=== PATIENT | male | born 1950 | race Caucasian/White ===

== ENCOUNTER 2016-08-04 16:36 | Inpatient (IN) | payer MEDICARE, BC ==
[2016-08-04] MEDS ORDERED: PANTOPRAZOLE 40 MG/10 ML VIAL IVP STA (18:06)
[2016-08-04] MEDS ORDERED: SODIUM CHLORIDE 0.9% 1,000 ML IV STA (18:06)
[2016-08-04] MEDS ORDERED: ONDANSETRON 4 MG/2 ML VIAL IVP STA (18:36)
--- NOTE | 2016-08-04 18:37 | ED ---
GI Bleed HPI - General Chief complaint: GI Bleed Stated complaint: Vomiting Blood Time Seen by Provider: 08/04/16 18:04 Source: patient, RN notes reviewed Mode of arrival: ambulatory Limitations: no limitations - History of Present Illness Initial comments: Patient is a 66-year-old male who states that he is in relatively good health with a chief complaint of episodes of vomiting dark blood today. Patient reports this never happened to him before. He states that he has no specific abdominal pain. He does report that he is occasionally short of breath. Patient denies any history of high blood pressure but does say he is borderline diabetic, he states that over the past week he's been increasingly thirsty.. He states that he's had no fever or chills. States that lately he has had a history of constipation but has had normal bowel movements within the past week. Denies any bloody or dark stools. Patient denies any chest pain, shortness of breath, vomiting, headache, fever, chills, upper story symptoms. - Related Data Home Medications Medication Instructions Recorded Confirmed Aspirin 81 mg PO HS 08/04/16 08/04/16 Multivitamins, Thera [Multivitamin 1 tab PO DAILY 08/04/16 08/04/16 (formulary)] Allergies Allergy/AdvReac Type Severity Reaction Status Date / Time No Known Allergies Allergy Verified 08/04/16 18:50 Review of Systems ROS Statement: Those systems with pertinent positive or pertinent negative responses have been documented in the HPI. ROS Other: All systems not noted in ROS Statement are negative. Past Medical History Past Medical History: No Reported History History of Any Multi-Drug Resistant Organisms: None Reported Past Surgical History: Tonsillectomy Past Psychological History: No Psychological Hx Reported Smoking Status: Former smoker Past Alcohol Use History: None Reported Past Drug Use History: None Reported General Exam Limitations: no limitations General appearance: alert, in no apparent distress Head exam: Present: atraumatic, normocephalic, normal inspection Eye exam: Present: normal appearance, PERRL, EOMI. Absent: scleral icterus, conjunctival injection, periorbital swelling ENT exam: Present: normal exam, mucous membranes moist Neck exam: Present: normal inspection, full ROM. Absent: tenderness, meningismus, lymphadenopathy Respiratory exam: Present: normal lung sounds bilaterally. Absent: respiratory distress, wheezes, rales, rhonchi, stridor Cardiovascular Exam: Present: regular rate, normal rhythm, normal heart sounds. Absent: systolic murmur, diastolic murmur, rubs, gallop, clicks GI/Abdominal exam: Present: soft, normal bowel sounds. Absent: distended, tenderness, guarding, rebound, rigid Extremities exam: Present: normal inspection, full ROM, normal capillary refill. Absent: tenderness, pedal edema, joint swelling, calf tenderness Back exam: Present: normal inspection Neurological exam: Present: alert, oriented X3, CN II-XII intact Psychiatric exam: Present: normal affect, normal mood Skin exam: Present: warm, dry, intact, normal color. Absent: rash Course Vital Signs 08/04/16 08/04/16 17:36 19:51 Temperature 96.9 F L 97.1 F L Pulse Rate 105 H 99 Respiratory 18 18 Rate Blood Pressure 134/62 149/69 O2 Sat by Pulse 97 98 Oximetry Medical Decision Making - Medical Decision Making Patient is a 66-year-old male who states that he is in relatively good health with a chief complaint of episodes of vomiting dark blood today. Patient reports this never happened to him before. He states that he has no specific abdominal pain. He does report that he is occasionally short of breath. Patient denies any history of high blood pressure but does say he is borderline diabetic, he states that over the past week he's been increasingly thirsty.. He states that he's had no fever or chills. Patient was given IV fluids and labs are obtained. EKG was reviewed and is negative for any acute process. No evidence of ST elevation or T-wave inversion.Patient has elevated white blood cell count 19.0. Is likely related to the DKA. Sodium 131, potassium 6.0. Chloride 93, CO2 of 10. BUN of 25. Patient's glucose is 571. Patient's serum acetone positive. will be started on IV hydration for diabetic ketoacidosis. Insulin boluses started. Currently pending ABG and fecal occult blood test. ABG shows pH of 7.2. PCO2 of 17.9. PO2 102. Bicarb of 6.8, CO2 7.3. - Lab Data Result diagrams: 08/04/16 18:40 08/04/16 18:40 Lab Results 03/28/17 03/28/17 03/28/17 Range/Units 18:40 18:40 18:40 WBC 19.0 H (3.8-10.6) k/uL RBC 5.93 H (4.30-5.90) m/uL Hgb 17.0 (13.0-17.5) gm/dL Hct 52.3 (39.0-53.0) % MCV 88.2 (80.0-100.0) fL MCH 28.7 (25.0-35.0) pg MCHC 32.5 (31.0-37.0) g/dL RDW 14.0 (11.5-15.5) % Plt Count 408 (150-450) k/uL Neutrophils % 88 % Lymphocytes % 9 % Monocytes % 2 % Eosinophils % 0 % Basophils % 1 % Neutrophils # 16.8 H (1.3-7.7) k/uL Lymphocytes # 1.6 (1.0-4.8) k/uL Monocytes # 0.3 (0-1.0) k/uL Eosinophils # 0.0 (0-0.7) k/uL Basophils # 0.2 (0-0.2) k/uL PT (9.0-12.0) sec INR (<1.1) APTT (22.0-30.0) sec Sample Site ABG pH (7.35-7.45) ABG pCO2 (35-45) mmHg ABG pO2 (83-108) mmHg ABG HCO3 (21-25) mmol/L ABG Total CO2 (19-24) mmol/L ABG O2 Saturation (94-97) % ABG Base Excess mmol/L FiO2 % Sodium 131 L (137-145) mmol/L Potassium 6.0 H (3.5-5.1) mmol/L Chloride 93 L (98-107) mmol/L Carbon Dioxide 10 L* (22-30) mmol/L Anion Gap 28 mmol/L BUN 25 H (9-20) mg/dL Creatinine 1.17 (0.66-1.25) mg/dL Est GFR (MDRD) Af Amer >60 (>60 ml/min/1.73 sqM) Est GFR (MDRD) Non-Af >60 (>60 ml/min/1.73 sqM) Glucose 571 H* (74-99) mg/dL POC Glucose (mg/dL) (75-99) mg/dL POC Glu Supervisor Dock ID Calcium 9.3 (8.4-10.2) mg/dL Total Bilirubin 0.7 (0.2-1.3) mg/dL AST 20 (17-59) U/L ALT 40 (21-72) U/L Alkaline Phosphatase 159 H (38-126) U/L Total Creatine Kinase 53 L (55-170) U/L CK-MB (CK-2) 1.3 (0.0-2.4) ng/mL CK-MB (CK-2) Rel Index 2.5 Troponin I <0.012 (0.000-0.034) ng/mL Total Protein 8.6 H (6.3-8.2) g/dL Albumin 4.7 (3.5-5.0) g/dL Stool Occult Blood (Negative) Acetone, Qual (Negative) Blood Type Blood Type Recheck Antibody Screen Spec Expiration Date 08/04/16 08/04/16 08/04/16 Range/Units 18:40 18:40 18:40 WBC (3.8-10.6) k/uL RBC (4.30-5.90) m/uL Hgb (13.0-17.5) gm/dL Hct (39.0-53.0) % MCV (80.0-100.0) fL MCH (25.0-35.0) pg MCHC (31.0-37.0) g/dL RDW (11.5-15.5) % Plt Count (150-450) k/uL Neutrophils % % Lymphocytes % % Monocytes % % Eosinophils % % Basophils % % Neutrophils # (1.3-7.7) k/uL Lymphocytes # (1.0-4.8) k/uL Monocytes # (0-1.0) k/uL Eosinophils # (0-0.7) k/uL Basophils # (0-0.2) k/uL PT 10.2 (9.0-12.0) sec INR 1.0 (<1.1) APTT 24.3 (22.0-30.0) sec Sample Site ABG pH (7.35-7.45) ABG pCO2 (35-45) mmHg ABG pO2 (83-108) mmHg ABG HCO3 (21-25) mmol/L ABG Total CO2 (19-24) mmol/L ABG O2 Saturation (94-97) % ABG Base Excess mmol/L FiO2 % Sodium (137-145) mmol/L Potassium (3.5-5.1) mmol/L Chloride (98-107) mmol/L Carbon Dioxide (22-30) mmol/L Anion Gap mmol/L BUN (9-20) mg/dL Creatinine (0.66-1.25) mg/dL Est GFR (MDRD) Af Amer (>60 ml/min/1.73 sqM) Est GFR (MDRD) Non-Af (>60 ml/min/1.73 sqM) Glucose (74-99) mg/dL POC Glucose (mg/dL) (75-99) mg/dL POC Glu Supervisor Dock ID Calcium (8.4-10.2) mg/dL Total Bilirubin (0.2-1.3) mg/dL AST (17-59) U/L ALT (21-72) U/L Alkaline Phosphatase (38-126) U/L Total Creatine Kinase (55-170) U/L CK-MB (CK-2) (0.0-2.4) ng/mL CK-MB (CK-2) Rel Index Troponin I (0.000-0.034) ng/mL Total Protein (6.3-8.2) g/dL Albumin (3.5-5.0) g/dL Stool Occult Blood (Negative) Acetone, Qual Positive (Negative) Blood Type O Positive Blood Type Recheck No Antibody Screen NEGATIVE Spec Expiration Date 08/07/2016 - 233908/04/16 08/04/16 08/04/16 Range/Units 19:50 20:00 20:21 WBC (3.8-10.6) k/uL RBC (4.30-5.90) m/uL Hgb (13.0-17.5) gm/dL Hct (39.0-53.0) % MCV (80.0-100.0) fL MCH (25.0-35.0) pg MCHC (31.0-37.0) g/dL RDW (11.5-15.5) % Plt Count (150-450) k/uL Neutrophils % % Lymphocytes % % Monocytes % % Eosinophils % % Basophils % % Neutrophils # (1.3-7.7) k/uL Lymphocytes # (1.0-4.8) k/uL Monocytes # (0-1.0) k/uL Eosinophils # (0-0.7) k/uL Basophils # (0-0.2) k/uL PT (9.0-12.0) sec INR (<1.1) APTT (22.0-30.0) sec Sample Site RRAD ABG pH 7.20 L* (7.35-7.45) ABG pCO2 18 L* (35-45) mmHg ABG pO2 102 (83-108) mmHg ABG HCO3 7 L* (21-25) mmol/L ABG Total CO2 7 L (19-24) mmol/L ABG O2 Saturation 96.0 (94-97) % ABG Base Excess -20.0 mmol/L FiO2 21 % Sodium (137-145) mmol/L Potassium (3.5-5.1) mmol/L Chloride (98-107) mmol/L Carbon Dioxide (22-30) mmol/L Anion Gap mmol/L BUN (9-20) mg/dL Creatinine (0.66-1.25) mg/dL Est GFR (MDRD) Af Amer (>60 ml/min/1.73 sqM) Est GFR (MDRD) Non-Af (>60 ml/min/1.73 sqM) Glucose (74-99) mg/dL POC Glucose (mg/dL) 462 H (75-99) mg/dL POC Glu Supervisor Dock ID Laureen Sosa Calcium (8.4-10.2) mg/dL Total Bilirubin (0.2-1.3) mg/dL AST (17-59) U/L ALT (21-72) U/L Alkaline Phosphatase (38-126) U/L Total Creatine Kinase (55-170) U/L CK-MB (CK-2) (0.0-2.4) ng/mL CK-MB (CK-2) Rel Index Troponin I (0.000-0.034) ng/mL Total Protein (6.3-8.2) g/dL Albumin (3.5-5.0) g/dL Stool Occult Blood Negative (Negative) Acetone, Qual (Negative) Blood Type Blood Type Recheck Antibody Screen Spec Expiration Date 08/04/16 19:11 EKG shows normal sinus rhythm. Ventricular rate 96 weeks per minute. MI interval 140 ms. QRS duration 84 ms. QT/QTc is 344/434 ms. No evidence of ST elevation or T-wave inversion. No evidence of atrial or ventricular arrhythmias. - Radiology Data Radiology results: report reviewed Chest x-rays negative for any acute process. KUB is negative for any acute process. Disposition Clinical Impression: DKA (diabetic ketoacidoses), Bloody emesis Disposition: ADMITTED IP TO THIS HOSP Condition: Stable Referrals: None,Stated [Primary Care Provider] - 1-2 days Time of Disposition: 19:55
[2016-08-04 18:56] LABS: Basophils # (A) 0.2 k/uL (0-0.2); Basophils % (A) 1 %; CH 28.7; CHCM 32.8; Eosinophils % (A) 0 %; HCT 52.3 % (39.0-53.0); HDW 2.97; Luc # (Auto) 0.13; Luc % (Auto) 1; Lymphocytes # (A) 1.6 k/uL (1.0-4.8); Lymphocytes % (A) 9 %; MCH 28.7 pg (25.0-35.0); MCHC 32.5 g/dL (31.0-37.0); MCV 88.2 fL (80.0-100.0); Mean Platelet Volume 8.3; Monocytes # (A) 0.3 k/uL (0-1.0); Monocytes % (A) 2 %; Neutrophils # (A) 16.8 k/uL (1.3-7.7); Neutrophils % (A) 88 %; RBC 5.93 m/uL (4.30-5.90); WBC (Perox) 19.86
[2016-08-04 19:01] LABS: Partial Thromboplastin Time 24.3 sec (22.0-30.0); Prothrombin Time 10.2 sec (9.0-12.0)
[2016-08-04 19:03] LABS: ALT 40 U/L (21-72); AST 20 U/L (17-59); Alkaline Phosphatase 159 U/L (38-126); Anion Gap 28 mmol/L; Blood Urea Nitrogen 25 mg/dL (9-20); Calcium 9.3 mg/dL (8.4-10.2); Chloride 93 mmol/L (98-107); Non-African American GFR(MDRD) >60 (>60 ml/min/1.73 sqM); Sodium 131 mmol/L (137-145); Total Bilirubin 0.7 mg/dL (0.2-1.3); Total Protein 8.6 g/dL (6.3-8.2)
[2016-08-04 19:09] LABS: Glucose 571 mg/dL (74-99)
[2016-08-04 19:10] LABS: Carbon Dioxide 10 mmol/L (22-30)
[2016-08-04 19:11] LABS: Creatine Kinase 53 U/L (55-170)
[2016-08-04 19:24] LABS: Creatine Kinase MB 1.3 ng/mL (0.0-2.4); Troponin I <0.012 ng/mL (0.000-0.034)
--- NOTE | 2016-08-04 19:38 | XR ---
EXAMINATION TYPE: XR chest 2V DATE OF EXAM: 08/04/2016 7:04 PM COMPARISON: NONE HISTORY: Vomiting blood TECHNIQUE: Frontal and lateral views of the chest are obtained. FINDINGS: There is no focal air space opacity, pleural effusion, or pneumothorax seen. No other abno rmal gas collections. The cardiac silhouette size is within normal limits. The osseous structures a re intact. IMPRESSION: No acute cardiopulmonary process.
--- NOTE | 2016-08-04 19:40 | XR ---
EXAMINATION TYPE: XR KUB DATE OF EXAM: 08/04/2016 7:04 PM COMPARISON: NONE HISTORY: Vomiting blood for 4 hours TECHNIQUE: 2 upright views FINDINGS: There is no pneumoperitoneum and no pneumatosis. The bowel gas pattern is negative. Soft tissues and skeletal structures are unremarkable. IMPRESSION: No acute process.
[2016-08-04] MEDS ORDERED: SODIUM CHLORIDE 0.9% 1,000 ML IV ONE (19:45)
[2016-08-04] MEDS ORDERED: INSULIN REGULAR BOLUS (FROM DRIP BAG) IV ONE (19:46)
[2016-08-04 20:18] LABS: ABG PCO2 18 mmHg (35-45)
[2016-08-04 20:19] LABS: ABG HCO3 7 mmol/L (21-25); ABG PO2 102 mmHg (83-108); ABG TCO2 7 mmol/L (19-24)
[2016-08-04 20:23] LABS: Glucose,Whole Blood 462 mg/dL (75-99)
[2016-08-04] MEDS: INSULIN REGULAR 100 UNIT in SODIUM CHLORIDE 0.9% 100 ML IV SCH (20:39)
[2016-08-04 21:13] LABS: Glucose,Whole Blood 449 mg/dL (75-99)
[2016-08-04 21:25] LABS: Glucose,Whole Blood 422 mg/dL (75-99)
[2016-08-04 22:04] LABS: Glucose,Whole Blood 372 mg/dL (75-99)
[2016-08-04 22:08] VITALS: BMI 38.0
[2016-08-04] MEDS: SODIUM CHLORIDE 0.9% 1,000 ML IV SCH (22:09)
[2016-08-04 22:57] LABS: Appearance,Urine Cloudy (Clear); Bacteria,Urine Few /hpf; Bilirubin,Urine Negative (Negative); Glucose,Urine (UA) 4+ (Negative); Granular Casts,Urine 4 /lpf (0); Leukocyte Esterase,Urine Negative (Negative); Mucus,Urine Rare /hpf; Nitrite,Urine Negative (Negative); Particle Count 42564; Protein,Urine 1+ (Negative); RBC,Urine 1 /hpf (0-5); Specific Gravity,Urine 1.021 (1.001-1.035); Squamous Epithelial Cell,Urine <1 /hpf (0-4); UA Billing (MACRO vs. MICRO) MICRO; Urobilinogen,Urine <2.0 mg/dL (<2.0); WBC,Urine 8 /hpf (0-5)
[2016-08-04 23:01] LABS: Ketones,Urine 4+ (Negative)
[2016-08-04 23:04] LABS: Glucose,Whole Blood 299 mg/dL (75-99)
[2016-08-04] MEDS ORDERED: ONDANSETRON 4 MG/2 ML VIAL IVP PRN (23:21)
[2016-08-04] MEDS: DEXTROSE 5%-0.45% NACL 1,000 ML IV SCH (23:25)
[2016-08-04] MEDS: D5-0.45% NACL WITH KCL 20MEQ/L 1,000 ML IV SCH (23:25)
[2016-08-05 00:02] LABS: Glucose,Whole Blood 248 mg/dL (75-99)
[2016-08-05 00:49] LABS: Anion Gap 17 mmol/L; Blood Urea Nitrogen 24 mg/dL (9-20); Carbon Dioxide 12 mmol/L (22-30); Chloride 103 mmol/L (98-107); Glucose 276 mg/dL (74-99); Non-African American GFR(MDRD) >60 (>60 ml/min/1.73 sqM); Sodium 132 mmol/L (137-145)
[2016-08-05 01:06] LABS: Glucose,Whole Blood 227 mg/dL (75-99)
[2016-08-05] MEDS: SODIUM CHLORIDE 0.9% 1,000 ML IV SCH ×5 (01:10→21:19)
[2016-08-05] MEDS: D5-0.45% NACL WITH KCL 20MEQ/L 1,000 ML IV SCH ×2 (01:40→09:38)
[2016-08-05 02:11] LABS: Glucose,Whole Blood 206 mg/dL (75-99)
[2016-08-05 03:18] LABS: Glucose,Whole Blood 171 mg/dL (75-99)
[2016-08-05] MEDS: INSULIN REGULAR 100 UNIT in SODIUM CHLORIDE 0.9% 100 ML IV SCH (03:31)
[2016-08-05 04:09] LABS: Glucose,Whole Blood 123 mg/dL (75-99)
[2016-08-05 05:12] LABS: Glucose,Whole Blood 115 mg/dL (75-99)
[2016-08-05] MEDS: DEXTROSE 5%-0.45% NACL 1,000 ML IV SCH ×2 (05:21→12:28)
[2016-08-05 06:18] LABS: Glucose,Whole Blood 143 mg/dL (75-99)
[2016-08-05 06:35] LABS: Anion Gap 11 mmol/L; Blood Urea Nitrogen 22 mg/dL (9-20); Carbon Dioxide 21 mmol/L (22-30); Chloride 104 mmol/L (98-107); Glucose 109 mg/dL (74-99); Non-African American GFR(MDRD) >60 (>60 ml/min/1.73 sqM); Phosphorous 2.7 mg/dL (2.5-4.5); Potassium 5.3 mmol/L (3.5-5.1); Sodium 136 mmol/L (137-145)
[2016-08-05 07:08] LABS: Glucose,Whole Blood 169 mg/dL (75-99)
[2016-08-05 08:09] LABS: Glucose,Whole Blood 214 mg/dL (75-99)
[2016-08-05 09:05] LABS: Hemoglobin A1C 12.4 % (4.2-6.1)
[2016-08-05] MEDS: MULTIVITAMINS, THERA 1 EACH TAB PO SCH (09:13)
[2016-08-05 09:26] LABS: Glucose,Whole Blood 381 mg/dL (75-99)
[2016-08-05 10:09] LABS: Glucose,Whole Blood 448 mg/dL (75-99)
[2016-08-05 11:40] LABS: Glucose,Whole Blood 493 mg/dL (75-99)
[2016-08-05 12:14] LABS: Glucose,Whole Blood 392 mg/dL (75-99)
[2016-08-05] MEDS ORDERED: INSULIN DETEMIR 100 UNIT/ML 10 ML VIAL SQ SCH (13:00)
[2016-08-05 13:04] LABS: ALT 34 U/L (21-72); AST 16 U/L (17-59); Alkaline Phosphatase 118 U/L (38-126); Anion Gap 12 mmol/L; Blood Urea Nitrogen 20 mg/dL (9-20); Calcium 8.9 mg/dL (8.4-10.2); Carbon Dioxide 19 mmol/L (22-30); Chloride 97 mmol/L (98-107); Glucose 425 mg/dL (74-99); Non-African American GFR(MDRD) >60 (>60 ml/min/1.73 sqM); Potassium 5.5 mmol/L (3.5-5.1); Sodium 128 mmol/L (137-145); Total Bilirubin 0.5 mg/dL (0.2-1.3); Total Protein 6.5 g/dL (6.3-8.2)
[2016-08-05 13:53] LABS: Glucose,Whole Blood 370 mg/dL (75-99)
--- NOTE | 2016-08-05 14:28 | P.HPIM ---
History of Present Illness H&P Date: 08/05/16 Chief Complaint: Nausea vomiting and hematemesis. 66-year-old gentleman was in his normal health patient only takes aspirin as his medication comes into the hospital with complains of intermittent nausea and vomiting for the last day prior to admission. Patient stated that he noted liquid stool with some dark material concerning for blood prior to admission. Patient was concerned and was evaluated in the emergency room. Patient underwent a panel of labs was noted to have anion gap metabolic acidosis with hyperglycemia and ketonemia consistent with diabetic ketoacidosis. Patient denies having any history of diabetes, denies having any recent illnesses. Patient states that he was in his usual health. Patient states that he was a heavy drinker about 10 years ago however has not had any alcohol in the recent times. During the time of my evaluation patient states that he is feeling better denies having any headaches, blurry vision, nausea, vomiting, abdominal pain, diarrhea, urinary urgency or frequency at this time. Patient is started on a insulin drip around 4-6 units per hour. HbA1c was around 12.8 g per DL. Review of Systems All systems: negative (Noted in HPI) Past Medical History Past Medical History: Hyperlipidemia Additional Past Medical History / Comment(s): used to take lipitor History of Any Multi-Drug Resistant Organisms: None Reported Past Surgical History: Tonsillectomy Past Anesthesia/Blood Transfusion Reactions: No Reported Reaction Past Psychological History: No Psychological Hx Reported Smoking Status: Former smoker Past Alcohol Use History: None Reported Past Drug Use History: None Reported - Past Family History Mother Family Medical History: Coronary Artery Disease (CAD), Diabetes Mellitus Father Family Medical History: Coronary Artery Disease (CAD) Brother(s) Family Medical History: No Reported History Medications and Allergies Home Medications Medication Instructions Recorded Confirmed Type Aspirin 81 mg PO HS 08/04/16 08/04/16 History Multivitamins, Thera [Multivitamin 1 tab PO DAILY 08/04/16 08/04/16 History (formulary)] Allergies Allergy/AdvReac Type Severity Reaction Status Date / Time No Known Allergies Allergy Verified 08/04/16 18:50 Physical Exam Vitals: Vital Signs Temp Pulse Pulse Resp BP BP Pulse Ox 08/05/16 12:00 97.4 F L 88 18 160/61 98 08/05/16 11:31 97.4 F L 91 18 168/63 98 08/05/16 08:09 97.4 F L 86 18 142/67 96 08/05/16 08:00 91 18 08/05/16 04:00 96 16 120/57 97 08/05/16 00:00 92 18 133/67 08/04/16 21:59 97.4 F L 93 18 134/72 100 08/04/16 20:47 112 H 18 145/67 98 08/04/16 19:51 97.1 F L 99 18 149/69 98 Intake and Output 08/04/16 08/05/16 08/05/16 22:59 06:59 14:59 Intake Total 1016.485 80.243 1280 Output Total 800 500 650 Balance 216.485 -419.757 630 Intake: IV 1000 Sodium Chloride 0.9% 1, 1000 000 ml @ 200 mls/hr IV . Q5H [facility] Rx#:[id number] Intake, IV Titration 16.485 80.243 300 Amount Dextrose 5%-0.45% NaCl 1, 300 000 ml @ 150 mls/hr IV . Q6H40M [facility]RICE Rx#:[id number] Insulin Regular 100 unit 16.485 80.243 In Sodium Chloride 0.9% 100 ml @ 0.1 UNITS/KG/HR 10.99 mls/hr IV .Q9H12M PATRICE Rx#:[id number] Oral 980 Output: Urine 800 500 650 Other: # Voids 1 2 Weight 120.4 kg 120.4 kg 120.4 kg Patient Weight 08/06/16 06:59 Weight 120.4 kg Physical exam Gen. appearance oriented 3 in no distress Neck is supple no JVD Lungs good air entry clear to auscultation no rhonchi or wheezing Heart S1-S2 heard regular rate and rhythm no murmurs appreciated Abdomen distended no organomegaly bowel sounds intact tympanic to percussion. Neurologically cranial nerves II-12 grossly intact no focal motor or sensory deficits noted Skin no abnormalities appreciated Results CBC & Chem 7: 08/04/16 18:40 08/05/16 12:11 Labs: Abnormal Lab Results - Last 24 Hours (Table) 08/04/16 08/04/16 08/04/16 Range/Units 20:00 20:21 21:11 ABG pH 7.20 L* (7.35-7.45) ABG pCO2 18 L* (35-45) mmHg ABG HCO3 7 L* (21-25) mmol/L ABG Total CO2 7 L (19-24) mmol/L Sodium (137-145) mmol/L Potassium (3.5-5.1) mmol/L Chloride (98-107) mmol/L Carbon Dioxide (22-30) mmol/L BUN (9-20) mg/dL Glucose (74-99) mg/dL POC Glucose (mg/dL) 462 H 449 H (75-99) mg/dL AST (17-59) U/L Urine Protein (Negative) Urine Glucose (UA) (Negative) Urine Ketones (Negative) Urine WBC (0-5) /hpf Urine Bacteria (None) /hpf Hyaline Casts (0-2) /lpf Urine Mucus (None) /hpf 08/04/16 08/04/16 08/04/16 Range/Units 21:22 22:03 22:24 ABG pH (7.35-7.45) ABG pCO2 (35-45) mmHg ABG HCO3 (21-25) mmol/L ABG Total CO2 (19-24) mmol/L Sodium (137-145) mmol/L Potassium (3.5-5.1) mmol/L Chloride (98-107) mmol/L Carbon Dioxide (22-30) mmol/L BUN (9-20) mg/dL Glucose (74-99) mg/dL POC Glucose (mg/dL) 422 H 372 H (75-99) mg/dL AST (17-59) U/L Urine Protein 1+ H (Negative) Urine Glucose (UA) 4+ H (Negative) Urine Ketones 4+ H (Negative) Urine WBC 8 H (0-5) /hpf Urine Bacteria Few H (None) /hpf Hyaline Casts 5 H (0-2) /lpf Urine Mucus Rare H (None) /hpf 08/04/16 08/04/16 08/05/16 Range/Units 23:02 23:59 00:01 ABG pH (7.35-7.45) ABG pCO2 (35-45) mmHg ABG HCO3 (21-25) mmol/L ABG Total CO2 (19-24) mmol/L Sodium 132 L (137-145) mmol/L Potassium (3.5-5.1) mmol/L Chloride (98-107) mmol/L Carbon Dioxide 12 L (22-30) mmol/L BUN 24 H (9-20) mg/dL Glucose 276 H (74-99) mg/dL POC Glucose (mg/dL) 299 H 248 H (75-99) mg/dL AST (17-59) U/L Urine Protein (Negative) Urine Glucose (UA) (Negative) Urine Ketones (Negative) Urine WBC (0-5) /hpf Urine Bacteria (None) /hpf Hyaline Casts (0-2) /lpf Urine Mucus (None) /hpf 08/05/16 08/05/16 08/05/16 Range/Units 01:05 02:09 03:16 ABG pH (7.35-7.45) ABG pCO2 (35-45) mmHg ABG HCO3 (21-25) mmol/L ABG Total CO2 (19-24) mmol/L Sodium (137-145) mmol/L Potassium (3.5-5.1) mmol/L Chloride (98-107) mmol/L Carbon Dioxide (22-30) mmol/L BUN (9-20) mg/dL Glucose (74-99) mg/dL POC Glucose (mg/dL) 227 H 206 H 171 H (75-99) mg/dL AST (17-59) U/L Urine Protein (Negative) Urine Glucose (UA) (Negative) Urine Ketones (Negative) Urine WBC (0-5) /hpf Urine Bacteria (None) /hpf Hyaline Casts (0-2) /lpf Urine Mucus (None) /hpf 08/05/16 08/05/16 08/05/16 Range/Units 04:07 05:11 05:27 ABG pH (7.35-7.45) ABG pCO2 (35-45) mmHg ABG HCO3 (21-25) mmol/L ABG Total CO2 (19-24) mmol/L Sodium 136 L (137-145) mmol/L Potassium 5.3 H (3.5-5.1) mmol/L Chloride (98-107) mmol/L Carbon Dioxide 21 L (22-30) mmol/L BUN 22 H (9-20) mg/dL Glucose 109 H (74-99) mg/dL POC Glucose (mg/dL) 123 H 115 H (75-99) mg/dL AST (17-59) U/L Urine Protein (Negative) Urine Glucose (UA) (Negative) Urine Ketones (Negative) Urine WBC (0-5) /hpf Urine Bacteria (None) /hpf Hyaline Casts (0-2) /lpf Urine Mucus (None) /hpf 08/05/16 08/05/16 08/05/16 Range/Units 06:17 06:56 07:57 ABG pH (7.35-7.45) ABG pCO2 (35-45) mmHg ABG HCO3 (21-25) mmol/L ABG Total CO2 (19-24) mmol/L Sodium (137-145) mmol/L Potassium (3.5-5.1) mmol/L Chloride (98-107) mmol/L Carbon Dioxide (22-30) mmol/L BUN (9-20) mg/dL Glucose (74-99) mg/dL POC Glucose (mg/dL) 143 H 169 H 214 H (75-99) mg/dL AST (17-59) U/L Urine Protein (Negative) Urine Glucose (UA) (Negative) Urine Ketones (Negative) Urine WBC (0-5) /hpf Urine Bacteria (None) /hpf Hyaline Casts (0-2) /lpf Urine Mucus (None) /hpf 08/05/16 08/05/16 08/05/16 Range/Units 09:14 10:08 11:04 ABG pH (7.35-7.45) ABG pCO2 (35-45) mmHg ABG HCO3 (21-25) mmol/L ABG Total CO2 (19-24) mmol/L Sodium (137-145) mmol/L Potassium (3.5-5.1) mmol/L Chloride (98-107) mmol/L Carbon Dioxide (22-30) mmol/L BUN (9-20) mg/dL Glucose (74-99) mg/dL POC Glucose (mg/dL) 381 H 448 H 493 H (75-99) mg/dL AST (17-59) U/L Urine Protein (Negative) Urine Glucose (UA) (Negative) Urine Ketones (Negative) Urine WBC (0-5) /hpf Urine Bacteria (None) /hpf Hyaline Casts (0-2) /lpf Urine Mucus (None) /hpf 08/05/16 08/05/16 08/05/16 Range/Units 12:02 12:11 13:51 ABG pH (7.35-7.45) ABG pCO2 (35-45) mmHg ABG HCO3 (21-25) mmol/L ABG Total CO2 (19-24) mmol/L Sodium 128 L (137-145) mmol/L Potassium 5.5 H (3.5-5.1) mmol/L Chloride 97 L (98-107) mmol/L Carbon Dioxide 19 L (22-30) mmol/L BUN (9-20) mg/dL Glucose 425 H (74-99) mg/dL POC Glucose (mg/dL) 392 H 370 H (75-99) mg/dL AST 16 L (17-59) U/L Urine Protein (Negative) Urine Glucose (UA) (Negative) Urine Ketones (Negative) Urine WBC (0-5) /hpf Urine Bacteria (None) /hpf Hyaline Casts (0-2) /lpf Urine Mucus (None) /hpf Thrombosis Risk Factor Assmnt - Choose All That Apply Any of the Below Risk Factors Present?: Yes Each Factor Represents 1 point: Obesity (BMI >25) Other Risk Factors: Yes Each Risk Factor Represents 2 Points: Age 61-74 years Thrombosis Risk Factor Assessment Total Risk Factor Score: 3 Thrombosis Risk Factor Assessment Level: Moderate Risk Assessment and Plan Plan: #1 new onset diabetes mellitus type 2 with diabetic ketoacidosis on admission #2 obesity #3 hyponatremia secondary to above, pseudohyponatremia #4 anion gap metabolic acidosis consistent with #1 #5 dyslipidemia #6 hematemesis however hemoglobin is stable we'll start the patient on a PPI hold off on obtaining a GI consult at this time if there is a drop in hemoglobin and then a GI consult will be obtained. Patient will be referred on outpatient basis after 2-3 weeks if patient has recurrent symptoms. Plan Patient will be put on metformin 500 mg twice a day. With 0.5 units per kilo, patient will be placed on a basal dose of 30 units of Levemir with 7 3 times a day of NovoLog pre-meal insulin. Diabetes education will be needed. Consult rn diabetes educator. Current ambulation.
[2016-08-05 14:52] LABS: Glucose,Whole Blood 332 mg/dL (75-99)
[2016-08-05 15:22] LABS: Glucose,Whole Blood 357 mg/dL (75-99)
[2016-08-05] MEDS: metFORMIN 500 MG TAB PO SCH (16:26)
[2016-08-05 16:59] LABS: Glucose,Whole Blood 222 mg/dL (75-99)
[2016-08-05] MEDS: INSULIN LISPRO (humaLOG) 300 UNIT/3 ML VIAL SQ SCH ×3 (17:16→21:18)
[2016-08-05] MEDS ORDERED: PANTOPRAZOLE 40 MG TABLET PO SCH (17:30)
[2016-08-05 20:59] LABS: Glucose,Whole Blood 311 mg/dL (75-99)
[2016-08-05] MEDS ORDERED: ASPIRIN 81 MG CHEW PO SCH (21:00)
[2016-08-06] VITALS: RESP 16
[2016-08-06] MEDS ORDERED: PANTOPRAZOLE SODIUM 40 MG GRANULE PKT PO SCH (07:30)
[2016-08-06 07:35] LABS: Glucose,Whole Blood 241 mg/dL (75-99)
[2016-08-06] MEDS: INSULIN LISPRO (humaLOG) 300 UNIT/3 ML VIAL SQ SCH ×4 (07:50→12:35)
[2016-08-06] MEDS: metFORMIN 500 MG TAB PO SCH (07:51)
[2016-08-06] MEDS: SODIUM CHLORIDE 0.9% 1,000 ML IV SCH ×2 (08:07→12:34)
[2016-08-06 08:51] LABS: Basophils # (A) 0.1 k/uL (0-0.2); Basophils % (A) 1 %; CH 28.9; CHCM 34.7; Eosinophils # (A) 0.1 k/uL (0-0.7); Eosinophils % (A) 1 %; HCT 37.1 % (39.0-53.0); HDW 2.92; Luc # (Auto) 0.22; Luc % (Auto) 2; Lymphocytes # (A) 2.8 k/uL (1.0-4.8); Lymphocytes % (A) 26 %; MCH 29.1 pg (25.0-35.0); MCHC 34.8 g/dL (31.0-37.0); MCV 83.9 fL (80.0-100.0); Mean Platelet Volume 7.8; Monocytes # (A) 0.4 k/uL (0-1.0); Monocytes % (A) 4 %; Neutrophils # (A) 7.2 k/uL (1.3-7.7); Neutrophils % (A) 66 %; RBC 4.43 m/uL (4.30-5.90); RDW 14.2 % (11.5-15.5); WBC 10.9 k/uL (3.8-10.6); WBC (Perox) 11.69
[2016-08-06 08:56] LABS: ALT 35 U/L (21-72); AST 16 U/L (17-59); Alkaline Phosphatase 120 U/L (38-126); Anion Gap 12 mmol/L; Blood Urea Nitrogen 13 mg/dL (9-20); Calcium 8.8 mg/dL (8.4-10.2); Carbon Dioxide 19 mmol/L (22-30); Chloride 101 mmol/L (98-107); Glucose 254 mg/dL (74-99); Non-African American GFR(MDRD) >60 (>60 ml/min/1.73 sqM); Potassium 4.4 mmol/L (3.5-5.1); Sodium 132 mmol/L (137-145); Total Bilirubin 0.7 mg/dL (0.2-1.3); Total Protein 6.4 g/dL (6.3-8.2)
[2016-08-06 08:59] LABS: HGB 12.9 gm/dL (13.0-17.5)
[2016-08-06 09:01] VITALS: BP 154/69; PULSE 80; TEMP 98.5
[2016-08-06 12:14] LABS: Glucose,Whole Blood 253 mg/dL (75-99)
[2016-08-06] MEDS: MULTIVITAMINS, THERA 1 EACH TAB PO SCH (13:24)
--- NOTE | 2016-08-06 15:31 | P.DS ---
Providers Date of admission: 08/04/16 19:36 Attending physician: Osiris Ricks Primary care physician: Stated None Hospital Course: 66-year-old gentleman was in his normal health patient only takes aspirin as his medication comes into the hospital with complains of intermittent nausea and vomiting for the last day prior to admission. Patient stated that he noted liquid stool with some dark material concerning for blood prior to admission. Patient was concerned and was evaluated in the emergency room. Patient underwent a panel of labs was noted to have anion gap metabolic acidosis with hyperglycemia and ketonemia consistent with diabetic ketoacidosis. Patient denies having any history of diabetes, denies having any recent illnesses. Patient states that he was in his usual health. Patient states that he was a heavy drinker about 10 years ago however has not had any alcohol in the recent times. During the time of my evaluation patient states that he is feeling better denies having any headaches, blurry vision, nausea, vomiting, abdominal pain, diarrhea, urinary urgency or frequency at this time. Patient is started on a insulin drip around 4-6 units per hour. HbA1c was around 12.8 g per DL. 08/06/2016 Patient is doing well. He is able to tolerate diet. Denies having any headaches, blurry vision, nausea, vomiting, diarrhea at this time. Physical exam Gen. appearance oriented 3 in no distress Neck is supple no JVD Lungs good air entry clear to auscultation no rhonchi or wheezing Heart S1-S2 heard regular rate and rhythm no murmurs appreciated Abdomen distended no organomegaly bowel sounds intact tympanic to percussion. Neurologically cranial nerves II-12 grossly intact no focal motor or sensory deficits noted Skin no abnormalities appreciated Assessment and Plan Plan: #1 new onset diabetes mellitus type 2 with diabetic ketoacidosis on admission #2 obesity #3 hyponatremia secondary to above, pseudohyponatremia #4 anion gap metabolic acidosis consistent with #1 #5 dyslipidemia #6 hematemesis however hemoglobin is stable we'll start the patient on a PPI hold off on obtaining a GI consult at this time if there is a drop in hemoglobin and then a GI consult will be obtained. Patient will be referred on outpatient basis after 2-3 weeks if patient has recurrent symptoms. Diabetes education was provided. Patient is a brand-new diabetic insulin injection technique was also reviewed with the RN. Patient is recommended to take Levemir 35 units with NovoLog pre-meal 7 units 3 times a day. Metformin is increased at thousand milligrams twice a day. Patient is also given referrals to 2 different primary care physician's patient needs to establish care. Patient does complain of some numbness in his lower extremities evaluation for peripheral neuropathy needs to be made. Patient also has 1+ proteinuria on admission she may benefit from lisinopril at some point. However due to the multitude of new drugs I deferred that prescription for later date with his primary care physician. Patient Condition at Discharge: Stable Plan - Discharge Summary New Discharge Prescriptions: INSULIN LISPRO (humaLOG) [humaLOG (formulary)] 7 unit SQ AC-TID #2 vial Insulin Detemir [Levemir] 35 unit SQ HS #2 vial Omeprazole [PriLOSEC] 20 mg PO AC-BRKFST #30 cap Syring W-Ndl,Disp,Insul,0.5 ml [INSULIN SYRINGES 28G 1/2" 0.5ML] 1 syr SQ DIRECTED #100 each metFORMIN HCL [Glucophage] 1,000 mg PO BID-W/MEALS #60 tab Discharge Medication List Aspirin 81 mg PO HS 08/04/16 [History] Multivitamins, Thera [Multivitamin (formulary)] 1 tab PO DAILY 08/04/16 [History ] INSULIN LISPRO (humaLOG) [humaLOG (formulary)] 7 unit SQ AC-TID #2 vial [Rx] Insulin Detemir [Levemir] 35 unit SQ HS #2 vial 08/06/16 [Rx] Omeprazole [PriLOSEC] 20 mg PO AC-BRKFST #30 cap 08/06/16 [Rx] Syring W-Ndl,Disp,Insul,0.5 ml [INSULIN SYRINGES 28G 1/2" 0.5ML] 1 syr SQ DIRECTED #100 each 08/06/16 [Rx] metFORMIN HCL [Glucophage] 1,000 mg PO BID-W/MEALS #60 tab 08/06/16 [Rx] Follow up Appointment(s)/Referral(s): Dallin Jurado MD [STAFF PHYSICIAN] - 1 Week Patient Instructions/Handouts: Glucose Test Strips (Not Applicable), How to Check Your Blood Sugar (DC), Diabetic Ketoacidosis (DC), Hypoglycemia in a Person with Diabetes (DC), Type 2 Diabetes in Adults (GEN), Diabetic Hyperglycemia (DC), Hemoglobin A1c (GEN) Discharge Disposition: HOME SELF-CARE
== END 2016-08-06 16:30 | disposition home or self-care (01) | DRG 638 ==
LOC: EC 16:36 → 6SEL 19:36 → 5MS5E 08-05 23:13
PROVIDERS: ADMIT Internal Medicine; ATTEND Internal Medicine
DX: E13.10 Other specified diabetes mellitus with ketoacidosis without coma (principal); K92.0 Hematemesis; E87.1 Hypo-osmolality and hyponatremia; E66.9 Obesity, unspecified; E78.5 Hyperlipidemia, unspecified; Z79.82 Long term (current) use of aspirin; Z83.3 Family history of diabetes mellitus; Z79.899 Other long term (current) drug therapy; Z87.891 Personal history of nicotine dependence
CPT/HCPCS: 36415; 36600; 71020; 74000; 80051; 80053; 81001; 82009; 82272; 82550; 82553; 82565; 82805; 82947; 83036; 84100; 84132; 84484; 84520; 85025; 85610; 85730; 86850; 86900; 86901; 93005; 96361; 96365; 96375; 96376; 99285

== ENCOUNTER → 2018-02-11 | Outpatient (CLI) | payer MEDICARE, BC ==
--- NOTE | 2018-02-11 07:38 | US ---
EXAMINATION TYPE: US duplex aorta DATE OF EXAM: 02/11/2018 COMPARISON: NONE CLINICAL HISTORY: Z13.9 Encounter for screening, unspecified. Controlled HTN; Diabetic; HT 5'11, WT 2 80lbs EXAM MEASUREMENTS: Abdominal Aorta: Proximal: 2.4cm A/P Mid: 2.3cm Transverse Distal: 2.2cm A/P Bifurcation: not seen due to overlying bowel gas and depth of penetration for large body habitus IMPRESSION: 1. No diagnostic evidence of aortic aneurysm.
== END | disposition home or self-care (01) ==
LOC: RADUSWWP 07:00
PROVIDERS: ATTEND Family Medicine
DX: Z13.9 Encounter for screening, unspecified (principal)
CPT/HCPCS: 93979

== ENCOUNTER 2019-07-13 20:50 | Emergency (ER) | payer MEDICARE, BC ==
[2019-07-13 20:55] VITALS: BP 170/84; PULSE 115; RESP 20; TEMP 97.9
[2019-07-13] MEDS ORDERED: LIDOCAINE 1%-EPI 1:100,000 20 ML VIAL SQ STA (21:18)
--- NOTE | 2019-07-13 21:43 | ED ---
General Adult HPI - General Chief complaint: Wound/Laceration Stated complaint: cut skin tag-bleeding for 6 hours Source: patient, RN notes reviewed Mode of arrival: ambulatory Limitations: no limitations - History of Present Illness Initial comments: 69-year-old male with a past medical history of hyperlipidemia presents to the emergency department for a chief complaint of skin tag bleeding. Patient states he tried to cut his own skin tag off his left upper thigh at 9 AM this morning and it would not stop bleeding. States that he is not sure how to get it to stop at this point. Patient does not take blood thinners. Does not take Coumadin. Does not have any coagulopathies.Patient has no other complaints at this time including shortness of breath, chest pain, abdominal pain, nausea or vomiting, headache, or visual changes. - Related Data Home Medications Medication Instructions Recorded Confirmed Aspirin 81 mg PO HS 08/04/16 08/04/16 Multivitamins, Thera [Multivitamin 1 tab PO DAILY 08/04/16 08/04/16 (formulary)] Previous Rx's Medication Instructions Recorded INSULIN LISPRO (humaLOG) [humaLOG] 7 unit SQ AC-TID #2 vial 08/06/16 Insulin Detemir (Levemir) [Levemir] 35 unit SQ HS #2 vial 08/06/16 Omeprazole [PriLOSEC] 20 mg PO AC-BRKFST #30 cap 08/06/16 Syringe-Needle,Insulin,0.5 ml 1 syr SQ DIRECTED #100 each 08/06/16 [INSULIN SYRINGES 28G 1/2" 0.5ML] metFORMIN HCL [Glucophage] 1,000 mg PO BID-W/MEALS #60 tab 08/06/16 Allergies Allergy/AdvReac Type Severity Reaction Status Date / Time No Known Allergies Allergy Verified 07/13/19 20:55 Review of Systems ROS Statement: Those systems with pertinent positive or pertinent negative responses have been documented in the HPI. ROS Other: All systems not noted in ROS Statement are negative. Past Medical History Past Medical History: Hyperlipidemia Additional Past Medical History / Comment(s): used to take lipitor History of Any Multi-Drug Resistant Organisms: None Reported Past Surgical History: Tonsillectomy Past Anesthesia/Blood Transfusion Reactions: No Reported Reaction Past Psychological History: No Psychological Hx Reported Smoking Status: Former smoker Past Alcohol Use History: None Reported Past Drug Use History: None Reported - Past Family History Mother Family Medical History: Coronary Artery Disease (CAD), Diabetes Mellitus Father Family Medical History: Coronary Artery Disease (CAD) Brother(s) Family Medical History: No Reported History General Exam Limitations: no limitations General appearance: alert, in no apparent distress Head exam: Present: atraumatic, normocephalic, normal inspection Eye exam: Present: normal appearance, PERRL, EOMI. Absent: scleral icterus, conjunctival injection, periorbital swelling ENT exam: Present: normal exam, mucous membranes moist Neck exam: Present: normal inspection. Absent: tenderness, meningismus, lymphadenopathy Respiratory exam: Present: normal lung sounds bilaterally. Absent: respiratory distress, wheezes, rales, rhonchi, stridor Cardiovascular Exam: Present: regular rate, normal rhythm, normal heart sounds. Absent: systolic murmur, diastolic murmur, rubs, gallop, clicks GI/Abdominal exam: Present: soft, normal bowel sounds. Absent: distended, tenderness, guarding, rebound, rigid Extremities exam: Present: other (Small bleeding lesion about 3 mm x 3 mm on the inner upper thigh were patient attempted to cut off skin tag.) Course Vital Signs 07/13/19 20:50 Temperature 97.9 F Pulse Rate 115 H Respiratory 20 Rate Blood Pressure 170/84 O2 Sat by Pulse 98 Oximetry Procedures - Laceration Laceration #1 Consent Obtained: verbal consent Indication: laceration Site: lower extremity Depth: simple, single layer Anesthetic Used: lidocaine 1%, with epi Anesthesia Technique: local infiltration Amount (mls): 1 Type of Sutures: vicryl Size of Sutures: 5-0 Number of Sutures: 1 Technique: other (Figure 8) Patient Tolerated Procedure: well, no complications Medical Decision Making - Medical Decision Making Lidocaine with epi was initially applied. This did not completely achieve hemostasis. Therefore a figure 8 suture was placed. This did achieve hemostasis. This is dissolvable. Patient will follow up with primary care return for any worsening symptoms. Disposition Clinical Impression: Skin tag Disposition: HOME SELF-CARE Condition: Good Instructions (If sedation given, give patient instructions): Care For Your Absorbable Stitches (ED) Additional Instructions: If bleeding starts again apply pressure. If you cannot get it to stop return to the emergency department. Otherwise follow-up with primary care 1-2 days. Stitch should dissolve on its own. Is patient prescribed a controlled substance at d/c from ED?: No Referrals: Dallin Jurado MD [Primary Care Provider] - 1-2 days Time of Disposition: 22:21
== END 2019-07-13 22:46 | disposition home or self-care (01) ==
LOC: EC 20:50
DX: L91.8 Other hypertrophic disorders of the skin (principal); E78.5 Hyperlipidemia, unspecified; Z87.891 Personal history of nicotine dependence; Z79.899 Other long term (current) drug therapy; X78.8XXA Intentional self-harm by other sharp object, initial encounter
CPT/HCPCS: 12001; 99282

== ENCOUNTER → 2019-12-14 | Outpatient (CLI) | payer MEDICARE, BC ==
--- NOTE | 2019-12-14 09:41 | XR ---
EXAMINATION TYPE: XR chest 2V DATE OF EXAM: 12/14/2019 COMPARISON: Chest x-ray August 04, 2016. HISTORY: Chest and sternal pain. TECHNIQUE: Frontal and lateral views of the chest are obtained. FINDINGS: Background chronic emphysematous change seen best on lateral view. There is no new suspici ous focal air space opacity, pleural effusion, or pneumothorax seen. The cardiac silhouette size rem ains within normal limits. The osseous structures are intact. IMPRESSION: No acute cardiopulmonary process. No significant change from prior.
== END | disposition home or self-care (01) ==
LOC: RADXRMAIN 09:24
PROVIDERS: ATTEND Nurse Practitioner Family
DX: R07.89 Other chest pain (principal)
CPT/HCPCS: 71046

== ENCOUNTER 2020-02-09 02:55 | Emergency (ER) | payer MEDICARE, BC ==
[2020-02-09 03:22] VITALS: BP 173/77; PULSE 101; RESP 18; TEMP 98.7
--- NOTE | 2020-02-09 03:24 | ED ---
Arrhythmia/Palpitations HPI - General Stated Complaint: Heart racing, mental health Time Seen by Provider: 02/09/20 02:57 Source: EMS Mode of arrival: EMS Limitations: no limitations - History of Present Illness Initial Comments: This patient is 69-year-old man who presents to have evaluation after he states his heart was racing. The patient states that he had an argument with his brother and it made his heart race. MD Complaint: "heart racing" -: hour(s) Context: other Associated Symptoms: anxiety - Related Data Home Medications Medication Instructions Recorded Confirmed Aspirin 81 mg PO HS 08/04/16 08/04/16 Multivitamins, Thera [Multivitamin 1 tab PO DAILY 08/04/16 08/04/16 (formulary)] Previous Rx's Medication Instructions Recorded INSULIN LISPRO (humaLOG) [humaLOG] 7 unit SQ AC-TID #2 vial 08/06/16 Insulin Detemir (Levemir) [Levemir] 35 unit SQ HS #2 vial 08/06/16 Omeprazole [PriLOSEC] 20 mg PO AC-BRKFST #30 cap 08/06/16 Syringe-Needle,Insulin,0.5 ml 1 syr SQ DIRECTED #100 each 08/06/16 [INSULIN SYRINGES 28G 1/2" 0.5ML] metFORMIN HCL [Glucophage] 1,000 mg PO BID-W/MEALS #60 tab 08/06/16 Allergies Allergy/AdvReac Type Severity Reaction Status Date / Time No Known Allergies Allergy Verified 02/09/20 03:22 Review of Systems ROS Statement: Those systems with pertinent positive or pertinent negative responses have been documented in the HPI. ROS Other: All systems not noted in ROS Statement are negative. Constitutional: Denies: fever, chills Respiratory: Denies: cough, dyspnea Cardiovascular: Reports: palpitations. Denies: chest pain, orthopnea, syncope Gastrointestinal: Denies: abdominal pain, nausea, vomiting Genitourinary: Denies: dysuria, hematuria Musculoskeletal: Denies: back pain Skin: Denies: rash Neurological: Denies: headache, weakness, numbness Past Medical History Past Medical History: Diabetes Mellitus, Hyperlipidemia, Hypertension Additional Past Medical History / Comment(s): used to take lipitor , neuropathy History of Any Multi-Drug Resistant Organisms: None Reported Past Surgical History: Tonsillectomy Past Anesthesia/Blood Transfusion Reactions: No Reported Reaction Past Psychological History: Anxiety, Bipolar Smoking Status: Current every day smoker Past Alcohol Use History: Occasional Past Drug Use History: None Reported - Past Family History Mother Family Medical History: Coronary Artery Disease (CAD), Diabetes Mellitus Father Family Medical History: Coronary Artery Disease (CAD) Brother(s) Family Medical History: No Reported History General Exam Limitations: no limitations General appearance: alert, in no apparent distress Head exam: Present: atraumatic, normocephalic Eye exam: Present: normal appearance. Absent: scleral icterus, conjunctival injection Neck exam: Present: normal inspection Respiratory exam: Present: normal lung sounds bilaterally. Absent: respiratory distress, wheezes, rales, rhonchi, stridor Cardiovascular Exam: Present: regular rate, normal rhythm, normal heart sounds. Absent: systolic murmur, diastolic murmur, rubs, gallop GI/Abdominal exam: Present: soft. Absent: distended, tenderness, guarding, rebound, rigid Extremities exam: Present: normal inspection, normal capillary refill. Absent: pedal edema, calf tenderness Neurological exam: Present: alert, normal gait Psychiatric exam: Present: anxious. Absent: agitated, homicidal ideation, suicidal ideation Skin exam: Present: warm, dry, intact, normal color. Absent: rash Course Vital Signs 02/09/20 03:10 Temperature 98.7 F Pulse Rate 101 H Respiratory 18 Rate Blood Pressure 173/77 O2 Sat by Pulse 99 Oximetry EKG Findings - EKG Results: EKG: interpreted by ERMD, sinus rhythm (With sinus arrhythmia, Rate 92 bpm), no rmal axis, normal QRS, normal ST/T Medical Decision Making - Medical Decision Making Patient is 69-year-old man who had come in to have evaluation of heart palpitations. The patient was seen and evaluated and then walked out of the department before completing treatment. Disposition Clinical Impression: Palpitations Disposition: Left Against Medical Advice Condition: Undetermined Is patient prescribed a controlled substance at d/c from ED?: No Referrals: Dallin Jurado MD [Primary Care Provider] - 1-2 days
== END 2020-02-09 03:37 | disposition left against medical advice (07) ==
LOC: EC 02:55
DX: R00.2 Palpitations (principal); F17.200 Nicotine dependence, unspecified, uncomplicated; Z53.29 Procedure and treatment not carried out because of patient's decision for other reasons
CPT/HCPCS: 93005; 99284

== ENCOUNTER 2020-04-15 22:29 | Inpatient (IN) | payer MEDICARE, BC ==
[2020-04-15] MEDS ORDERED: LORazepam 2 MG/ML INJ IM STA (23:24)
[2020-04-15] MEDS ORDERED: ZIPRASIDONE 20 MG VIAL IM STA (23:25)
--- NOTE | 2020-04-15 23:28 | ED ---
Psych HPI - General Chief Complaint: Psychiatric Symptoms Stated Complaint: Mental Health Time Seen by Provider: 04/15/20 22:31 Source: patient Mode of arrival: ambulatory Limitations: altered mental status - History of Present Illness Initial Comments: This patient is a 69-year-old man who reportedly told the triage nurses that he was feeling suicidal and that his brother had hired the militia to kill him. When I interview the patient, he is not cooperative with the history portion. The patient declined to give his name. He declined to state why he was in the emergency department. When I did explain that I had to perform a medical clearance he was cooperative with the physical exam, but would not discuss his reasons for being here. MD Complaint: other -: unknown Associated Psychiatric Symptoms: other - Related Data Home Medications Medication Instructions Recorded Confirmed Aspirin 81 mg PO HS 08/04/16 08/04/16 Multivitamins, Thera [Multivitamin 1 tab PO DAILY 08/04/16 08/04/16 (formulary)] Previous Rx's Medication Instructions Recorded INSULIN LISPRO (humaLOG) [humaLOG] 7 unit SQ AC-TID #2 vial 08/06/16 Insulin Detemir (Levemir) [Levemir] 35 unit SQ HS #2 vial 08/06/16 Omeprazole [PriLOSEC] 20 mg PO AC-BRKFST #30 cap 08/06/16 Syringe-Needle,Insulin,0.5 ml 1 syr SQ DIRECTED #100 each 08/06/16 [INSULIN SYRINGES 28G 1/2" 0.5ML] metFORMIN HCL [Glucophage] 1,000 mg PO BID-W/MEALS #60 tab 08/06/16 Allergies Allergy/AdvReac Type Severity Reaction Status Date / Time No Known Allergies Allergy Verified 02/09/20 03:22 Review of Systems ROS Statement: Those systems with pertinent positive or pertinent negative responses have been documented in the HPI. ROS Other: All systems not noted in ROS Statement are negative. Limitations: ROS unobtainable due to patients medical condition Respiratory: Denies: cough, dyspnea Cardiovascular: Denies: chest pain, syncope Gastrointestinal: Denies: abdominal pain, vomiting, diarrhea Past Medical History Past Medical History: Diabetes Mellitus, Hyperlipidemia, Hypertension Additional Past Medical History / Comment(s): used to take lipitor , neuropathy History of Any Multi-Drug Resistant Organisms: None Reported Past Surgical History: Tonsillectomy Past Anesthesia/Blood Transfusion Reactions: No Reported Reaction Past Psychological History: Anxiety, Bipolar Smoking Status: Current every day smoker Past Alcohol Use History: Occasional Past Drug Use History: None Reported - Past Family History Mother Family Medical History: Coronary Artery Disease (CAD), Diabetes Mellitus Father Family Medical History: Coronary Artery Disease (CAD) Brother(s) Family Medical History: No Reported History General Exam General appearance: alert, in no apparent distress Head exam: Present: atraumatic, normocephalic Eye exam: Present: normal appearance, EOMI. Absent: scleral icterus, conjunctival injection Respiratory exam: Present: normal lung sounds bilaterally. Absent: respiratory distress, wheezes, rales, rhonchi, stridor Cardiovascular Exam: Present: regular rate, normal rhythm, normal heart sounds. Absent: systolic murmur, diastolic murmur, rubs, gallop GI/Abdominal exam: Present: soft. Absent: tenderness, guarding Extremities exam: Present: normal inspection, normal capillary refill. Absent: pedal edema, calf tenderness Back exam: Present: normal inspection. Absent: CVA tenderness (R), CVA tenderness (L) Neurological exam: Present: alert, oriented X3, normal gait Skin exam: Present: warm, dry, intact, normal color. Absent: rash Course Vital Signs 04/16/20 00:51 Temperature 98.0 F Pulse Rate 92 Respiratory 18 Rate Blood Pressure 156/72 O2 Sat by Pulse 97 Oximetry Medical Decision Making - Lab Data Lab Results 04/16/20 04/16/20 04/16/20 Range/Units 00:07 00:49 01:01 POC Glucose (mg/dL) 120 H (75-99) mg/dL POC Glu Supervisory Investigative Specialist ID Aubrey Oliva Urine Opiates Screen Not Detected (NotDetected) Ur Oxycodone Screen Not Detected (NotDetected) Urine Methadone Screen Not Detected (NotDetected) Ur Propoxyphene Screen Not Detected (NotDetected) Ur Barbiturates Screen Not Detected (NotDetected) U Tricyclic Antidepress Not Detected (NotDetected) Ur Phencyclidine Scrn Not Detected (NotDetected) Ur Amphetamines Screen Not Detected (NotDetected) U Methamphetamines Scrn Not Detected (NotDetected) U Benzodiazepines Scrn Not Detected (NotDetected) Urine Cocaine Screen Not Detected (NotDetected) U Marijuana (THC) Screen Detected H (NotDetected) Coronavirus (PCR) Not Detected (Not Detectd) Disposition Clinical Impression: Acute psychosis Disposition: ADMITTED IP TO THIS HOSP Condition: Fair Is patient prescribed a controlled substance at d/c from ED?: No Referrals: Dallin Jurado MD [Primary Care Provider] - 1-2 days
[2020-04-16 00:22] LABS: Amphetamine Screen,Urine Not Detected (NotDetected); Barbiturate Screen,Urine Not Detected (NotDetected); Benzodiazepines Screen,Urine Not Detected (NotDetected); Cocaine Screen,Urine Not Detected (NotDetected); Methadone Screen, Urine Not Detected (NotDetected); Opiate Screen,Urine Not Detected (NotDetected); Oxycodone Screen, Urine Not Detected (NotDetected); Phencyclidine Screen,Urine Not Detected (NotDetected); Tricyclic Antidepressant,Urine Not Detected (NotDetected); Urn Cannabinoid Scrn Detected (NotDetected)
[2020-04-16 00:50] LABS: Glucose,Whole Blood 120 mg/dL (75-99)
[2020-04-16] MEDS ORDERED: LORazepam 2 MG/ML INJ IM STA (02:14)
[2020-04-16] MEDS ORDERED: ZIPRASIDONE 20 MG VIAL IM STA (02:15)
[2020-04-16] MEDS ORDERED: MAGNESIUM HYDROXIDE 2,400 MG/10 ML CUP PO PRN (02:39)
[2020-04-16] MEDS ORDERED: LORazepam 2 MG/ML INJ IM PRN (03:30)
[2020-04-16] MEDS ORDERED: HALOPERIDOL LACTATE 5 MG/ML 1 ML VIAL IM PRN (03:30)
[2020-04-16] MEDS ORDERED: haloperidoL 5 MG TAB PO PRN (03:33)
[2020-04-16 04:16] LABS: Appearance,Urine Clear (Clear); Bilirubin,Urine Negative (Negative); Blood,Urine Negative (Negative); Color,Urine Yellow; Glucose,Urine (UA) Negative (Negative); Ketones,Urine Negative (Negative); Leukocyte Esterase,Urine Large (Negative); Nitrite,Urine Negative (Negative); PH, Urine 6.5 (5.0-8.0); Protein,Urine Negative (Negative); RBC,Urine 1 /hpf (0-5); Specific Gravity,Urine 1.011 (1.001-1.035); Squamous Epithelial Cell,Urine <1 /hpf (0-4); Urobilinogen,Urine <2.0 mg/dL (<2.0); WBC,Urine 40 /hpf (0-5)
[2020-04-16 08:29] LABS: Glucose,Whole Blood 99 mg/dL (75-99)
[2020-04-16] MEDS: metFORMIN 500 MG TAB PO SCH ×2 (08:51→17:51)
--- NOTE | 2020-04-16 10:37 | P.HP ---
Psychiatric H&P - . H&P Date: 04/16/20 History & Physical: Allergies Allergy/AdvReac Type Severity Reaction Status Date / Time No Known Allergies Allergy Verified 04/16/20 03:43 Vital Signs Temp 97.9 F 04/16/20 06:32 Pulse 110 H 04/16/20 06:32 Resp 18 04/16/20 06:32 BP 146/84 04/16/20 06:32 Pulse Ox 98 04/16/20 06:32 Intake & Output 04/15/20 04/16/20 04/16/20 18:59 06:59 18:59 Weight 98.515 kg Laboratory Last Values POC Glucose (mg/dL) 99 mg/dL (75-99) 04/16/20 08:22 POC Glu Shipyard Laborer ID Siomara Hylton 04/16/20 08:22 Urine Color Yellow 04/16/20 00:15 Urine Appearance Clear (Clear) 04/16/20 00:15 Urine pH 6.5 (5.0-8.0) 04/16/20 00:15 Ur Specific [place] 1.011 (1.001-1.035) 04/16/20 00:15 Urine Protein Negative (Negative) 04/16/20 00:15 Urine Glucose (UA) Negative (Negative) 04/16/20 00:15 Urine Ketones Negative (Negative) 04/16/20 00:15 Urine Blood Negative (Negative) 04/16/20 00:15 Urine Nitrite Negative (Negative) 04/16/20 00:15 Urine Bilirubin Negative (Negative) 04/16/20 00:15 Urine Urobilinogen <2.0 mg/dL (<2.0) 04/16/20 00:15 Ur Leukocyte Esterase Large (Negative) H 04/16/20 00:15 Urine RBC 1 /hpf (0-5) 04/16/20 00:15 Urine WBC 40 /hpf (0-5) H 04/16/20 00:15 Ur Squamous Epith Cells <1 /hpf (0-4) 04/16/20 00:15 Urine Opiates Screen Not Detected (NotDetected) 04/16/20 00:07 Ur Oxycodone Screen Not Detected (NotDetected) 04/16/20 00:07 Urine Methadone Screen Not Detected (NotDetected) 04/16/20 00:07 Ur Propoxyphene Screen Not Detected (NotDetected) 04/16/20 00:07 Ur Barbiturates Screen Not Detected (NotDetected) 04/16/20 00:07 U Tricyclic Antidepress Not Detected (NotDetected) 04/16/20 00:07 Ur Phencyclidine Scrn Not Detected (NotDetected) 04/16/20 00:07 Ur Amphetamines Screen Not Detected (NotDetected) 04/16/20 00:07 U Methamphetamines Scrn Not Detected (NotDetected) 04/16/20 00:07 U Benzodiazepines Scrn Not Detected (NotDetected) 04/16/20 00:07 Urine Cocaine Screen Not Detected (NotDetected) 04/16/20 00:07 U Marijuana (THC) Screen Detected (NotDetected) H 04/16/20 00:07 Coronavirus (PCR) Not Detected (Not Detectd) 04/16/20 01:01 04/16/20 10:27 IDENTIFYING DATA: Patient is a 69-year-old male who currently lives alone in a house is and has no kids and collects pension HPI: Patient presented to the hospital yesterday and mentioned in ED triage to the nurse that he was feeling suicidal. Patient apparently claimed that his brother hired a militia to kill him and was uncooperative to the ER doctor when asked more about his psychiatric symptoms and the circumstances for being in the hospital. Patient was petitioned and a clinical certificate was completed by the physician and patient was admitted to the mental unit. UDS was positive for THC. Patient has a known history of bipolar disorder. Patient was seen in his room today by ad copy writer and appeared to have poor hygiene and grooming and disheveled hair. Patient was fairly uncooperative and agitated/irritable with ad copy writer during conversation. Patient also endorsed paranoia toward the ad copy writer as "I don't trust you". He spoke about his brother that has been threatening to kill him by a militia. He states that "I brother wants me so he can take all my stuff". He claims that he has his brothers Corvettes and other things in his garage and this is all in his house in [place]. He claims that his brother hired somebody to fly over his house in a plane. He claims that he has been undergoing a lot of stress recently and spoke about having surgery on his arm this past year and also claims that "people are making my life more difficult". He states that his ex- wanted him to be in the hospital. He had loose associations at times and was unable to elaborate more on his symptoms. He claimed that his mood is depressed and admits to anxiety. He states that he sleeps approximately 2 hours a night. Patient admits to suicidal thoughts however no intent and plan on the unit. He denies any homicidal ideations intent or plan. At this time patient denies any auditory or visual hallucinations. Patient denies any flight of ideas racing thoughts and increased in goal directed behavior. Patient admits to using cigarettes, occasional alcohol and denies any other recreational drug use. PAST PSYCHIATRIC HISTORY: Patient states that bipolar disorder. Patient was fairly guarded and evasive when ad copy writer was asking about patient's medication history and did not give any information. Patient denies any previous psychiatric hospitalizations. Patient denies any psychiatric outpatient follow- up. Patient denies any history of suicide attempts in the past. PMH: Diabetes mellitus, GERD, hyperlipidemia, hypertension ALLERGIES: as per EMR CHEMICAL DEPENDENCY HISTORY: as per HPI FAMILY PSYCHIATRIC/SUBSTANCE USE HISTORY: denies SOCIAL HISTORY: Patient was born and raised in [place] and claims that he completed his bachelor's degree. He states that he served in [place] in the from [id number]. 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 He states that he currently lives alone in a house is has no kids and collects pension. He denies ever going to snf or [facility]. MENTAL STATUS EXAM: General Appearance: Patient appears to be tall, disheveled in appearance, older than stated age is alert, uncooperative and guarded/evasive. Patient appears to have poor hygiene and grooming. Behavior: Patient is seated without any agitated behavior. And uncooperative and guarded/evasive. Irritable Speech: Patient's speech is fluent and nonpressured. Loud at times. Mood/Affect: Patient reports their mood is depressed, affect is congruent Suicidality/Homicidality: Patient denies having any homicidal ideation intent or plan. Patient admitted to suicidal ideations however no intent or plan. Perceptions: Patient denies any visual hallucinations and denies any auditory hallucinations Though content/process: Patient is endorsing paranoia towards a ad copy writer and also his brother. Patient had loose associations is illogical at times. Memory and concentration: AOX3, grossly intact for the purposes of this session. Can spell "WORLD" backwards Judgment and insight: poor STRENGTHS/WEAKNESSES: strength is that patient is resilient. Weakness is that patient has poor judgment and is impulsive INTELLECT: average IMPRESSIONS: Bipolar disorder, current episode depressed Cannabis use disorder Nicotine dependence PLAN: -Patient is admitted under involuntary status to MHU for stabilization of psychiatric symptoms and safety. Patient has not signed adult voluntary form and medication consent and is placed in patient's chart. A second certification was completed and along with petition will be filed for court. -Medications : Will start patient on Prozac 20 mg daily for mood, Zyprexa 5 mg daily at bedtime for mood stabilization/psychosis and insomnia. -Ativan and Haldol PRN for agitation/aggression -Patient was counselled on substance abuse -Patient was informed of the risks, benefits and side effects of the medication and patient verbally consented to taking the medications. Patient signed med consent form and was placed in chart. -Internal Medicine consult to perform medical evaluation and physical. -NRT - nicotine patch -SW on board for discharge planning. Encourage patient to participate in groups to work on coping skills. Will await deferral and court date.
[2020-04-16] MEDS: FLUoxetine HCL 20 MG CAP PO SCH (11:07)
[2020-04-16 12:44] LABS: Glucose,Whole Blood 91 mg/dL (75-99)
[2020-04-16 17:39] LABS: Glucose,Whole Blood 115 mg/dL (75-99)
--- NOTE | 2020-04-16 18:51 | P.CON ---
Consult Note - . Consult date: 04/16/20 Assessment/Plan:: 69-year-old male presented to the emergency room for the complaint of suicidal ideation .patient stated that his brother had hired the militia to kill him. Subjective data with the patient due to uncooperative, poor eye contact, and he refused to to provide an depth subjective data. Unspecified psychosis Anxiety and depression Bipolar unspecified Type 2 diabetes Hyperlipidemia Hypertension Peripheral neuropathy
[2020-04-16 19:30] LABS: Basophils # (A) 0.1 k/uL (0-0.2); Basophils % (A) 1 %; Eosinophils # (A) 0.2 k/uL (0-0.7); Eosinophils % (A) 2 %; HCT 44.5 % (39.0-53.0); HGB 14.7 gm/dL (13.0-17.5); Lymphocytes # (A) 2.8 k/uL (1.0-4.8); Lymphocytes % (A) 24 %; MCH 30.1 pg (25.0-35.0); MCHC 33.1 g/dL (31.0-37.0); MCV 90.8 fL (80.0-100.0); Mean Platelet Volume 7.3; Monocytes # (A) 0.5 k/uL (0-1.0); Monocytes % (A) 4 %; Neutrophils % (A) 68 %; Platelet Count 360 k/uL (150-450); RDW 13.8 % (11.5-15.5); WBC 11.8 k/uL (3.8-10.6)
[2020-04-16 19:54] LABS: ALT 20 U/L (4-49); AST 21 U/L (17-59); African American GFR (CKD) >90 (>60 ml/min/1.73 sqM); Albumin 4.1 g/dL (3.5-5.0); Alkaline Phosphatase 83 U/L (38-126); Anion Gap 7 mmol/L; Bilirubin, Delta 0.3 mg/dL (0.0-0.2); Bilirubin,Unconjugated 0.1 mg/dL (0.0-1.1); Blood Urea Nitrogen 18 mg/dL (9-20); Calcium 9.9 mg/dL (8.4-10.2); Carbon Dioxide 25 mmol/L (22-30); Chloride 104 mmol/L (98-107); Cholesterol 196 mg/dL (<200); Glucose 107 mg/dL (74-99); HDL Cholesterol 45 mg/dL (40-60); LDL Cholesterol,Calculated 126 mg/dL (0-99); Non-African American GFR(CKD) >90 (>60 ml/min/1.73 sqM); Sodium 136 mmol/L (137-145); Total Bilirubin 0.4 mg/dL (0.2-1.3); Total Protein 7.2 g/dL (6.3-8.2); Triglycerides 124 mg/dL (<150)
[2020-04-16 20:03] LABS: Glucose,Whole Blood 110 mg/dL (75-99)
[2020-04-16] MEDS ORDERED: OLANZapine 5 MG TAB PO SCH (21:00)
[2020-04-17 03:59] LABS: Hemoglobin A1C 5.5 % (4.0-6.0)
[2020-04-17 07:56] LABS: Glucose,Whole Blood 91 mg/dL (75-99)
[2020-04-17] MEDS: FLUoxetine HCL 20 MG CAP PO SCH (09:18)
[2020-04-17] MEDS: metFORMIN 500 MG TAB PO SCH ×2 (09:18→17:50)
--- NOTE | 2020-04-17 09:47 | P.PN ---
Progress Note - Text Progress Note Date: 04/17/20 Interval History: Patient was seen wandering the hallways and was directable and agreeable to sp eak with typewriter operator automatic in the office. Patient appeared to be less irritable today and more cooperative with typewriter operator automatic. He continues to endorse delusions and paranoia towards his brother. He states that his brother and him will be "fighting it out in court" relating to different properties and possessions that he believes that he is entitled to. He claims that he showered earlier today and appears to have an improvement in his hygiene and grooming. He states that he's been eating his meals. Today is patient's birthday and he spoke to typewriter operator automatic about it. He claims that his mood has been gradually improving along with his anxiety. He states that he only stopped approximately 2 hours last night. At this time patient denies any suicidal or homical ideations, intent or plan. Patient denies any auditory, visual hallucinations. Patient denies any side effects from the medications and has been compliant with meds. Mental Status Exam: General Appearance: Patient appears to be tall, disheveled in appearance, older than stated age is alert, more cooperative today. Patient appears to have improving hygiene and grooming. Behavior: Patient is seated without any agitated behavior. More cooperative t geeta and less guarded/evasive Speech: Patient's speech is fluent and nonpressured. Mood/Affect: Patient reports their mood is depressed, improving mildly, affect is congruent Suicidality/Homicidality: Patient denies having any homicidal ideation intent or plan. Patient denies any suicidal ideations, no intent or plan. Perceptions: Patient denies any visual hallucinations and denies any auditory hallucinations Though content/process: Patient is endorsing paranoia towards his brother, improving mildly. Patient had loose associations, more logical today Memory and concentration: AOX3, grossly intact for the purposes of this session. Can spell "WORLD" backwards Judgment and insight: poor, improving mildly Assessment Bipolar disorder, current episode depressed Cannabis use disorder Nicotine dependence Plan: -Patient continues to meet criteria for inpatient psychiatric admission for symptom stabilization and safety. Patient has not signed adult voluntary form and medication consent and was placed in patient's chart. -Medications: Increase Prozac to 40 mg daily for mood/anxiety. Increase Zyprexa to 7.5 mg daily at bedtime for mood stabilization/psychosis and insomnia. -When necessary Ativan and Haldol for agitation/aggression. -NRT - nicotine patch -SW on board for discharge planning. Encouraged the patient to participate in milieu. Will await deferral and court date. Likely discharge in 1-2 days if patient defers court.
[2020-04-17] MEDS: LORazepam 1 MG TAB PO PRN (12:29)
[2020-04-17 12:36] LABS: Glucose,Whole Blood 101 mg/dL (75-99)
[2020-04-17 16:47] LABS: Glucose,Whole Blood 85 mg/dL (75-99)
[2020-04-17] MEDS: ACETAMINOPHEN TAB 325 MG TAB PO PRN (16:47)
[2020-04-17 20:37] LABS: Glucose,Whole Blood 123 mg/dL (75-99)
[2020-04-17] MEDS ORDERED: OLANZapine 2.5 MG TAB PO SCH (21:00)
[2020-04-18] MEDS: metFORMIN 500 MG TAB PO SCH ×2 (07:58→17:28)
[2020-04-18 07:59] LABS: Glucose,Whole Blood 90 mg/dL (75-99)
[2020-04-18] MEDS: FLUoxetine HCL 20 MG CAP PO SCH (07:59)
[2020-04-18 12:29] LABS: Glucose,Whole Blood 103 mg/dL (75-99)
[2020-04-18] MEDS: LORazepam 1 MG TAB PO PRN (12:29)
[2020-04-18] MEDS ORDERED: OLANZapine 7.5 MG TAB PO SCH ×2 (16:00→21:00)
[2020-04-18] MEDS ORDERED: OLANZapine 7.5 MG TAB PO ONE (16:15)
[2020-04-18 16:49] LABS: Glucose,Whole Blood 84 mg/dL (75-99)
[2020-04-18] MEDS: ACETAMINOPHEN TAB 325 MG TAB PO PRN ×2 (17:28→23:13)
[2020-04-18 20:01] LABS: Glucose,Whole Blood 90 mg/dL (75-99)
--- NOTE | 2020-04-18 20:20 | PN ---
PROGRESS NOTE DATE OF SERVICE: 04/18/2020 CHIEF COMPLAINT: The patient was admitted for suicidal thinking along with paranoid thinking, believing his brother had hired a militia to kill him. INTERVAL HISTORY: The patient has been doing fair. He has had ups and downs in his mood. He had a mostly quiet day yesterday. During the day he had attended groups. At the 9:30 social work group descriptors included defensive, inappropriate, loud, agitated, demanding, ruminative. A note indicated that the patient "shared delusions about mafia being after him." It was also noted that he used an alternative name, Chava, for unclear reasons. Later in the day yesterday staff noted that there were periods where he would be somewhat withdrawn though be staring at staff. At one point he was in his room with the door slightly ajar and had a staring gaze at Nursing. At another point he stood away from the nursing desk though had a similar manner. When the patient talked about this, he tended to minimize any issues with that. At 3 in the morning he had a situation where Nursing came to the door; he says they were overly intrusive. He notes that he had put some Styrofoam pieces in the door to keep the door from rattling, which would happen when people walked by. He apparently got intense with the nurse who interpreted him as showing aggression. He ended up receiving p.r.n. Ativan at that time. The patient minimized the issue and believes that Nursing had over- reacted and misperceived the situation altogether. He apparently only slept a few hours last night. Today he has been up. Staff noted that at different times he was out on the floor pacing in a very intense manner. He was seen a number of different times talking to himself. When he was asked about this, he said that he was just talking to himself, reviewing issues that he was dealing with, though he firmly denied any auditory hallucinations or delusional thinking. On the other hand, when I interviewed him he made a number of statements that he believed people were driving up and down the road in front of his house and that they were part of this group of people who were threatening him. He believed that they had some insignias on the car and that the windows were darkened so that you could not see in. He believed that these people had guns, and someone had the intention of shooting him. He says that is the reason he came to the hospital, essentially to "seek safety." He did sign the deferral and then was asking me today about being discharged either today or tomorrow, as he did not see a need for his being in the hospital. He says it is important for him to get back home, mainly because he has "animals to take care of." It is noted that the patient said that he only slept about two hours last night. When I asked him about his sleep habits at home, he says typically he only sleeps about two hours a night and that he has his highest energy from about 2 in the morning to 5 in the morning. He says he does not nap in the daytime. It is noted that staff stated he did show sedation during some of the groups he was attending. I had an extensive discussion with the patient's brother. The patient himself encouraged the telephone contact and gave the telephone number. The brother did not answer the phone during the time that the patient was in the room, though the patient understood that I would talk to the brother if he returned the call later on, which was the case. The brother noted that he feels things have been "way out of control" over the last 3 months. The brother indicated that he has talked to police within the last 2 weeks and has received a lot of information about difficulties the patient has been having. He says that his last direct contact with the patient was in January at the brother's birthday. He said he was doing fine. Within a week of that the patient apparently started to deteriorate in his behavior. He had been stopped by police February 15 for erratic driving. The patient refused a Breathalyzer and was belligerent at the time. He was jailed overnight. 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 The brother is aware that he has had two other episodes since he lost his tow truck driver's license where he was stopped by police without a tow truck driver's license. He apparently was given citations and released. There have been issues related to inheritance. The brother states that in the last two months he understands the patient has spent over $300,000, though it is unclear he has used any of that in any useful manner. Apparently he has had elevated mood, and that this may go along with spending sprees. He has had very erratic behavior of late. He apparently had gone out recently and bought $1800 worth of guns, though it turned out that he wrote a check which was a bad check. The brother indicates that he may have a federal offense related to this. His brother also expressed concern that the patient has had any number of guns in his house, including pistols and long guns. Last summer at one point he was sitting on his front porch with a shotgun in his lap, apparently in an effort to intimidate neighbors where he has had an ongoing dispute with them. The brother notes from police reports that recently he was stopped at 11:30 at night driving out of town. He claimed that he was going to plant trees, though he was driving in the opposite direction from where he claimed the trees would be planted. The police noted that his car was filled with all sorts of possessions, and there was a question as to whether he was sleeping in his car out of fear of going home. Also recently he was staying at a motel in [place] for unclear reasons. There have been recent episodes where the patient would call the brother repeatedly in the middle of the night and would scream and swear on the message machine. He would make these calls almost every 10 minutes through a significant part of the night. At one point about 2 weeks ago the patient called his brother repeatedly and would make one-sentence statements and then hang up. Through the course of this he asked the brother what would happen to the inheritance that he and his brother have from father if the brother were to . The brother stated that he told the patient that the inheritance would be his. At that point the patient in turn said to the brother, "You're done." The brother stated that that was the tipping point where he called police and made a report that he believed the brother was threatening his life. It was then in the midst of that telephone conversation with police that police reported they have had numerous calls to the patient's house and that there have been a number of unusual if not bizarre activities that the brother has been involved in. Apparently the patient has made statements to others that the brother has had the intention of shooting him, though the brother states that he does not own any weapons. The brother notes that recently the patient has been buying a number of vehicles, anywhere in the range of 5 to 7 vehicles or more. The brother believes that he has been buying the vehicles from private individuals and then changing the license plates around so that they appear to be appropriately licensed vehicles. The brother stated, fromn talking to police, that police in [place] are looking for the patient, and said they do not know where he is at. The brother notes that he had one prior episode of apparent bipolar abdi about 15 years ago. At that point he was quite manic, similar to his current situation. The patient's petitioned the patient into the hospital. He took medications for one month and after that went off medications, and to the brother's knowledge he has not taken any psychotropic medications since then. Apparently the at that point felt very threatened with her life and pursued a divorce without any effort to obtain a divorce settlement. The brother says that to the best of his awareness in recent times the patient has not had any animals in spite of the fact that the patient says he has animals at home that he needs to take care of. MENTAL STATUS EXAMINATION: Patient sat with some restlessness. He gave fair eye contact. He would respond to questions, though at times he would tend to veer off and ramble. His thoughts were organized and coherent. He was able to discuss some of his own reactions and how they may suggest some thoughts of paranoia. For the patient's part, he acknowledged that at a few different times in his past he has had paranoid thinking and could accept that currently there may be some paranoia in the midst of what he believes are real events, namely that he is being threatened by militia or mafia. His affect was intense. At times he was somewhat argumentative. His mood was depressed. He was significantly distressed. He did make statements with paranoid ideation. He denied any hallucinations. It was difficult to assess risk of harm to self or others. Cognition was clear. ASSESSMENT/PLAN: I will continue the current diagnosis of bipolar disorder. I would add that he likely has had manic or mixed manic depressive symptoms with psychotic features. 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 There is credible information that his brother provided that he has threatened his brother's life. There is apparently reliable information that the patient has had very disorganized and high- risk behavior. At this point I will increase the patient's Zyprexa to 15 mg twice a day due to psychosis with paranoia and also to address significant manic symptoms. I will continue Prozac 40 mg a day, though there is concern that Prozac may aggravate abdi. On the other hand, it is noted that the combination of Zyprexa and Prozac does have indications for bipolar depression, even though a number of authorities would warn against use of any standard antidepressants in the face of a diagnosis of bipolar disorder. It does sound as if the patient has significant manic symptoms going on for over two months. I will initiate a Demand for Hearing. There are three issues of danger that will need to be addressed through the court process: 1) One includes the patient driving on a suspended tow truck driver's license while apparently having active manic symptoms; 2) The patient apparently purchasing and possessing a number of firearms and having a recent history of disorganized behavior; and 3) The patient making an apparent direct threat to his brother's life. The patient will continue hospitalization until the legal issues are addressed. MMODL / IJN: [id number] / MTDD
[2020-04-18] MEDS ORDERED: OLANZapine 5 MG TAB PO SCH (21:00)
[2020-04-19 07:51] LABS: Glucose,Whole Blood 93 mg/dL (75-99)
[2020-04-19] MEDS: FLUoxetine HCL 20 MG CAP PO SCH (07:51)
[2020-04-19] MEDS: metFORMIN 500 MG TAB PO SCH ×2 (07:51→18:00)
[2020-04-19] MEDS: OLANZapine 7.5 MG TAB PO SCH ×2 (07:51→21:16)
[2020-04-19] MEDS ORDERED: OLANZapine 10 MG TAB PO SCH (09:00)
[2020-04-19 11:13] LABS: Glucose,Whole Blood 102 mg/dL (75-99)
[2020-04-19] MEDS: ACETAMINOPHEN TAB 325 MG TAB PO PRN ×3 (12:24→22:56)
--- NOTE | 2020-04-19 12:36 | PN ---
PROGRESS NOTE DATE OF SERVICE: 04/19/2020 CHIEF COMPLAINT: The patient was admitted for suicidal thinking along with paranoid thinking, believing his brother had hired [employer]ilit[employer] to kill him. INTERVAL HISTORY: Patient has been doing fair. He had a quiet day yesterday. He comes out in the day area. Often he will stand around the nursing desk area and does seem to watch things going on around him. He does not interact too much with others. Staff note that at times he will be walking in the halls and talking to himself. When asked about this, he says he does not experience any kind of hallucinations or anything in that realm. He says he will talk to himself as he tries to work out issues in his head. He said he slept fair last night. He was vague about how much sleep he ate actually thinks he got. He has been up today. He attended the 9:30 Social Work group and a note was documented as follows, "participated when prompted very sleepy dozed in and out during the group, left early due to nausea." When I talked to the patient, he said he was doing fairly well. He felt that he has not had any problems with the medication. It is noteworthy that I reviewed at length the issues that I documented yesterday from the telephone call with his brother. He sat calmly throughout that discussion. He would go back and forth between an acknowledging that much of what is documented was accurate and then would tend to minimize some of the issues at the same time. 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 He acknowledges that he had bought guns which he said were to be used for hunting, though he said some of the guns included hand guns. He said he did understand that police in [place] were looking for him, though he did not give specifics for the reason of that. When I shared with the patient that it sounds as if he has been having symptoms of bipolar abdi going back to January. He generally was in agreement with that. I shared with the patient that we would initiate a demand for hearing. He was generally fairly accepting of that and believes that he has a court hearing scheduled for the based on the initial petition process, whether or not that date will continue remains to be seen. Patient appears to tolerate his psychotropic medications, though may be having some sedation. MENTAL STATUS EXAM: Patient sat without restlessness. Eye contact was fair. He tended to look down or often a distance more than not. He answered questions with brief responses. He talked in a soft monotone voice. He was not too spontaneous or interactive. His affect was blunted his mood reserved he seems somewhat distressed though overall had a very quiet manner was difficult to assess for any issues of thought disorder. He voiced no thoughts of harm. He was oriented to circumstances and surroundings. ASSESSMENT: I will continue the current diagnosis and treatment plan. I will continue psychotropic medications the same including Prozac 40 mg a day and Zyprexa 15 mg twice a day. He may be having some excessive sedation from Zyprexa. It is noteworthy that he has presented with a very high level of disorganized behavior over the last few months with high risk in dangerous behavior. I shared this with the patient including raising the question that through the court processes there may need to be an evaluation of guns that he possesses at home. A demand for hearing has been initiated. We will continue to focus on stabilization and discharge planning. MMODL / IJN: [id number] /
[2020-04-19 17:50] LABS: Glucose,Whole Blood 96 mg/dL (75-99)
--- NOTE | 2020-04-19 19:30 | P.CON ---
Consult Note - . Consult date: 04/19/20 Assessment/Plan:: 69-year-old male currently admitted to mental health closed unit, patient denies suicidal ideation at this time Unspecified psychosis Anxiety and depression Bipolar unspecified Type 2 diabetes mellitus Hyperlipidemia Hypertension Peripheral neuropathy Awaiting treatment plan from psychiatrists Continue medical management with home medications
[2020-04-20] MEDS: ACETAMINOPHEN TAB 325 MG TAB PO PRN ×3 (02:21→21:29)
[2020-04-20] MEDS: MAG HYDROX/AL HYDROX/SIMETH 30 ML CUP PO PRN (03:53)
[2020-04-20] MEDS: FLUoxetine HCL 20 MG CAP PO SCH (08:51)
[2020-04-20] MEDS: OLANZapine 7.5 MG TAB PO SCH ×2 (08:52→21:29)
[2020-04-20] MEDS: metFORMIN 500 MG TAB PO SCH ×2 (08:52→17:14)
--- NOTE | 2020-04-20 10:53 | P.PN ---
Progress Note - Text Progress Note Date: 04/20/20 Interval history: Patient was seen attending group and was directable and agreeable to speak with keno writer / runner. Patient reports that he is feeling like he is doing well. He is not reporting any suicidal or homicidal ideation, intention, and/or plan. He expresses great interest that this provider attended his residency at this patient's [facility]. He is not forthcoming with any of his delusions today. He reports no significant side effects of medications. He denies any auditory or visual hallucinations. He has been socializing with his peers appropriately. Mental status exam: General Appearance: Patient appears to be stated age is alert, directable, and cooperative. Dressed in a sweater. Elderly male. Behavior: No agitated behavior. Patient is calm and directable Speech: Patient's speech is fluent and nonpressured. Mood/Affect: Mood is improving mildly, affect is congruent and euthymic to bright. Suicidality/Homicidality: Patient denies having any suicidal or homicidal ideation intent or plan. Perceptions: Patient denies any auditory or visual hallucinations. Though content/process: There is no evidence of any delusional thought content and thought process is linear and goal-directed. Memory and concentration: AOX3, grossly intact for the purposes of this session Judgment and insight: improving mildly Assessment/Plan: Continue with current diagnosis. Patient continues to meet criteria for inpatient psychiatric admission for symptom stabilization and safety. Patient will be maintained on current psychotropic medication regimen. Monitor for medication compliance and for any psychotropic medication side effects. Will continue to monitor ongoing response to treatment. Encouraged participation in milieu.
[2020-04-21] MEDS: MAG HYDROX/AL HYDROX/SIMETH 30 ML CUP PO PRN (01:23)
[2020-04-21] MEDS: ACETAMINOPHEN TAB 325 MG TAB PO PRN ×4 (02:14→23:25)
[2020-04-21] MEDS: FLUoxetine HCL 20 MG CAP PO SCH (07:44)
[2020-04-21] MEDS: metFORMIN 500 MG TAB PO SCH ×2 (07:44→17:11)
[2020-04-21] MEDS: OLANZapine 7.5 MG TAB PO SCH ×2 (08:51→21:14)
--- NOTE | 2020-04-21 12:06 | P.PN ---
Progress Note - Text Progress Note Date: 04/21/20 Interval history: Patient was seen attending group and was directable and agreeable to speak with video game script writer. Patient continues to express that he is feeling well. He is not working any suicidal or homicidal ideation, intention, and/or plan. He reports that he has been getting along with his peers on the unit and feels happy to help others. He is not reporting any auditory or visual hallucinations. He denies any delusions. He reports no significant side effects of medications and has been adherent. He enjoys socializing with staff and peers. Mental status exam: General Appearance: Patient appears to be stated age is alert, directable, and cooperative. Dressed in multiple layers of clothing. Elderly male. Behavior: No agitated behavior. Patient is calm and directable Speech: Patient's speech is fluent and nonpressured. Mood/Affect: Mood is really good, affect is congruent and euthymic to bright. Suicidality/Homicidality: Patient denies having any suicidal or homicidal ideation intent or plan. Perceptions: Patient denies any auditory or visual hallucinations. Though content/process: There is no evidence of any delusional thought content and thought process is linear and goal-directed. Memory and concentration: AOX3, grossly intact for the purposes of this session Judgment and insight: improving mildly Assessment/Plan: Continue with current diagnosis. Patient continues to meet criteria for inpatient psychiatric admission for symptom stabilization and safety. Patient will be maintained on current psychotropic medication regimen. Monitor for medication compliance and for any psychotropic medication side effects. Will continue to monitor ongoing response to treatment. Encouraged participation in milieu.
[2020-04-22 02:14] VITALS: BP 136/67; PULSE 86; RESP 20; TEMP 97.6
[2020-04-22] MEDS: ACETAMINOPHEN TAB 325 MG TAB PO PRN ×2 (03:10→12:45)
[2020-04-22] MEDS: MAG HYDROX/AL HYDROX/SIMETH 30 ML CUP PO PRN (06:11)
[2020-04-22] MEDS: metFORMIN 500 MG TAB PO SCH (08:36)
[2020-04-22] MEDS: FLUoxetine HCL 20 MG CAP PO SCH (08:36)
[2020-04-22] MEDS: OLANZapine 7.5 MG TAB PO SCH (08:37)
--- NOTE | 2020-04-22 12:07 | P.DS ---
Providers Date of admission: 04/16/20 02:23 Expected date of discharge: 04/22/20 Attending physician: Vladimir Earl MD Consults: 04/16/20 02:39 Consult Physician Routine Consulting Provider: Dallin Jurado Consult Reason/Comments: For H & P for Medical Follow Up Do you want consulting provider notified?: Already Contacted Primary care physician: Dallin Meyer Adrien - Discharge Diagnosis(es) (1) Bipolar disorder current episode depressed Current Visit: Yes Status: Acute Priority: High (2) Cannabis abuse Current Visit: Yes Status: Acute Priority: Medium (3) Nicotine dependence Current Visit: Yes Status: Acute Priority: Low Hospital Course: Admission HPI: Admission and was completed by insurance writer "Patient is a 69-year-old male who currently lives alone in a house is and has no kids and collects pension. Patient presented to the hospital yesterday and mentioned in ED triage to the nurse that he was feeling suicidal. Patient apparently claimed that his brother hired a militia to kill him and was uncooperative to the ER doctor when asked more about his psychiatric symptoms and the circumstances for being in the hospital. Patient was petitioned and a clinical certificate was completed by the physician and patient was admitted to the mental unit. UDS was positive for THC. Patient has a known history of bipolar disorder. Patient was seen in his room today by insurance writer and appeared to have poor hygiene and grooming and disheveled hair. Patient was fairly uncooperative and agitated/irritable with insurance writer during conversation. Patient also endorsed paranoia toward the insurance writer as "I don't trust you". He spoke about his brother that has been threatening to kill him by a militia. He states that "I brother wants me so he can take all my stuff". He claims that he has his brothers Corvettes and other things in his garage and this is all in his house in [place]. He claims that his brother hired somebody to fly over his house in a plane. He claims that he has been undergoing a lot of stress recently and spoke about having surgery on his arm this past year and also claims that "people are making my life more difficult". He states that his ex- wanted him to be in the hospital. He had loose associations at times and was unable to elaborate more on his symptoms. He claimed that his mood is depressed and admits to anxiety. He states that he sleeps approximately 2 hours a night. Patient admits to suicidal thoughts however no intent and plan on the unit. He denies any homicidal ideations intent or plan. At this time patient denies any auditory or visual hallucinations. Patient denies any flight of ideas racing thoughts and increased in goal directed behavior. Patient admits to using cigarettes, occasional alcohol and denies any other recreational drug use." Hospital course: Upon admission to the unit patient was initially argumentative and irritable and depressed and also endorsing paranoia. Patient was however admitted involuntarily and ended up signing a deferral and was agreeable to continue on with treatment on the unit. Patient got along well with other patients on the unit and followed unit protocol. Patient was compliant with the medications and denied any side effects throughout hospital course. Patient was started on Zyprexa and titrated up to dose of 15 mg twice a day for psychosis/mood stabilization/insomnia. Patient was also started on Prozac and titrated up to dose of 40 mg daily for mood/anxiety. Patient spoke of his stressors and engaged in therapy both group and individual. Patient was also seen by medical team for history and physical exam. Throughout the course of the hospita lization patient gradually improved with regards to mood stabilization, irritability, anxiety, sleep and became more future oriented with improved insight and judgment. On the day of discharge patient denied any suicidal or homicidal ideations intent or plan denied any auditory or visual hallucinations. Patient endorsed wanting to live for his health and family. The patient denied any access to guns or weapons. Patient denied any paranoia and did not endorse any delusions. Patient does have a significant history of substance abuse and was counseled on abstaining from all substances including alcohol and marijuana. Patient elected to do outpatient substance use treatment program through [facility]. Patient was also counseled on the medications and need for regular compliance and was encouraged to follow-up with their outpatient appointment for mental health and also for primary care. Prior to discharge a family meeting will be arranged by director social to answer any questions and ensure safety upon discharge. Mental status exam: General Appearance: Patient appears to be elderly, stated age is alert, pleasant, and cooperative. Patient is in no acute distress and has improved hygiene and grooming Behavior: Patient is calmly seated without any agitated behavior. Speech: Patient's speech is fluent and nonpressured. Mood/Affect: Patient reports their mood is "good", affect is congruent and euthymic. Suicidality/Homicidality: Patient denies having any suicidal or homicidal ideation intent or plan. Perceptions: Patient denies any auditory or visual hallucinations. Though content/process: There is no evidence of any delusional thought content and thought process is linear and goal-directed. more future oriented. Not endorsing any paranoia or delusions. Memory and concentration: AOX3, grossly intact for the purposes of this session. Can spell "WORLD" backwards correctly. Judgment and insight: improved with guarded prognosis Impression: Bipolar disorder, current episode depressed Cannabis abuse Nicotine dependence Plan: -Continue with discharge today as patient has improved and stabilized psychiatrically and is not currently an imminent threat to himself and/or o thers. -Continue medications: Continue with Zyprexa 15 mg twice a day for mood stabilization/psychosis/insomnia. Continue with Prozac 40 mg daily for mood/anxiety. -Patient was counseled on the need for medication compliance and appropriate follow-up at mental health and also primary care for medical issues. Patient verbalized understanding and agreed. -Social work to arrange for and conduct family meeting to ensure safety upon discharge and answer any questions/concerns. Social work also to arrange for patients follow up appointments for psychiatric care along with follow up with primary care provider. -Patient counseled on abstaining from recreational drugs and marijuana and alcohol. Was informed/educated on the adverse effects on their physical and mental health. Patient verbally agreed and understood. Patient wanted to cut back use on his own. -Patient was instructed to return to the hospital or seek immediate medical care if their psychiatric or medical symptoms do worsen or reoccur. Patient Condition at Discharge: Stable Plan - Discharge Summary New Discharge Prescriptions: New FLUoxetine HCL 40 mg PO DAILY 30 Days capsule metFORMIN HCL [Glucophage] 1,000 mg PO BID-W/MEALS tab Acetaminophen Tab [Tylenol] 650 mg PO Q4HR PRN tab PRN Reason: Pain/Discomfort OLANZapine [ZyPREXA] 15 mg PO BID 30 Days tab Continue Aspirin 81 mg PO HS Multivitamins, Thera [Multivitamin (formulary)] 1 tab PO DAILY 30 Days tab Discontinued INSULIN LISPRO (humaLOG) [humaLOG] 7 unit SQ AC-TID #2 vial Insulin Detemir (Levemir) [Levemir] 35 unit SQ HS #2 vial Omeprazole [PriLOSEC] 20 mg PO AC-BRKFST #30 cap Syringe-Needle,Insulin,0.5 ml [INSULIN SYRINGES 28G 1/2" 0.5ML] 1 syr SQ DIRECTED #100 each metFORMIN HCL [Glucophage] 1,000 mg PO BID-W/MEALS #60 tab Discharge Medication List Aspirin 81 mg PO HS 08/04/16 [History] Acetaminophen Tab [Tylenol] 650 mg PO Q4HR PRN tab 04/22/20 [Rx] FLUoxetine HCL 40 mg PO DAILY 30 Days capsule 04/22/20 [Rx] Multivitamins, Thera [Multivitamin (formulary)] 1 tab PO DAILY 30 Days tab 04/22/20 [Rx] OLANZapine [ZyPREXA] 15 mg PO BID 30 Days tab 04/22/20 [Rx] metFORMIN HCL [Glucophage] 1,000 mg PO BID-W/MEALS tab 04/22/20 [Rx] Follow up Appointment(s)/Referral(s): Dallin Jurado MD [Primary Care Provider] - 1-2 days Activity/Diet/Wound Care/Special Instructions: Activity and diet as tolerated. Avoid the use of street drugs and alcohol. Take all medications as prescribed. When you are in need of refills on your medications please contact your medical provider and/or outpatient psychiatrist to have this done. Please go to scheduled outpatient appointment for aftercare treatment. If symptoms return or become worse, call the crisis line at and/or go to the nearest emergency room for evaluation. Discharge Disposition: HOME SELF-CARE
[2020-04-22 12:24] LABS: Glucose,Whole Blood 106 mg/dL (75-99)
== END 2020-04-22 14:14 | disposition home or self-care (01) | DRG 885 ==
LOC: EC 22:29 → 3MHU 04-16 02:23
PROVIDERS: ADMIT Psychiatry & Neurology Psychiatry; ATTEND Psychiatry & Neurology Psychiatry
DX: F31.5 Bipolar disorder, current episode depressed, severe, with psychotic features (principal); R45.851 Suicidal ideations; E11.42 Type 2 diabetes mellitus with diabetic polyneuropathy; Z20.828 Contact with and (suspected) exposure to other viral communicable diseases; F12.10 Cannabis abuse, uncomplicated; F41.9 Anxiety disorder, unspecified; E78.5 Hyperlipidemia, unspecified; G47.00 Insomnia, unspecified; I10 Essential (primary) hypertension; K21.9 Gastro-esophageal reflux disease without esophagitis; F17.290 Nicotine dependence, other tobacco product, uncomplicated; Z71.6 Tobacco abuse counseling; Z79.82 Long term (current) use of aspirin; Z79.4 Long term (current) use of insulin; Z79.899 Other long term (current) drug therapy; Z90.89 Acquired absence of other organs; Z98.890 Other specified postprocedural states; Z83.3 Family history of diabetes mellitus; Z82.49 Family history of ischemic heart disease and other diseases of the circulatory system
CPT/HCPCS: 36415; 80053; 80061; 80306; 81001; 82075; 82248; 83036; 84443; 85025; 87635; 96372; 99285

== ENCOUNTER 2020-06-15 22:47 | Inpatient (IN) | payer MEDICARE, BC ==
[2020-06-15 23:48] LABS: Basophils # (A) 0.1 k/uL (0-0.2); Basophils % (A) 1 %; Eosinophils # (A) 0.1 k/uL (0-0.7); Eosinophils % (A) 1 %; HCT 38.8 % (39.0-53.0); HGB 13.1 gm/dL (13.0-17.5); Lymphocytes # (A) 2.6 k/uL (1.0-4.8); Lymphocytes % (A) 26 %; MCH 29.3 pg (25.0-35.0); MCHC 33.8 g/dL (31.0-37.0); MCV 86.8 fL (80.0-100.0); Mean Platelet Volume 6.7; Monocytes # (A) 0.5 k/uL (0-1.0); Monocytes % (A) 5 %; Neutrophils # (A) 6.8 k/uL (1.3-7.7); Neutrophils % (A) 66 %; Platelet Count 353 k/uL (150-450); RBC 4.47 m/uL (4.30-5.90); RDW 13.9 % (11.5-15.5); WBC 10.2 k/uL (3.8-10.6)
[2020-06-16] LABS: African American GFR (CKD) >90 (>60 ml/min/1.73 sqM); Anion Gap 11 mmol/L; Blood Urea Nitrogen 12 mg/dL (9-20); Calcium 9.5 mg/dL (8.4-10.2); Carbon Dioxide 23 mmol/L (22-30); Chloride 102 mmol/L (98-107); Glucose 88 mg/dL (74-99); Non-African American GFR(CKD) >90 (>60 ml/min/1.73 sqM); Potassium 3.9 mmol/L (3.5-5.1); Sodium 136 mmol/L (137-145)
[2020-06-16] MEDS ORDERED: HYDROcodone/APAP 5-325MG 1 EACH TAB PO STA (00:02)
[2020-06-16 01:46] LABS: Appearance,Urine Clear (Clear); Bilirubin,Urine Negative (Negative); Blood,Urine Negative (Negative); Color,Urine Yellow; Glucose,Urine (UA) Negative (Negative); Ketones,Urine Negative (Negative); Leukocyte Esterase,Urine Negative (Negative); Nitrite,Urine Negative (Negative); Protein,Urine Negative (Negative); Specific Gravity,Urine 1.008 (1.001-1.035); Urobilinogen,Urine <2.0 mg/dL (<2.0)
--- NOTE | 2020-06-16 01:50 | ED ---
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 Patient apparently missed his appointment at [facility] on 06/05/2020. He missed his follow-up replacement appointment on 06/11/20. When [facility] staff went to check on him in his home he had barbed wire across the driveway, the windows were blacked out, and everything was shut up. They sent the police over for a well check and they brought him here for psychiatric evaluation. Patient refused to speak to me regarding his mental health issues. He state that he has chronic body pain and has been taking aleve. Denies any fever or chills. Denies any current illnesses. - Related Data Home Medications Medication Instructions Recorded Confirmed Aspirin 81 mg PO HS 08/04/16 04/16/20 Previous Rx's Medication Instructions Recorded Acetaminophen Tab [Tylenol] 650 mg PO Q4HR PRN tab 04/22/20 FLUoxetine HCL 40 mg PO DAILY 30 Days capsule 04/22/20 Multivitamins, Thera [Multivitamin 1 tab PO DAILY 30 Days tab 04/22/20 (formulary)] OLANZapine [ZyPREXA] 15 mg PO BID 30 Days tab 04/22/20 metFORMIN HCL [Glucophage] 1,000 mg PO BID-W/MEALS tab 04/22/20 Allergies Allergy/AdvReac Type Severity Reaction Status Date / Time No Known Allergies Allergy Verified 04/16/20 03:43 Review of Systems ROS Statement: Those systems with pertinent positive or pertinent negative responses have been documented in the HPI. ROS Other: All systems not noted in ROS Statement are negative. Past Medical History Past Medical History: Diabetes Mellitus, Hyperlipidemia, Hypertension Additional Past Medical History / Comment(s): used to take lipitor , neuropathy History of Any Multi-Drug Resistant Organisms: None Reported Past Surgical History: Tonsillectomy Past Anesthesia/Blood Transfusion Reactions: No Reported Reaction Past Psychological History: Anxiety, Bipolar Smoking Status: Current every day smoker Past Alcohol Use History: Occasional Past Drug Use History: Marijuana - Past Family History Mother Family Medical History: Coronary Artery Disease (CAD), Diabetes Mellitus Father Family Medical History: Coronary Artery Disease (CAD) Brother(s) Family Medical History: No Reported History General Exam Limitations: no limitations General appearance: alert, in no apparent distress, other (physical well-deve loped, well-nourished elderly male patient no acute distress.) Eye exam: Present: normal appearance, PERRL, EOMI. Absent: scleral icterus, conjunctival injection, periorbital swelling Respiratory exam: Present: normal lung sounds bilaterally. Absent: respiratory distress, wheezes, rales, rhonchi, stridor Cardiovascular Exam: Present: regular rate, normal rhythm, normal heart sounds. Absent: systolic murmur, diastolic murmur, rubs, gallop, clicks GI/Abdominal exam: Present: soft, normal bowel sounds. Absent: distended, tenderness, guarding, rebound, rigid Neurological exam: Present: alert, oriented X3, CN II-XII intact Psychiatric exam: Present: agitated, other (Refuses to answer questions regarding mental health.) Skin exam: Present: warm, dry, intact, normal color. 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 Patient was cleared medically and evaluated by EPS. It was felt he does meet inpatient criteria at this time will be transferred to the mental health unit. Case discussed with my attending Dr. Abraham. - Lab Data Result diagrams: 06/15/20 23:22 06/15/20 23:22 Lab Results 06/15/20 06/15/20 06/16/20 Range/Units 23:22 23:22 01:29 WBC 10.2 (3.8-10.6) k/uL RBC 4.47 (4.30-5.90) m/uL Hgb 13.1 (13.0-17.5) gm/dL Hct 38.8 L (39.0-53.0) % MCV 86.8 (80.0-100.0) fL MCH 29.3 (25.0-35.0) pg MCHC 33.8 (31.0-37.0) g/dL RDW 13.9 (11.5-15.5) % Plt Count 353 (150-450) k/uL MPV 6.7 Neutrophils % 66 % Lymphocytes % 26 % Monocytes % 5 % Eosinophils % 1 % Basophils % 1 % Neutrophils # 6.8 (1.3-7.7) k/uL Lymphocytes # 2.6 (1.0-4.8) k/uL Monocytes # 0.5 (0-1.0) k/uL Eosinophils # 0.1 (0-0.7) k/uL Basophils # 0.1 (0-0.2) k/uL Sodium 136 L (137-145) mmol/L Potassium 3.9 (3.5-5.1) mmol/L Chloride 102 (98-107) mmol/L Carbon Dioxide 23 (22-30) mmol/L Anion Gap 11 mmol/L BUN 12 (9-20) mg/dL Creatinine 0.72 (0.66-1.25) mg/dL Est GFR (CKD-EPI)AfAm >90 (>60 ml/min/1.73 sqM) Est GFR (CKD-EPI)NonAf >90 (>60 ml/min/1.73 sqM) Glucose 88 (74-99) mg/dL Calcium 9.5 (8.4-10.2) mg/dL Urine Color Yellow Urine Appearance Clear (Clear) Urine pH 7.0 (5.0-8.0) Ur Specific Moran 1.008 (1.001-1.035) Urine Protein Negative (Negative) Urine Glucose (UA) Negative (Negative) Urine Ketones Negative (Negative) Urine Blood Negative (Negative) Urine Nitrite Negative (Negative) Urine Bilirubin Negative (Negative) Urine Urobilinogen <2.0 (<2.0) mg/dL Ur Leukocyte Esterase Negative (Negative) Urine Opiates Screen Not Detected (NotDetected) Ur Oxycodone Screen Not Detected (NotDetected) Urine Methadone Screen Not Detected (NotDetected) Ur Propoxyphene Screen Not Detected (NotDetected) Ur Barbiturates Screen Not Detected (NotDetected) U Tricyclic Antidepress Not Detected (NotDetected) Ur Phencyclidine Scrn Not Detected (NotDetected) Ur Amphetamines Screen Not Detected (NotDetected) U Methamphetamines Scrn Not Detected (NotDetected) U Benzodiazepines Scrn Not Detected (NotDetected) Urine Cocaine Screen Not Detected (NotDetected) U Marijuana (THC) Screen Not Detected (NotDetected) Disposition Clinical Impression: Bipolar disorder Disposition: TRANSFER TO PSYCH HOSP/UNIT Condition: Serious Referrals: Dallin Jurado MD [Primary Care Provider] - 1-2 days - Out of Hospital Transfer - Req. Specs Out of Hospital Transfer - Requested Specifics: Psychiatric Non-ICU ([facility])
[2020-06-16 01:54] LABS: Amphetamine Screen,Urine Not Detected (NotDetected); Barbiturate Screen,Urine Not Detected (NotDetected); Benzodiazepines Screen,Urine Not Detected (NotDetected); Cocaine Screen,Urine Not Detected (NotDetected); Methadone Screen, Urine Not Detected (NotDetected); Opiate Screen,Urine Not Detected (NotDetected); Oxycodone Screen, Urine Not Detected (NotDetected); Phencyclidine Screen,Urine Not Detected (NotDetected); Tricyclic Antidepressant,Urine Not Detected (NotDetected); Urn Cannabinoid Scrn Not Detected (NotDetected)
[2020-06-16] MEDS ORDERED: MAG HYDROX/AL HYDROX/SIMETH 30 ML CUP PO PRN (03:15)
[2020-06-16] MEDS ORDERED: MAGNESIUM HYDROXIDE 2,400 MG/10 ML CUP PO PRN (03:15)
[2020-06-16] MEDS ORDERED: LORazepam 2 MG/ML INJ IM PRN (03:17)
[2020-06-16] MEDS ORDERED: HALOPERIDOL LACTATE 5 MG/ML 1 ML VIAL IM PRN (03:19)
[2020-06-16] MEDS: ACETAMINOPHEN TAB 325 MG TAB PO PRN (04:54)
[2020-06-16 06:46] LABS: Basophils # (A) 0.1 k/uL (0-0.2); Basophils % (A) 1 %; Eosinophils # (A) 0.2 k/uL (0-0.7); Eosinophils % (A) 2 %; HCT 36.2 % (39.0-53.0); HGB 12.4 gm/dL (13.0-17.5); Lymphocytes # (A) 2.1 k/uL (1.0-4.8); Lymphocytes % (A) 23 %; MCH 30.1 pg (25.0-35.0); MCHC 34.4 g/dL (31.0-37.0); MCV 87.5 fL (80.0-100.0); Monocytes # (A) 0.4 k/uL (0-1.0); Monocytes % (A) 5 %; Neutrophils # (A) 6.2 k/uL (1.3-7.7); Neutrophils % (A) 68 %; Platelet Count 311 k/uL (150-450); RBC 4.13 m/uL (4.30-5.90); WBC 9.1 k/uL (3.8-10.6)
[2020-06-16 06:54] LABS: ALT 30 U/L (4-49); AST 39 U/L (17-59); African American GFR (CKD) >90 (>60 ml/min/1.73 sqM); Albumin 3.3 g/dL (3.5-5.0); Alkaline Phosphatase 75 U/L (38-126); Anion Gap 7 mmol/L; Blood Urea Nitrogen 16 mg/dL (9-20); Calcium 9.2 mg/dL (8.4-10.2); Carbon Dioxide 26 mmol/L (22-30); Chloride 102 mmol/L (98-107); Cholesterol 143 mg/dL (<200); Glucose 116 mg/dL (74-99); HDL Cholesterol 58 mg/dL (40-60); LDL Cholesterol,Calculated 67 mg/dL (0-99); Non-African American GFR(CKD) >90 (>60 ml/min/1.73 sqM); Potassium 3.8 mmol/L (3.5-5.1); Sodium 135 mmol/L (137-145); Total Bilirubin 0.4 mg/dL (0.2-1.3); Total Protein 6.1 g/dL (6.3-8.2); Triglycerides 91 mg/dL (<150)
[2020-06-16 07:44] LABS: Glucose,Whole Blood 105 mg/dL (75-99)
[2020-06-16] MEDS: haloperidoL 5 MG TAB PO SCH ×3 (08:54→20:37)
[2020-06-16] MEDS: NICOTINE 14MG/24HR PATCH TRANSDERM SCH (08:54)
[2020-06-16] MEDS: OLANZapine 7.5 MG TAB PO SCH ×2 (09:17→20:37)
[2020-06-16] MEDS: metFORMIN 500 MG TAB PO SCH ×2 (10:02→18:11)
--- NOTE | 2020-06-16 10:51 | HP ---
DATE OF SERVICE: 06/15/2020 HISTORY AND PHYSICAL DATE OF SERVICE: 06/16/2020 IDENTIFYING DATA: The patient is a 70-year-old male. He lives alone. He was brought to the ED by police on a pick-up order. CHIEF COMPLAINT: The patient had missed followup appointments. He refused to cooperate with a police wellness check. He had barbed wire across his driveway and his windows blacked out. HISTORY OF PRESENTING ILLNESS: The patient was the only source of information beyond the medical records. He did not provide any reliable information. The only thing he said was that the reason he came to the hospital is that he was riding his bicycle outdoors in the snow in the police accosted him. He had an admission here April 16 for a diagnosis of bipolar disorder. He was discharged on Zyprexa 15 mg twice a day and Prozac 40 mg a day as his only psychotropic medications. It is unclear whether or not he was taking his medications during that hospitalization. It was noted that he started showing manic symptoms toward the end of January that got progressively worse. 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 He continued to drive his car without a license. He had disorganized behavior. He had paranoia. His mood was elevated and he had excessive energy. It is noteworthy that I saw the patient in followup on April 18. I refer the reader to that note for an extended discussion I had with the patient's brother reviewing his history. I will not review details here but it is noted that the history brother provided was consistent with a diagnosis of bipolar disorder in the manic phase. It is noteworthy that the patient has also had a lot of paranoid thinking and believes his brother and others are out to get him. According to brother, there were numerous contacts in the patient's community by police who also reported a lot of concern about his behavior and function between January and the April admission. The patient currently is showing a fair amount of manic symptoms with elevated mood. He says his name is aHris and that he makes references to "that other rupal" who apparently is the person in question Vijay Lynn. He has paranoid thinking about his brother and others stealing from him. He is on a court order. He did not make his last followup appointment. There was no further information available about current circumstances. He is admitted for further evaluation. SUBSTANCE USE HISTORY: No reliable information is available. Urine drug screen was negative. His previous urine drug screen was positive for marijuana. PAST MEDICAL HISTORY: Type 2 diabetes, hyperlipidemia, hypertension, peripheral neuropathy. FAMILY AND SOCIAL HISTORY: I refer the reader to Dr. Earl admission note of April 16 for details. MENTAL STATUS EXAM: Patient sat with a little restlessness. He gave fair eye contact. He responded to questions, though most of what he said was tangential. He had a somewhat interactive conversation and seemed to listen to the questions though then he would veer off in other directions. He made frequent references to his name being Haris and "the other rupal." His affect was somewhat intense, though not to a significant degree. His mood was moderately elevated. It was difficult to assess his degree of distress. He voices paranoid thinking. He did not voice any thoughts of harm, though showed me some recent scratches he had on his leg suggesting that he does not have good safety awareness. On cognitive exam he appeared oriented and alert. He did make an effort to answer formal cognitive questions. He was able to give some accurate history as documented in the medical record. PHYSICAL EXAM: As per medical consultation. ASSESSMENT: This 70-year-old male is diagnosed with bipolar affective disorder, manic phase. He likely has gone off his medications. He did not follow through. Stress issues at this time are uncertain how well he was functioning between his April 22 discharge and present remains to be seen. Strengths include diomede intelligence. Weaknesses includes relapse to abdi. DIAGNOSIS: 1. Bipolar affective disorder, manic phase. 2. Diabetes mellitus. 3. Hyperlipidemia. 4. Hypertension. 5. Peripheral neuropathy. RECOMMENDATIONS: Patient will be admitted for comprehensive medical psychiatric and psychosocial evaluation. We will engage the patient in individual and group therapeutic activities. I will start the patient on Zyprexa 15 mg twice a day. It is noteworthy that the patient was previously on Prozac. There are significant recommendations in the literature regarding the concerns and potential risks for having a patient with bipolar disorder on an antidepressant, which may aggravate and put the patient at risk for further cycling of his bipolar symptoms. He might be an appropriate candidate for lithium as an alternative. We will focus on stabilization and discharge planning. MMGARYL / IJN: [id number] / KESHIA
--- NOTE | 2020-06-16 13:33 | P.MDCNMH ---
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 Patient apparently missed his appointment at [facility] on 06/05/2020. He missed his follow-up replacement appointment on 06/11/20. When [facility] staff went to check on him in his home he had barbed wire across the driveway, the windows were blacked out, and everything was shut up. They sent the police over for a well check and they brought him here for psychiatric evaluation. Patient refused to speak to me regarding his mental health issues. He state that he has chronic body pain and has been taking aleve. Denies any fever or chills. Denies any current illnesses. Patient reports history of hypertension, hyperlipidemia and diabetes; does report taking lisinopril and metformin; reports he's supposed to be on cholesterol medication but is not sure if he's been taking it; patient is agreeable to take medication Review of Systems REVIEW OF SYSTEMS: CONSTITUTIONAL: No fever, no malaise, no fatigue. HEENT: No recent visual problems or hearing problems. Denied any sore throat. CARDIOVASCULAR: No chest pain, orthopnea, PND, no palpitations, no syncope. PULMONARY: No shortness of breath, no cough, no hemoptysis. GASTROINTESTINAL: No diarrhea, no nausea, no vomiting, no abdominal pain. NEUROLOGICAL: No headaches, no weakness, no numbness. HEMATOLOGICAL: Denies any bleeding or petechiae. GENITOURINARY: Denies any burning micturition, frequency, or urgency. MUSCULOSKELETAL/RHEUMATOLOGICAL: Denies any joint pain, swelling, or any muscle pain. ENDOCRINE: Denies any polyuria or polydipsia. The rest of the 14-point review of systems is negative. Past Medical History Past Medical History: Diabetes Mellitus, Hyperlipidemia, Hypertension Additional Past Medical History / Comment(s): used to take lipitor , neuropathy History of Any Multi-Drug Resistant Organisms: None Reported Past Surgical History: Tonsillectomy Past Anesthesia/Blood Transfusion Reactions: No Reported Reaction Past Psychological History: Anxiety, Bipolar Smoking Status: Current every day smoker Past Alcohol Use History: Occasional Past Drug Use History: Marijuana - Past Family History Mother Family Medical History: Coronary Artery Disease (CAD), Diabetes Mellitus Father Family Medical History: Coronary Artery Disease (CAD) Brother(s) Family Medical History: No Reported History Medications and Allergies Home Medications Medication Instructions Recorded Confirmed Type Aspirin 81 mg PO HS 08/04/16 04/16/20 History Acetaminophen Tab [Tylenol] 650 mg PO Q4HR PRN tab 04/22/20 Rx FLUoxetine HCL 40 mg PO DAILY 30 Days capsule 04/22/20 Rx Multivitamins, Thera [Multivitamin 1 tab PO DAILY 30 Days tab 04/22/20 Rx (formulary)] OLANZapine [ZyPREXA] 15 mg PO BID 30 Days tab 04/22/20 Rx metFORMIN HCL [Glucophage] 1,000 mg PO BID-W/MEALS tab 04/22/20 Rx Allergies Allergy/AdvReac Type Severity Reaction Status Date / Time No Known Allergies Allergy Verified 04/16/20 03:43 Physical Exam Vitals: Vital Signs Temp Pulse Pulse Resp BP BP Pulse Ox 06/16/20 04:19 98.6 F 68 18 158/75 98 06/16/20 03:37 97.9 F 70 18 151/76 98 06/15/20 23:11 98.0 F 90 18 206/94 100 Intake and Output 06/15/20 06/16/20 06/16/20 22:59 06:59 14:59 Other: Weight 104.326 kg 95 kg - Constitutional General appearance: Present: average body habitus, cooperative, no acute distress - EENT Eyes: Present: anicteric sclerae, EOMI, PERRLA, normal appearance Neck: Present: normal ROM. Absent: lymphadenopathy, rigidity, thyromegaly Carotids: negative: bruit present Thyroid: bilateral: normal size, negative: enlarged, nodule Respiratory: bilateral: CTA, negative: rales, rhonchi, wheezing Cardiovascular; Rhythm: regular; normal: S1, S2 Abnormal Heart Sounds: Absent: systolic murmur, diastolic murmur General gastrointestinal: Present: normal bowel sounds, soft. Absent: distended, organomegaly, tenderness Genitourinary Comment(s): deferred Integumentary: Present: normal turgor. Absent: jaundiced, rash, ulcer Neurologic: Present: CNII-XII intact. Absent: focal deficits Musculoskeletal: Present: gait normal, strength equal bilaterally Psychiatric: Present: A&O x's 3 Cranial Nerve Examination - Cranial Nerves Cranial Nerve I- Olfactory: Intact Cranial Nerve II- Optic: Intact Cranial Nerve III- Oculomotor: Intact Cranial Nerve IV- Trochlear: Intact Cranial Nerve V- Trigeminal: Intact Cranial Nerve - Abducens: Intact Cranial Nerve VII- Facial: Intact Cranial Nerve VIII- Auditory: Intact Cranial Nerve IX- Glossopharyngeal: Intact Cranial Nerve X- Vagus: Intact Cranial Nerve XI- Accessory: Intact Cranial Nerve XII- Hypoglossal: Intact Results CBC & Chem 7: 06/16/20 06:03 06/16/20 06:03 Labs: Abnormal Lab Results - Last 24 Hours (Table) 06/15/20 06/15/20 06/16/20 Range/Units 23:22 23:22 06:03 RBC 4.13 L (4.30-5.90) m/uL Hgb 12.4 L (13.0-17.5) gm/dL Hct 38.8 L 36.2 L (39.0-53.0) % Sodium 136 L (137-145) mmol/L Glucose (74-99) mg/dL POC Glucose (mg/dL) (75-99) mg/dL Total Protein (6.3-8.2) g/dL Albumin (3.5-5.0) g/dL TSH (0.465-4.680) mIU/L 06/16/20 06/16/20 Range/Units 06:03 07:41 RBC (4.30-5.90) m/uL Hgb (13.0-17.5) gm/dL Hct (39.0-53.0) % Sodium 135 L (137-145) mmol/L Glucose 116 H (74-99) mg/dL POC Glucose (mg/dL) 105 H (75-99) mg/dL Total Protein 6.1 L (6.3-8.2) g/dL Albumin 3.3 L (3.5-5.0) g/dL TSH 6.270 H (0.465-4.680) mIU/L Assessment and Plan Assessment: 1. Uncontrolled hypertension; we will resume lisinopril; plan to start patient on 5 mg daily and titrate up as needed 2. Diabetes mellitus type 2; I will plan to reorder home dose of metformin; monitor Accu-Cheks 3. Hyperlipidemia; start patient on Lipitor 10 mg daily at bedtime; order lipid profile and adjust therapy as needed 4. Bipolar disorder; your management DVT prophylaxis; ambulation CODE STATUS; full code
[2020-06-16 14:02] LABS: Appearance,Urine Clear (Clear); Bilirubin,Urine Negative (Negative); Blood,Urine Negative (Negative); Color,Urine Light Yellow; Glucose,Urine (UA) Negative (Negative); Ketones,Urine Negative (Negative); Leukocyte Esterase,Urine Negative (Negative); Nitrite,Urine Negative (Negative); PH, Urine 6.5 (5.0-8.0); Protein,Urine Negative (Negative); Specific Gravity,Urine 1.006 (1.001-1.035); Urobilinogen,Urine <2.0 mg/dL (<2.0)
[2020-06-16 14:15] LABS: Hemoglobin A1C 5.9 % (4.0-6.0)
[2020-06-16 17:48] LABS: Glucose,Whole Blood 91 mg/dL (75-99)
[2020-06-16 20:29] LABS: Glucose,Whole Blood 193 mg/dL (75-99)
[2020-06-16] MEDS: ASPIRIN 81 MG PO SCH (20:37)
[2020-06-16 22:47] LABS: Urine Alcohol Negative (Negative); Urine Barbiturate Negative (Negative); Urine Cocaine Negative (Negative); Urine Methadone Negative (Negative); Urine Opiates Negative (Negative); Urine Phencyclidine Negative (Negative)
[2020-06-17 07:50] LABS: Glucose,Whole Blood 104 mg/dL (75-99)
[2020-06-17] MEDS: haloperidoL 5 MG TAB PO SCH (07:58)
[2020-06-17] MEDS: NICOTINE 14MG/24HR PATCH TRANSDERM SCH (07:58)
[2020-06-17] MEDS: metFORMIN 500 MG TAB PO SCH ×2 (07:58→17:56)
[2020-06-17] MEDS: OLANZapine 7.5 MG TAB PO SCH (07:59)
[2020-06-17] MEDS: MULTIVITAMINS, THERA 1 EACH TAB PO SCH (07:59)
[2020-06-17 13:07] LABS: Glucose,Whole Blood 72 mg/dL (75-99)
--- NOTE | 2020-06-17 14:33 | P.PN ---
Progress Note - Text Progress Note Date: 06/17/20 Interval History: Patient was seen wandering the hallways and was directable and agreeable to gayle deutsch with freelance copywriter in the office. patient had a nicotine patch stuck to his head. He claims that his name is "Celestino". He appeared to be somewhat confused during the interview however was attempting to stay on topic. He claims that he has having flight of ideas and is distractible sometime during the interview. Heclaims that his mood is "getting better". He is denying any depression today. He has minimal insight into his condition however did state that he is taking his medications. He states that he was stopped by the police while riding his bike and brought into the hospital. He was preoccupied with court tomorrow. He states that he is going to some groups and try to participate with others. At this time patient denies any suicidal or homical ideations, intent or plan. Patient denies any visual hallucinations and denies any paranoia or delusions. patient is admitting to auditory hallucinations at this time.Patient denies any side effects from the medications and has been compliant with meds. Mental Status Exam: General Appearance: Patient appears to be tall, well-built,stated age is alert, distracted at times, and attempts to be cooperative. fair hygiene and grooming. Behavior: Patient is calmly seated without any agitated behavior.appears to be confused at times. Speech: Patient's speech is fluent and nonpressured. Mood/Affect: Mood is improving mildly, affect is congruent Suicidality/Homicidality: Patient denies having any suicidal or homicidal ideation intent or plan. Perceptions: Patient denies any visual hallucinations and denies any auditory hallucinations Though content/process: concrete, poverty of content. Poor insight and judgment. Memory and concentration: AOX3, grossly intact for the purposes of this session. distracted at times. Judgment and insight: poor Assessment bipolar disorder, with psychotic features nicotine dependence Plan: -Patient continues to meet criteria for inpatient psychiatric admission for symptom stabilization and safety. Patient is currently on an active treatment order which expires on 11/11/2020. Patient signed med consent form and placed in patient's chart. -Medications: decrease Zyprexa to 10 mg twice a day for psychosis/mood stabilization. Plan will be to cross titrate with paliperidone and place patient on long-acting injection. Started paliperidone 3 mg by mouth daily. Discontinued Haldol at this time. -When necessary Ativan and Haldol for agitation/aggression. -NRT - nicotine patch -SW on board for discharge planning. Encouraged the patient to participate in milieu. patient is currently on an active treatment order which expires on 11/11/2020.
[2020-06-17] MEDS: PALIPERIDONE 3 MG TAB.ER.24 PO SCH (15:20)
[2020-06-17] MEDS: ACETAMINOPHEN TAB 325 MG TAB PO PRN ×2 (16:06→21:38)
[2020-06-17 17:57] LABS: Glucose,Whole Blood 86 mg/dL (75-99)
[2020-06-17 20:21] LABS: Glucose,Whole Blood 116 mg/dL (75-99)
[2020-06-17] MEDS: OLANZapine 10 MG TAB PO SCH (21:38)
[2020-06-17] MEDS: ASPIRIN 81 MG PO SCH (21:38)
[2020-06-18 07:48] LABS: Glucose,Whole Blood 112 mg/dL (75-99)
[2020-06-18] MEDS: NICOTINE 14MG/24HR PATCH TRANSDERM SCH (07:49)
[2020-06-18] MEDS: metFORMIN 500 MG TAB PO SCH ×2 (07:49→17:53)
[2020-06-18] MEDS: OLANZapine 10 MG TAB PO SCH (07:50)
[2020-06-18] MEDS: MULTIVITAMINS, THERA 1 EACH TAB PO SCH (07:50)
[2020-06-18] MEDS: PALIPERIDONE 3 MG TAB.ER.24 PO SCH ×2 (07:50→21:29)
[2020-06-18] MEDS: ACETAMINOPHEN TAB 325 MG TAB PO PRN ×2 (07:51→14:39)
--- NOTE | 2020-06-18 09:37 | P.PN ---
Progress Note - Text Progress Note Date: 06/18/20 Interval History: Patient was seen wandering the hallways speaking to another patient in the [facility] and was directable and agreeable to speak with quality analyst/technical writer in the office. Today patient appears to be more polite and cooperative with quality analyst/technical writer. He was answering questions more appropriately as well. He states that he is very worried about his court date today however was vague about the charges that he is facing. He states that "this could be life changing". He claims that he has having flight of ideas however this has been improving and patient has had improving concentration. He states that he believes the paliperidone has been helping him more and wants to remain on this medication. He claims that his mood is "getting better". He is denying any depression today. He has minimal insight into his condition however did state that he is taking his medications. He claims that his knee was hurting more today and was requesting ibuprofen. He states that he is going to some groups and try to participate with others. At this time patient denies any suicidal or homical ideations, intent or plan. Patient denies any visual or auditory hallucinations and denies any paranoia or delusions.Patient denies any side effects from the medications and has been compliant with meds. Mental Status Exam: General Appearance: Patient appears to be tall, well-built,stated age is alert, more directable today, and attempts to be cooperative. fair hygiene and grooming. Behavior: Patient is calmly seated without any agitated behavior. less confused today. Speech: Patient's speech is fluent and nonpressured. Mood/Affect: Mood is improving mildly, affect is congruent Suicidality/Homicidality: Patient denies having any suicidal or homicidal ideation intent or plan. Perceptions: Patient denies any visual hallucinations and denies any auditory hallucinations Though content/process: concrete, poverty of content. Poor insight and judgment, improving mildly. Rambles at times. Memory and concentration: AOX3, grossly intact for the purposes of this session Judgment and insight: poor, improving mildly Assessment bipolar disorder, with psychotic features nicotine dependence Plan: -Patient continues to meet criteria for inpatient psychiatric admission for symptom stabilization and safety. Patient is currently on an active treatment order which expires on 11/11/2020. Patient signed med consent form and placed in patient's chart. -Medications: decrease Zyprexa to 5 mg twice a day for psychosis/mood stabilization. Plan will be to cross titrate with paliperidone and place patient on long-acting injection. Increased paliperidone 3 mg BID. -When necessary Ativan and Haldol for agitation/aggression. -NRT - nicotine patch -SW on board for discharge planning. Encouraged the patient to participate in milieu. patient is currently on an active treatment order which expires on 11/11/2020.
--- NOTE | 2020-06-18 10:26 | P.CON ---
Consult Note - . Consult date: 06/18/20 Assessment/Plan:: Psychosis NOS hypertension hyperlipidemia depression anxiety Evaluated patient this a.m. resting comfortably in chair, patient alert and oriented answering questions appropriately. Patient undergoing treatment plan with psychiatry and ancillary staff for psychosis.pt denies fever/chills/chest discomfort/shortness of breath/abd pain or nausea. Continue treatment from psychiatry and ancillary staff for Psychosis NOS continue home medications
[2020-06-18 12:40] LABS: Glucose,Whole Blood 94 mg/dL (75-99)
[2020-06-18 17:42] LABS: Glucose,Whole Blood 86 mg/dL (75-99)
[2020-06-18 20:08] LABS: Glucose,Whole Blood 110 mg/dL (75-99)
[2020-06-18] MEDS: ASPIRIN 81 MG PO SCH (21:29)
[2020-06-18] MEDS: OLANZapine 5 MG TAB PO SCH (21:29)
[2020-06-19] MEDS: ACETAMINOPHEN TAB 325 MG TAB PO PRN ×3 (01:54→23:39)
[2020-06-19 07:56] LABS: Glucose,Whole Blood 93 mg/dL (75-99)
[2020-06-19] MEDS: NICOTINE 14MG/24HR PATCH TRANSDERM SCH (07:56)
[2020-06-19] MEDS: MULTIVITAMINS, THERA 1 EACH TAB PO SCH (07:57)
[2020-06-19] MEDS: OLANZapine 5 MG TAB PO SCH (07:57)
[2020-06-19] MEDS: PALIPERIDONE 3 MG TAB.ER.24 PO SCH (07:57)
[2020-06-19] MEDS: metFORMIN 500 MG TAB PO SCH ×2 (07:57→16:56)
[2020-06-19] MEDS: IBUPROFEN 600 MG TAB PO PRN ×3 (09:05→23:39)
--- NOTE | 2020-06-19 10:51 | P.PN ---
Progress Note - Text Progress Note Date: 06/19/20 Interval History: Patient was seen sitting in the lounge this morning speaking to another patient in the hallway and was directable and agreeable to speak with telegraphic typewriter installer in the office. Today patient appears to be more cooperative with telegraphic typewriter installer. He states that he is feeling "lousy" today and states that he is having some pain in his ankle. He states that he believes that the police had injured him prior to coming into the hospital. He states that he did court yesterday while on the unit and states that "it went well". He made comments about possibly needing to go to nursing home after being discharged from the unit. He claims that his thoughts have been improving and is feeling more positive now. He claims that he has having flight of ideas however this has been improving and patient has had improving concentration. He states that he believes the paliperidone has been helping him more and wants to remain on this medication. He is denying any depression today. He has minimal insight into his condition however this is improving. He states that he is going to some groups and try to participate with others. At this time patient denies any suicidal or homical ideations, intent or plan. Patient denies any visual or auditory hallucinations and denies any paranoia or delusions.Patient denies any side effects from the medications and has been compliant with meds. Mental Status Exam: General Appearance: Patient appears to be tall, well-built,stated age is alert, more directable today, and attempts to be cooperative. fair hygiene and grooming. Behavior: Patient is calmly seated without any agitated behavior. less confused today. Speech: Patient's speech is fluent and nonpressured. Mood/Affect: Mood is improving mildly, affect is congruent Suicidality/Homicidality: Patient denies having any suicidal or homicidal ideation intent or plan. Perceptions: Patient denies any visual hallucinations and denies any auditory hallucinations Though content/process: concrete, poverty of content. Poor insight and judgment, improving mildly. Rambles at times. Memory and concentration: AOX3, grossly intact for the purposes of this session Judgment and insight: poor, improving mildly Assessment bipolar disorder, with psychotic features nicotine dependence Plan: -Patient continues to meet criteria for inpatient psychiatric admission for symptom stabilization and safety. Patient is currently on an active treatment order which expires on 11/11/2020. Patient signed med consent form and placed in patient's chart. -Medications: decrease Zyprexa to 5 mg qhs for psychosis/mood stabilization. Plan will be to cross titrate with paliperidone and place patient on long-acting injection. Increased paliperidone 3 mg hs + 6mg daily for psychosis. -When necessary Ativan and Haldol for agitation/aggression. -NRT - nicotine patch -SW on board for discharge planning. Encouraged the patient to participate in milieu. patient is currently on an active treatment order which expires on 11/11/2020. patient will need to be transitioned onto invega sustenna and will need his second dose aswell. likely discharge next week.
[2020-06-19 12:45] LABS: Glucose,Whole Blood 85 mg/dL (75-99)
[2020-06-19 17:42] LABS: Glucose,Whole Blood 89 mg/dL (75-99)
[2020-06-19 20:04] LABS: Glucose,Whole Blood 88 mg/dL (75-99)
[2020-06-19] MEDS ORDERED: PALIPERIDONE 3 MG TAB.ER.24 PO SCH (21:00)
[2020-06-19] MEDS ORDERED: OLANZapine 5 MG TAB PO SCH (21:00)
[2020-06-19] MEDS: ASPIRIN 81 MG PO SCH (21:24)
[2020-06-20 07:41] LABS: Glucose,Whole Blood 82 mg/dL (75-99)
[2020-06-20] MEDS: IBUPROFEN 600 MG TAB PO PRN (07:46)
[2020-06-20] MEDS: MULTIVITAMINS, THERA 1 EACH TAB PO SCH (07:46)
[2020-06-20] MEDS: NICOTINE 14MG/24HR PATCH TRANSDERM SCH (07:46)
[2020-06-20] MEDS: metFORMIN 500 MG TAB PO SCH ×2 (07:46→17:47)
[2020-06-20] MEDS: PALIPERIDONE 6 MG TAB.ER.24 PO SCH ×2 (07:46→21:05)
--- NOTE | 2020-06-20 09:11 | P.PN ---
Progress Note - Text Progress Note Date: 06/20/20 Interval History: Patient was seen wandering the hallways this morning and was directable and ag reeable to speak with health science writer in the office. Today patient appears to be more cooperative with health science writer and was fairly polite. He states that he is doing much better today on his medications and thanked health science writer for putting him on paliperidone. Gas Cutter spoke with patient about medication compliance and also the option for long-acting injection and patient was agreeable to take Invega Sustenna tomorrow loading dose. He claims the ice packs have been helping his ankle do better and loss for an appointment today. He states that he did attend court yesterday and spoke briefly about the charges against him. He states that his mood has been gradually getting better on the unit and denies any racing thoughts or flight of ideas today. He is denying any depression today. He has improvement in his insight and judgment. He states that he is going to some groups and try to participate with others. At this time patient denies any suicidal or homical ideations, intent or plan. Patient denies any visual or auditory hallucinations and denies any paranoia or delusions.Patient denies any side effects from the medications and has been compliant with meds. Mental Status Exam: General Appearance: Patient appears to be tall, well-built,stated age is alert, more directable today, and attempts to be cooperative. fair hygiene and grooming. Behavior: Patient is calmly seated without any agitated behavior. More cooperative today Speech: Patient's speech is fluent and nonpressured. Mood/Affect: Mood is improving mildly, affect is congruent Suicidality/Homicidality: Patient denies having any suicidal or homicidal ideation intent or plan. Perceptions: Patient denies any visual hallucinations and denies any auditory hallucinations Though content/process: poverty of content. Improving insight and judgment. Rambles at times. Memory and concentration: AOX3, grossly intact for the purposes of this session Judgment and insight: poor, improving mildly Assessment bipolar disorder, with psychotic features nicotine dependence Plan: -Patient continues to meet criteria for inpatient psychiatric admission for symptom stabilization and safety. Patient is currently on an active treatment or michael which expires on 11/11/2020. Patient signed med consent form and placed in patient's chart. -Medications: Discontinued Zyprexa. Increased paliperidone 6 mg hs + 6mg daily for psychosis. Will give loading dose of Invega Sustenna tomorrow 234 mg IM. -When necessary Ativan and Haldol for agitation/aggression. -NRT - nicotine patch -SW on board for discharge planning. Encouraged the patient to participate in milieu. patient is currently on an active treatment order which expires on 11/11/2020. patient will need to be transitioned onto invega sustenna and will need his second dose aswell. likely discharge next week.
[2020-06-20] MEDS: ACETAMINOPHEN TAB 325 MG TAB PO PRN ×2 (11:51→17:47)
[2020-06-20 12:33] LABS: Glucose,Whole Blood 85 mg/dL (75-99)
[2020-06-20] MEDS: IBUPROFEN 600 MG TAB PO SCH ×2 (13:50→21:04)
--- NOTE | 2020-06-20 14:42 | XR ---
EXAMINATION TYPE: XR ankle complete RT DATE OF EXAM: 06/20/2020 COMPARISON: None HISTORY: Pain and tenderness TECHNIQUE: Three-view right ankle FINDINGS: Ankle mortise is intact. No acute fractures or dislocations are evident. There is extensive cysts calcification in the Achilles tendon region. Very tiny plantar calcaneal heel spur is present. Follow-up exams can be performed 7-10 days from acute trauma for continued pain. IMPRESSION: 1. No acute osseous abnormality. 2. Calcification along the Achilles tendon.
--- NOTE | 2020-06-20 14:44 | XR ---
EXAMINATION TYPE: XR foot complete RT DATE OF EXAM: 06/20/2020 COMPARISON: None HISTORY: Pain tender to touch TECHNIQUE: Three-view right foot FINDINGS: No acute fractures or dislocations are evident. Joint spaces are preserved. There is a calc ification through the Achilles tendon region. Tiny plantar calcaneal heel spur is present. Follow-up exams can be performed 7-10 days from acute trauma for continued pain. IMPRESSION: 1. No acute osseous abnormality.
[2020-06-20 17:42] LABS: Glucose,Whole Blood 94 mg/dL (75-99)
[2020-06-20 20:27] LABS: Glucose,Whole Blood 108 mg/dL (75-99)
[2020-06-20] MEDS: ASPIRIN 81 MG PO SCH (21:05)
[2020-06-21] MEDS: IBUPROFEN 600 MG TAB PO SCH ×4 (05:54→21:10)
[2020-06-21] MEDS: ACETAMINOPHEN TAB 325 MG TAB PO PRN ×3 (06:04→22:38)
[2020-06-21 07:48] LABS: Glucose,Whole Blood 88 mg/dL (75-99)
[2020-06-21] MEDS: NICOTINE 14MG/24HR PATCH TRANSDERM SCH (08:55)
[2020-06-21] MEDS: metFORMIN 500 MG TAB PO SCH ×2 (08:55→17:48)
[2020-06-21] MEDS: PALIPERIDONE 6 MG TAB.ER.24 PO SCH ×2 (08:55→21:12)
[2020-06-21] MEDS: MULTIVITAMINS, THERA 1 EACH TAB PO SCH (08:55)
[2020-06-21] MEDS ORDERED: PALIPERIDONE IM 234 MG/1.5 ML SYG IM ONE (09:00)
--- NOTE | 2020-06-21 10:56 | P.PN ---
Progress Note - Text Progress Note Date: 06/21/20 Interval History: Patient was seen wandering the hallways this morning and was directable and ag reeable to speak with marine underwriter in the office. Patient states that he did not sleep well last night. He claims that he slept approximately 2 hours with his current medications. Patient claims that he is agreeable to start trazodone tonight to help him with his sleep. He appears to be fairly cooperative with marine underwriter and fairly polite. He did state that he is willing to take the injection today however has not gotten it yet. He made several comments about his neighbors potentially stealing his mail and when asked how he knows he states that "they steal everything from me". He claims that he would like to go home so he can check his mail. He states that his ankle is continuing to hurt him however he has been using ice packs and has a tense or bandage around it. He states that his mood has been gradually getting better on the unit and denies any racing thoughts or flight of ideas today. He is denying any depression today. He states that he is going to some groups and try to participate with others. At this time patient denies any suicidal or homical ideations, intent or plan. Patient denies any visual or auditory hallucinations.Patient denies any side effects from the medications and has been compliant with meds. Mental Status Exam: General Appearance: Patient appears to be tall, well-built,stated age is alert, more directable today, and attempts to be cooperative. fair hygiene and grooming. Behavior: Patient is calmly seated without any agitated behavior. cooperative today Speech: Patient's speech is fluent and nonpressured. [place] Mood/Affect: Mood is improving mildly, affect is congruent Suicidality/Homicidality: Patient denies having any suicidal or homicidal ideation intent or plan. Perceptions: Patient denies any visual hallucinations and denies any auditory hallucinations Though content/process: poverty of content. Improving insight and judgment. Rambles at times. Mild paranoia towards his neighbors. Memory and concentration: AOX3, grossly intact for the purposes of this session Judgment and insight: Chronically poor, improving mildly Assessment bipolar disorder, with psychotic features nicotine dependence Plan: -Patient continues to meet criteria for inpatient psychiatric admission for symptom stabilization and safety. Patient is currently on an active treatment order which expires on 11/11/2020. Patient signed med consent form and placed in patient's chart. -Medications: continue with paliperidone 6 mg hs + 6mg daily for psychosis. Will give loading dose of Invega Sustenna today 234 mg IM and patient will be due for his second dose 156mg IM on wednesday. Invega PO to be titrated down slowly over the next few days. Consider adding back a second antipsychotic such as zyprexa if patient is continuing to have paranoia and psychotic sx. Added Trazodone 50mg qhs for insomnia/mood -When necessary Ativan and Haldol for agitation/aggression. -NRT - nicotine patch -SW on board for discharge planning. Encouraged the patient to participate in milieu. patient is currently on an active treatment order which expires on 11/11/2020. patient will need to be transitioned onto invega sustenna and will need his second dose on wednesday. likely discharge next week wednesday-wednesday
[2020-06-21 12:45] LABS: Glucose,Whole Blood 92 mg/dL (75-99)
[2020-06-21] MEDS ORDERED: NICOTINE POLACRILEX 2 MG GUM BUCCAL PRN (13:31)
[2020-06-21 17:44] LABS: Glucose,Whole Blood 104 mg/dL (75-99)
[2020-06-21 20:07] LABS: Glucose,Whole Blood 105 mg/dL (75-99)
[2020-06-21] MEDS: ASPIRIN 81 MG PO SCH (21:11)
[2020-06-21] MEDS: traZODone HCL 50 MG TAB PO SCH (21:12)
[2020-06-21] MEDS: LORazepam 1 MG TAB PO PRN (21:14)
[2020-06-21] MEDS ORDERED: cloNIDine HCL 0.1 MG TAB PO STA (23:24)
[2020-06-22 08:01] LABS: Glucose,Whole Blood 92 mg/dL (75-99)
[2020-06-22] MEDS: IBUPROFEN 600 MG TAB PO SCH ×5 (08:05→22:08)
[2020-06-22] MEDS: metFORMIN 500 MG TAB PO SCH ×2 (08:55→17:00)
[2020-06-22] MEDS: NICOTINE 14MG/24HR PATCH TRANSDERM SCH (08:55)
[2020-06-22] MEDS: MULTIVITAMINS, THERA 1 EACH TAB PO SCH (08:56)
[2020-06-22] MEDS: PALIPERIDONE 6 MG TAB.ER.24 PO SCH ×3 (08:56→22:08)
[2020-06-22 12:49] LABS: Glucose,Whole Blood 81 mg/dL (75-99)
--- NOTE | 2020-06-22 17:11 | P.PN ---
Progress Note - Text Progress Note Date: 06/22/20 Clinical Problems: Disorder most recent manic with psychotic features, tobacco use Interim history: I reviewed the medical record and interviewed the patient. He was somatically preoccupied and perseverative about needing a walker due to purported leg pain. I spoke with nursing about his request and they reported that he has no problem with ambulating and only recently began to perseverate about leg problem. He was intermittently restless but is been cooperative with treatment. He is attending therapeutic groups and has posed no management problem. Mental status exam: He presented as a casually groomed elderly male who was pleasant on approach. He made eye contact and attended to interview. He had a distressed facial expression. He is had no abnormality of psychomotor activity he pressed not agitated, restless or impulsive. His speech was spontaneous with slight increase in rate and rhythm. He did not demonstrate his affect was blunted, stable and appropriate. He denied suicidal ideation or wishes. He didn't express feelings of hopelessness, helplessness or worthlessness. He ruminated about his physical problems and need for walker. He did not express ideas reference, paranoid ideation or delusions. His sleeping was concrete and associations are fully coherent, logical and goal directed. Assessment: He is much improved from admission marked decrease in his manic symptoms. Plan: No inpatient treatment. Safety precautions. Continue Invega 6 mg twice a day and trazodone 50 mg at bedtime. Continue Haldol 5 mg IM when necessary for agitation or aggression while his Ativan 1 mg by mouth/IM for agitation acute psychosis. Encouraged continued participation in therapeutic groups and activities. Evaluate clinical status response to treatment daily basis.
[2020-06-22 17:39] LABS: Glucose,Whole Blood 101 mg/dL (75-99)
[2020-06-22 20:00] LABS: Glucose,Whole Blood 96 mg/dL (75-99)
[2020-06-22] MEDS: ASPIRIN 81 MG PO SCH (22:07)
[2020-06-22] MEDS: traZODone HCL 50 MG TAB PO SCH (22:07)
[2020-06-22] MEDS: LORazepam 1 MG TAB PO PRN (22:14)
[2020-06-23 07:42] LABS: Glucose,Whole Blood 95 mg/dL (75-99)
[2020-06-23] MEDS: IBUPROFEN 600 MG TAB PO SCH ×4 (08:29→21:35)
[2020-06-23] MEDS: NICOTINE 14MG/24HR PATCH TRANSDERM SCH (08:29)
[2020-06-23] MEDS: MULTIVITAMINS, THERA 1 EACH TAB PO SCH (08:29)
[2020-06-23] MEDS: metFORMIN 500 MG TAB PO SCH ×2 (08:30→17:51)
--- NOTE | 2020-06-23 12:15 | P.PN ---
Progress Note - Text Progress Note Date: 06/23/20 Clinical Problems: Disorder most recent manic with psychotic features, tobacco use Interim history: I reviewed the medical record and interviewed the patient. He remains somatically preoccupied today he requested a prescription for diuretic complained that he has right-sided swelling. He attributed to the "swelling" to having multiple steroid injections in his hands and shoulder. He remains restless on the unit. He received 1 mg of Ativan yesterday for his restlessness and agitation. He tends therapeutic groups but only slept 3 hours last night. He has been compliant with prescribed medications. I reviewed his medication and noticed that his TSH was elevated at 6.27. On 04/25/2020 during his prior admission his TSH was 2.1 and his T4 was 1.2. Mental status exam: He presented as a disheveled appearing elderly male who was pleasant on approach. He made eye contact and attended to interview. He had a bright facial expression. He is had no abnormality of psychomotor activity he pressed not agitated, restless or impulsive. His speech was spontaneous with increased rate and rhythm. His affect was blunted but stable and appropriate. He denied suicidal ideation or wishes. He didn't express feelings of hopelessness, helplessness or worthlessness. He ruminated about his physical problems. He did not express ideas reference, paranoid ideation or delusions. His 18 was concrete and associations are fully coherent, logical and goal directed. Assessment: Overall he is improved from admission. He remains somatically preoccupied. His TSH is significantly increased from his prior admission. Plan: Continue inpatient treatment. Safety precautions. Continue Invega 6 mg twice a day and trazodone 50 mg at bedtime. Continue Haldol 5 mg IM when necessary for agitation or aggression while his Ativan 1 mg by mouth/IM for agitation acute psychosis. Obtain free T4. Encouraged continued participation in therapeutic groups and activities. Evaluate clinical status response to treatment daily basis.
[2020-06-23 12:37] LABS: Glucose,Whole Blood 89 mg/dL (75-99)
[2020-06-23 17:45] LABS: Glucose,Whole Blood 89 mg/dL (75-99)
[2020-06-23 20:08] LABS: Glucose,Whole Blood 111 mg/dL (75-99)
[2020-06-23] MEDS: ASPIRIN 81 MG PO SCH (21:35)
[2020-06-23] MEDS: ACETAMINOPHEN TAB 325 MG TAB PO PRN (21:36)
[2020-06-23] MEDS: traZODone HCL 50 MG TAB PO SCH (21:36)
[2020-06-23] MEDS: PALIPERIDONE 6 MG TAB.ER.24 PO SCH (21:36)
[2020-06-24] MEDS: ACETAMINOPHEN TAB 325 MG TAB PO PRN (06:06)
[2020-06-24 07:49] LABS: Glucose,Whole Blood 91 mg/dL (75-99)
[2020-06-24] MEDS: IBUPROFEN 600 MG TAB PO SCH ×4 (08:59→21:18)
[2020-06-24] MEDS: MULTIVITAMINS, THERA 1 EACH TAB PO SCH (08:59)
[2020-06-24] MEDS: NICOTINE 14MG/24HR PATCH TRANSDERM SCH (08:59)
[2020-06-24] MEDS: metFORMIN 500 MG TAB PO SCH ×2 (08:59→17:57)
[2020-06-24] MEDS: PALIPERIDONE 6 MG TAB.ER.24 PO SCH ×2 (08:59→21:18)
--- NOTE | 2020-06-24 11:51 | P.PN ---
Progress Note - Text Progress Note Date: 06/24/20 Interval History: Patient was seen wandering the hallways and was directable and agreeable to speak with ticket writer in the office. The patient expresses that he is doing well. He is not reporting any auditory or visual hallucinations. Denying any paranoia or delusions. He is denying any suicidal or homicidal ideation, intention, and/or plan. His TSH was noted to be elevated but free T4 was noted to be within normal limits on 06/24/2020. At this time, the patient is not reporting any significant somatic symptoms. He is denying any side effects of his medications. He has been in adherent with his medications. He was informed that he'll be receiving the next dose of Invega Sustenna tomorrow which she is agreeable to. He has been noted to not display any bizarre behavior today. Mental Status Exam: General Appearance: Patient appears to be stated age is alert, directable, and cooperative. Good hygiene and grooming. Dressed in a mask due to covert precautions which she sherly a happy face on. Behavior: Patient is calmly seated without any agitated behavior. Normal psychomotor activity. Speech: Patient's speech is fluent and nonpressured. Spontaneous. Mood/Affect: Mood is improving mildly, affect is congruent and constricted. Suicidality/Homicidality: Patient denies having any suicidal or homicidal ideation intent or plan. Perceptions: Patient denies any visual hallucinations and denies any auditory hallucinations Though content/process: There is no evidence of any delusional thought content and thought process is linear and goal-directed. Memory and concentration: AOX3, grossly intact for the purposes of this session Judgment and insight: Improving mildly Assessment Bipolar disorder, with psychotic features Nicotine dependence Plan: -Patient continues to meet criteria for inpatient psychiatric admission for symptom stabilization and safety. The patient is currently on a treatment order that expires on 11/11/2020. -Medications: Continue Invega 6 mg by mouth twice a day for psychosis and mood stabilization. Patient is scheduled to receive Invega Sustenna 156 mg IM tomorrow. Continue trazodone 50 mg by mouth at bedtime for depression/insomnia -When necessary Ativan and Haldol for agitation/aggression. -NRT - [icotine patch] and Nicorette gum-SW on board for discharge planning. Encouraged the patient to participate in milieu.
[2020-06-24 12:44] LABS: Glucose,Whole Blood 87 mg/dL (75-99)
[2020-06-24 17:43] LABS: Glucose,Whole Blood 76 mg/dL (75-99)
[2020-06-24 20:21] LABS: Glucose,Whole Blood 113 mg/dL (75-99)
[2020-06-24] MEDS: traZODone HCL 50 MG TAB PO SCH (21:18)
[2020-06-24] MEDS: ASPIRIN 81 MG PO SCH (21:18)
[2020-06-25] MEDS: ACETAMINOPHEN TAB 325 MG TAB PO PRN ×2 (00:11→11:33)
[2020-06-25] MEDS: LORazepam 1 MG TAB PO PRN (00:11)
[2020-06-25 07:50] LABS: Glucose,Whole Blood 73 mg/dL (75-99)
[2020-06-25] MEDS: NICOTINE 14MG/24HR PATCH TRANSDERM SCH (08:08)
[2020-06-25] MEDS: IBUPROFEN 600 MG TAB PO SCH ×4 (08:08→21:30)
[2020-06-25] MEDS: MULTIVITAMINS, THERA 1 EACH TAB PO SCH (08:08)
[2020-06-25] MEDS: PALIPERIDONE 6 MG TAB.ER.24 PO SCH (08:09)
[2020-06-25] MEDS: metFORMIN 500 MG TAB PO SCH ×2 (08:09→18:17)
[2020-06-25] MEDS ORDERED: PALIPERIDONE IM 156 MG/ML SYG IM STA (08:49)
--- NOTE | 2020-06-25 09:33 | P.PN ---
Progress Note - Text Progress Note Date: 06/25/20 Interval History: Patient was seen wandering the hallways and was directable and agreeable to speak with underwriter solicitation director in the office. The patient expresses that he is doing well. The patient is agreeable to taking his next loading dose of Invega Sustenna today. He is not reporting any significant side effects of medication. He denies any chest pain, muscle tightness, or breast growth. He is not reporting any suicidal or homicidal ideation, intention, and/or plan. He is denying any paranoia or delusions. He denies any auditory or visual hallucinations. The patient reports that he was able to sleep well and is not reporting any significant issues regarding his ADLs. Mental Status Exam: General Appearance: Patient appears to be stated age is alert, directable, and cooperative. Good hygiene and grooming. Dressed in a mask due to covert precautions which she sherly a happy face on. Behavior: Patient is calmly seated without any agitated behavior. Normal psychomotor activity. Speech: Patient's speech is fluent and nonpressured. Spontaneous. Mood/Affect: Mood is improving mildly, affect is euthymic to bright. Suicidality/Homicidality: Patient denies having any suicidal or homicidal ideation intent or plan. Perceptions: Patient denies any visual hallucinations and denies any auditory hallucinations Though content/process: There is no evidence of any delusional thought content and thought process is linear and goal-directed. Memory and concentration: AOX3, grossly intact for the purposes of this session Judgment and insight: Improving mildly Assessment Bipolar disorder, with psychotic features Nicotine dependence Plan: -Patient continues to meet criteria for inpatient psychiatric admission for symptom stabilization and safety. The patient is currently on a treatment order that expires on 11/11/2020. -Medications: Invega Sustenna 156 mg IM will be given today. We will decrease his oral Invega 3 mg by mouth twice a day. Continue trazodone 50 mg by mouth at bedtime for depression/insomnia -When necessary Ativan and Haldol for agitation/aggression. -NRT - nicotine patch and Nicorette gum -SW on board for discharge planning. Encouraged the patient to participate in milieu. -Anticipated discharge tomorrow
[2020-06-25 12:53] LABS: Glucose,Whole Blood 80 mg/dL (75-99)
[2020-06-25 17:37] LABS: Glucose,Whole Blood 86 mg/dL (75-99)
--- NOTE | 2020-06-25 20:21 | XR ---
EXAMINATION TYPE: XR chest 1V portable DATE OF EXAM: 06/25/2020 COMPARISON: 12/14/2019 HISTORY: Chest pain TECHNIQUE: Single view FINDINGS: There is no heart failure nor confluent pneumonic infiltrate there is some blunting left co stophrenic angle. There are no hilar masses. There is minimal blunting also right costophrenic angle. IMPRESSION: There are new small pleural effusions compared to old exam. Normal heart.
[2020-06-25 20:56] LABS: Basophils # (A) 0.1 k/uL (0-0.2); Basophils % (A) 1 %; Eosinophils # (A) 0.3 k/uL (0-0.7); Eosinophils % (A) 4 %; HCT 33.9 % (39.0-53.0); HGB 11.1 gm/dL (13.0-17.5); Lymphocytes # (A) 1.9 k/uL (1.0-4.8); Lymphocytes % (A) 26 %; MCH 29.6 pg (25.0-35.0); MCHC 32.8 g/dL (31.0-37.0); MCV 90.2 fL (80.0-100.0); Mean Platelet Volume 6.8; Monocytes # (A) 0.3 k/uL (0-1.0); Monocytes % (A) 4 %; Neutrophils # (A) 4.8 k/uL (1.3-7.7); Neutrophils % (A) 64 %; Platelet Count 295 k/uL (150-450); RBC 3.76 m/uL (4.30-5.90); RDW 14.3 % (11.5-15.5); WBC 7.5 k/uL (3.8-10.6)
[2020-06-25] MEDS ORDERED: FUROSEMIDE 40 MG TAB PO ONE (21:00)
[2020-06-25 21:06] LABS: African American GFR (CKD) >90 (>60 ml/min/1.73 sqM); Anion Gap 5 mmol/L; Blood Urea Nitrogen 28 mg/dL (9-20); Calcium 9.2 mg/dL (8.4-10.2); Carbon Dioxide 28 mmol/L (22-30); Chloride 102 mmol/L (98-107); Glucose 98 mg/dL (74-99); Non-African American GFR(CKD) 85 (>60 ml/min/1.73 sqM); Sodium 135 mmol/L (137-145)
[2020-06-25] MEDS: traZODone HCL 50 MG TAB PO SCH (21:30)
[2020-06-25] MEDS: PALIPERIDONE 3 MG TAB.ER.24 PO SCH (21:30)
[2020-06-25] MEDS: ASPIRIN 81 MG PO SCH (21:30)
[2020-06-26 07:29] VITALS: RESP 16; TEMP 98.3
[2020-06-26 07:51] LABS: Glucose,Whole Blood 87 mg/dL (75-99)
[2020-06-26] MEDS: IBUPROFEN 600 MG TAB PO SCH ×2 (08:54→13:43)
[2020-06-26] MEDS: PALIPERIDONE 3 MG TAB.ER.24 PO SCH (08:55)
[2020-06-26] MEDS: metFORMIN 500 MG TAB PO SCH (08:55)
[2020-06-26] MEDS: NICOTINE 14MG/24HR PATCH TRANSDERM SCH (08:55)
[2020-06-26] MEDS: MULTIVITAMINS, THERA 1 EACH TAB PO SCH (08:56)
[2020-06-26] MEDS ORDERED: ATORVASTATIN 40 MG TAB PO SCH (09:00)
[2020-06-26] MEDS ORDERED: lisinopriL 5 MG TAB PO STA (09:30)
[2020-06-26] MEDS ORDERED: DOBUTamine DRIP for NUC MED 500 MG in DEXTROSE/WATER 1 250ML.BAG IV PRN (09:33)
--- NOTE | 2020-06-26 09:53 | P.PN ---
Subjective Progress Note Date: 06/26/20 Principal diagnosis: Psychosis NOS Evaluated 70-year-old male this a.m., patient ambulating throughout room. Patient noted to have an episode of chest discomfort throughout the night. 12 lead EKG was performed no acute changes. Serial troponins negative. Chest x-ray no acute changes. Subjective data from patient patient stated he was anxious about getting to go home, and relates chest discomfort to anxiety to go home. Patient denies fever, chills, chest pain, palpitations, shortness of breath, abdominal pain, nausea, vomiting, diarrhea. Patient no acute signs of distress. Patient awaiting evaluation from cardiology's perspective. Objective - Vital Signs Vital signs: Vital Signs Temp 98.3 F 06/26/20 07:29 Pulse 78 06/26/20 09:00 Resp 16 06/26/20 09:00 BP 141/66 06/26/20 09:00 Pulse Ox 98 06/25/20 06:56 - Constitutional General appearance: Present: cooperative - EENT Eyes: Present: EOMI, PERRLA Ears: bilateral: normal - Neck Neck: Present: normal ROM Carotids: bilateral: upstroke normal Thyroid: bilateral: normal size - Respiratory Respiratory: bilateral: CTA (Anterior & posterior lung wang) - Cardiovascular Details: Normal sinus rhythm Heart rate: 78 Rhythm: regular Heart sounds: normal: S1, S2 - Peripheral pulses radial pulse Peripheral Pulses: bilateral: Normal dorsalis pedis Peripheral Pulses: bilateral: Normal - Gastrointestinal General gastrointestinal: Present: normal bowel sounds - Integumentary Integumentary: Present: normal turgor - Neurologic Neurologic: Present: CNII-XII intact - Musculoskeletal Musculoskeletal: Present: gait normal - Psychiatric Psychiatric: Present: A&O x's 3, appropriate affect, intact judgment & insight - Allied health notes Allied health notes reviewed: nursing - Labs CBC & Chem 7: 06/25/20 20:29 06/25/20 20:29 Labs: Abnormal Lab Results - Last 24 Hours (Table) 06/25/20 06/25/20 Range/Units 20:29 20:29 RBC 3.76 L (4.30-5.90) m/uL Hgb 11.1 L (13.0-17.5) gm/dL Hct 33.9 L (39.0-53.0) % Sodium 135 L (137-145) mmol/L BUN 28 H (9-20) mg/dL - Imaging and Cardiology Chest x-ray: report reviewed Assessment and Plan Assessment: Bipolar affective disorder continue consultation with psychiatry for recommendations and treatment management diabetes mellitus type two [id number] continue home medications hyperlipidemia continue home medications hypertension continue home medications peripheral neuropathy continue home medications. Acute episode of chest discomfort serial troponins negative, chest x-ray no acute changes, 12 lead EKG no acute changes, consultation with cardiology for recommendations and treatment plan. Continue home medications once cleared by cardiology medically cleared for medical management. Time with Patient: Greater than 30
[2020-06-26 10:03] VITALS: BP 165/80; PULSE 71
--- NOTE | 2020-06-26 10:06 | P.CRDCN ---
History of Present Illness History of present illness: HISTORY OF PRESENTING ILLNESS This is a pleasant 70-year-old male past medical history significant for hypertension, dyslipidemia, diabetes mellitus, chronic nicotine dependence and bipolar disorder. He denies prior history of coronary artery disease and does not follow in the office with a dermatology teacher. We have been asked to see in consultation for chest pain. He states yesterday afternoon for approximately one hour intermittently he had an episode of chest discomfort in the left precordial region described as a sharp stabbing sensation associated with feeling lightheaded. The discomfort did not radiate through to the back, and down the arm or into the neck. Initially when it started it lasted for about 20 minutes pretty persistently and then did seem to mildly subsided however continued off-and-on for another 40 minutes. Currently he is chest pain-free. He has had no further episodes since last night. DIAGNOSTICS EKG reveals sinus mechanism with T-wave inversion in the inferior leads, new compared to previous EKGs. Chest xray small blunting of the left costophrenic angle. Laboratory reviewed, WBC 7.5, hemoglobin 11.1, platelets 295, sodium 135, potassium 5.0, creatinine 0.91 and cardiac enzymes negative 3. Current cardiac medications include aspirin 81 mg daily and lisinopril 5 mg daily. REVIEW OF SYSTEMS At the time of my exam: CONSTITUTIONAL: Denies fever or chills. CARDIOVASCULAR: Denies chest pain, shortness of breath, orthopnea, PND or pal pitations. RESPIRATORY: Denies cough. GASTROINTESTINAL: Denies abdominal pain, diarrhea, constipation, nausea or vomiting. MUSCULOSKELETAL: Denies myalgias. NEUROLOGIC: Denies numbness, tingling, headacbe or weakness. ENDOCRINE: Denies fatigue, weight change, polydipsia or polyurina. GENITOURINARY: Denies burning, hematuria or urgency with micturation. HEMATOLOGIC: Denies history of anemia or bleeding. PHYSICAL EXAMINATION Blood pressure 141/66 heart rate 78 afebrile and maintaining oxygen saturation on room air. CONSTITUTIONAL: No apparent distress. HEENT: Head is normocephalic. Pupils are equal, round. Sclerae anicteric. Mucous membranes of the mouth are moist. No JVD. No carotid bruit. CHEST EXAMINATION: Lungs are clear to auscultation. No chest wall tenderness is noted on palpation or with deep breathing. HEART EXAMINATION: Regular rate and rhythm. S1, S2 heard. No murmurs, gallops or rub. ABDOMEN: Soft, nontender. Positive bowel sounds. EXTREMITIES: 2+ peripheral pulses, trace bilateral lower extremity non-pitting edema and no calf tenderness. NEUROLOGIC EXAMINATION: Patient is awake, alert and oriented x3. ASSESSMENT Chest pain Diabetes mellitus Hypertension Dyslipidemia Bipolar disorder PLAN An acute coronary event has been ruled out. EKG is abnormal and this appears to be new when old records are reviewed. Obtain 2D echocardiogram and doppler study to assess cardiac structure and function. He has already eaten today and is being discharged from the mental health unit. Recommend hospital admission for stress test tomorrow morning. Increase lisinopril to 10 mg daily and add atorvastatin 40 mg daily. Further recommendations to follow based on clinical course. Thank you kindly for this consultation. Nurse Practitioner note has been reviewed, I agree with a documented findings and plan of care. Patient was seen and examined. Past Medical History Past Medical History: Diabetes Mellitus, Hyperlipidemia, Hypertension Additional Past Medical History / Comment(s): used to take lipitor , neuropathy History of Any Multi-Drug Resistant Organisms: None Reported Past Surgical History: Tonsillectomy Past Anesthesia/Blood Transfusion Reactions: No Reported Reaction Past Psychological History: Anxiety, Bipolar Smoking Status: Current every day smoker Past Alcohol Use History: Occasional Past Drug Use History: Marijuana - Past Family History Mother Family Medical History: Coronary Artery Disease (CAD), Diabetes Mellitus Father Family Medical History: Coronary Artery Disease (CAD) Brother(s) Family Medical History: No Reported History Medications and Allergies Home Medications Medication Instructions Recorded Confirmed Type Aspirin 81 mg PO HS 30 Days chew 06/26/20 Rx Atorvastatin [Lipitor] 40 mg PO DAILY 30 Days tab 06/26/20 Rx Multivitamins, Thera [Multivitamin 1 each PO DAILY 30 Days tab 06/26/20 Rx (formulary)] Nicotine 14Mg/24Hr Patch [Habitrol] 1 patch TRANSDERM DAILY 30 Days 06/26/20 Rx patch Paliperidone IM [Invega Sustenna] 156 mg IM QMONTHLY #1 syr 06/26/20 Rx lisinopriL [Zestril] 5 mg PO DAILY 30 Days tab 06/26/20 Rx metFORMIN HCL [Glucophage] 1,000 mg PO BID-W/MEALS 30 Days 02/17/21 Rx tab traZODone HCL [Desyrel] 50 mg PO HS 30 Days tab 06/26/20 Rx Allergies Allergy/AdvReac Type Severity Reaction Status Date / Time No Known Allergies Allergy Verified 04/16/20 03:43 Physical Exam Vitals: Vital Signs Temp Pulse Pulse Resp BP 06/26/20 09:00 78 16 141/66 06/26/20 07:29 98.3 F 74 16 177/81 06/25/20 21:30 75 163/72 06/25/20 19:45 98 F 80 18 186/77 Results 06/25/20 20:29 06/25/20 20:29 Cardiac Enzymes 06/25/20 06/25/20 06/26/20 Range/Units 20:29 23:25 02:56 Troponin I <0.012 <0.012 <0.012 (0.000-0.034) ng/mL CBC 06/25/20 Range/Units 20:29 WBC 7.5 (3.8-10.6) k/uL RBC 3.76 L (4.30-5.90) m/uL Hgb 11.1 L (13.0-17.5) gm/dL Hct 33.9 L (39.0-53.0) % Plt Count 295 (150-450) k/uL Comprehensive Metabolic Panel 06/25/20 Range/Units 20:29 Sodium 135 L (137-145) mmol/L Potassium 5.0 (3.5-5.1) mmol/L Chloride 102 (98-107) mmol/L Carbon Dioxide 28 (22-30) mmol/L BUN 28 H (9-20) mg/dL Creatinine 0.91 (0.66-1.25) mg/dL Glucose 98 (74-99) mg/dL Calcium 9.2 (8.4-10.2) mg/dL Current Medications Generic Name Dose Route Start Last Admin Trade Name Freq PRN Reason Stop Dose Admin Acetaminophen 650 mg 06/16/20 03:15 06/25/20 11:33 Acetaminophen Tab 325 Mg Tab PO 650 mg Q4HR PRN Administration Pain/Discomfort Al Hydroxide/Mg Hydroxide 30 ml 06/16/20 03:15 Mag Hydrox/Al Hydrox/Simeth 30 Ml Cup PO Q4HR PRN GI Upset Aspirin 81 mg 06/16/20 21:00 06/25/20 21:30 Aspirin 81 Mg PO 81 mg HS PATRICE Administration Atorvastatin Calcium 40 mg 06/26/20 09:00 06/26/20 08:55 Atorvastatin 40 Mg Tab PO 40 mg DAILY PATRICE Administration Haloperidol Lactate 5 mg 06/16/20 03:19 Haloperidol Lactate 5 Mg/Ml 1 Ml Vial IM Q8HR PRN Agitation or Acute Psychosis Ibuprofen 600 mg 06/22/20 09:00 06/26/20 08:54 Ibuprofen 600 Mg Tab PO 600 mg QID PATRICE Administration Lisinopril 5 mg 06/22/20 09:00 06/26/20 08:54 Lisinopril 2.5 Mg Tab PO 5 mg DAILY PATRICE Administration Lorazepam 1 mg 06/16/20 03:15 06/25/20 00:11 Lorazepam 1 Mg Tab PO 1 mg TID PRN Administration Anxiety, Agitation Lorazepam 1 mg 06/16/20 03:17 Lorazepam 2 Mg/Ml Inj IM Q8HR PRN Agitation or Acute Anxiety Magnesium Hydroxide 2,400 mg 06/16/20 03:15 Magnesium Hydroxide 2,400 Mg/10 Ml Cup PO DAILY PRN Constipation Metformin HCl 1,000 mg 06/16/20 09:45 06/26/20 08:55 Metformin 500 Mg Tab PO 1,000 mg BID-W/MEALS PATRICE Administration Multivitamins 1 each 06/17/20 09:00 06/26/20 08:56 Multivitamins, Thera 1 Each Tab PO 1 each DAILY PATRICE Administration Nicotine 1 patch 06/16/20 09:00 06/26/20 08:55 Nicotine 14mg/24hr Patch TRANSDERM 1 patch DAILY PATRICE Administration Nicotine Polacrilex 2 mg 06/21/20 13:31 Nicotine Polacrilex 2 Mg Gum BUCCAL Q4HR PRN Nicotine Cravings Trazodone HCl 50 mg 06/21/20 21:00 06/25/20 21:30 Trazodone Hcl 50 Mg Tab PO 50 mg HS PATRICE Administration 06/25/20 20:29 06/25/20 20:29
--- NOTE | 2020-06-26 10:38 | P.DS ---
Providers Date of admission: 06/16/20 03:05 Expected date of discharge: 06/26/20 Attending physician: Vladimir Earl MD Consults: 06/16/20 03:15 Consult Physician Routine Consulting Provider: Paulina Arenas Consult Reason/Comments: H and P Do you want consulting provider notified?: Yes, Notify in am 06/25/20 20:59 Consult Physician Routine Consulting Provider: Ti Moreno Consult Reason/Comments: Chest pain and EKG changes Do you want consulting provider notified?: Yes Primary care physician: Dallin Jurado - Discharge Diagnosis(es) (1) Bipolar disorder Current Visit: Yes Status: Acute Priority: High (2) Nicotine dependence Current Visit: Yes Status: Chronic Priority: Medium Hospital Course: Admission HPI: Initial psychiatric evaluation was completed by Dr. Olivas on 06/16/2020 who wrote: "The patient is a 70-year-old male. He lives alone. His brought to the ED by police on a pickup order. The patient had missed follow-up appointments. He refused to cooperate with police during a wellness check. He had missy wire across his driveway and windows blacked out. The patient informed the provider that the reason why he came to the hospital is that he was riding his bicycle outdoors in the snow and the police accosted him. The patient had an admission on April 16 for diagnosis of bipolar disorder and was discharged on Zyprexa and Prozac as his only psychotropic medications. It is unclear whether or not he was taking these medications during that hospitalization. It was noted that he said showing manic symptoms toward the end of January that Progressively worse. He was stopped for driving erratically and lost his lease purchase driver's license. He continues to drive his car without a license. He had disorganized behavior. He had paranoia. His mood was elevated and he had excessive energy. It is noteworthy that I saw the patient in follow-up on April 18. I further reader to that note for an extended discussion I had with the patient's brother reviewing his history. It is noted that the history the brother provided was consistent with a diagnosis of bipolar disorder in the manic phase. It is noteworthy that the patient has also had a lot of paranoid thinking believes his brother and others are out to get him." Hospital course: Upon admission to the unit patient was initially noted to be manic, with very poor insight, and very tangential. The patient was initially started on a regimen of Zyprexa 15 mg by mouth twice a day. When evaluated by Dr. Earl, the decision was made to transition the patient from Zyprexa to Invega so as to place the patient on a long-acting injectable due to his history of nonadherence with treatment. Over the course of the hospitalization, the patient displayed manic and intrusive behaviors while in the milieu. He would often be impulsive, overly familiar, and perform on action such as saluting passer bys, and placing his nicotine patch on his forehead or over his eye. The patient was adherent with his medications. Trazodone was added to his regimen to address insomnia and mood. The patient did receive Invega Sustenna 234 mg IM on 06/21/2020. He received a second dose of Invega Sustenna on 06/25/2020. In between both injections, the patient displayed a significant improvement in mood stability. He is very directable and cooperative with staff and peers. On the day of discharge, he reported no suicidal or homicidal ideation, intention, and/or plan. He is denying any paranoia or delusions. He has been sleeping well and has had no issues with appetite either. Of concern though, the patient did appear to have increased swelling in his lower extremity. The patient was evaluated by the medical team. The patient did endorse some chest pain that occurred on 06/25/2020. Cardiology evaluated the patient and an acute coronary event was ruled out. The recommendation was made by the graduate assistant athletic trainer to have the patient be admitted for stress testing the following morning. His lisinopril was increased and atorvastatin was added to his regimen. The patient will be discharged to the medical floor as he is cleared psychiatrically. Mental status exam: General Appearance: Patient appears to be stated age is alert, pleasant, and cooperative. Patient is in no acute distress and has fair hygiene and grooming . Patient is currently ambulating via wheelchair due to increased swelling in his lower extremities. Behavior: Patient is calmly seated without any agitated behavior. Eye contact is appropriate. Friendly. Speech: Patient's speech is fluent and nonpressured. Mood/Affect: Patient reports their mood is "feeling great", affect is congruent and euthymic to bright. Suicidality/Homicidality: Patient denies having any suicidal or homicidal ideation intent or plan. Perceptions: Patient denies any auditory or visual hallucinations. Though content/process: There is no evidence of any delusional thought content and thought process is linear and goal-directed. Memory and concentration: AOX3, grossly intact for the purposes of this session. Can spell "WORLD" backwards correctly. Judgment and insight: Improved with guarded prognosis Impression: Bipolar disorder, type I, with psychotic features Nicotine dependence Plan: -Continue with discharge today as patient has improved and stabilized psychiatrically and is not currently an imminent threat to himself and/or others. Patient will remain at chronically elevated risk for harm to self and/or others due to his impulsivity and severity of his mental illness. -Continue medications: The patient will be discharged on Invega Sustenna 156 mg IM every monthly with the next dose due on 07/23/20. Trazodone 50 mg by mouth at bedtime for insomnia -Patient was counseled on the need for medication compliance and appropriate follow-up at mental health and also primary care for medical issues. Patient verbalized understanding and agreed. -Social work to arrange for and conduct family meeting to ensure safety upon discharge and answer any questions/concerns. Social work also to arrange for patients follow up appointments with [facility] for psychiatric care along with follow up with primary care provider. -Patient counseled on abstaining from recreational drugs and marijuana and alcohol. Was informed/educated on the adverse effects on their physical and mental health. Patient verbally agreed and understood. -Patient was instructed to return to the hospital or seek immediate medical care if their psychiatric or medical symptoms do worsen or reoccur. -The patient will be discharged to the medical floor for further evaluation of chest pain as recommended by cardiology. -Psychoeducation and supportive therapy provided to patient. Risks and benefits of pharmacological treatment versus the risks and benefits of nontreatment weight and discussed. Informed consent discussion held. Common side effects of psychotropics discussed such as, but not limited to headache, GI disturbance, sexual dysfunction, movement disorders, sedation, and orthostatic hypotension. Life threatening and blackbox warnings of prescribed medications also discussed. Potential risks of operating a vehicle or heavy machinery discussed with patient at length. Advised on importance of compliance and a reliable and responsible manner. Patient advised to review FDA consumer labeling of all medications prior to taking. Patient verbalized understanding of potential risks, and agrees with current treatment plan. Patient advised to medically contact physician/emergency personnel if any acute changes in condition occur. Vital Signs Temp 98.3 F 06/26/20 07:29 Pulse 71 06/26/20 10:01 Resp 16 06/26/20 10:01 BP 165/80 06/26/20 10:01 Pulse Ox 98 06/25/20 06:56 Laboratory Results WBC 7.5 k/uL (3.8-10.6) 06/25/20 20: RBC 3.76 m/uL (4.30-5.90) L 06/25/20 20: Hgb 11.1 gm/dL (13.0-17.5) L 06/25/20: Hct 33.9 % (39.0-53.0) L 06/25/20: MCV 90.2 fL (80.0-100.0) 06/25/20: MCH 29.6 pg (25.0-35.0) 06/25/20: MCHC 32.8 g/dL (31.0-37.0) 06/25/20 20: RDW 14.3 % (11.5-15.5) 06/25/20: Plt Count 295 k/uL (150-450) 06/25/20: MPV 6.8 06/25/20 20: Neutrophils % 64 % 06/25/20 20: Lymphocytes % 26 % 06/25/20: Monocytes % 4 % 06/25/20: Eosinophils % 4 % 06/25/20: Basophils % 1 % 06/25/20: Neutrophils # 4.8 k/uL (1.3-7.7) 06/25/20 20: Lymphocytes # 1.9 k/uL (1.0-4.8) 06/25/20: Monocytes # 0.3 k/uL (0-1.0) 06/25/20: Eosinophils # 0.3 k/uL (0-0.7) 06/25/20: Basophils # 0.1 k/uL (0-0.2) 06/25/20 20: Sodium 135 mmol/L (137-145) L 02/16/21 20:29 Potassium 5.0 mmol/L (3.5-5.1) 06/25/20 20:29 Chloride 102 mmol/L (98-107) 06/25/20 20:29 Carbon Dioxide 28 mmol/L (22-30) 06/25/20 20:29 Anion Gap 5 mmol/L 06/25/20 20:29 BUN 28 mg/dL (9-20) H 06/25/20 20:29 Creatinine 0.91 mg/dL (0.66-1.25) 06/25/20 20:29 Est GFR (CKD-EPI)AfAm >90 (>60 ml/min/1.73 sqM) 06/25/20 20:29 Est GFR (CKD-EPI)NonAf 85 (>60 ml/min/1.73 sqM) 06/25/20 20:29 Glucose 98 mg/dL (74-99) 06/25/20 20:29 POC Glucose (mg/dL) 87 mg/dL (75-99) 06/26/20 07:50 POC Glu Fire Truck Driver HONORIO Zhao Wyatt 06/26/20 07:[address] Glu mg/dL 123 06/16/20 06:03 Hemoglobin A1c 5.9 % (4.0-6.0) 06/16/20 06:03 Calcium 9.2 mg/dL (8.4-10.2) 06/25/20 20:29 Total Bilirubin 0.4 mg/dL (0.2-1.3) 06/16/20 06:03 AST 39 U/L (17-59) 06/16/20 06:03 ALT 30 U/L (4-49) 06/16/20 06:03 Alkaline Phosphatase 75 U/L (38-126) 06/16/20 06:03 Troponin I <0.012 ng/mL (0.000-0.034) 06/26/20 02:56 Total Protein 6.1 g/dL (6.3-8.2) L 06/16/20 06:03 Albumin 3.3 g/dL (3.5-5.0) L 06/16/20 06:03 Triglycerides 91 mg/dL (<150) 06/16/20 06:03 Cholesterol 143 mg/dL (<200) 06/16/20 06:03 LDL Cholesterol, Calc 67 mg/dL (0-99) 06/16/20 06:03 HDL Cholesterol 58 mg/dL (40-60) 06/16/20 06:03 TSH 6.270 mIU/L (0.465-4.680) H 06/16/20 06:03 Free T4 0.83 ng/dL (0.78-2.19) 06/24/20 06:36 Urine Color Light Yellow 06/16/20 13:50 Urine Appearance Clear (Clear) 06/16/20 13:50 Urine pH 6.5 (5.0-8.0) 06/16/20 13:50 Ur Specific Butler 1.006 (1.001-1.035) 06/16/20 13:50 Urine Protein Negative (Negative) 06/16/20 13:50 Urine Glucose (UA) Negative (Negative) 06/16/20 13:50 Urine Ketones Negative (Negative) 06/16/20 13:50 Urine Blood Negative (Negative) 06/16/20 13:50 Urine Nitrite Negative (Negative) 06/16/20 13:50 Urine Bilirubin Negative (Negative) 06/16/20 13:50 Urine Urobilinogen <2.0 mg/dL (<2.0) 06/16/20 13:50 Ur Leukocyte Esterase Negative (Negative) 06/16/20 13:50 Urine Opiates Screen Negative ng/mL (Negative) 06/16/20 13:50 Ur Oxycodone Screen Not Detected (NotDetected) 06/16/20 01:29 Urine Methadone Screen Negative ng/mL (Negative) 06/16/20 13:50 Ur Propoxyphene Screen Negative ng/mL (Negative) 06/16/20 13:50 Ur Barbiturates Screen Not Detected (NotDetected) 06/16/20 01:29 Urine Barbiturates Negative ng/mL (Negative) 06/16/20 13:50 U Tricyclic Antidepress Not Detected (NotDetected) 06/16/20 01:29 Ur Phencyclidine Scrn Negative ng/mL (Negative) 06/16/20 13:50 Ur Amphetamine Screen Negative ng/mL (Negative) 06/16/20 13:50 Ur Amphetamines Screen Not Detected (NotDetected) 06/16/20 01:29 U Methamphetamines Scrn Not Detected (NotDetected) 06/16/20 01:29 U Benzodiazepines Scrn Negative ng/mL (Negative) 06/16/20 13:50 Urine Cocaine Screen Negative ng/mL (Negative) 06/16/20 13:50 U Cannabinoids Screen Negative ng/mL (Negative) 06/16/20 13:50 U Marijuana (THC) Screen Not Detected (NotDetected) 06/16/20 01:29 Urine Alcohol Negative mg/dL (Negative) 06/16/20 13:50 Coronavirus (PCR) Not Detected (Not Detectd) 06/16/20 02:10 Allergies Allergy/AdvReac Type Severity Reaction Status Date / Time No Known Allergies Allergy Verified 04/16/20 03:43 Patient Condition at Discharge: Stable Plan - Discharge Summary New Discharge Prescriptions: New Aspirin 81 mg PO HS 30 Days chew traZODone HCL [Desyrel] 50 mg PO HS 30 Days tab metFORMIN HCL [Glucophage] 1,000 mg PO BID-W/MEALS 30 Days tab Nicotine 14Mg/24Hr Patch [Habitrol] 1 patch TRANSDERM DAILY 30 Days patch Paliperidone IM [Invega Sustenna] 156 mg IM QMONTHLY #1 syr Atorvastatin [Lipitor] 40 mg PO DAILY 30 Days tab Multivitamins, Thera [Multivitamin (formulary)] 1 each PO DAILY 30 Days tab lisinopriL [Zestril] 5 mg PO DAILY 30 Days tab Discontinued Aspirin 81 mg PO HS FLUoxetine HCL 40 mg PO DAILY 30 Days capsule metFORMIN HCL [Glucophage] 1,000 mg PO BID-W/MEALS tab Acetaminophen Tab [Tylenol] 650 mg PO Q4HR PRN tab PRN Reason: Pain/Discomfort OLANZapine [ZyPREXA] 15 mg PO BID 30 Days tab Multivitamins, Thera [Multivitamin (formulary)] 1 tab PO DAILY 30 Days tab Discharge Medication List Aspirin 81 mg PO HS 30 Days chew 06/26/20 [Rx] Atorvastatin [Lipitor] 40 mg PO DAILY 30 Days tab 06/26/20 [Rx] Multivitamins, Thera [Multivitamin (formulary)] 1 each PO DAILY 30 Days tab 06/26/20 [Rx] Nicotine 14Mg/24Hr Patch [Habitrol] 1 patch TRANSDERM DAILY 30 Days patch 06/26/20 [Rx] Paliperidone IM [Invega Sustenna] 156 mg IM QMONTHLY #1 syr 06/26/20 [Rx] lisinopriL [Zestril] 5 mg PO DAILY 30 Days tab 06/26/20 [Rx] metFORMIN HCL [Glucophage] 1,000 mg PO BID-W/MEALS 30 Days tab 06/26/20 [Rx] traZODone HCL [Desyrel] 50 mg PO HS 30 Days tab 06/26/20 [Rx] Follow up Appointment(s)/Referral(s): Dallin Jurado MD [Primary Care Provider] - 1-2 days Ti Moreno MD [STAFF PHYSICIAN] - 3 Weeks Activity/Diet/Wound Care/Special Instructions: Activity and diet as tolerated. Avoid the use of street drugs and alcohol. Take all medications as prescribed. When you are in need of refills on your medications please contact your medical provider and/or outpatient psychiatrist to have this done. Please go to scheduled outpatient appointment for aftercare treatment. If symptoms return or become worse, call the crisis line at and/or go to the nearest emergency room for evaluation. Discharge Disposition: OTHER INSTITUTION NOT DEFINED
[2020-06-26 12:38] LABS: Glucose,Whole Blood 82 mg/dL (75-99)
[2020-06-27] MEDS ORDERED: lisinopriL 10 MG TAB PO SCH (09:00)
== END 2020-06-26 13:40 | disposition short-term general hospital (02) | DRG 885 ==
LOC: EC 22:47 → 3MHU 06-16 03:05
PROVIDERS: ADMIT Psychiatry & Neurology Psychiatry; ATTEND Psychiatry & Neurology Psychiatry
DX: F31.2 Bipolar disorder, current episode manic severe with psychotic features (principal); E11.42 Type 2 diabetes mellitus with diabetic polyneuropathy; Z20.822 Contact with and (suspected) exposure to COVID-19; F41.9 Anxiety disorder, unspecified; R07.9 Chest pain, unspecified; R42 Dizziness and giddiness; E78.5 Hyperlipidemia, unspecified; I10 Essential (primary) hypertension; M79.606 Pain in leg, unspecified; R45.87 Impulsiveness; G47.00 Insomnia, unspecified; G89.29 Other chronic pain; M25.571 Pain in right ankle and joints of right foot; F17.200 Nicotine dependence, unspecified, uncomplicated; Z79.82 Long term (current) use of aspirin; Z79.84 Long term (current) use of oral hypoglycemic drugs; Z79.899 Other long term (current) drug therapy; Z71.51 Drug abuse counseling and surveillance of drug abuser; Z90.89 Acquired absence of other organs; Z98.890 Other specified postprocedural states; Z82.49 Family history of ischemic heart disease and other diseases of the circulatory system; Z83.3 Family history of diabetes mellitus; Y93.55 Activity, bike riding
CPT/HCPCS: 36415; 71045; 80048; 80053; 80061; 80306; 81003; 82075; 83036; 84439; 84443; 84484; 85025; 87635; 93005; 99285

== ENCOUNTER 2020-06-26 09:46 | Inpatient (IN) | payer MEDICARE, BC ==
[2020-06-26] MEDS ORDERED: NALOXONE 0.4 MG/ML 1 ML VIAL IV PRN (14:38)
[2020-06-26 16:28] LABS: Glucose,Whole Blood 123 mg/dL (75-99)
[2020-06-26] MEDS: INSULIN ASPART (NovoLOG) 100 UNIT/ML VIAL SQ SCH ×2 (17:01→20:44)
[2020-06-26] MEDS ORDERED: lisinopriL 10 MG TAB PO STA (17:08)
--- NOTE | 2020-06-26 17:46 | P.CRDCN ---
History of Present Illness History of present illness: HISTORY OF PRESENTING ILLNESS This is a pleasant 70-year-old male past medical history significant for hypertension, dyslipidemia, diabetes mellitus, chronic nicotine dependence and bipolar disorder. 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 We have been asked to see in consultation for chest pain. He states yesterday afternoon for approximately one hour intermittently he had an episode of chest discomfort in the left precordial region described as a sharp stabbing sensation associated with feeling lightheaded. The discomfort did not radiate through to the back, and down the arm or into the neck. Initially when it started it lasted for about 20 minutes pretty persistently and then did seem to mildly subsided however continued off-and-on for another 40 minutes. Currently he is chest pain-free. He has had no further episodes since last night. DIAGNOSTICS EKG reveals sinus mechanism with T-wave inversion in the inferior leads, new compared to previous EKGs. Chest xray small blunting of the left costophrenic angle. Laboratory reviewed, WBC 7.5, hemoglobin 11.1, platelets 295, sodium 135, potassium 5.0, creatinine 0.91 and cardiac enzymes negative 3. Current cardiac medications include aspirin 81 mg daily and lisinopril 5 mg daily. REVIEW OF SYSTEMS At the time of my exam: CONSTITUTIONAL: Denies fever or chills. CARDIOVASCULAR: Denies chest pain, shortness of breath, orthopnea, PND or pal pitations. RESPIRATORY: Denies cough. GASTROINTESTINAL: Denies abdominal pain, diarrhea, constipation, nausea or vomiting. MUSCULOSKELETAL: Denies myalgias. NEUROLOGIC: Denies numbness, tingling, headacbe or weakness. ENDOCRINE: Denies fatigue, weight change, polydipsia or polyurina. GENITOURINARY: Denies burning, hematuria or urgency with micturation. HEMATOLOGIC: Denies history of anemia or bleeding. PHYSICAL EXAMINATION Blood pressure 141/66 heart rate 78 afebrile and maintaining oxygen saturation on room air. CONSTITUTIONAL: No apparent distress. HEENT: Head is normocephalic. Pupils are equal, round. Sclerae anicteric. Mucous membranes of the mouth are moist. No JVD. No carotid bruit. CHEST EXAMINATION: Lungs are clear to auscultation. No chest wall tenderness is noted on palpation or with deep breathing. HEART EXAMINATION: Regular rate and rhythm. S1, S2 heard. No murmurs, gallops or rub. ABDOMEN: Soft, nontender. Positive bowel sounds. EXTREMITIES: 2+ peripheral pulses, trace bilateral lower extremity non-pitting edema and no calf tenderness. NEUROLOGIC EXAMINATION: Patient is awake, alert and oriented x3. ASSESSMENT Chest pain Diabetes mellitus Hypertension Dyslipidemia Bipolar disorder PLAN An acute coronary event has been ruled out. EKG is abnormal and this appears to be new when old records are reviewed. Obtain 2D echocardiogram and doppler study to assess cardiac structure and function. He has already eaten today and is being discharged from the mental health unit. Recommend hospital admission for stress test tomorrow morning. Increase lisinopril to 10 mg daily and add atorvastatin 40 mg daily. Further recommendations to follow based on clinical course. Thank you kindly for this consultation. Nurse Practitioner note has been reviewed, I agree with a documented findings and plan of care. Patient was seen and examined. Past Medical History Past Medical History: Diabetes Mellitus, Hyperlipidemia, Hypertension Additional Past Medical History / Comment(s): used to take lipitor , neuropathy History of Any Multi-Drug Resistant Organisms: None Reported Past Surgical History: Tonsillectomy Past Anesthesia/Blood Transfusion Reactions: No Reported Reaction Past Psychological History: Anxiety, Bipolar Smoking Status: Current some day smoker Past Alcohol Use History: Occasional Additional Past Alcohol Use History / Comment(s): smokes pipe daily Past Drug Use History: Marijuana - Past Family History Mother Family Medical History: Coronary Artery Disease (CAD), Diabetes Mellitus Father Family Medical History: Coronary Artery Disease (CAD) Brother(s) Family Medical History: No Reported History Medications and Allergies Home Medications Medication Instructions Recorded Confirmed Type Aspirin 81 mg PO HS 30 Days chew 06/26/20 06/26/20 Rx Atorvastatin [Lipitor] 40 mg PO DAILY 30 Days tab 06/26/20 06/26/20 Rx Multivitamins, Thera [Multivitamin 1 tab PO DAILY 06/26/20 06/26/20 History (formulary)] Nicotine 14Mg/24Hr Patch [Habitrol] 1 patch TRANSDERM DAILY 30 Days 06/26/20 06/26/20 Rx patch Paliperidone IM [Invega Sustenna] 156 mg IM Q30D 06/26/20 06/26/20 History lisinopriL [Zestril] 5 mg PO DAILY 30 Days tab 06/26/20 06/26/20 Rx metFORMIN HCL [Glucophage] 1,000 mg PO AC-BID 06/26/20 06/26/20 History traZODone HCL [Desyrel] 50 mg PO HS 30 Days tab 06/26/20 06/26/20 Rx Allergies Allergy/AdvReac Type Severity Reaction Status Date / Time No Known Allergies Allergy Verified 06/26/20 14:49 Physical Exam Vitals: Vital Signs Temp Pulse Resp BP Pulse Ox 06/26/20 16:00 98.6 F 75 16 187/86 99 06/26/20 14:58 98.7 F 68 16 172/75 96 Intake and Output 06/26/20 06/26/20 06/26/20 06:59 14:59 22:59 Output Total 500 Balance -500 Output: Urine 500 Other: # Voids 0 Weight 101.7 kg Results Current Medications Generic Name Dose Route Start Last Admin Trade Name Freq PRN Reason Stop Dose Admin Acetaminophen 650 mg 06/26/20 14:38 Acetaminophen Tab 325 Mg Tab PO Q6HR PRN Mild Pain or Fever > 100.5 Aspirin 81 mg 06/26/20 21:00 Aspirin 81 Mg PO HS [facility] Atorvastatin Calcium 40 mg 06/27/20 09:00 Atorvastatin 40 Mg Tab PO DAILY [facility] Dobutamine HCl/Dextrose 500 mg 250 mls @ 30.51 mls/hr 06/26/20 17:12 / IV Solution IV 06/26/20 21:13 .Q8H12M PRN Per Protocol Protocol 10 MCG/KG/MIN Insulin Aspart 0 unit 06/26/20 17:30 06/26/20 17:01 Insulin Aspart (Novolog) 100 Unit/Ml Vial SQ Not Given ACHS [facility] Protocol Lisinopril 10 mg 06/27/20 09:00 Lisinopril 10 Mg Tab PO DAILY [facility] Multivitamins 1 each 06/27/20 09:00 Multivitamins, Thera 1 Each Tab PO DAILY [facility] Naloxone HCl 0.2 mg 06/26/20 14:38 Naloxone 0.4 Mg/Ml 1 Ml Vial IV Q2M PRN Opioid Reversal Nicotine 1 patch 06/27/20 09:00 Nicotine 14mg/24hr Patch TRANSDERM DAILY [facility] Paliperidone Palmitate 156 mg 07/24/20 09:00 Paliperidone Im 156 Mg/Ml Syg IM Q30D [facility] Trazodone HCl 50 mg 06/26/20 21:00 Trazodone Hcl 50 Mg Tab PO HS [facility] Intake and Output 06/26/20 06/26/20 06/26/20 06:59 14:59 22:59 Output Total 500 Balance -500 Output: Urine 500 Other: # Voids 0 Weight 101.7 kg Patient Weight 06/27/20 06:59 Weight 101.7 kg
[2020-06-26] MEDS ORDERED: hydrALAZINE HCL 20 MG/ML 1 ML VIAL IVP PRN (19:23)
[2020-06-26 20:36] LABS: Glucose,Whole Blood 119 mg/dL (75-99)
[2020-06-26] MEDS ORDERED: traZODone HCL 50 MG TAB PO SCH (21:00)
[2020-06-26] MEDS ORDERED: ASPIRIN 81 MG PO SCH (21:00)
[2020-06-27] MEDS: ACETAMINOPHEN TAB 325 MG TAB PO PRN ×2 (05:55→12:59)
[2020-06-27 06:37] LABS: Glucose,Whole Blood 93 mg/dL (75-99)
[2020-06-27] MEDS: INSULIN ASPART (NovoLOG) 100 UNIT/ML VIAL SQ SCH ×2 (06:40→12:35)
[2020-06-27] MEDS ORDERED: DOBUTamine DRIP for NUC MED 500 MG in DEXTROSE/WATER 1 250ML.BAG IV PRN (07:00)
[2020-06-27 08:22] LABS: Basophils # (A) 0.1 k/uL (0-0.2); Basophils % (A) 1 %; Eosinophils # (A) 0.3 k/uL (0-0.7); Eosinophils % (A) 3 %; HCT 37.3 % (39.0-53.0); HGB 12.3 gm/dL (13.0-17.5); Lymphocytes % (A) 22 %; MCH 29.6 pg (25.0-35.0); MCHC 32.8 g/dL (31.0-37.0); MCV 90.3 fL (80.0-100.0); Mean Platelet Volume 7.1; Monocytes # (A) 0.5 k/uL (0-1.0); Monocytes % (A) 5 %; Neutrophils # (A) 6.2 k/uL (1.3-7.7); Neutrophils % (A) 68 %; Platelet Count 305 k/uL (150-450); RBC 4.14 m/uL (4.30-5.90); RDW 14.3 % (11.5-15.5); WBC 9.2 k/uL (3.8-10.6)
[2020-06-27 08:36] VITALS: TEMP 98
[2020-06-27 08:55] LABS: ALT 24 U/L (4-49); AST 22 U/L (17-59); African American GFR (CKD) >90 (>60 ml/min/1.73 sqM); Albumin 4.1 g/dL (3.5-5.0); Alkaline Phosphatase 82 U/L (38-126); Anion Gap 7 mmol/L; Blood Urea Nitrogen 28 mg/dL (9-20); Calcium 9.8 mg/dL (8.4-10.2); Carbon Dioxide 28 mmol/L (22-30); Chloride 104 mmol/L (98-107); Glucose 93 mg/dL (74-99); Magnesium 1.9 mg/dL (1.6-2.3); Non-African American GFR(CKD) 82 (>60 ml/min/1.73 sqM); Potassium 5.6 mmol/L (3.5-5.1); Sodium 139 mmol/L (137-145); Total Bilirubin 0.3 mg/dL (0.2-1.3); Total Protein 7.3 g/dL (6.3-8.2)
[2020-06-27] MEDS ORDERED: MULTIVITAMINS, THERA 1 EACH TAB PO SCH (09:00)
[2020-06-27] MEDS ORDERED: lisinopriL 10 MG TAB PO SCH (09:00)
[2020-06-27] MEDS ORDERED: ATORVASTATIN 40 MG TAB PO SCH (09:00)
[2020-06-27] MEDS ORDERED: NICOTINE 14MG/24HR PATCH TRANSDERM SCH (09:00)
--- NOTE | 2020-06-27 09:36 | P.HPIM ---
History of Present Illness H&P Date: 06/27/20 Chief Complaint: Chest discomfort 70-year-old male was admitted to the cardiac step down unit due to an episode of chest discomfort with associated symptoms of feeling lightheaded and anxious. Patient has significant medical history of hypertension, dyslipidemia, diabetes mellitus type II [id number], chronic nicotine dependence, and bipolar disorder. Patient currently denies fever, chills, chest discomfort, palpitations, shortness of breath, abdominal pain, nausea, vomiting, and diarrhea. Review of Systems Ears, nose, mouth and throat: Reports headache Cardiovascular: Reports high blood pressure Musculoskeletal: Reports morning stiffness (Bilateral lower extremities) Neurological: Reports headaches Psychiatric: Reports mood swings Past Medical History Past Medical History: Diabetes Mellitus, Hyperlipidemia, Hypertension Additional Past Medical History / Comment(s): used to take lipitor , neuropathy History of Any Multi-Drug Resistant Organisms: None Reported Past Surgical History: Tonsillectomy Past Anesthesia/Blood Transfusion Reactions: No Reported Reaction Past Psychological History: Anxiety, Bipolar Smoking Status: Current some day smoker Past Alcohol Use History: Occasional Additional Past Alcohol Use History / Comment(s): smokes pipe daily Past Drug Use History: Marijuana - Past Family History Mother Family Medical History: Coronary Artery Disease (CAD), Diabetes Mellitus Father Family Medical History: Coronary Artery Disease (CAD) Brother(s) Family Medical History: No Reported History Medications and Allergies Home Medications and Allergies Comment(s): Medications and allergies reviewed Home Medications Medication Instructions Recorded Confirmed Type Aspirin 81 mg PO HS 30 Days chew 06/26/20 06/26/20 Rx Atorvastatin [Lipitor] 40 mg PO DAILY 30 Days tab 06/26/20 06/26/20 Rx Multivitamins, Thera [Multivitamin 1 tab PO DAILY 06/26/20 06/26/20 History (formulary)] Nicotine 14Mg/24Hr Patch [Habitrol] 1 patch TRANSDERM DAILY 30 Days 06/26/20 06/26/20 Rx patch Paliperidone IM [Invega Sustenna] 156 mg IM Q30D 06/26/20 06/26/20 History lisinopriL [Zestril] 5 mg PO DAILY 30 Days tab 06/26/20 06/26/20 Rx metFORMIN HCL [Glucophage] 1,000 mg PO AC-BID 02/17/21 02/17/21 History traZODone HCL [Desyrel] 50 mg PO HS 30 Days tab 06/26/20 06/26/20 Rx Allergies Allergy/AdvReac Type Severity Reaction Status Date / Time No Known Allergies Allergy Verified 06/26/20 14:49 Physical Exam Vitals: Vital Signs Temp Pulse Resp BP Pulse Ox 06/27/20 08:00 98.0 F 65 18 165/89 98 06/27/20 03:59 97.9 F 74 18 156/77 98 06/26/20 23:56 97.9 F 77 18 156/70 95 06/26/20 20:00 97.9 F 65 18 165/78 98 06/26/20 18:55 188/90 06/26/20 16:00 98.6 F 75 16 187/86 99 06/26/20 14:58 98.7 F 68 16 172/75 96 Intake and Output 06/26/20 06/27/20 06/27/20 22:59 06:59 14:59 Intake Total 2726 Output Total 1100 1000 Balance 1626 -1000 Intake: Oral 2726 Output: Urine 1100 1000 Other: # Voids 1 2 Weight 101.3 kg - Constitutional General appearance: cooperative - EENT Eyes: EOMI, PERRLA Ears: bilateral: normal - Neck Neck: normal ROM Carotids: bilateral: upstroke normal Thyroid: bilateral: normal size - Respiratory Respiratory: bilateral: CTA - Cardiovascular Normal sinus rhythm with T-wave inversion noted Heart rate: 74 Rhythm: regular Heart sounds: normal: S1, S2 dorsalis pedis Peripheral Pulses: bilateral: Normal radial pulse Peripheral Pulses: bilateral: Normal - Gastrointestinal General gastrointestinal: normal bowel sounds - Integumentary Integumentary: normal turgor - Neurologic Neurologic: CNII-XII intact - Musculoskeletal Musculoskeletal: gait normal - Psychiatric Psychiatric: A&O x's 3, appropriate affect, intact judgment & insight Results CBC & Chem 7: 06/27/20 07:20 06/27/20 07:20 Labs: Abnormal Lab Results - Last 24 Hours (Table) 06/26/20 06/26/20 06/27/20 Range/Units 16:26 20:17 07:20 RBC 4.14 L (4.30-5.90) m/uL Hgb 12.3 L (13.0-17.5) gm/dL Hct 37.3 L (39.0-53.0) % Potassium (3.5-5.1) mmol/L BUN (9-20) mg/dL POC Glucose (mg/dL) 123 H 119 H (75-99) mg/dL 06/27/20 Range/Units 07:20 RBC (4.30-5.90) m/uL Hgb (13.0-17.5) gm/dL Hct (39.0-53.0) % Potassium 5.6 H (3.5-5.1) mmol/L BUN 28 H (9-20) mg/dL POC Glucose (mg/dL) (75-99) mg/dL Chest x-ray: report reviewed Thrombosis Risk Factor Assmnt - Choose All That Apply Each Factor Represents 1 point: Obesity (BMI >25) Each Risk Factor Represents 2 Points: Age 61-74 years Other congenital or acquired thrombophilia - If yes, enter type in comment: No Thrombosis Risk Factor Assessment Total Risk Factor Score: 3 Thrombosis Risk Factor Assessment Level: Moderate Risk Assessment and Plan Assessment: Chest discomfort diabetes mellitus type II [id number] hypertension dyslipidemia bipolar disorder Plan: Chest discomfort echocardiogram/stress tests ordered consult cardiology for recommendations and treatment plan. Hypertension continue lisinopril, jostling 10 mg IV push as needed for blood pressure greater than 160/90. Diabetes mellitus type II continue home medications dyslipidemia continue home medications bipolar disorder continue atypical antipsychotics order by psychiatry. Continue medical management Time with Patient: Greater than 30
--- NOTE | 2020-06-27 10:22 | P.PN ---
Subjective Progress Note Date: 06/27/20 Principal diagnosis: Chest discomfort This is a 70-year-old gentleman with diabetes and hypertension and dyslipidemia who was admitted to the hospital with chest discomfort and ruled out for acute coronary event. He was seen by the cardiology service yesterday and the plan to pursue with a stress test later on today. The patient was seen today 06/27/2020. He is asymptomatic at this point. He denies any chest pain or chest discomfort or shortness of breath. Objective - Vital Signs Vital signs: Vital Signs Temp 98.0 F 06/27/20 08:00 Pulse 65 06/27/20 08:00 Resp 18 06/27/20 08:00 BP 165/89 06/27/20 08:00 Pulse Ox 98 06/27/20 08:00 Intake & Output 06/26/20 06/27/20 06/27/20 18:59 06:59 18:59 Intake Total 2726 Output Total 500 1600 Balance 2226 -1600 Weight 101.7 kg 101.3 kg Intake: Oral 2726 Output: Urine 500 1600 Other: # Voids 0 2 - Constitutional General appearance: Present: no acute distress - Respiratory Respiratory: bilateral: CTA - Cardiovascular Rhythm: regular Heart sounds: normal: S1, S2 - Labs CBC & Chem 7: 06/27/20 07:20 06/27/20 07:20 Labs: Abnormal Lab Results - Last 24 Hours (Table) 06/26/20 06/26/20 06/27/20 Range/Units 16:26 20:17 07:20 RBC 4.14 L (4.30-5.90) m/uL Hgb 12.3 L (13.0-17.5) gm/dL Hct 37.3 L (39.0-53.0) % Potassium (3.5-5.1) mmol/L BUN (9-20) mg/dL POC Glucose (mg/dL) 123 H 119 H (75-99) mg/dL 06/27/20 Range/Units 07:20 RBC (4.30-5.90) m/uL Hgb (13.0-17.5) gm/dL Hct (39.0-53.0) % Potassium 5.6 H (3.5-5.1) mmol/L BUN 28 H (9-20) mg/dL POC Glucose (mg/dL) (75-99) mg/dL Assessment and Plan Assessment: Assessment #1 atypical chest pain #2 multiple risk factors Plan #1 acute coronary event was ruled out #2 the patient is going to undergo a stress test
--- NOTE | 2020-06-27 11:00 | ECHOF ---
Referral Reason:chest pain MEASUREMENTS -------- HEIGHT: 177.8 cm WEIGHT: 101.2 kg BP: RVIDd: 2.6 cm (< 3.3) IVSd: 1.7 cm (0.6 - 1.1) LVIDd: 4.5 cm (3.9 - 5.3) LVPWd: 1.7 cm (0.6 - 1.1) IVSs: 2.1 cm LVIDs: 2.5 cm LVPWs: 2.2 cm LAESV Index (A-L): 47.15 ml/m Ao Diam: 2.8 cm (2.0 - 3.7) AV Cusp: 2.1 cm (1.5 - 2.6) LA Diam: 4.0 cm (2.7 - 3.8) MV EXCURSION: 18.395 mm (> 18.000) MV EF SLOPE: 102 mm/s (70 - 150) EPSS: 0.8 cm MV E Martín: 0.83 m/s MV DecT: 201 ms MV A Martín: 0.70 m/s MV E/A Ratio: 1.19 RAP: 5.00 mmHg RVSP: 18.28 mmHg FINDINGS -------- This was a technically good study. The left ventricular size is normal. There is severe concentric left ventricular hypertrophy. Ove rall left ventricular systolic function is normal with, an EF between 55 - 60 %. Normal LAP Grade 1 Diastolic Dysfunction. The right ventricle is normal in size. LA is severely dilated >40 ml/m2 The right atrial size is normal. The aortic valve is trileaflet and appears structurally normal. The mitral valve is normal. The mitral valve leaflets are mildly thickened. Mild mitral regurgita tion is present. The tricuspid valve appears structurally normal. Trace tricuspid regurgitation present. Right luc tricular systolic pressure is normal at < 35 mmHg. There is no pulmonic regurgitation present. The aortic root size is normal. Normal inferior vena cava with normal inspiratory collapse consistent with estimated right atrial pre ssure of 5 mmHg. There is no pericardial effusion. CONCLUSIONS -------- 1. The left ventricular size is normal. 2. There is severe concentric left ventricular hypertrophy. 3. Overall left ventricular systolic function is normal with, an EF between 55 - 60 %. 4. Normal LAP Grade 1 Diastolic Dysfunction. 5. LA is severely dilated >40 ml/m2 6. The mitral valve leaflets are mildly thickened. 7. Mild mitral regurgitation is present. 8. Trace tricuspid regurgitation present. 9. There is no pericardial effusion. STAFF PSYCHOLOGIST: Deena White RDCS
[2020-06-27 12:07] LABS: Glucose,Whole Blood 97 mg/dL (75-99)
[2020-06-27 12:24] VITALS: BP 173/79; PULSE 72; RESP 16
--- NOTE | 2020-06-27 13:57 | ECHOS ---
STRESS ECHOCARDIOGRAM LUMASON: N/A Vial INDICATIONS: Chest pain. MEDICATIONS: BASELINE HEART RATE: 64 BASELINE BLOOD PRESSURE: 156/81 MAXIMUM HEART RATE: 133 MAXIMUM BLOOD PRESSURE: 193/61 85% MPHR: 128 100% MPHR: 150 METS: MAXIMUM STAGE REACHED: IV TOTAL EXERCISE TIME: 13:58 CLINICAL INFORMATION: This is a 70-year-old male patient with chest discomfort who underwent a dobutamine stress echo. His ECG was abnormal at baseline with T-wave inversions in the inferior leads. Baseline heart rate was 64 beats per minute. Baseline blood pressure 156/81 mmHg. Baseline 12-lead EKG shows sinus rhythm with T-wave inversions in the inferior leads and occasional PVCs. The patient received dobutamine infusion up to 40 mcg. Peak heart rate 133 beats per minute. Normal blood pressure response. There were no arrhythmias noted. The ST- segment abnormalities in the inferior leads normalized with dobutamine. No new ST- segment abnormalities consistent with ischemia were noted. PACs and PVCs were noted occasionally. Definity contrast was used. At baseline, normal LV size and systolic function noted without any wall motion abnormalities. With dobutamine infusion, there was a stepwise augmentation of overall LV contractility without development of any wall motion abnormalities. At recovery regional global LV systolic function remained normal. IMPRESSION: 1. No ECG or echocardiographic evidence for ischemia. 2. Baseline T-wave abnormality noted. MMODL / IJN: [id number] /
--- NOTE | 2020-06-27 15:12 | P.DS ---
Providers Date of admission: 06/26/20 14:24 Expected date of discharge: 06/27/20 Attending physician: Dallin Jurado Consults: 06/26/20 14:46 Consult Physician Urgent Consulting Provider: Ti Moreno Consult Reason/Comments: chest pain Do you want consulting provider notified?: Yes Primary care physician: Dallin Jurado Hospital Course: 70-year-old male was admitted to the cardiac step down unit due to episode of discomfort located in the mid-sternal area with associated symptoms of feeling lightheaded and anxious for duration of 10 to 30 minutes. Patient has significant medical history of hypertension, dyslipidemia, diabetes mellitus type II [id number], chronic nicotine dependence, and bipolar disorder. Cardiology was consulted echocardiogram, and stress echo- cleared from cardiology standpoint will follow-up with cardiology in 2 to 3 weeks. Patient noted to have hypertensive episodes and mild hyperkalemia initiated lisinopril 20 mg PO daily hyperkalemia resolved. Patient close follow-up with primary care in one to two days repeat bloodwork and monitoring of blood pressure. Patient discharge with guarded prognosis due to multiple com orbidities. Assessment: Chest pain diabetes mellitus type II [id number] hypertension dyslipidemia bipolar disorder Health Concerns: Medical compliance significant mental health issues Pertinent Studies: Echocardiogram dobutamine stress echo Procedures: no procedures performed Patient Condition at Discharge: Fair Plan - Discharge Summary Discharge Rx Participant: Yes New Discharge Prescriptions: New lisinopriL [Zestril] 20 mg PO DAILY 30 Days #30 tab Continue Aspirin 81 mg PO HS 30 Days chew traZODone HCL [Desyrel] 50 mg PO HS 30 Days tab Nicotine 14Mg/24Hr Patch [Habitrol] 1 patch TRANSDERM DAILY 30 Days patch metFORMIN HCL [Glucophage] 1,000 mg PO AC-BID Paliperidone IM [Invega Sustenna] 156 mg IM Q30D Multivitamins, Thera [Multivitamin (formulary)] 1 tab PO DAILY Atorvastatin [Lipitor] 40 mg PO DAILY 30 Days #30 tab Discontinued lisinopriL [Zestril] 5 mg PO DAILY 30 Days tab Discharge Medication List Aspirin 81 mg PO HS 30 Days chew 06/26/20 [Rx] Multivitamins, Thera [Multivitamin (formulary)] 1 tab PO DAILY 06/26/20 [History] Nicotine 14Mg/24Hr Patch [Habitrol] 1 patch TRANSDERM DAILY 30 Days patch 06/26/20 [Rx] Paliperidone IM [Invega Sustenna] 156 mg IM Q30D 06/26/20 [History] metFORMIN HCL [Glucophage] 1,000 mg PO AC-BID 06/26/20 [History] traZODone HCL [Desyrel] 50 mg PO HS 30 Days tab 06/26/20 [Rx] Atorvastatin [Lipitor] 40 mg PO DAILY 30 Days #30 tab 06/27/20 [Rx] lisinopriL [Zestril] 20 mg PO DAILY 30 Days #30 tab 06/27/20 [Rx] Follow up Appointment(s)/Referral(s): Dallin Jurado MD [Primary Care Provider] - 07/01/20 11:00 am Ti Moreno MD [STAFF PHYSICIAN] - 3 Weeks (office will call to schedule appointment ) Patient Instructions/Handouts: Chest Pain (DC) Discharge Disposition: HOME SELF-CARE
[2020-06-28] MEDS ORDERED: lisinopriL 20 MG TAB PO SCH (09:00)
[2020-07-24] MEDS ORDERED: PALIPERIDONE IM 156 MG/ML SYG IM SCH (09:00)
== END 2020-06-27 15:15 | disposition home or self-care (01) | DRG 313 ==
LOC: 3SCARD 14:24
PROVIDERS: ADMIT Family Medicine; ATTEND Family Medicine
DX: R07.89 Other chest pain (principal); E78.5 Hyperlipidemia, unspecified; F31.9 Bipolar disorder, unspecified; F41.9 Anxiety disorder, unspecified; E11.40 Type 2 diabetes mellitus with diabetic neuropathy, unspecified; I10 Essential (primary) hypertension; E87.5 Hyperkalemia; F17.210 Nicotine dependence, cigarettes, uncomplicated; Z90.89 Acquired absence of other organs; Z82.49 Family history of ischemic heart disease and other diseases of the circulatory system; Z79.84 Long term (current) use of oral hypoglycemic drugs; Z79.82 Long term (current) use of aspirin; Z79.899 Other long term (current) drug therapy; Z83.3 Family history of diabetes mellitus
CPT/HCPCS: 80053; 83735; 84132; 85025; 93306; 93351

== ENCOUNTER 2020-08-03 11:53 | Inpatient (IN) | payer MEDICARE, BC ==
[2020-08-03] MEDS ORDERED: HEPARIN SODIUM,PORCINE 5,000 UNIT/ML 1 ML VIAL IV ONE (12:20)
[2020-08-03] MEDS ORDERED: MORPHINE SULFATE 4 MG/ML SYRINGE IV STA (12:20)
[2020-08-03] MEDS ORDERED: HEPARIN SODIUM,PORCINE 5,000 UNIT/ML 1 ML VIAL IV PRN (12:20)
--- NOTE | 2020-08-03 12:21 | ED ---
Chest Pain HPI - General Chief Complaint: Chest Pain Stated Complaint: unstable angina Source: EMS Mode of arrival: EMS Limitations: no limitations - History of Present Illness Initial Comments: 70-year-old male with past medical history of diabetes, hypertension, hyperlipidemia who presents emergency department with reported chest pain. He is a transfer from [facility]. Patient presented there with chest pain that began at rest last night. Patient states is located over the left side of his chest without radiation. Graded as an 8 out of 10. No provocative factors. No previous history of cardiac disease. Patient does have family history of cardiac disease. States that he had a stress test within the past year which was normal. Denies history of cardiac cath. He was given 324 of aspirin, 2 mg of morphine, 3 nitro without improvement in his chest pain and therefore sent here for unstable angina. Patient was not transferred on heparin. Reports that he did hit his head a month ago after a fall. Denies ever being evaluated after it. He denies any other contraindications to heparinization. No associated nausea, vomiting or diaphoresis. No fevers or chills. No other alleviating, precipitating or modifying factors - Related Data Home Medications Medication Instructions Recorded Confirmed Atorvastatin [Lipitor] 10 mg PO HS 08/03/20 08/03/20 FLUoxetine HCL [PROzac] 40 mg PO DAILY 08/03/20 08/03/20 OLANZapine [ZyPREXA] 7.5 mg PO BID 08/03/20 08/03/20 Tamsulosin [Flomax] 0.4 mg PO DAILY 08/03/20 08/03/20 lisinopriL [Zestril] 10 mg PO DAILY 08/03/20 08/03/20 metFORMIN HCL 1,000 mg PO BID 08/03/20 08/03/20 Allergies Allergy/AdvReac Type Severity Reaction Status Date / Time naproxen [From Naprosyn] AdvReac Swelling Verified 08/03/20 13:25 Review of Systems ROS Statement: Those systems with pertinent positive or pertinent negative responses have been documented in the HPI. ROS Other: All systems not noted in ROS Statement are negative. EKG Findings - EKG Comments: EKG Findings:: EKG demonstrates sinus bradycardia with a ventricular rate of 55. W[place] interval 158. QRS 88. QTC 434. No acute ST segment elevations or depr essions concerning for ischemic changes Past Medical History Past Medical History: Diabetes Mellitus, Hyperlipidemia, Hypertension Additional Past Medical History / Comment(s): used to take lipitor , neuropathy History of Any Multi-Drug Resistant Organisms: None Reported Past Surgical History: Tonsillectomy Past Anesthesia/Blood Transfusion Reactions: No Reported Reaction Past Psychological History: Anxiety, Bipolar, Schizophrenia Smoking Status: Former smoker Past Alcohol Use History: Occasional Past Drug Use History: Marijuana - Past Family History Mother Family Medical History: Coronary Artery Disease (CAD), Diabetes Mellitus Father Family Medical History: Coronary Artery Disease (CAD) Brother(s) Family Medical History: No Reported History General Exam Limitations: no limitations General appearance: alert, in no apparent distress Head exam: Present: atraumatic, normocephalic, normal inspection Eye exam: Present: normal appearance, PERRL, EOMI. Absent: scleral icterus, conjunctival injection, periorbital swelling ENT exam: Present: normal exam, mucous membranes moist Neck exam: Present: normal inspection. Absent: tenderness, meningismus, lymphadenopathy Respiratory exam: Present: normal lung sounds bilaterally. Absent: respiratory distress, wheezes, rales, rhonchi, stridor Cardiovascular Exam: Present: regular rate, normal rhythm, normal heart sounds. Absent: systolic murmur, diastolic murmur, rubs, gallop, clicks GI/Abdominal exam: Present: soft, normal bowel sounds. Absent: distended, tenderness, guarding, rebound, rigid Extremities exam: Present: normal inspection, full ROM, normal capillary refill. Absent: tenderness, pedal edema, joint swelling, calf tenderness Back exam: Present: normal inspection Neurological exam: Present: alert, oriented X3, CN II-XII intact Psychiatric exam: Present: normal affect, normal mood Skin exam: Present: warm, dry, intact, normal color. Absent: rash Course Vital Signs 08/03/20 08/03/20 08/03/20 11:58 12:13 12:57 Temperature 98.5 F Pulse Rate 63 64 Pulse Rate [ Right] Respiratory 18 18 Rate Blood Pressure 171/75 168/74 Blood Pressure 172/73 [Left Arm Sitting] Blood Pressure 171/75 [Right Arm Sitting] O2 Sat by Pulse 100 99 Oximetry 08/03/20 08/03/20 08/03/20 14:56 14:59 16:41 Temperature 98.3 F 97.7 F Pulse Rate 61 69 Pulse Rate [ 62 Right] Respiratory 16 18 18 Rate Blood Pressure 186/69 185/94 Blood Pressure [Left Arm Sitting] Blood Pressure [Right Arm Sitting] O2 Sat by Pulse 100 100 98 Oximetry Chest Pain MDM - MDM Upon arrival patient is placed in room 28. A thorough history and physical exam was performed. I did review the packet from [facility]. They did transfer him here for unstable angina with a measured heart score of 5. I did speak with Dr. Chacon who agreed to admit the patient. I will heparinize the patient after CT of his brain is negative. Cardiology consult. Patient remained in stable condition awaiting s bed on the floor Disposition Clinical Impression: Chest pain Disposition: ADMITTED IP TO THIS HOSP Condition: Stable Is patient prescribed a controlled substance at d/c from ED?: No Decision to Admit Reason: Admit from EC Decision Date: 08/03/20 Decision Time: 13:04
[2020-08-03 12:44] LABS: Basophils # (A) 0.1 k/uL (0-0.2); Basophils % (A) 1 %; Eosinophils # (A) 0.1 k/uL (0-0.7); Eosinophils % (A) 2 %; HCT 32.3 % (39.0-53.0); HGB 11.4 gm/dL (13.0-17.5); Lymphocytes # (A) 1.7 k/uL (1.0-4.8); Lymphocytes % (A) 27 %; MCH 30.9 pg (25.0-35.0); MCHC 35.4 g/dL (31.0-37.0); MCV 87.3 fL (80.0-100.0); Mean Platelet Volume 7.1; Monocytes # (A) 0.3 k/uL (0-1.0); Monocytes % (A) 5 %; Neutrophils # (A) 3.9 k/uL (1.3-7.7); Neutrophils % (A) 64 %; Platelet Count 305 k/uL (150-450); RDW 14.1 % (11.5-15.5); WBC 6.1 k/uL (3.8-10.6)
[2020-08-03 12:55] LABS: ALT 15 U/L (4-49); AST 19 U/L (17-59); African American GFR (CKD) >90 (>60 ml/min/1.73 sqM); Albumin 3.7 g/dL (3.5-5.0); Alkaline Phosphatase 68 U/L (38-126); Anion Gap 5 mmol/L; Blood Urea Nitrogen 14 mg/dL (9-20); Calcium 9.4 mg/dL (8.4-10.2); Carbon Dioxide 29 mmol/L (22-30); Chloride 105 mmol/L (98-107); Glucose 90 mg/dL (74-99); Magnesium 1.7 mg/dL (1.6-2.3); Non-African American GFR(CKD) >90 (>60 ml/min/1.73 sqM); Potassium 3.8 mmol/L (3.5-5.1); Sodium 139 mmol/L (137-145); Total Bilirubin 0.4 mg/dL (0.2-1.3); Total Protein 6.4 g/dL (6.3-8.2)
[2020-08-03] MEDS: HEPARIN SOD,PORK IN 0.45% NACL 25,000 UNIT in 0.45% NACL 1 250ML.BAG IV SCH (13:01)
[2020-08-03 13:03] LABS: Partial Thromboplastin Time 23.4 sec (22.0-30.0); Prothrombin Time 10.7 sec (9.0-12.0)
[2020-08-03] MEDS ORDERED: NALOXONE 0.4 MG/ML 1 ML VIAL IV PRN (13:04)
[2020-08-03] MEDS ORDERED: NITROGLYCERIN OINT 1 INCH/GM PACKET TOPICAL STA (13:05)
--- NOTE | 2020-08-03 13:29 | CT ---
EXAMINATION TYPE: CT brain thomas jaramillo DATE OF EXAM: 08/03/2020 COMPARISON: None HISTORY: Fall, unstable angina CT DLP: 1457.[address] of the brain was performed. The ventricles, basal cisterns and sulci overlying the cerebral convexities demonstrate mild enlargem ent. There is no evidence for intracranial hemorrhage or sulcal effacement. There is decreased attenuatio n about the periventricular white matter and deep white matter of both cerebral hemispheres, compatib le with chronic small vessel ischemia. No mass effects are seen. If symptoms persist consider MRI. Osseous calvarium is intact. IMPRESSION: 1. Age related atrophic and chronic small vessel ischemic change without acute intracranial process seen at this time. CT Cervical Spine: Unenhanced CT of the cervical spine was performed with bone and soft tissue window settings submitted . Coronal and sagittal reconstruction is obtained. There is normal alignment and prevertebral soft tissues. No evidence for acute cervical fracture . Scattered degenerative disc disease and spondylosis. Biapical scarring. IMPRESSION: 1. No evidence for acute fracture or subluxation of the cervical spine.
[2020-08-03 17:37] LABS: Glucose,Whole Blood 132 mg/dL (75-99)
[2020-08-03] MEDS: TAMSULOSIN 0.4 MG CAP.ER.24H PO SCH (18:18)
[2020-08-03 20:50] LABS: Glucose,Whole Blood 108 mg/dL (75-99)
[2020-08-03] MEDS: lisinopriL 10 MG TAB PO SCH (21:39)
[2020-08-03] MEDS: ATORVASTATIN 10 MG TAB PO SCH (21:39)
[2020-08-03] MEDS: OLANZapine 7.5 MG TAB PO SCH (21:39)
--- NOTE | 2020-08-03 23:21 | P.HPIM ---
History of Present Illness H&P Date: 08/03/20 Chief Complaint: Chest pain Mr. Lynn is a 70-year-old male with a past medical history of hypertension, hyperlipidemia, type 2 diabetes mellitus, who is brought in from the senior care for the chief complaint of chest pain. Patient is transferred from [facility]. Patient states that he noticed to have chest pain on the left side of the chest, 8 out of 10 in intensity radiating to the epigastric area for the past couple of days. Patient also has mild difficulty in breathing with this chest pain. He denies having any associated nausea vomiting or diaphoresis. Patient denies having any orthopnea or PND or lower extremity swelling. He also states that he has been having palpitations for the past couple of days. Patient denies having any fevers chills or rigors. No abdominal pain nausea vomiting or diarrhea. No dysuria or hematuria. In the ED patient was given aspirin, morphine and nitro without improvement in chest pain and so transferred from [facility] to [facility]. As the patient hit his head 1 month ago after a fall, he got a CT of the head in the ER that was negative for any acute intracranial abnormality and so the patient was started on heparin drip for ongoing chest pain and admitted to the hospital with cardiology consult. Patient's vitals at the time of admission temperature 98.5, heart rate 63, r espiratory rate 18, blood pressure 171 x 75 saturating 100% on room air. Labs showing white count of 6.1, hemoglobin 11.4, platelets 305. Sodium 139, potassium 3.8, chloride 105, bicarb 29, BUN 14, creatinine 0.62. Coronavirus PCR negative. Troponins less than 0.012x3. EKG done showing sinus bradycardia with heart rate 55. Review of Systems REVIEW OF SYSTEMS: CONSTITUTIONAL: No fever, fatigue or malaise HEENT: No recent visual problems or hearing problems. Denied any sore throat. CARDIOVASCULAR: As per HPI PULMONARY: no cough GASTROINTESTINAL: No diarrhea, no nausea, no vomiting, no abdominal pain. NEUROLOGICAL: Mild headaches, no weakness, no numbness. HEMATOLOGICAL: Denies any bleeding or petechiae. GENITOURINARY: Denies any burning micturition, frequency, or urgency. MUSCULOSKELETAL/RHEUMATOLOGICAL: No joint issues ENDOCRINE: Denies any polyuria or polydipsia. The rest of the 14-point review of systems is negative. Past Medical History Past Medical History: Diabetes Mellitus, Hyperlipidemia, Hypertension Additional Past Medical History / Comment(s): used to take lipitor , neuropathy History of Any Multi-Drug Resistant Organisms: None Reported Past Surgical History: Tonsillectomy Past Anesthesia/Blood Transfusion Reactions: No Reported Reaction Past Psychological History: Anxiety, Bipolar, Schizophrenia Smoking Status: Former smoker Past Alcohol Use History: Occasional Additional Past Alcohol Use History / Comment(s): smokes pipe daily Past Drug Use History: Marijuana - Past Family History Mother Family Medical History: Coronary Artery Disease (CAD), Diabetes Mellitus Father Family Medical History: Coronary Artery Disease (CAD) Brother(s) Family Medical History: No Reported History Medications and Allergies Home Medications Medication Instructions Recorded Confirmed Type Atorvastatin [Lipitor] 10 mg PO HS 08/03/20 08/03/20 History FLUoxetine HCL [PROzac] 40 mg PO DAILY 08/03/20 08/03/20 History OLANZapine [ZyPREXA] 7.5 mg PO BID 08/03/20 08/03/20 History Tamsulosin [Flomax] 0.4 mg PO DAILY 08/03/20 08/03/20 History lisinopriL [Zestril] 10 mg PO DAILY 08/03/20 08/03/20 History metFORMIN HCL 1,000 mg PO BID 08/03/20 08/03/20 History Allergies Allergy/AdvReac Type Severity Reaction Status Date / Time naproxen [From Naprosyn] AdvReac Swelling Verified 08/03/20 13:25 Physical Exam Vitals: Vital Signs Temp Pulse Pulse Resp BP BP BP 08/03/20 16:41 97.7 F 69 18 185/94 08/03/20 14:59 61 18 186/69 08/03/20 14:56 98.3 F 62 16 08/03/20 12:57 64 18 168/74 08/03/20 12:13 172/73 171/75 08/03/20 11:58 98.5 F 63 18 171/75 Pulse Ox 08/03/20 16:41 98 08/03/20 14:59 100 08/03/20 14:56 100 08/03/20 12:57 99 08/03/20 12:13 08/03/20 11:58 100 Intake and Output 08/03/20 08/03/20 08/03/20 06:59 14:59 22:59 Other: Weight 90.718 kg PHYSICAL EXAMINATION: GENERAL: The patient is alert and oriented x3, not in any acute distress. HEENT: Pupils are round and equally reacting to light. EOMI. No scleral icterus.No conjunctival pallor. CARDIOVASCULAR: S1 and S2 present. PULMONARY: Chest is clear to auscultation, no wheezing or crackles. ABDOMEN: Soft, nontender, nondistended, normoactive bowel sounds. No palpable organomegaly. MUSCULOSKELETAL: No jint swelling or deformity EXTREMITIES: No cyanosis, clubbing. No pedal edema NEUROLOGICAL: Gross neurological examination did not reveal any focal deficits. SKIN: No rashes. Results CBC & Chem 7: 08/03/20 12:08/03/20 12: Labs: Abnormal Lab Results - Last 24 Hours (Table) 08/03/20 08/03/20 08/03/20 Range/Units 12: 12: 17:36 RBC 3.70 L (4.30-5.90) m/uL Hgb 11.4 L (13.0-17.5) gm/dL Hct 32.3 L (39.0-53.0) % Creatinine 0.62 L (0.66-1.25) mg/dL POC Glucose (mg/dL) 132 H (75-99) mg/dL Thrombosis Risk Factor Assmnt - Choose All That Apply Each Risk Factor Represents 2 Points: Age 61-74 years Thrombosis Risk Factor Assessment Total Risk Factor Score: 2 Thrombosis Risk Factor Assessment Level: Low Risk Assessment and Plan Assessment: ASSESSMENT Chest pain Hypertension Hyperlipidemia Type 2 diabetes mellitus Diabetic neuropathy Bipolar disorder Schizophrenia Anxiety unspecified Former smoker PLAN: Patient has ongoing chest pain and has risk factors including type 2 diabetes mellitus, hypertension, hyperlipidemia who is a smoker so admitted for acute coronary syndrome rule out. He has 3 troponins less than 0.012 and EKG showing sinus bradycardia. He has been started on heparin drip with cardiology consult pending. Patient has been restarted on his home medications. Further recommendations to follow depending on the progress of the patient.
[2020-08-04 07:30] LABS: Glucose,Whole Blood 84 mg/dL (75-99)
[2020-08-04] MEDS: FLUoxetine HCL 20 MG CAP PO SCH (08:36)
[2020-08-04] MEDS: TAMSULOSIN 0.4 MG CAP.ER.24H PO SCH (08:36)
[2020-08-04] MEDS: lisinopriL 10 MG TAB PO SCH (08:36)
[2020-08-04] MEDS: OLANZapine 7.5 MG TAB PO SCH ×2 (08:36→20:39)
[2020-08-04 08:56] LABS: Basophils # (A) 0.07 X 10*3/uL (0.00-0.10); Basophils % (A) 0.8 %; Eosinophils # (A) 0.23 X 10*3/uL (0.04-0.35); Eosinophils % (A) 2.8 %; HCT 29.2 % (39.6-50.0); HGB 9.5 g/dL (13.0-17.0); Lymphocytes # (A) 2.72 X 10*3/uL (0.90-5.00); Lymphocytes % (A) 32.9 %; MCH 28.8 pg (27.0-32.0); MCHC 32.5 g/dL (32.0-37.0); MCV 88.5 fL (80.0-97.0); Monocytes # (A) 0.64 X 10*3/uL (0.20-1.00); Monocytes % (A) 7.7 %; Neutrophils # (A) 4.59 X 10*3/uL (1.80-7.70); Neutrophils % (A) 55.4 %; Platelet Count 279 X 10*3/uL (140-440); RDW 14.4 % (11.5-14.5); WBC 8.28 X 10*3/uL (4.50-10.00)
[2020-08-04 09:09] LABS: African American GFR (CKD) 104.9 (60.0-200.0); Anion Gap 5.3 mmol/L (4.00-12.00); BUN/Creat Ratio 22.5 Ratio (12.00-20.00); Calcium 8.5 mg/dL (8.7-10.3); Carbon Dioxide 25.7 mmol/L (21.6-31.8); Non-African American GFR(CKD) 90.5 (60.0-200.0); Potassium 3.4 mmol/L (3.5-5.5)
[2020-08-04 11:02] LABS: Glucose,Whole Blood 78 mg/dL (75-99)
[2020-08-04] MEDS: HEPARIN SOD,PORK IN 0.45% NACL 25,000 UNIT in 0.45% NACL 1 250ML.BAG IV SCH (11:29)
[2020-08-04] MEDS: TRIAMTERENE-HCTZ 37.5-25MG 1 EACH TAB PO SCH (11:54)
--- NOTE | 2020-08-04 12:09 | P.CRDCN ---
History of Present Illness Consult date: 08/04/20 Consult reason: chest pain History of present illness: The patient is a 70-year-old male with past medical history of hypertension, dyslipidemia, diabetes, current smoker, and bipolar disorder, who is brought into the emergency room for new onset of chest discomfort. He states it started in the epigastric area and radiated down his arms and down through his legs. He states it was very sharp in nature, and it lasted approximately 5 minutes. On arrival his blood pressure was greater than 200 mmHg systolic. ACS workup was ruled out. On exam this morning he is resting comfortably in bed. He states he is no longer having this pain. He believes he is breathing well and denies any palpitations. No dizziness or lightheadedness. He does have some lower extremity swelling. The patient is currently incarcerated and his guard states he also noted that he has had increased swelling over the last week. He states they're hard time gett ing his feet into his shoes. He also states that the patient is placed in solitary confinement for 23 out of 24 hours per day, per protocol. This is sent for 14 days following any traveling outside of the facility DIAGNOSTICS: EKG shows sinus rhythm with upsloping in the anteroseptal leads consistent with hypertension Laboratory data shows W BC 8.2, hemoglobin 9.5, hematocrit 29.2, platelet 279, sodium 132, potassium 3.4, BUN 18, creatinine 0.8 Vital signs show blood pressure at 156/78, SpO2 90% on room air, respiratory rate 16, pulse rate 66, temperature 97.9F Recent echocardiogram in June 2020 shows normal LV function with severe LVH Recent dobutamine stress echocardiogram in June 2020 shows no evidence of ischemia PAST MEDICAL HISTORY: Hypertension, dyslipidemia, diabetes mellitus, current smoker, bipolar disorder REVIEW OF SYSTEMS: No fever or chills. No cough or expectoration. No diaphoresis. Patient denies headache, dizziness, blurred vision, double vision. Patient denies any stomach discomfort. No nausea, vomiting. No hematochezia. No hematemesis. Denies any black stools or blood in his stools. Denies dysuria or hematuria. No muscle weakness or numbness. PHYSICAL EXAMINATION: This is a 70 year-old male in no apparent distress at the time of my examination. HEENT: Head is atraumatic, normocephalic. Pupils are equal, round. Sclerae anicteric. Conjunctivae are clear. Mucous membranes of the mouth are moist. Neck is supple. There is no jugular venous distention. No carotid bruit is heard. CHEST EXAMINATION: Lungs are clear to auscultation. No chest wall tenderness is noted on palpation or with deep breathing. HEART EXAMINATION: Heart regular rate and rhythm. S1, S2 heard. No murmurs, gallops or rub. ABDOMEN: Soft, nontender. Bowel sounds are heard. No organomegaly noted. EXTREMITIES: 2+ peripheral pulses. Mild peripheral edema and no calf tenderness noted. NEUROLOGIC EXAMINATION: Patient is awake, alert and oriented x3. FINAL ASSESSMENT AND PLAN: Chest pain, acute coronary event has been ruled out Hypertension, uncontrolled Dyslipidemia, recheck fasting lipid profile Hypokalemia and hyponatremia, likely secondary to fluid overload Diabetes mellitus Bipolar disorder PLAN: Add Dyazide to his current regimen Consider increasing lisinopril to 20 mg at bedtime Continue to monitor electrolytes Fasting lipid profile to be done Further recommendations based on clinical course The patient has been seen and evaluated. Plan of care has been reviewed and agreed upon by Dr Moreno. Past Medical History Past Medical History: Diabetes Mellitus, Hyperlipidemia, Hypertension Additional Past Medical History / Comment(s): used to take lipitor , neuropathy History of Any Multi-Drug Resistant Organisms: None Reported Past Surgical History: Tonsillectomy Past Anesthesia/Blood Transfusion Reactions: No Reported Reaction Past Psychological History: Anxiety, Bipolar, Schizophrenia Smoking Status: Former smoker Past Alcohol Use History: Occasional Additional Past Alcohol Use History / Comment(s): smokes pipe daily Past Drug Use History: Marijuana - Past Family History Mother Family Medical History: Coronary Artery Disease (CAD), Diabetes Mellitus Father Family Medical History: Coronary Artery Disease (CAD) Brother(s) Family Medical History: No Reported History Medications and Allergies Home Medications Medication Instructions Recorded Confirmed Type Atorvastatin [Lipitor] 10 mg PO HS 08/03/20 08/03/20 History FLUoxetine HCL [PROzac] 40 mg PO DAILY 08/03/20 08/03/20 History OLANZapine [ZyPREXA] 7.5 mg PO BID 08/03/20 08/03/20 History Tamsulosin [Flomax] 0.4 mg PO DAILY 08/03/20 08/03/20 History lisinopriL [Zestril] 10 mg PO DAILY 08/03/20 08/03/20 History metFORMIN HCL 1,000 mg PO BID 08/03/20 08/03/20 History Allergies Allergy/AdvReac Type Severity Reaction Status Date / Time naproxen [From Naprosyn] AdvReac Swelling Verified 08/03/20 13:25 Physical Exam Vitals: Vital Signs Temp Pulse Pulse Pulse Resp BP BP 08/04/20 07:40 61 20 08/04/20 07:00 97.9 F 56 L 16 156/70 08/04/20 03:17 97.6 F 61 20 147/65 08/03/20 23:15 98.6 F 73 18 08/03/20 19:09 98.6 F 68 16 219/96 08/03/20 16:41 97.7 F 69 18 185/94 08/03/20 14:59 61 18 186/69 08/03/20 14:56 98.3 F 62 16 08/03/20 12:57 64 18 168/74 08/03/20 12:13 172/73 BP Pulse Ox 08/04/20 07:40 08/04/20 07:00 98 08/04/20 03:17 97 08/03/20 23:15 176/80 08/03/20 19:09 100 08/03/20 16:41 98 08/03/20 14:59 100 08/03/20 14:56 100 08/03/20 12:57 99 08/03/20 12:13 171/75 Intake and Output 08/03/20 08/04/20 08/04/20 22:59 06:59 14:59 Intake Total 106.333 Output Total 401 728 7092 Balance -350 -668.667 -2475 Intake: Intake, IV Titration 106.333 Amount Heparin Sod,Pork in 0.45% 106.333 NaCl 25,000 unit In 0.45 % NaCl 1 250ml.bag @ 11. 023 UNITS/KG/HR 10 mls/hr IV .Q24H [facility] Rx#: [id number] Output: Urine 607 104 0383 Results 08/04/20 06:02 08/04/20 06:02 Cardiac Enzymes 08/03/20 08/03/20 08/03/20 Range/Units 12:27 12:27 15:15 AST 19 (17-59) U/L Troponin I <0.012 <0.012 (0.000-0.034) ng/mL 08/03/20 Range/Units 18:45 AST (17-59) U/L Troponin I <0.012 (0.000-0.034) ng/mL Coagulation 08/03/20 08/03/20 08/04/20 Range/Units 12:35 18:45 06:02 PT 10.7 (9.0-12.0) sec APTT 23.4 32.9 H 65.4 H (22.0-30.0) sec CBC 08/03/20 08/04/20 Range/Units 12:27 06:02 WBC 6.1 8.28 (3.8-10.6) k/uL RBC 3.70 L 3.30 L (4.30-5.90) m/uL Hgb 11.4 L 9.5 L (13.0-17.5) gm/dL Hct 32.3 L 29.2 L (39.0-53.0) % Plt Count 305 279 (150-450) k/uL Comprehensive Metabolic Panel 08/03/20 08/04/20 Range/Units 12:27 06:02 Sodium 139 132 L (137-145) mmol/L Potassium 3.8 3.4 L (3.5-5.1) mmol/L Chloride 105 101 (98-107) mmol/L Carbon Dioxide 29 25.7 (22-30) mmol/L BUN 14 18.0 (9-20) mg/dL Creatinine 0.62 L 0.8 (0.66-1.25) mg/dL Glucose 90 81 (74-99) mg/dL Calcium 9.4 8.5 L (8.4-10.2) mg/dL AST 19 (17-59) U/L ALT 15 (4-49) U/L Alkaline Phosphatase 68 (38-126) U/L Total Protein 6.4 (6.3-8.2) g/dL Albumin 3.7 (3.5-5.0) g/dL Current Medications Generic Name Dose Route Start Last Admin Trade Name Freq PRN Reason Stop Dose Admin Atorvastatin Calcium 10 mg 08/03/20 21:00 08/03/20 21:39 Atorvastatin 10 Mg Tab PO 10 mg HS PATRICE Administration Fluoxetine HCl 40 mg 08/04/20 09:00 08/04/20 08:36 Fluoxetine Hcl 20 Mg Cap PO 40 mg DAILY PATRICE Administration Heparin Sodium (Porcine) 0 unit 08/03/20 12:20 08/04/20 00:07 Heparin Sodium,Porcine 5,000 Unit/Ml 1 Ml Vial IV 4,535.9 unit PER PROTOCOL PRN Administration Low PTT Protocol Heparin Sodium/Sodium Chloride 250 mls @ 10 mls/hr 08/03/20 12:30 08/04/20 11:29 25,000 unit/ Sodium Chloride IV Not Given .Q24H PATRICE Protocol 11.023 UNITS/KG/HR Lisinopril 10 mg 08/03/20 20:00 08/04/20 08:36 Lisinopril 10 Mg Tab PO 10 mg DAILY PATRICE Administration Naloxone HCl 0.2 mg 08/03/20 13:04 Naloxone 0.4 Mg/Ml 1 Ml Vial IV Q2M PRN Opioid Reversal Olanzapine 7.5 mg 08/03/20 21:00 08/04/20 08:36 Olanzapine 7.5 Mg Tab PO 7.5 mg BID PATRICE Administration Tamsulosin HCl 0.4 mg 08/03/20 18:00 08/04/20 08:36 Tamsulosin 0.4 Mg Cap.Er.24h PO 0.4 mg DAILY PATRICE Administration Triamterene/Hydrochlorothiazide 1 each 08/04/20 09:30 08/04/20 11:54 Triamterene-Hctz 37.5-25mg 1 Each Tab PO 1 each DAILY PATRICE Administration Intake and Output 08/03/20 08/04/20 08/04/20 22:59 06:59 14:59 Intake Total 106.333 Output Total 631 761 4788 Balance -350 665.590 -9818 Intake: Intake, IV Titration 106.333 Amount Heparin Sod,Pork in 0.45% 106.333 NaCl 25,000 unit In 0.45 % NaCl 1 250ml.bag @ 11. 023 UNITS/KG/HR 10 mls/hr IV .Q24H [facility] Rx#: [id number] Output: Urine 510 048 7300 08/04/20 06:02 08/04/20 06:02
[2020-08-04 17:06] LABS: Chol/HDL Ratio 2.3
[2020-08-04 17:20] LABS: Glucose,Whole Blood 152 mg/dL (75-99)
[2020-08-04 20:20] LABS: Glucose,Whole Blood 176 mg/dL (75-99)
[2020-08-04] MEDS ORDERED: amLODIPine 5 MG TAB PO SCH (20:30)
[2020-08-04] MEDS: ATORVASTATIN 10 MG TAB PO SCH (20:38)
[2020-08-04] MEDS: ACETAMINOPHEN TAB 325 MG TAB PO PRN (20:39)
[2020-08-04] MEDS: hydrALAZINE HCL 25 MG TAB PO PRN (22:28)
[2020-08-05] MEDS: hydrALAZINE HCL 25 MG TAB PO PRN (02:32)
--- NOTE | 2020-08-05 02:40 | P.PN ---
Subjective Progress Note Date: 08/04/20 Principal diagnosis: Chest pain Mr. Lynn is a 70-year-old male with a past medical history of hypertension, hyperlipidemia, type 2 diabetes mellitus, who is brought in from the alf for the chief complaint of chest pain. Patient is transferred from [facility]. Patient states that he noticed to have chest pain on the left side of the chest, 8 out of 10 in intensity radiating to the epigastric area for the past couple of days. Patient also has mild difficulty in breathing with this chest pain. He denies having any associated nausea vomiting or diaphoresis. Patient denies having any orthopnea or PND or lower extremity swelling. He also states that he has been having palpitations for the past couple of days. Patient denies having any fevers chills or rigors. No abdominal pain nausea vomiting or diarrhea. No dysuria or hematuria. In the ED patient was given aspirin, morphine and nitro without improvement in chest pain and so transferred from [facility] to [facility]. As the patient hit his head 1 month ago after a fall, he got a CT of the head in the ER that was negative for any acute intracranial abnormality and so the patient was started on heparin drip for ongoing chest pain and admitted to the hospital with cardiology consult. Patient's vitals at the time of admission temperature 98.5, heart rate 63, r espiratory rate 18, blood pressure 171 x 75 saturating 100% on room air. Labs showing white count of 6.1, hemoglobin 11.4, platelets 305. Sodium 139, potassium 3.8, chloride 105, bicarb 29, BUN 14, creatinine 0.62. Coronavirus PCR negative. Troponins less than 0.012x3. EKG done showing sinus bradycardia with heart rate 55 On 08/04/2020 patient was seen and examined at bedside. He states that his chest pain is better. Denies having any cough or difficulty breathing. No abdominal pain nausea vomiting or diarrhea. No dysuria or hematuria. On reviewing the vitals patient's blood pressure running high systolic 170s to 180s, temperature 97.8, heart rate 61, respiratory 16. Patient's labs reviewed this morning white count of 8.2, hemoglobin 9.5, platelets 279. Sodium 132, potassium 3.4, chloride 101, bicarb 25, BUN 18, creatinine 0.8. Active Medications Acetaminophen (Acetaminophen Tab 325 Mg Tab) 325 mg PO Q6HR PRN PRN Reason: Fever and/ or Pain Last Admin: 08/04/20 20:39 Dose: 325 mg Documented by: Amlodipine Besylate (Amlodipine 5 Mg Tab) 5 mg PO DAILY [facility] Last Admin: 08/04/20 20:39 Dose: 5 mg Documented by: Atorvastatin Calcium (Atorvastatin 10 Mg Tab) 10 mg PO HS [facility] Last Admin: 08/04/20 20:38 Dose: 10 mg Documented by: Fluoxetine HCl (Fluoxetine Hcl 20 Mg Cap) 40 mg PO DAILY [facility] Last Admin: 08/04/20 08:36 Dose: 40 mg Documented by: Heparin Sodium (Porcine) (Heparin Sodium,Porcine 5,000 Unit/Ml 1 Ml Vial) 0 unit IV PER PROTOCOL PRN; Protocol PRN Reason: Low PTT Last Admin: 08/04/20 00:07 Dose: 4,535.9 unit Documented by: Hydralazine HCl (Hydralazine Hcl 25 Mg Tab) 25 mg PO TID PRN PRN Reason: Blood Pressure - High Last Admin: 08/05/20 02:32 Dose: 25 mg Documented by: Heparin Sodium/Sodium Chloride (25,000 unit/ Sodium Chloride) 250 mls @ 10 mls/hr IV .Q24H [facility]; Protocol Last Admin: 08/04/20 11:29 Dose: Not Given Documented by: Lisinopril (Lisinopril 10 Mg Tab) 10 mg PO DAILY [facility] Last Admin: 08/04/20 08:36 Dose: 10 mg Documented by: Naloxone HCl (Naloxone 0.4 Mg/Ml 1 Ml Vial) 0.2 mg IV Q2M PRN PRN Reason: Opioid Reversal Olanzapine (Olanzapine 7.5 Mg Tab) 7.5 mg PO BID [facility] Last Admin: 08/04/20 20:39 Dose: 7.5 mg Documented by: Tamsulosin HCl (Tamsulosin 0.4 Mg Cap.Er.24h) 0.4 mg PO DAILY [facility] Last Admin: 08/04/20 08:36 Dose: 0.4 mg Documented by: Triamterene/Hydrochlorothiazide (Triamterene-Hctz 37.5-25mg 1 Each Tab) 1 each PO DAILY [facility] Last Admin: 08/04/20 11:54 Dose: 1 each Documented by: Objective - Vital Signs Vital signs: Vital Signs Temp 97.8 F 08/04/20 16:46 Pulse 61 08/04/20 16:46 Resp 16 08/04/20 16:46 BP 180/78 08/04/20 16:46 Pulse Ox 99 08/04/20 16:46 Intake & Output 08/03/20 08/04/20 08/04/20 18:59 06:59 18:59 Intake Total 106.333 Output Total 1125 2475 Balance -1018.667 -2475 Weight 90.718 kg Intake: Intake, IV Titration 106.333 Amount Heparin Sod,Pork in 0.45% 106.333 NaCl 25,000 unit In 0.45 % NaCl 1 250ml.bag @ 11. 023 UNITS/KG/HR 10 mls/hr IV .Q24H [facility] Rx#: [id number] Output: Urine 1125 2475 Other: # Voids 2 - Exam PHYSICAL EXAMINATION: GENERAL: The patient is alert and oriented x3, not in any acute distress. HEENT: Pupils are round and equally reacting to light. EOMI. No scleral icterus.No conjunctival pallor. CARDIOVASCULAR: S1 and S2 present. PULMONARY: Chest is clear to auscultation, no wheezing or crackles. ABDOMEN: Soft, nontender, nondistended, normoactive bowel sounds. No palpable organomegaly. MUSCULOSKELETAL: No jint swelling or deformity EXTREMITIES: No cyanosis, clubbing. No pedal edema NEUROLOGICAL: Gross neurological examination did not reveal any focal deficits. SKIN: No rashes. - Labs CBC & Chem 7: 08/04/20 06:02 08/04/20 06:02 Labs: Abnormal Lab Results - Last 24 Hours (Table) 08/03/20 08/03/20 08/03/20 Range/Units 17:36 18:45 20:48 RBC (4.40-5.60) X 10*6/uL Hgb (13.0-17.0) g/dL Hct (39.6-50.0) % APTT 32.9 H (22.0-30.0) sec Sodium (135-145) mmol/L Potassium (3.5-5.5) mmol/L BUN/Creatinine Ratio (12.00-20.00) Ratio POC Glucose (mg/dL) 132 H 108 H (75-99) mg/dL Calcium (8.7-10.3) mg/dL 08/04/20 08/04/20 08/04/20 Range/Units 06:02 06:02 06:02 RBC 3.30 L (4.40-5.60) X 10*6/uL Hgb 9.5 L (13.0-17.0) g/dL Hct 29.2 L (39.6-50.0) % APTT 65.4 H (22.0-30.0) sec Sodium 132 L (135-145) mmol/L Potassium 3.4 L (3.5-5.5) mmol/L BUN/Creatinine Ratio 22.50 H (12.00-20.00) Ratio POC Glucose (mg/dL) (75-99) mg/dL Calcium 8.5 L (8.7-10.3) mg/dL Assessment and Plan Assessment: ASSESSMENT Chest pain Hypertension Hyperlipidemia Type 2 diabetes mellitus Diabetic neuropathy Bipolar disorder Schizophrenia Anxiety unspecified Former smoker PLAN: Patient has ongoing chest pain and has risk factors including type 2 diabetes mellitus, hypertension, hyperlipidemia who is a smoker so admitted for acute coronary syndrome rule out. He has 3 troponins less than 0.012 and EKG showing sinus bradycardia.He was started on heparin drip last night. Cardiology evaluated him this morning and discontinued the heparin drip. As the patient recently had a stress test this was negative, they made adjustments in his blood pressure medications. Patient's blood pressure still running on the higher side, so will monitor his blood pressure overnight with the changes made in his medications. Anticipate discharge in the next 24 hours.
[2020-08-05 07:01] LABS: Glucose,Whole Blood 97 mg/dL (75-99)
[2020-08-05] MEDS ORDERED: hydrALAZINE HCL 50 MG TAB PO SCH (09:00)
[2020-08-05] MEDS: OLANZapine 7.5 MG TAB PO SCH ×2 (09:33→21:21)
[2020-08-05] MEDS: lisinopriL 10 MG TAB PO SCH (09:33)
[2020-08-05] MEDS: FLUoxetine HCL 20 MG CAP PO SCH (09:33)
[2020-08-05] MEDS: TAMSULOSIN 0.4 MG CAP.ER.24H PO SCH (09:33)
[2020-08-05] MEDS: TRIAMTERENE-HCTZ 37.5-25MG 1 EACH TAB PO SCH (09:34)
[2020-08-05] MEDS ORDERED: Potassium Replacement Protocol 1 EACH MISC MISCELLANE PRN (09:49)
[2020-08-05] MEDS ORDERED: lisinopriL 10 MG TAB PO STA (09:52)
[2020-08-05 10:25] LABS: Basophils # (A) 0.08 X 10*3/uL (0.00-0.10); Basophils % (A) 0.8 %; Eosinophils # (A) 0.21 X 10*3/uL (0.04-0.35); Eosinophils % (A) 2.2 %; HGB 10.6 g/dL (13.0-17.0); Lymphocytes # (A) 2.59 X 10*3/uL (0.90-5.00); Lymphocytes % (A) 27.1 %; MCH 30.4 pg (27.0-32.0); MCHC 34.2 g/dL (32.0-37.0); MCV 88.8 fL (80.0-97.0); Mean Platelet Volume 10.5 fL (9.5-12.2); Monocytes # (A) 0.74 X 10*3/uL (0.20-1.00); Monocytes % (A) 7.7 %; Neutrophils # (A) 5.89 X 10*3/uL (1.80-7.70); Neutrophils % (A) 61.6 %; Platelet Count 308 X 10*3/uL (140-440); RBC 3.49 X 10*6/uL (4.40-5.60); RDW 14.4 % (11.5-14.5); WBC 9.57 X 10*3/uL (4.50-10.00)
[2020-08-05 11:22] LABS: Potassium 3.9 mmol/L (3.5-5.1)
[2020-08-05 11:23] LABS: African American GFR (CKD) >90 (>60 ml/min/1.73 sqM); Anion Gap 5 mmol/L; Blood Urea Nitrogen 24 mg/dL (9-20); Calcium 9.1 mg/dL (8.4-10.2); Carbon Dioxide 27 mmol/L (22-30); Chloride 96 mmol/L (98-107); Glucose 94 mg/dL (74-99); Non-African American GFR(CKD) 84 (>60 ml/min/1.73 sqM); Sodium 128 mmol/L (137-145)
[2020-08-05] MEDS: amLODIPine 10 MG TAB PO SCH (11:32)
[2020-08-05 12:05] LABS: Glucose,Whole Blood 97 mg/dL (75-99)
[2020-08-05] MEDS: POTASSIUM CHLORIDE ER 20 MEQ TAB.ER PO SCH ×2 (12:13→14:20)
[2020-08-05] MEDS: HEPARIN SOD,PORK IN 0.45% NACL 25,000 UNIT in 0.45% NACL 1 250ML.BAG IV SCH (14:19)
--- NOTE | 2020-08-05 14:33 | P.PN ---
Subjective The patient is a 70-year-old male with past medical history of hypertension, dyslipidemia, diabetes, current smoker, and bipolar disorder, who is brought into the emergency room for new onset of chest discomfort. He states it started in the epigastric area and radiated down his arms and down through his legs. He states it was very sharp in nature, and it lasted approximately 5 minutes. On arrival his blood pressure was greater than 200 mmHg systolic. ACS workup was ruled out. The patient is currently incarcerated and his guard states he also noted that he has had increased swelling over the last week. He states they're hard time getting his feet into his shoes. He also states that the patient is placed in solitary confinement for 23 out of 24 hours per day, per protocol. This is sent for 14 days following any traveling outside of the facility. EKG shows sinus rhythm with upsloping in the anteroseptal leads consistent with hypertensionRecent echocardiogram in June 2020 shows normal LV function with severe LVH. Recent dobutamine stress echocardiogram in June 2020 shows no evidence of ischemia 08/05/20: On exam this morning he is resting comfortably in bed. He denies chest pain, palpitations, shortness of breath. No dizziness or lightheadedness.Patient is currently being maintained on lisinopril 10mg daily Troponin negative x 3, Laboratory data reveals sodium 128, potassium 3.9, creatinine 0.92, Hgb 10.6, Lipid Profile triglycerides 50, cholesterol 101, LDL 47, HDL 44. PHYSICAL EXAMINATION: Vital signs show blood pressure 186/82 HR 64, afebrile, maintaining oxygen saturations on room air. This is a 70 year-old male in no apparent distress at the time of my examination. HEENT: Head is atraumatic, normocephalic. Pupils are equal, round. Sclerae anicteric. Conjunctivae are clear. Mucous membranes of the mouth are moist. Neck is supple. There is no jugular venous distention. No carotid bruit is heard. CHEST EXAMINATION: Lungs are clear to auscultation. No chest wall tenderness is noted on palpation or with deep breathing. HEART EXAMINATION: Heart regular rate and rhythm. S1, S2 heard. No murmurs, gallops or rub. ABDOMEN: Soft, nontender. Bowel sounds are heard. No organomegaly noted. EXTREMITIES: 2+ peripheral pulses. Mild peripheral edema and no calf tenderness noted. NEUROLOGIC EXAMINATION: Patient is awake, alert and oriented x3. FINAL ASSESSMENT AND PLAN: Chest pain, acute coronary event has been ruled out Hypertension, uncontrolled Dyslipidemia, recheck fasting lipid profile Hypokalemia and hyponatremia, likely secondary to fluid overload Diabetes mellitus Bipolar disorder PLAN: Increase Lisinopril to 20mg BID Continue Dyazide Replaced potassium today Continue to monitor electrolytes Will continue to monitor patient's Blood pressure, possible discharge tomorrow pending improvement. Objective - Vital Signs Vital signs: Vital Signs Temp 97.9 F 08/04/20 07:00 Pulse 61 08/04/20 12:14 Resp 20 08/04/20 12:14 BP 156/70 08/04/20 07:00 Pulse Ox 98 08/04/20 07:00 Intake & Output 08/03/20 08/04/20 08/04/20 18:59 06:59 18:59 Intake Total 106.333 Output Total 1125 2475 Balance -1018.667 -2475 Weight 90.718 kg Intake: Intake, IV Titration 106.333 Amount Heparin Sod,Pork in 0.45% 106.333 NaCl 25,000 unit In 0.45 % NaCl 1 250ml.bag @ 11. 023 UNITS/KG/HR 10 mls/hr IV .Q24H [facility] Rx#: [id number] Output: Urine 1125 2475 Other: # Voids 2 - Labs CBC & Chem 7: 08/05/20 07:13 08/05/20 07:13 Labs: Abnormal Lab Results - Last 24 Hours (Table) 08/03/20 08/03/20 08/03/20 Range/Units 17:36 18:45 20:48 RBC (4.40-5.60) X 10*6/uL Hgb (13.0-17.0) g/dL Hct (39.6-50.0) % APTT 32.9 H (22.0-30.0) sec Sodium (135-145) mmol/L Potassium (3.5-5.5) mmol/L BUN/Creatinine Ratio (12.00-20.00) Ratio POC Glucose (mg/dL) 132 H 108 H (75-99) mg/dL Calcium (8.7-10.3) mg/dL 08/04/20 08/04/20 08/04/20 Range/Units 06:02 06:02 06:02 RBC 3.30 L (4.40-5.60) X 10*6/uL Hgb 9.5 L (13.0-17.0) g/dL Hct 29.2 L (39.6-50.0) % APTT 65.4 H (22.0-30.0) sec Sodium 132 L (135-145) mmol/L Potassium 3.4 L (3.5-5.5) mmol/L BUN/Creatinine Ratio 22.50 H (12.00-20.00) Ratio POC Glucose (mg/dL) (75-99) mg/dL Calcium 8.5 L (8.7-10.3) mg/dL
[2020-08-05] MEDS: ACETAMINOPHEN TAB 325 MG TAB PO PRN ×2 (15:54→21:21)
--- NOTE | 2020-08-05 17:03 | PN ---
PROGRESS NOTE DATE OF SERVICE: 08/05/2020 This 70-year-old gentleman who was admitted with chest pain and hypertension had uncontrolled accelerated hypertension, hypertensive urgency. Blood pressure was elevated. No chest pain. No palpitations. Past medical history reviewed. PHYSICAL EXAMINATION: Patient is alert, oriented x3. Pulse is 63, blood pressure 186/82, respirations 16, temperature 97.9, pulse ox 98% on room air. HEENT: Conjunctivae normal. NECK: No jugular venous distention. CARDIOVASCULAR SYSTEM: S1, S2 muffled. RESPIRATORY SYSTEM: Breath sounds diminished at the bases. Scattered rhonchi and crackles. ABDOMEN: Soft, non-tender. LEGS: No edema. No swelling. NERVOUS SYSTEM: No focal deficit. LABS: WBC 9.5, hemoglobin 10.2. Sodium 128. ASSESSMENT: 1. Chest pain for evaluation. Rule out coronary artery disease. 2. Hypertension with hypertensive urgency. 3. Hyponatremia. 4. Diabetes mellitus, type 2. 5. Diabetic peripheral neuropathy. 6. Bipolar disorder. 7. Schizophrenia. 8. Anxiety, nonspecific. 9. Remote history of nicotine dependence. 10.FULL CODE. RECOMMENDATIONS AND DISCUSSION: In this 70-year-old gentleman who presented with multiple complex medical issues, we will monitor the patient closely, continue the current medications, continue symptomatic treatment. Otherwise at this time I recommend increasing the dose of hydralazine. Monitor blood pressure closely. Norvasc has been added to the current regimen. Discussed with Elliot Bacon, the patient's MPO, who is following in the outpatient setting. The patient is currently in the skilled nursing, but again prognosis guarded and the patient will require more than 2 nights of stay in the hospital to evaluate and treat the above-mentioned multiple medical problems. We will closely follow with Cardiology. Cardiology consultation also has been sought. The patient might need further cardiac workup as well. Prognosis guarded. Further recommendations to follow. MMODL / IJN: [id number] /
[2020-08-05] MEDS: hydrALAZINE HCL 50 MG TAB PO SCH ×2 (17:16→21:20)
[2020-08-05 17:56] LABS: Glucose,Whole Blood 91 mg/dL (75-99)
[2020-08-05 20:36] LABS: Glucose,Whole Blood 100 mg/dL (75-99)
[2020-08-05] MEDS: metFORMIN 500 MG TAB PO SCH (21:20)
[2020-08-05] MEDS: lisinopriL 20 MG TAB PO SCH (21:20)
[2020-08-05] MEDS: ATORVASTATIN 10 MG TAB PO SCH (21:20)
[2020-08-06 07:16] LABS: Glucose,Whole Blood 98 mg/dL (75-99)
[2020-08-06 08:04] VITALS: BP 143/64; PULSE 74; TEMP 97.8
[2020-08-06] MEDS: OLANZapine 7.5 MG TAB PO SCH (08:34)
[2020-08-06] MEDS: FLUoxetine HCL 20 MG CAP PO SCH (08:34)
[2020-08-06] MEDS: metFORMIN 500 MG TAB PO SCH (08:34)
[2020-08-06] MEDS: TAMSULOSIN 0.4 MG CAP.ER.24H PO SCH (08:34)
[2020-08-06] MEDS: TRIAMTERENE-HCTZ 37.5-25MG 1 EACH TAB PO SCH (08:35)
[2020-08-06] MEDS: hydrALAZINE HCL 50 MG TAB PO SCH (08:35)
[2020-08-06] MEDS: lisinopriL 20 MG TAB PO SCH (08:36)
[2020-08-06] MEDS: amLODIPine 10 MG TAB PO SCH (08:36)
[2020-08-06 09:36] VITALS: RESP 17
[2020-08-06 09:42] LABS: Basophils # (A) 0.06 X 10*3/uL (0.00-0.10); Basophils % (A) 0.8 %; Eosinophils # (A) 0.12 X 10*3/uL (0.04-0.35); Eosinophils % (A) 1.6 %; HCT 30.3 % (39.6-50.0); HGB 10.3 g/dL (13.0-17.0); Lymphocytes # (A) 1.87 X 10*3/uL (0.90-5.00); Lymphocytes % (A) 25.5 %; MCH 29.9 pg (27.0-32.0); MCV 87.8 fL (80.0-97.0); Mean Platelet Volume 10.4 fL (9.5-12.2); Monocytes % (A) 5.4 %; Neutrophils # (A) 4.86 X 10*3/uL (1.80-7.70); Neutrophils % (A) 66.3 %; Platelet Count 294 X 10*3/uL (140-440); RBC 3.45 X 10*6/uL (4.40-5.60); RDW 14.6 % (11.5-14.5); WBC 7.34 X 10*3/uL (4.50-10.00)
[2020-08-06 10:03] LABS: Anion Gap 4.5 mmol/L (4.00-12.00); Carbon Dioxide 25.5 mmol/L (21.6-31.8); Non-African American GFR(CKD) 75.9 (60.0-200.0); Potassium 4.4 mmol/L (3.5-5.5)
--- NOTE | 2020-08-07 06:02 | DS ---
DISCHARGE SUMMARY DATE OF SERVICE: 08/06/2020 FINAL DIAGNOSES: 1. Chest pain, myocardial infarction ruled out. 2. Hypertension and hypertensive urgency. 3. Hyponatremia. 4. Diabetes mellitus type 2. 5. Diabetic peripheral neuropathy. 6. Bipolar disorder. 7. Schizophrenia. 8. Anxiety, nonspecific. 9. Remote history of nicotine dependence. 10.FULL CODE. DISCHARGE DISPOSITION: The patient will be discharged in stable condition with guarded prognosis. Cleared by Cardiology. HISTORY OF PRESENT ILLNESS: This 70-year-old gentleman being followed by Dr. Dallin Jurado in the outpatient apparently was in long term in [facility]. The patient was admitted with chest pain and hypertension. Medications adjusted. The patient improved significantly. Cardiology saw the patient and recommended outpatient followup. PHYSICAL EXAMINATION: On exam, vitals are stable. Cardiovascular S1 and S2. Abdomen soft. Nervous system: No focal deficits. DISCHARGE INSTRUCTIONS: Discharge diet is cardiac diet. Activities limited until Followup. Follow up with Dr. Dallin Jurado in 2-3 days. Follow up with Cardiology as recommended. DISCHARGE MEDICATIONS: 1. Flomax 0.4 daily. 2. Lipitor 10 mg q.h.s. 3. Metformin 1000 mg p.o. b.i.d. 4. Prozac 40 mg daily. 5. Zyprexa 7.5 p.o. b.i.d. 6. Apresoline 100 mg p.o. t.i.d. 7. Triamterene hydrochlorothiazide or Maxzide 37.5 mg 1 p.o. daily. 8. Norvasc 10 mg daily. 9. Zestril 20 mg daily. Once again the patient will be discharged in stable condition with guarded prognosis. MMODL / IJN: [id number] /
== END 2020-08-06 11:12 | disposition home or self-care (01) | DRG 305 ==
LOC: EC 11:53 → 6NMEDSUR 13:04 → OBSVTOIN 08-05 22:11
PROVIDERS: ADMIT Family Medicine; ATTEND Family Medicine
DX: I16.0 Hypertensive urgency (principal); E87.1 Hypo-osmolality and hyponatremia; I10 Essential (primary) hypertension; R07.9 Chest pain, unspecified; E78.5 Hyperlipidemia, unspecified; E11.42 Type 2 diabetes mellitus with diabetic polyneuropathy; F20.9 Schizophrenia, unspecified; F31.9 Bipolar disorder, unspecified; Z20.822 Contact with and (suspected) exposure to COVID-19; F41.9 Anxiety disorder, unspecified; Z82.49 Family history of ischemic heart disease and other diseases of the circulatory system; Z83.3 Family history of diabetes mellitus; F17.200 Nicotine dependence, unspecified, uncomplicated; Z79.84 Long term (current) use of oral hypoglycemic drugs; E87.6 Hypokalemia
CPT/HCPCS: 36415; 70450; 72125; 80048; 80053; 80061; 83735; 83880; 84484; 85025; 85610; 85730; 87635; 93005; 96374; 96375; 99285

== ENCOUNTER 2020-08-16 11:46 | Inpatient (IN) | payer MEDICARE, BC ==
--- NOTE | 2020-08-16 12:06 | ED ---
General Adult HPI - General Source: patient, RN notes reviewed, Caregiver Mode of arrival: ambulatory Limitations: physical limitation <Oumar Figueroa - Last Filed: 08/16/20 12:05> <Chauncey Aguirre - Last Filed: 08/16/20 13:11> - General Stated complaint: Hypotensive, Fall, sent by Time Seen by Provider: 08/16/20 12:00 - History of Present Illness Initial comments: This is a 70-year-old male presents emergency Department from Dr. Jurado's office with chief complaint of hypotension. Patient was recently admitted and discharged. Patient had increasing weakness multiple falls. Patient reportedly fell through a glass table didn't strike his head does not take any blood thinners. There is no clear loss conscious. Patient also had multiple falls in which she's been diagnosed with the wrist sprain. Patient is brought here with [facility] worker for concerns of unable to care for himself. Patient is too weak, not eating and drinking and unable care for himself at home. (Oumar Figueroa) - Related Data Home Medications Medication Instructions Recorded Confirmed Atorvastatin [Lipitor] 10 mg PO HS 08/03/20 08/03/20 FLUoxetine HCL [PROzac] 40 mg PO DAILY 08/03/20 08/03/20 OLANZapine [ZyPREXA] 7.5 mg PO BID 08/03/20 08/03/20 Tamsulosin [Flomax] 0.4 mg PO DAILY 08/03/20 08/03/20 metFORMIN HCL 1,000 mg PO BID 08/03/20 08/03/20 Previous Rx's Medication Instructions Recorded Triamterene-Hctz 37.5-25Mg 1 each PO DAILY #30 tab 08/06/20 [Maxzide 37.5-25] amLODIPine [Norvasc] 10 mg PO DAILY #30 tab 08/06/20 hydrALAZINE HCL [Apresoline] 100 mg PO TID #90 tab 08/06/20 lisinopriL [Zestril] 20 mg PO DAILY #30 tab 08/06/20 Allergies Allergy/AdvReac Type Severity Reaction Status Date / Time naproxen [From Naprosyn] AdvReac Swelling Verified 08/16/20 12:06 Review of Systems ROS Other: All systems not noted in ROS Statement are negative. <Dedoe,Oumar M - Last Filed: 08/16/20 12:05> ROS Other: All systems not noted in ROS Statement are negative. <Chauncey Aguirre - Last Filed: 08/16/20 13:11> ROS Statement: Those systems with pertinent positive or pertinent negative responses have been documented in the HPI. Past Medical History Past Medical History: Diabetes Mellitus, Hyperlipidemia, Hypertension Additional Past Medical History / Comment(s): used to take lipitor , neuropathy History of Any Multi-Drug Resistant Organisms: None Reported Past Surgical History: Tonsillectomy Past Anesthesia/Blood Transfusion Reactions: No Reported Reaction Past Psychological History: Anxiety, Bipolar, Schizophrenia Smoking Status: Former smoker Past Alcohol Use History: Occasional Past Drug Use History: Marijuana - Past Family History Mother Family Medical History: Coronary Artery Disease (CAD), Diabetes Mellitus Father Family Medical History: Coronary Artery Disease (CAD) Brother(s) Family Medical History: No Reported History <Oumar Figueroa - Last Filed: 08/16/20 12:05> General Exam General appearance: lethargic Head exam: Present: normocephalic Eye exam: Present: normal appearance, PERRL, EOMI. Absent: scleral icterus, conjunctival injection, periorbital swelling ENT exam: Present: normal exam, mucous membranes moist Neck exam: Present: normal inspection. Absent: tenderness, meningismus, lymphadenopathy Respiratory exam: Present: normal lung sounds bilaterally. Absent: respiratory distress, wheezes, rales, rhonchi, stridor Cardiovascular Exam: Present: regular rate, normal rhythm, normal heart sounds. Absent: systolic murmur, diastolic murmur, rubs, gallop, clicks GI/Abdominal exam: Present: soft, normal bowel sounds. Absent: distended, tenderness, guarding, rebound, rigid Extremities exam: Present: normal inspection, full ROM, normal capillary refill. Absent: tenderness, pedal edema, joint swelling, calf tenderness Back exam: Present: normal inspection Neurological exam: Present: alert, oriented X3, CN II-XII intact Psychiatric exam: Present: normal affect, normal mood Skin exam: Present: warm, dry, normal color, other (abrasion on head). Absent: rash <Chauncey Aguirre - Last Filed: 08/16/20 13:11> Course Vital Signs 08/16/20 08/16/20 08/16/20 12:00 12:58 13:00 Temperature 97.8 F Pulse Rate 66 63 60 Respiratory 16 15 15 Rate Blood Pressure 91/47 102/48 102/48 O2 Sat by Pulse 97 96 96 Oximetry EKG Findings - EKG Comments: EKG Findings:: Twelve-lead EKG shows ventricular rate 63 bpm, normal [place] interval and QRS complexes, no ST elevation or depression, interpreted by me as normal sinus rhythm. <Chauncey Aguirre - Last Filed: 08/16/20 13:11> Medical Decision Making - Lab Data Result diagrams: 08/16/20 12:18 08/16/20 12:18 <Chauncey Aguirre - Last Filed: 08/16/20 13:11> - Medical Decision Making Patient presents with lethargy and some altered mental status is repeated falls. He is not in any condition to return to his home. His sodium is very low. He will be given IV fluids. He will be admitted to his primary care doctor. (Chauncey Aguirre) - Lab Data Lab Results 08/16/20 08/16/20 08/16/20 Range/Units 12:16 12:18 12:18 WBC 11.9 H (3.8-10.6) k/uL RBC 2.87 L (4.30-5.90) m/uL Hgb 9.1 L D (13.0-17.5) gm/dL Hct 25.3 L (39.0-53.0) % MCV 88.1 (80.0-100.0) fL MCH 31.7 (25.0-35.0) pg MCHC 36.0 (31.0-37.0) g/dL RDW 13.9 (11.5-15.5) % Plt Count 351 (150-450) k/uL MPV 6.9 Neutrophils % 81 % Lymphocytes % 13 % Monocytes % 3 % Eosinophils % 2 % Basophils % 0 % Neutrophils # 9.7 H (1.3-7.7) k/uL Lymphocytes # 1.6 (1.0-4.8) k/uL Monocytes # 0.3 (0-1.0) k/uL Eosinophils # 0.2 (0-0.7) k/uL Basophils # 0.1 (0-0.2) k/uL PT 10.0 (9.0-12.0) sec INR 0.9 (<1.2) APTT 25.1 (22.0-30.0) sec Sodium (137-145) mmol/L Potassium (3.5-5.1) mmol/L Chloride (98-107) mmol/L Carbon Dioxide (22-30) mmol/L Anion Gap mmol/L BUN (9-20) mg/dL Creatinine (0.66-1.25) mg/dL Est GFR (CKD-EPI)AfAm (>60 ml/min/1.73 sqM) Est GFR (CKD-EPI)NonAf (>60 ml/min/1.73 sqM) Glucose (74-99) mg/dL POC Glucose (mg/dL) 168 H (75-99) mg/dL POC Glu [employer] Diver ID Carrie, Lisa Plasma Lactic Acid Justo (0.7-2.0) mmol/L Calcium (8.4-10.2) mg/dL Magnesium (1.6-2.3) mg/dL Total Bilirubin (0.2-1.3) mg/dL AST (17-59) U/L ALT (4-49) U/L Alkaline Phosphatase (38-126) U/L Total Protein (6.3-8.2) g/dL Albumin (3.5-5.0) g/dL 08/16/20 08/16/20 Range/Units 12:18 12:18 WBC (3.8-10.6) k/uL RBC (4.30-5.90) m/uL Hgb (13.0-17.5) gm/dL Hct (39.0-53.0) % MCV (80.0-100.0) fL MCH (25.0-35.0) pg MCHC (31.0-37.0) g/dL RDW (11.5-15.5) % Plt Count (150-450) k/uL MPV Neutrophils % % Lymphocytes % % Monocytes % % Eosinophils % % Basophils % % Neutrophils # (1.3-7.7) k/uL Lymphocytes # (1.0-4.8) k/uL Monocytes # (0-1.0) k/uL Eosinophils # (0-0.7) k/uL Basophils # (0-0.2) k/uL PT (9.0-12.0) sec INR (<1.2) APTT (22.0-30.0) sec Sodium 123 L (137-145) mmol/L Potassium 4.4 (3.5-5.1) mmol/L Chloride 93 L (98-107) mmol/L Carbon Dioxide 22 (22-30) mmol/L Anion Gap 8 mmol/L BUN 27 H (9-20) mg/dL Creatinine 0.95 (0.66-1.25) mg/dL Est GFR (CKD-EPI)AfAm >90 (>60 ml/min/1.73 sqM) Est GFR (CKD-EPI)NonAf 81 (>60 ml/min/1.73 sqM) Glucose 136 H (74-99) mg/dL POC Glucose (mg/dL) (75-99) mg/dL POC Glu [employer] Diver ID Plasma Lactic Acid Justo 1.6 (0.7-2.0) mmol/L Calcium 9.0 (8.4-10.2) mg/dL Magnesium 1.5 L (1.6-2.3) mg/dL Total Bilirubin 0.4 (0.2-1.3) mg/dL AST 20 (17-59) U/L ALT 14 (4-49) U/L Alkaline Phosphatase 69 (38-126) U/L Total Protein 5.9 L (6.3-8.2) g/dL Albumin 3.2 L (3.5-5.0) g/dL Disposition <Oumar Figueroa - Last Filed: 08/16/20 12:05> Is patient prescribed a controlled substance at d/c from ED?: No <Chauncey Aguirre - Last Filed: 08/16/20 13:11> Clinical Impression: Weakness Disposition: ADMITTED IP TO THIS HOSP Condition: Fair Referrals: Dallin Jurado MD [Primary Care Provider] - 1-2 days
[2020-08-16 12:22] LABS: Glucose,Whole Blood 168 mg/dL (75-99)
[2020-08-16 12:47] LABS: ALT 14 U/L (4-49); AST 20 U/L (17-59); African American GFR (CKD) >90 (>60 ml/min/1.73 sqM); Albumin 3.2 g/dL (3.5-5.0); Alkaline Phosphatase 69 U/L (38-126); Anion Gap 8 mmol/L; Blood Urea Nitrogen 27 mg/dL (9-20); Carbon Dioxide 22 mmol/L (22-30); Chloride 93 mmol/L (98-107); Glucose 136 mg/dL (74-99); Magnesium 1.5 mg/dL (1.6-2.3); Non-African American GFR(CKD) 81 (>60 ml/min/1.73 sqM); Potassium 4.4 mmol/L (3.5-5.1); Sodium 123 mmol/L (137-145); Total Bilirubin 0.4 mg/dL (0.2-1.3); Total Protein 5.9 g/dL (6.3-8.2)
[2020-08-16 12:56] LABS: Basophils # (A) 0.1 k/uL (0-0.2); Basophils % (A) 0 %; Eosinophils # (A) 0.2 k/uL (0-0.7); Eosinophils % (A) 2 %; HCT 25.3 % (39.0-53.0); Lymphocytes # (A) 1.6 k/uL (1.0-4.8); Lymphocytes % (A) 13 %; MCH 31.7 pg (25.0-35.0); MCV 88.1 fL (80.0-100.0); Mean Platelet Volume 6.9; Monocytes # (A) 0.3 k/uL (0-1.0); Monocytes % (A) 3 %; Neutrophils # (A) 9.7 k/uL (1.3-7.7); Neutrophils % (A) 81 %; Platelet Count 351 k/uL (150-450); RBC 2.87 m/uL (4.30-5.90); RDW 13.9 % (11.5-15.5); WBC 11.9 k/uL (3.8-10.6)
[2020-08-16 12:57] LABS: INR 0.9 (<1.2); Partial Thromboplastin Time 25.1 sec (22.0-30.0)
[2020-08-16 13:07] LABS: HGB 9.1 gm/dL (13.0-17.5)
[2020-08-16] MEDS ORDERED: Magnesium Replacement Protocol 1 EACH MISC MISCELLANE PRN (13:15)
--- NOTE | 2020-08-16 13:27 | CT ---
EXAMINATION TYPE: CT brain thomas wo con DATE OF EXAM: 08/16/2020 COMPARISON: 08/03/2020 HISTORY: Hypotensive, Altered mental status. Pain CT DLP: 1337.9 mGycm, Automated exposure control for dose reduction was used. CONTRAST: Patient injected with 0 mL of Isovue 300. CT of the brain is performed utilizing 3 mm thick sections through the posterior fossa and 3 mm thick sections through the remaining calvarium. Study is performed within 24 hours of arrival to the hospital. No abnormal hyperdensity is present to suggest an acute intracranial hemorrhage. No mass lesion is evident. No acute infarcts are evident. Ventricles and sulci are appropriate for the patient age. Paranasal sinuses and mastoid air cells within the [id number] are clear. IMPRESSIONS: 1. No acute intracranial process. CT cervical spine. COMPARISON: None CT of the cervical spine is performed in the axial plane at 2 mm thick sections. Reconstructed image s in the coronal, and sagittal plane are reviewed on the computer. No acute fractures are evident. Vertebral body alignment is normal. Disc heights are preserved. Vertebral body heights are preserved. No spinal canal stenosis is evident. No neural foraminal stenosis is evident. IMPRESSIONS: 1. No acute cervical spine abnormality.
[2020-08-16] MEDS: SODIUM CHLORIDE 0.9% 1,000 ML IV SCH (14:24)
[2020-08-16] MEDS: MAGNESIUM SULFATE-D5W PMX 1 GM in DEXTROSE/WATER 1 100ML.BAG IVPB SCH (14:24)
--- NOTE | 2020-08-16 15:48 | XR ---
EXAMINATION TYPE: XR chest 2V DATE OF EXAM: 08/16/2020 COMPARISON: 06/25/2020 HISTORY: 70-year-old male with low blood pressure and weakness TECHNIQUE: AP and lateral views FINDINGS: Heart upper limits of normal in size. Aorta within normal limits. There is patchy opacity at the left greater right mid and lower lungs. No pleural effusion. IMPRESSION: Patchy mid and lower lung opacities, left greater than right. Correlate for aspiration or pneumonia.
[2020-08-16] MEDS: hydrALAZINE HCL 50 MG TAB PO SCH ×2 (16:25→22:43)
[2020-08-16 16:59] LABS: Appearance,Urine Clear (Clear); Bilirubin,Urine Negative (Negative); Blood,Urine Moderate (Negative); Color,Urine Yellow; Glucose,Urine (UA) Negative (Negative); Ketones,Urine Negative (Negative); Leukocyte Esterase,Urine Trace (Negative); Mucus,Urine Rare /hpf; Nitrite,Urine Positive (Negative); Protein,Urine Negative (Negative); RBC,Urine 13 /hpf (0-5); Specific Gravity,Urine 1.005 (1.001-1.035); Squamous Epithelial Cell,Urine <1 /hpf (0-4); Urobilinogen,Urine <2.0 mg/dL (<2.0); WBC,Urine 2 /hpf (0-5)
--- NOTE | 2020-08-16 17:39 | P.HPIM ---
History of Present Illness H&P Date: 08/16/20 Chief Complaint: Near syncopal episodes 70-year-old male was presented to the emergency office, sent by primary care office for episode of hypotension and a near syncopal episode blood pressure recorded in the office was 80/30. Per [facility] worker patient has had multiple falls over the last few days. Patient has a gash to the right upper forehead from falling into a glass table, patient denies loss of consciousness at that time. Subjective data obtained through [facility] worker patient has been not consuming food or fluids and unable to care for himself. Patient had extensive diagnostic workup in the emergency department revealing hyponatremia with mild dehydration. Patient has significant history of hypertension, hyperlipidemia, bipolar disorder, and diabetes mellitus type 2. Patient will be admitted to the hospital for IV hydration and close monitoring of hyponatremia Review of Systems Constitutional: Reports fatigue, Reports weakness Ears: bilateral: decreased hearing Cardiovascular: Reports syncope Musculoskeletal: Reports muscle cramps, Reports muscle weakness Neurological: Reports lack of coordination, Reports memory loss, Reports syncope Psychiatric: Reports depression Endocrine: Reports fatigue Past Medical History Past Medical History: Diabetes Mellitus, Hyperlipidemia, Hypertension Additional Past Medical History / Comment(s): used to take lipitor , neuropathy History of Any Multi-Drug Resistant Organisms: None Reported Past Surgical History: Tonsillectomy Past Anesthesia/Blood Transfusion Reactions: No Reported Reaction Past Psychological History: Anxiety, Bipolar, Schizophrenia Smoking Status: Former smoker Past Alcohol Use History: Occasional Past Drug Use History: Marijuana - Past Family History Mother Family Medical History: Coronary Artery Disease (CAD), Diabetes Mellitus Father Family Medical History: Coronary Artery Disease (CAD) Brother(s) Family Medical History: No Reported History Medications and Allergies Home Medications and Allergies Comment(s): Medications and ALLERGIES reviewed Home Medications Medication Instructions Recorded Confirmed Type Atorvastatin [Lipitor] 10 mg PO HS 08/03/20 08/16/20 History OLANZapine [ZyPREXA] 7.5 mg PO BID 08/03/20 08/16/20 History Tamsulosin [Flomax] 0.4 mg PO DAILY 08/03/20 08/16/20 History metFORMIN HCL 1,000 mg PO BID 08/03/20 08/16/20 History amLODIPine [Norvasc] 10 mg PO DAILY #30 tab 08/06/20 08/16/20 Rx hydrALAZINE HCL [Apresoline] 100 mg PO TID #90 tab 08/06/20 08/16/20 Rx lisinopriL [Zestril] 20 mg PO DAILY #30 tab 08/06/20 08/16/20 Rx Aspirin EC [Ecotrin Low Dose] 81 mg PO DAILY 08/16/20 08/16/20 History Levothyroxine Sodium [Synthroid] 25 mcg PO DAILY 08/16/20 08/16/20 History Omeprazole [PriLOSEC] 40 mg PO BID 08/16/20 08/16/20 History Paliperidone IM [Invega Sustenna] 234 mg INJ Q28D 08/16/20 08/16/20 History lamoTRIgine [LaMICtal] 100 mg PO DAILY 08/16/20 08/16/20 History Allergies Allergy/AdvReac Type Severity Reaction Status Date / Time naproxen [From Naprosyn] AdvReac Swelling Verified 08/16/20 13:40 Physical Exam Vitals: Vital Signs Temp Pulse Resp BP Pulse Ox 08/16/20 17:00 60 107/53 95 08/16/20 16:25 61 18 107/53 94 L 08/16/20 16:00 64 94/53 94 L 08/16/20 15:00 63 102/49 95 08/16/20 14:00 98 F 65 16 105/49 97 08/16/20 13:30 65 18 105/49 97 08/16/20 13:00 60 15 102/48 96 08/16/20 12:58 63 15 102/48 96 08/16/20 12:00 97.8 F 66 16 91/47 97 Intake and Output 08/16/20 08/16/20 08/16/20 06:59 14:59 22:59 Other: Weight 95.254 kg - Constitutional General appearance: disheveled - EENT Eyes: EOMI, PERRLA ENT: normal oropharynx Ears: bilateral: normal - Neck Neck: normal ROM Carotids: bilateral: upstroke normal Thyroid: bilateral: normal size - Respiratory Respiratory: bilateral: CTA (Anterior and posterior lung wang) - Cardiovascular Normal sinus rhythm Heart rate: 74 Rhythm: regular Heart sounds: normal: S1, S2 radial pulse Peripheral Pulses: bilateral: Normal dorsalis pedis Peripheral Pulses: bilateral: Normal - Gastrointestinal General gastrointestinal: normal bowel sounds - Integumentary Integumentary: decreased turgor, pale - Musculoskeletal Musculoskeletal: generalized weakness Results CBC & Chem 7: 08/16/20 12:18 08/16/20 12:18 Labs: Abnormal Lab Results - Last 24 Hours (Table) 08/16/20 08/16/20 08/16/20 Range/Units 12:16 12:18 12:18 WBC 11.9 H (3.8-10.6) k/uL RBC 2.87 L (4.30-5.90) m/uL Hgb 9.1 L D (13.0-17.5) gm/dL Hct 25.3 L (39.0-53.0) % Neutrophils # 9.7 H (1.3-7.7) k/uL Sodium 123 L (137-145) mmol/L Chloride 93 L (98-107) mmol/L BUN 27 H (9-20) mg/dL Glucose 136 H (74-99) mg/dL POC Glucose (mg/dL) 168 H (75-99) mg/dL Magnesium 1.5 L (1.6-2.3) mg/dL Total Protein 5.9 L (6.3-8.2) g/dL Albumin 3.2 L (3.5-5.0) g/dL Urine Blood (Negative) Ur Leukocyte Esterase (Negative) Urine RBC (0-5) /hpf Urine Mucus (None) /hpf 08/16/20 Range/Units 16:43 WBC (3.8-10.6) k/uL RBC (4.30-5.90) m/uL Hgb (13.0-17.5) gm/dL Hct (39.0-53.0) % Neutrophils # (1.3-7.7) k/uL Sodium (137-145) mmol/L Chloride (98-107) mmol/L BUN (9-20) mg/dL Glucose (74-99) mg/dL POC Glucose (mg/dL) (75-99) mg/dL Magnesium (1.6-2.3) mg/dL Total Protein (6.3-8.2) g/dL Albumin (3.5-5.0) g/dL Urine Blood Moderate H (Negative) Ur Leukocyte Esterase Trace H (Negative) Urine RBC 13 H (0-5) /hpf Urine Mucus Rare H (None) /hpf Chest x-ray: report reviewed CT scan - pelvis: report reviewed Thrombosis Risk Factor Assmnt - Choose All That Apply Each Factor Represents 1 point: Obesity (BMI >25) Each Risk Factor Represents 2 Points: Age 61-74 years Thrombosis Risk Factor Assessment Total Risk Factor Score: 3 Thrombosis Risk Factor Assessment Level: Moderate Risk Assessment and Plan Assessment: Near syncopal episodes Generalized weakness Hyponatremia Hypertension Hyperlipidemia Diabetes mellitus type 2 Bipolar Schizophrenia GERD/reflux BPH Full code Plan: Syncopal episodesgentle hydration of normal saline at 75 ML's an hour Hyponatremiagentle hydration of normal saline at 75 ML's an hour Hyponatremiawatch for seizure precautions Continue home medications Hopeful discharge in 24 hours Time with Patient: Greater than 30
[2020-08-16] MEDS: metFORMIN 500 MG TAB PO SCH (18:02)
[2020-08-16] MEDS: PANTOPRAZOLE 40 MG TABLET PO SCH (18:02)
[2020-08-16] MEDS: ACETAMINOPHEN TAB 325 MG TAB PO PRN (18:02)
[2020-08-16 22:37] LABS: Glucose,Whole Blood 72 mg/dL (75-99)
[2020-08-16] MEDS: ATORVASTATIN 10 MG TAB PO SCH (22:42)
[2020-08-16] MEDS: OLANZapine 7.5 MG TAB PO SCH (22:43)
[2020-08-16 23:32] LABS: Glucose,Whole Blood 76 mg/dL (75-99)
[2020-08-17] MEDS: ACETAMINOPHEN TAB 325 MG TAB PO PRN ×3 (02:17→21:37)
[2020-08-17] MEDS: SODIUM CHLORIDE 0.9% 1,000 ML IV SCH ×2 (03:25→18:07)
[2020-08-17] MEDS: LEVOTHYROXINE 25 MCG TAB PO SCH (05:54)
[2020-08-17 07:34] LABS: Basophils % (A) 0 %; Eosinophils # (A) 0.2 k/uL (0-0.7); Eosinophils % (A) 2 %; HCT 26.5 % (39.0-53.0); HGB 9.4 gm/dL (13.0-17.5); Lymphocytes % (A) 16 %; MCH 31.3 pg (25.0-35.0); MCHC 35.5 g/dL (31.0-37.0); MCV 88.2 fL (80.0-100.0); Mean Platelet Volume 6.7; Monocytes # (A) 0.6 k/uL (0-1.0); Monocytes % (A) 5 %; Neutrophils # (A) 9.5 k/uL (1.3-7.7); Neutrophils % (A) 76 %; Platelet Count 386 k/uL (150-450); RBC 3.01 m/uL (4.30-5.90); RDW 13.9 % (11.5-15.5); WBC 12.5 k/uL (3.8-10.6)
[2020-08-17 07:45] LABS: ALT 14 U/L (4-49); AST 18 U/L (17-59); African American GFR (CKD) >90 (>60 ml/min/1.73 sqM); Albumin 3.4 g/dL (3.5-5.0); Albumin/Globulin Ratio 1.2; Alkaline Phosphatase 80 U/L (38-126); Anion Gap 7 mmol/L; Blood Urea Nitrogen 21 mg/dL (9-20); Carbon Dioxide 24 mmol/L (22-30); Chloride 97 mmol/L (98-107); Globulin 2.8 g/dL; Glucose 85 mg/dL (74-99); Non-African American GFR(CKD) >90 (>60 ml/min/1.73 sqM); Potassium 4.5 mmol/L (3.5-5.1); Sodium 128 mmol/L (137-145); Total Bilirubin 0.3 mg/dL (0.2-1.3); Total Protein 6.2 g/dL (6.3-8.2)
[2020-08-17] MEDS: lisinopriL 20 MG TAB PO SCH (09:06)
[2020-08-17] MEDS: amLODIPine 10 MG TAB PO SCH (09:06)
[2020-08-17] MEDS: ASPIRIN 81 MG PO SCH (09:06)
[2020-08-17] MEDS: PANTOPRAZOLE 40 MG TABLET PO SCH ×2 (09:06→18:00)
[2020-08-17] MEDS: metFORMIN 500 MG TAB PO SCH ×2 (09:07→18:00)
[2020-08-17] MEDS: lamoTRIgine 100 MG TAB PO SCH (09:07)
[2020-08-17] MEDS: TAMSULOSIN 0.4 MG CAP.ER.24H PO SCH (09:07)
[2020-08-17] MEDS: OLANZapine 7.5 MG TAB PO SCH ×2 (09:07→21:32)
[2020-08-17] MEDS: hydrALAZINE HCL 50 MG TAB PO SCH ×3 (09:07→21:31)
[2020-08-17] MEDS: NICOTINE 21MG/24HR PATCH TRANSDERM SCH (11:27)
--- NOTE | 2020-08-17 15:53 | PN ---
PROGRESS NOTE DATE OF SERVICE: 08/17/2020 I am covering for Dr. Dallin Jurado. This 70-year-old gentleman admitted with near syncopal episode and weakness also had a Truj[place] catheter. The patient apparently also had suicidal ideations. Psychiatry evaluation in progress at this time. The patient also had a Truj[place] catheter. The patient apparently was in [facility] according to him. The patient also in [facility] where the Truj[place] catheter was inserted. The patient has some mild hyponatremia at 128. The patient also has history of fall and CT scan of the brain showed no acute intracranial process. PHYSICAL EXAMINATION: Alert and oriented x2. Pulse 72. Blood pressure 116/57, respiration 18, temperature 97.8, pulse ox 99% on room air. HEENT: Conjunctivae normal. NECK: No JVD. CARDIOVASCULAR: S1, S2 muffled. RESPIRATION: Breath sounds diminished in the bases. A few scattered rhonchi. ABDOMEN: Soft, nontender. LEGS are no edema. No swelling. NERVOUS SYSTEM: Diffusely weak. LABS: WBC 12.2, hemoglobin 9.2. Sodium 128. UA noted. ASSESSMENT: 1. Near syncope for evaluation, rule out orthostatic hypotension. 2. Change in mental status, metabolic encephalopathy, possibly. 3. Generalized weakness. 4. Increased WBC. 5. Hypertension. 6. Hyponatremia. 7. Hyperlipidemia. 8. Diabetes mellitus type 2. 9. Bipolar schizophrenia. 10.History of gastroesophageal reflux disease. 11.History of suicidal ideation. 12.History of benign prostatic hypertrophy. 13.FULL CODE. 14.Anemia, normocytic anemia of chronic disease. RECOMMENDATIONS AND DISCUSSION: Recommend to continue current medications, symptomatic treatment. Otherwise, at this time, I would recommend resume the home medications and psychiatric evaluation. Blood cultures, urine culture, guarded prognosis. Repeat labs in the morning. Home medications are resumed. Further recommendations to follow. MMODL / IJN: [id number] /
[2020-08-17 17:33] LABS: Potassium 4.7 mmol/L (3.5-5.1)
[2020-08-17 17:34] LABS: ALT 15 U/L (4-49); AST 18 U/L (17-59); African American GFR (CKD) >90 (>60 ml/min/1.73 sqM); Albumin 3.6 g/dL (3.5-5.0); Albumin/Globulin Ratio 1.2; Alkaline Phosphatase 88 U/L (38-126); Anion Gap 10 mmol/L; Blood Urea Nitrogen 17 mg/dL (9-20); Calcium 9.4 mg/dL (8.4-10.2); Carbon Dioxide 22 mmol/L (22-30); Chloride 97 mmol/L (98-107); Globulin 3.1 g/dL; Glucose 111 mg/dL (74-99); Non-African American GFR(CKD) >90 (>60 ml/min/1.73 sqM); Sodium 129 mmol/L (137-145); Total Bilirubin 0.3 mg/dL (0.2-1.3); Total Protein 6.7 g/dL (6.3-8.2)
[2020-08-17] MEDS: ATORVASTATIN 10 MG TAB PO SCH (21:31)
[2020-08-18] MEDS: LEVOTHYROXINE 25 MCG TAB PO SCH (06:00)
[2020-08-18] MEDS: PANTOPRAZOLE 40 MG TABLET PO SCH ×2 (07:16→16:02)
[2020-08-18] MEDS: lamoTRIgine 100 MG TAB PO SCH (07:16)
[2020-08-18] MEDS: lisinopriL 20 MG TAB PO SCH (07:16)
[2020-08-18] MEDS: ASPIRIN 81 MG PO SCH (07:16)
[2020-08-18] MEDS: metFORMIN 500 MG TAB PO SCH ×2 (07:16→16:02)
[2020-08-18] MEDS: amLODIPine 10 MG TAB PO SCH (07:16)
[2020-08-18] MEDS: NICOTINE 21MG/24HR PATCH TRANSDERM SCH (07:16)
[2020-08-18] MEDS: TAMSULOSIN 0.4 MG CAP.ER.24H PO SCH (07:16)
[2020-08-18] MEDS: hydrALAZINE HCL 50 MG TAB PO SCH ×3 (07:16→21:01)
[2020-08-18] MEDS: OLANZapine 7.5 MG TAB PO SCH ×2 (07:17→21:01)
[2020-08-18 08:46] LABS: Basophils # (A) 0.1 k/uL (0-0.2); Basophils % (A) 1 %; Eosinophils # (A) 0.1 k/uL (0-0.7); Eosinophils % (A) 1 %; HCT 30.4 % (39.0-53.0); HGB 9.9 gm/dL (13.0-17.5); Lymphocytes # (A) 1.6 k/uL (1.0-4.8); Lymphocytes % (A) 17 %; MCH 29.4 pg (25.0-35.0); MCHC 32.6 g/dL (31.0-37.0); MCV 90.2 fL (80.0-100.0); Mean Platelet Volume 6.6; Monocytes # (A) 0.4 k/uL (0-1.0); Monocytes % (A) 4 %; Neutrophils # (A) 7.3 k/uL (1.3-7.7); Neutrophils % (A) 77 %; Platelet Count 427 k/uL (150-450); RBC 3.36 m/uL (4.30-5.90); RDW 14.6 % (11.5-15.5); WBC 9.5 k/uL (3.8-10.6)
--- NOTE | 2020-08-18 09:18 | CT ---
CT CHEST FOR PULMONARY EMBOLISM. EXAMINATION TYPE: CT angio chest DATE OF EXAM: 08/18/2020 INDICATION: elevated dimer CT DLP: 346.9 mGycm, Automated exposure control for dose reduction was used. CONTRAST: Patient injected with 100 mL of Isovue 370. COMPARISON: None TECHNIQUE: CT of the chest is performed on a spiral scan at 2 mm thick sections. Study is performed with intravenous contrast timed for evaluation for pulmonary embolism. This will limit additional po rtions of the evaluation. 3-D MIP images reconstructed by the technologist are reviewed on the compu ter in the coronal and sagittal planes. FINDINGS: No persistent filling defects within pulmonary arteries are evident to suggest an acute pulmonary emb olism. There is some mixing of venous blood flow with more central hypodensity on the venous side whi ch is normal. No mediastinal or hilar adenopathy enlarged by CT criteria is evident. The ascending aorta diameter at the level of the main pulmonary artery is 3.8 cm. The main pulmonary artery diameter at the bifur cation is 3.3 cm. Minimal pericardial effusion should be considered. There is a punctate density in the lateral right apex. Series 5 image 1. Small patchy infiltrates are within the peripheral bilateral mid lungs. This is nonspecific but can be associated with atypical p neumonia. Some groundglass opacities within the lingula. Mild soft tissue density may be in the left infrahilar region. This may be better visualized in the coronal reconstructed images. Follow-up is re commended. Limited CT section through the upper abdomen are unremarkable. IMPRESSIONS: 1. No acute pulmonary embolism. 2. Scattered mild areas of pneumonitis within the bilateral mid lungs. Correlate for atypical pneumon ia. Other etiologies could be considered. 3. Some mild soft tissue thickening along left infrahilar region. Follow-up is recommended.
[2020-08-18] MEDS: ACETAMINOPHEN TAB 325 MG TAB PO PRN ×2 (09:57→21:01)
--- NOTE | 2020-08-18 12:43 | P.CN ---
Psychiatric Consult - . Consult date: 08/18/20 Consult:: IDENTIFYING DATA: He is a 70-year-old male admitted to medicine service for evaluation and treatment of hypertension and near syncopal episodes. On the suicide risk assessment he answered to the positive on suicide screening questions including thoughts of suicide suicide attempt and suicidal behavior. Nursing note also indicates they felt suicide tin the past but not at the time of the risk assessment. HISTORY OF PRESENT ILLNESS: I reviewed the medical record and interviewed the patient. He is known to psychiatry service from 2 prior psychiatric hospitalizations. He was last discharged from our unit in in June with a diagnosis of a bipolar disorder. That admission was involuntary and [facility] issued a pickup order for noncompliant with outpatient treatment. He is manic psychosis resolved with with paliperidone and he was transitioned to paliperidone IM 156 mg I monthly prior to discharge. According to record he presented to the emergency department from his primary care provider's office with complaints of hypertension. He described increasingly weakness and multiple falls; where done wonderful he fell and struck his head on a glass table. He alleged that he has been compliant with his prescribed psychotropic medication-Zyprexa 7.5 mg twice a day. He alleged that [facility] provider switched him from paliperidone back to Zyprexa since his last dis charged from [facility]. He denied that he is currently experiencing suicidal thoughts or wishes. He acknowledged that he had past thoughts of suicide that are related to his worsening medical condition. He denied that he has been contemplating suicide or his made plans or preparations for suicide. He denied feeling depressed and denied symptoms of depression such as anhedonia, anergy impaired concentration, impaired sleep or persistent inappropriate guilt. He denied experiencing irritability or uncontrolled anger. He denied experiencing psychotic symptoms such as auditory, visual or olfactory hallucinations, ideas reference, thought insertion set her up. PAST PSYCHIATRIC HISTORY: He is a well-established history of a bipolar illness. He is presented to the psychiatric unit acutely manic and expressed paranoid delusional beliefs. Although last discharged from an paliperidone IM monthly he was restarted on oral Zyprexa as an outpatient. PAST MEDICAL HISTORY: See admission history and physical exam. ALLERGIES: Naproxyn SUBSTANCE USE HISTORY: He is a history of marijuana and tobacco use. He denied history of substance abuse treatment. FAMILY PSYCHIATRIC/SUBSTANCE USE HISTORY: He denied history of psychiatric or substance use problems in his family. SOCIAL HISTORY: Born and raised in [facility] and obtained a bachelor's degree. He served in [place] from 1969-. 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 He currently lives alone in his own home and for [facility]. He is and has no children. He denied history of legal problems. MENTAL STATUS EXAM: He presented as a casually groomed elderly male who was pleasant on approach. He made eye contact and attended the interview. He had a healing contusion over his right eye, IV and a urine catheter. He had no prominent physical abnormalities. He had a blunted but bright facial expression. He was alert and oriented to person, place and time. He has psychomotor retardation but no abnormal involuntary movements. He is not agitated or restless or impulsive. His speech was spontaneous normal rate, rhy thm and volume. No articulation difficulties. His affect was depressed but appropriate. He denied suicidal ideation and wishes. He denied homicidal ideation. He denied feeling hopeless, helpless or worthless. She was not obsessive or ruminative. He did not express ideas reference, paranoid ideation or delusions. His thinking was concrete but his associations were coherent, logical and goal directed. He denied hallucinations didn't appear to be responding to internal stimuli. IMPRESSIONS: He is 70-year-old male with a well-established diagnosis of bipolar disorder. [facility] of hypertension and following. During the nursing assessment he identified suicidal thoughts. During her assessment he denied current thoughts of or suicide. He denied suicide intent or plan. His affect appears depressed but he denied symptoms suggestive of a depressive disorder. There is no evidence of abdi or hypomania. There is no evidence of psychosis. There is no indication for transfer to the psychiatric unit. He does not require one-to-one supervision for acute suicidal ideation. DIAGNOSIS: Bipolar disorder most recent episode manic in full remission, tobacco use, history of RECOMMENDATION: No indication for transfer to the psychiatric unit. He may discontinue one-to-one supervision. Continue Zyprexa and 0.5 mg twice a day. Psychiatry will follow Thank you for this consult. 08/18/20 12:19
--- NOTE | 2020-08-18 14:48 | PN ---
PROGRESS NOTE DATE OF SERVICE: 08/18/2020 I am covering for Dr. Jurado. INTERVAL HISTORY: This 70-year-old gentleman was admitted with syncopal episodes, complaining of weakness. Patient was confused. A chest CTA was done which showed no acute pulmonary embolism and scattered areas of pneumonitis at this time. Psychiatric evaluation in progress. COVID-19 was negative, as well as flu testing. PAST MEDICAL HISTORY: Reviewed. PHYSICAL EXAM: GENERAL: Patient is alert and oriented times three. VITAL SIGNS: Pulse 84, blood pressure 138/54, respirations 17, temperature 97.9, pulse ox 97% on room air. HEENT: Conjunctivae normal. Oral mucosa moist. NECK: No jugular venous distention. No carotid bruits. RESPIRATORY: Breath sounds diminished at the bases. A few scattered rhonchi. HEART: S1 and S2, muffled. ABDOMEN: Soft, no tenderness. No masses palpable. NERVOUS: No focal deficits. LABS: At this time shows WBC 9.9 and D-dimer is 0.93. ASSESSMENT: 1. Near syncope for evaluation, rule out orthostatic hypotension. 2. Possible bibasilar pneumonia, interstitial pneumonia. 3. Change in mental status, acute metabolic encephalopathy possibly. 4. Generalized weakness. 5. Increased WBC. 6. Hypertension. 7. Hyponatremia. 8. Hyperlipidemia. 9. Diabetes mellitus type 2. 10.Bipolar and schizophrenia. 11.History of gastroesophageal reflux disease. 12.History of suicidal ideation. 13.History of benign prostatic hypertrophy. 14.Anemia, normocytic anemia of chronic disease. 15.FULL CODE. RECOMMENDATIONS AND DISCUSSION: Recommend to continue current management and continue symptomatic treatment. Continue with empiric antibiotics. Psychiatric evaluation is in progress. Further recommendations to follow. MMODL / IJN: [id number] /
[2020-08-18] MEDS: SODIUM CHLORIDE 0.9% 1,000 ML IV SCH (16:03)
[2020-08-18 17:14] LABS: Ferritin 593.9 ng/mL (22.0-322.0)
[2020-08-18] MEDS: ATORVASTATIN 10 MG TAB PO SCH (21:01)
[2020-08-18 21:22] VITALS: TEMP 98
[2020-08-19] MEDS: SODIUM CHLORIDE 0.9% 1,000 ML IV SCH ×2 (02:34→03:32)
[2020-08-19] MEDS: LEVOTHYROXINE 25 MCG TAB PO SCH (05:57)
[2020-08-19 06:51] LABS: African American GFR (CKD) >90 (>60 ml/min/1.73 sqM); Anion Gap 5 mmol/L; Blood Urea Nitrogen 14 mg/dL (9-20); Calcium 9.3 mg/dL (8.4-10.2); Carbon Dioxide 26 mmol/L (22-30); Chloride 102 mmol/L (98-107); Glucose 85 mg/dL (74-99); Non-African American GFR(CKD) >90 (>60 ml/min/1.73 sqM); Potassium 4.9 mmol/L (3.5-5.1); Sodium 133 mmol/L (137-145)
[2020-08-19] MEDS: NICOTINE 21MG/24HR PATCH TRANSDERM SCH (07:59)
[2020-08-19] MEDS: metFORMIN 500 MG TAB PO SCH (08:00)
[2020-08-19] MEDS: ASPIRIN 81 MG PO SCH (08:00)
[2020-08-19] MEDS: lamoTRIgine 100 MG TAB PO SCH (08:00)
[2020-08-19] MEDS: OLANZapine 7.5 MG TAB PO SCH (08:00)
[2020-08-19] MEDS: ACETAMINOPHEN TAB 325 MG TAB PO PRN (08:00)
[2020-08-19] MEDS: hydrALAZINE HCL 50 MG TAB PO SCH (08:00)
[2020-08-19] MEDS: amLODIPine 10 MG TAB PO SCH (08:00)
[2020-08-19] MEDS: PANTOPRAZOLE 40 MG TABLET PO SCH (08:00)
[2020-08-19] MEDS: TAMSULOSIN 0.4 MG CAP.ER.24H PO SCH (08:00)
[2020-08-19] MEDS: lisinopriL 20 MG TAB PO SCH (08:00)
[2020-08-19 12:19] VITALS: BP 144/58; PULSE 88; RESP 17
--- NOTE | 2020-08-19 14:17 | P.CON ---
Consult Note - . Consult date: 08/19/20 Assessment/Plan:: Clinical Problems: Bipolar disorder most recent episode manic in full remission, tobacco use Interim history: I reviewed the medical record and interviewed the patient. He was pleasant on approach and denied problems or concerns. He specifically denied days experiencing thoughts of or suicide. He denied wishes. In response to questions about suicidality he replied that he has everything look for and talked about buying a perfect when he leaves the hospital. When I asked whether he could afford to buy an expensive sports, he replied "well with you like to go for a ride in a sports car?" He assured me that he is compliant with his psychotropic medications and [facility]. Mental status exam: He presented as a casually groomed elderly male who was standing next to his bed. He was wearing surgical gloves. He made eye contact and attended to the interview. He had no prominent physical abnormalities. He had a blunted facial expression. He showed no abnormality of psychomotor activity. Specifically, he was not agitated or restless. His speech was spontaneous with normal rate, rhythm and volume. His affect was stable and appropriate. He denied suicidal ideation and wishes. He denied feeling hopeless, helpless or worthless. He did not express ideas reference, paranoid ideation or delusions. His thinking was concrete. Associations appeared coherent and goal directed. He denied hallucinations and didn't appear to be responding to internal stimuli. Assessment: He has a well-documented history of a bipolar illness with multiple past psychiatric hospitalizations. Overall, he is much improved from his admission to the psychiatric unit in June 2020. There is no indication to change his psychotropic medications at this time. Plan: Continue Zyprexa 7.5 mg twice a day, monitor his compliance with his psychotropic medication, schedule follow-up appointment [facility] prior to discharge, psychiatry will sign off the case.
--- NOTE | 2020-08-19 16:07 | P.DS ---
Providers Date of admission: 08/16/20 13:11 Expected date of discharge: 08/19/20 Attending physician: Dallin Jurado Consults: 08/17/20 11:21 Consult Physician Routine Consulting Provider: Psychiatry - [facility] Psychiatry Consult Reason/Comments: suicidal thoughts Do you want consulting provider notified?: Yes Primary care physician: Dallin Jurado Hospital Course: Final diagnosis Near syncope for evaluation, ruled out orthostatic hypotension Possible bibasilar pneumonia, interstitial pneumonia Change in mental status, acute metabolic encephalopathy possibly Generalized weakness Increased WBC Hypertension Hyponatremia Hyperlipidemia Diabetes mellitus type 2 Bipolar and schizophrenia History of GERD history of suicidal ideation History of benign prostatic hypertrophy Anemia, normocytic of chronic disease Full code Discharge disposition Patient is being discharged in a stable condition with guarded prognosis to home. Patient will follow-up with Dr. Jurado in the outpatient setting upon discharge. Patient is to continue with oral antibiotics in the form of Ceftin 5 mg twice daily for the next 3 days to complete the course. Total time taken is greater than 35 minutes. Hospital course This is a 70-year-old male who was recently admitted with syncopal episode and complaining of weakness with some confusion and was being closely monitored. Patient underwent CT of the chest showing no pulmonary embolism with scattered areas of pneumonitis and patient was maintained on IV ceftriaxone. Patient will continue on oral Ceftin for the next 4 days to complete the course. Covid and flu testing were negative. Patient was also seen and evaluated by psychiatry recommending continuing current medications and continuing to follow-up with [facility] in the outpatient setting. Currently no reports of chest pain, shortness of breath, or palpitations. Patient is afebrile. No reports of nausea or vomiting and patient is tolerating diet. Patient is asking to be discharged today. Patient instructed to follow- up with primary care provider Dr. Jurado upon discharge. On exam vital signs are stable. Cardio S1, S2 are muffled. Respiratory system shows diminished breath sounds at the bases with no wheezing or rhonchi noted. Abdomen is soft and nontender. Nervous system shows focal deficits. Please refer to medication reconciliation sheet for a list of medications. Patient Condition at Discharge: Fair Plan - Discharge Summary Discharge Rx Participant: No New Discharge Prescriptions: New Acetaminophen Tab [Tylenol] 650 mg PO Q6HR PRN tab PRN Reason: Fever And/ Or Pain Cefuroxime Axetil [Ceftin] 500 mg PO BID 3 Days #6 tab Continue Atorvastatin [Lipitor] 10 mg PO HS Aspirin EC [Ecotrin Low Dose] 81 mg PO DAILY lamoTRIgine [LaMICtal] 100 mg PO DAILY Levothyroxine Sodium [Synthroid] 25 mcg PO DAILY Omeprazole [PriLOSEC] 40 mg PO BID metFORMIN HCL 1,000 mg PO BID Tamsulosin [Flomax] 0.4 mg PO DAILY OLANZapine [ZyPREXA] 7.5 mg PO BID hydrALAZINE HCL [Apresoline] 100 mg PO TID #90 tab amLODIPine [Norvasc] 10 mg PO DAILY #30 tab lisinopriL [Zestril] 20 mg PO DAILY #30 tab Paliperidone IM [Invega Sustenna] 234 mg INJ Q28D Discharge Medication List Atorvastatin [Lipitor] 10 mg PO HS 08/03/20 [History] OLANZapine [ZyPREXA] 7.5 mg PO BID 08/03/20 [History] Tamsulosin [Flomax] 0.4 mg PO DAILY 08/03/20 [History] metFORMIN HCL 1,000 mg PO BID 08/03/20 [History] amLODIPine [Norvasc] 10 mg PO DAILY #30 tab 08/06/20 [Rx] hydrALAZINE HCL [Apresoline] 100 mg PO TID #90 tab 08/06/20 [Rx] lisinopriL [Zestril] 20 mg PO DAILY #30 tab 08/06/20 [Rx] Aspirin EC [Ecotrin Low Dose] 81 mg PO DAILY 08/16/20 [History] Levothyroxine Sodium [Synthroid] 25 mcg PO DAILY 08/16/20 [History] Omeprazole [PriLOSEC] 40 mg PO BID 08/16/20 [History] Paliperidone IM [Invega Sustenna] 234 mg INJ Q28D 08/16/20 [History] lamoTRIgine [LaMICtal] 100 mg PO DAILY 08/16/20 [History] Acetaminophen Tab [Tylenol] 650 mg PO Q6HR PRN tab 08/19/20 [Rx] Cefuroxime Axetil [Ceftin] 500 mg PO BID 3 Days #6 tab 08/19/20 [Rx] Follow up Appointment(s)/Referral(s): Dallin Jurado MD [Primary Care Provider] - 1-2 days Activity/Diet/Wound Care/Special Instructions: Activity Limited until follow-up Follow-up with primary care provider upon discharge continue with [facility] outpatient Continue current medications as prescribed Continue current diet Discharge Disposition: HOME SELF-CARE
--- NOTE | 2020-09-09 10:20 | CDI ---
Documentation Clarification Form Date: 09/09/2020 09:36:08 AM From: Mitzy Paige, [employer]oding [employer]ner Phone: Admit Date: 08/16/2020 01:11:00 PM Patient Name: Vijay Lynn Visit Number: [id number] Discharge Date: 08/19/2020 03:27:00 PM ATTENTION: The Clinical Documentation Specialists (CDI) and [facility] Coding Staff appreciate your assistance in clarifying documentation. Please respond to the clarification below the line at the bottom and electronically sign. The CDI & [facility] Coding staff will review the response and follow-up if needed. Please note: Queries are made part of the Legal Health Record. If you have any questions, please contact the author of this message via ITS. Dr. Osiris Ricks Syncope is documented in ED, H&P and Discharge Summary. Additional clarification regarding the etiology of the syncope is requested. History/risk factors: HTN, DM, hyperlipidemia, Bipolar, Schizophrenia, Gerd, BPH, hyponatremia. Clinical Indicators: Increasing weakness, multiple falls, not eating and drinking; unable to care for himself at home. Labs: 08/19; Sodium 133 Treatment: IV fluids; 75 ML an hour Please clarify the etiology of syncope, if known: [ ] Hyponatremia [ ] Other, please specify [ ] Unable to determine (Template Last Revised: July 2020) Syncope due to dehydration and this query is not necessary either [facility]
== END 2020-08-19 15:27 | disposition home or self-care (01) | DRG 640 ==
LOC: EC 11:46 → 5NMEDONC 13:11
PROVIDERS: ADMIT Family Medicine; ATTEND Family Medicine
DX: E86.0 Dehydration (principal); G93.41 Metabolic encephalopathy; J84.9 Interstitial pulmonary disease, unspecified; E87.1 Hypo-osmolality and hyponatremia; D63.8 Anemia in other chronic diseases classified elsewhere; E11.9 Type 2 diabetes mellitus without complications; E78.5 Hyperlipidemia, unspecified; F20.9 Schizophrenia, unspecified; F41.9 Anxiety disorder, unspecified; I10 Essential (primary) hypertension; K21.9 Gastro-esophageal reflux disease without esophagitis; F17.210 Nicotine dependence, cigarettes, uncomplicated; F31.74 Bipolar disorder, in full remission, most recent episode manic; N40.0 Benign prostatic hyperplasia without lower urinary tract symptoms; R29.6 Repeated falls; Z20.822 Contact with and (suspected) exposure to COVID-19; Z79.82 Long term (current) use of aspirin; Z79.84 Long term (current) use of oral hypoglycemic drugs; Z79.890 Hormone replacement therapy; Z79.899 Other long term (current) drug therapy; Z82.49 Family history of ischemic heart disease and other diseases of the circulatory system; Z83.3 Family history of diabetes mellitus; Z91.81 History of falling; Z88.8 Allergy status to other drugs, medicaments and biological substances
CPT/HCPCS: 36415; 70450; 71046; 71275; 72125; 80048; 80053; 81001; 82728; 83605; 83615; 83735; 84484; 85025; 85379; 85610; 85730; 87040; 87086; 87502; 87635; 93005; 94760; 99285

== ENCOUNTER 2020-08-21 15:40 | Emergency (ER) | payer MEDICARE, BC ==
[2020-08-21 16:14] VITALS: RESP 16; TEMP 97.9
--- NOTE | 2020-08-21 16:15 | ED ---
General Adult HPI - General Source: patient, police Mode of arrival: ambulatory Limitations: no limitations <Oumar Figueroa - Last Filed: 08/21/20 16:14> - General Source: RN notes reviewed, old records reviewed <AaronlashellWilton - Last Filed: 08/21/20 23:00> - General Stated complaint: Petition Time Seen by Provider: 08/21/20 16:10 - History of Present Illness Initial comments: 70-year-old male presents emergency from with police for psychiatric evaluation. Patient was brought here with petition for evaluation. Patient states she is depressed, suicidal. Patient does have a history of this. Patient states he has a plan to cut his wrists to harm himself. (Oumar Figueroa) - Related Data Home Medications Medication Instructions Recorded Confirmed Atorvastatin [Lipitor] 10 mg PO HS 08/03/20 08/21/20 OLANZapine [ZyPREXA] 7.5 mg PO BID 08/03/20 08/21/20 Tamsulosin [Flomax] 0.4 mg PO DAILY 08/03/20 08/21/20 Aspirin EC [Ecotrin Low Dose] 81 mg PO DAILY 08/16/20 08/21/20 Omeprazole [PriLOSEC] 40 mg PO BID 08/16/20 08/21/20 Paliperidone IM [Invega Sustenna] 234 mg INJ Q28D 08/16/20 08/21/20 lamoTRIgine [LaMICtal] 100 mg PO DAILY 08/16/20 08/21/20 Levothyroxine Sodium [Synthroid] 50 mcg PO DAILY 08/21/20 08/21/20 metFORMIN HCL 1,000 mg PO BID 08/21/20 08/21/20 Previous Rx's Medication Instructions Recorded amLODIPine [Norvasc] 10 mg PO DAILY #30 tab 08/06/20 hydrALAZINE HCL [Apresoline] 100 mg PO TID #90 tab 08/06/20 lisinopriL [Zestril] 20 mg PO DAILY #30 tab 08/06/20 Acetaminophen Tab [Tylenol] 650 mg PO Q6HR PRN tab 08/19/20 Cefuroxime Axetil [Ceftin] 500 mg PO BID 3 Days #6 tab 08/19/20 Allergies Allergy/AdvReac Type Severity Reaction Status Date / Time naproxen [From Naprosyn] AdvReac Swelling Verified 08/21/20 19:22 Review of Systems ROS Other: All systems not noted in ROS Statement are negative. <Oumar Figueroa - Last Filed: 08/21/20 16:14> ROS Other: All systems not noted in ROS Statement are negative. <Wilton Lopez - Last Filed: 08/21/20 23:00> ROS Statement: Those systems with pertinent positive or pertinent negative responses have been documented in the HPI. Past Medical History Past Medical History: Diabetes Mellitus, Hyperlipidemia, Hypertension Additional Past Medical History / Comment(s): used to take lipitor , neuropathy History of Any Multi-Drug Resistant Organisms: None Reported Past Surgical History: Tonsillectomy Past Anesthesia/Blood Transfusion Reactions: No Reported Reaction Past Psychological History: Anxiety, Bipolar, Schizophrenia Smoking Status: Former smoker Past Alcohol Use History: Occasional Past Drug Use History: Marijuana - Past Family History Mother Family Medical History: Coronary Artery Disease (CAD), Diabetes Mellitus Father Family Medical History: Coronary Artery Disease (CAD) Brother(s) Family Medical History: No Reported History <Oumar Figueroa - Last Filed: 08/21/20 16:14> General Exam Limitations: no limitations <Oumar Figueroa - Last Filed: 08/21/20 16:14> General appearance: alert, in no apparent distress Head exam: Present: atraumatic, normocephalic Eye exam: Present: normal appearance, PERRL, EOMI Neck exam: Present: normal inspection. Absent: tenderness Respiratory exam: Present: normal lung sounds bilaterally. Absent: respiratory distress Cardiovascular Exam: Present: regular rate, normal rhythm GI/Abdominal exam: Present: soft. Absent: distended, tenderness Extremities exam: Present: normal inspection, normal capillary refill Neurological exam: Present: alert, oriented X3, CN II-XII intact. Absent: motor sensory deficit Psychiatric exam: Present: depressed, suicidal ideation Skin exam: Present: warm, dry, intact. Absent: cyanosis, diaphoretic <Wilton Lopez - Last Filed: 08/21/20 23:00> Course <Wilton Lopez - Last Filed: 08/21/20 23:00> Vital Signs 08/21/20 08/21/20 16:11 18:00 Temperature 97.9 F Pulse Rate 86 87 Respiratory 16 16 Rate Blood Pressure 159/69 143/73 O2 Sat by Pulse 98 99 Oximetry - Reevaluation(s) Reevaluation #1: 08/21/20 22:57 Patient eager for discharge, no active suicidal thoughts or suicidal plan. (Wilton Lopez) Medical Decision Making - Lab Data Result diagrams: 08/21/20 16:29 08/21/20 16:29 <Wilton Lopez - Last Filed: 08/21/20 23:00> - Medical Decision Making 70-year-old man who had presented with suicidal thoughts. He was petitioned prior to arrival. Patient denying any self-harm. Denies drugs or alcohol. Patient has been calm and cooperative all the emergency department. He was evaluated by EPS and felt to be safe for discharge. He has signed a safety plan and multiple crisis will follow-up in the morning with this patient. Patient does currently denying any suicidal thoughts or suicidal plan. (Wilton Lopez) - Lab Data Lab Results 08/21/20 08/21/20 08/21/20 Range/Units 16:29 16:29 16:29 WBC 9.6 (3.8-10.6) k/uL RBC 3.44 L (4.30-5.90) m/uL Hgb 10.5 L (13.0-17.5) gm/dL Hct 30.9 L (39.0-53.0) % MCV 89.8 (80.0-100.0) fL MCH 30.4 (25.0-35.0) pg MCHC 33.8 (31.0-37.0) g/dL RDW 14.1 (11.5-15.5) % Plt Count 531 H (150-450) k/uL MPV 6.3 Neutrophils % 70 % Lymphocytes % 22 % Monocytes % 4 % Eosinophils % 2 % Basophils % 1 % Neutrophils # 6.7 (1.3-7.7) k/uL Lymphocytes # 2.1 (1.0-4.8) k/uL Monocytes # 0.4 (0-1.0) k/uL Eosinophils # 0.2 (0-0.7) k/uL Basophils # 0.1 (0-0.2) k/uL Sodium 134 L (137-145) mmol/L Potassium 5.2 H (3.5-5.1) mmol/L Chloride 99 (98-107) mmol/L Carbon Dioxide 25 (22-30) mmol/L Anion Gap 10 mmol/L BUN 11 (9-20) mg/dL Creatinine 0.75 (0.66-1.25) mg/dL Est GFR (CKD-EPI)AfAm >90 (>60 ml/min/1.73 sqM) Est GFR (CKD-EPI)NonAf >90 (>60 ml/min/1.73 sqM) Glucose 115 H (74-99) mg/dL Calcium 10.0 (8.4-10.2) mg/dL Total Bilirubin 0.2 (0.2-1.3) mg/dL AST 19 (17-59) U/L ALT 17 (4-49) U/L Alkaline Phosphatase 85 (38-126) U/L Total Protein 7.1 (6.3-8.2) g/dL Albumin 4.1 (3.5-5.0) g/dL Urine Color Light Yellow Urine Appearance Clear (Clear) Urine pH 7.0 (5.0-8.0) Ur Specific [place] 1.000 L (1.001-1.035) Urine Protein Negative (Negative) Urine Glucose (UA) Negative (Negative) Urine Ketones Negative (Negative) Urine Blood Negative (Negative) Urine Nitrite Negative (Negative) Urine Bilirubin Negative (Negative) Urine Urobilinogen <2.0 (<2.0) mg/dL Ur Leukocyte Esterase Negative (Negative) Urine Opiates Screen Not Detected (NotDetected) Ur Oxycodone Screen Not Detected (NotDetected) Urine Methadone Screen Not Detected (NotDetected) Ur Propoxyphene Screen Not Detected (NotDetected) Ur Barbiturates Screen Not Detected (NotDetected) U Tricyclic Antidepress Not Detected (NotDetected) Ur Phencyclidine Scrn Not Detected (NotDetected) Ur Amphetamines Screen Not Detected (NotDetected) U Methamphetamines Scrn Not Detected (NotDetected) U Benzodiazepines Scrn Not Detected (NotDetected) Urine Cocaine Screen Not Detected (NotDetected) U Marijuana (THC) Screen Not Detected (NotDetected) Disposition <Dedoe,Oumar M - Last Filed: 08/21/20 16:14> Is patient prescribed a controlled substance at d/c from ED?: No Time of Disposition: 22:59 <Wilton Lopez - Last Filed: 08/21/20 23:00> Clinical Impression: Depression Disposition: HOME SELF-CARE Condition: Fair Instructions (If sedation given, give patient instructions): Depression (ED) Additional Instructions: Please follow up with mobile crisis unit in the morning. Please return with worsening or changing symptoms. Referrals: Dallin Jurado MD [Primary Care Provider] - 1-2 days
[2020-08-21 16:44] LABS: Basophils # (A) 0.1 k/uL (0-0.2); Basophils % (A) 1 %; Eosinophils # (A) 0.2 k/uL (0-0.7); Eosinophils % (A) 2 %; HCT 30.9 % (39.0-53.0); HGB 10.5 gm/dL (13.0-17.5); Lymphocytes # (A) 2.1 k/uL (1.0-4.8); Lymphocytes % (A) 22 %; MCH 30.4 pg (25.0-35.0); MCHC 33.8 g/dL (31.0-37.0); MCV 89.8 fL (80.0-100.0); Mean Platelet Volume 6.3; Monocytes # (A) 0.4 k/uL (0-1.0); Monocytes % (A) 4 %; Neutrophils # (A) 6.7 k/uL (1.3-7.7); Neutrophils % (A) 70 %; Platelet Count 531 k/uL (150-450); RBC 3.44 m/uL (4.30-5.90); RDW 14.1 % (11.5-15.5); WBC 9.6 k/uL (3.8-10.6)
[2020-08-21 16:49] LABS: Appearance,Urine Clear (Clear); Bilirubin,Urine Negative (Negative); Blood,Urine Negative (Negative); Color,Urine Light Yellow; Glucose,Urine (UA) Negative (Negative); Ketones,Urine Negative (Negative); Leukocyte Esterase,Urine Negative (Negative); Nitrite,Urine Negative (Negative); Protein,Urine Negative (Negative); Urobilinogen,Urine <2.0 mg/dL (<2.0)
[2020-08-21 16:59] LABS: ALT 17 U/L (4-49); AST 19 U/L (17-59); African American GFR (CKD) >90 (>60 ml/min/1.73 sqM); Albumin 4.1 g/dL (3.5-5.0); Alkaline Phosphatase 85 U/L (38-126); Anion Gap 10 mmol/L; Blood Urea Nitrogen 11 mg/dL (9-20); Carbon Dioxide 25 mmol/L (22-30); Chloride 99 mmol/L (98-107); Glucose 115 mg/dL (74-99); Non-African American GFR(CKD) >90 (>60 ml/min/1.73 sqM); Potassium 5.2 mmol/L (3.5-5.1); Sodium 134 mmol/L (137-145); Total Bilirubin 0.2 mg/dL (0.2-1.3); Total Protein 7.1 g/dL (6.3-8.2)
[2020-08-21 17:00] LABS: Amphetamine Screen,Urine Not Detected (NotDetected); Barbiturate Screen,Urine Not Detected (NotDetected); Benzodiazepines Screen,Urine Not Detected (NotDetected); Cocaine Screen,Urine Not Detected (NotDetected); Methadone Screen, Urine Not Detected (NotDetected); Opiate Screen,Urine Not Detected (NotDetected); Oxycodone Screen, Urine Not Detected (NotDetected); Phencyclidine Screen,Urine Not Detected (NotDetected); Tricyclic Antidepressant,Urine Not Detected (NotDetected); Urn Cannabinoid Scrn Not Detected (NotDetected)
[2020-08-21 18:02] VITALS: BP 143/73; PULSE 87
[2020-08-21] MEDS ORDERED: ACETAMINOPHEN TAB 500 MG TAB PO STA (20:07)
== END 2020-08-21 23:45 | disposition home or self-care (01) ==
LOC: EC 15:40
DX: F32.9 Major depressive disorder, single episode, unspecified (principal); E11.40 Type 2 diabetes mellitus with diabetic neuropathy, unspecified; I10 Essential (primary) hypertension; E78.5 Hyperlipidemia, unspecified; Z79.82 Long term (current) use of aspirin; Z79.84 Long term (current) use of oral hypoglycemic drugs; Z79.890 Hormone replacement therapy; Z79.899 Other long term (current) drug therapy
CPT/HCPCS: 36415; 80053; 80306; 81003; 82075; 85025; 99285

== ENCOUNTER 2020-09-13 21:05 | Emergency (ER) | payer BC, MEDICARE ==
[2020-09-13 21:11] VITALS: BP 147/75; PULSE 76; RESP 20; TEMP 98
--- NOTE | 2020-09-13 21:27 | ED ---
Male Urogenital HPI - General Chief complaint: Urogenital Stated complaint: Catheter Issues Time Seen by Provider: 09/13/20 21:21 Source: patient, EMS Mode of arrival: EMS Limitations: no limitations - Related Data Home Medications Medication Instructions Recorded Confirmed Atorvastatin [Lipitor] 10 mg PO HS 08/03/20 08/21/20 OLANZapine [ZyPREXA] 7.5 mg PO BID 08/03/20 08/21/20 Tamsulosin [Flomax] 0.4 mg PO DAILY 08/03/20 08/21/20 Aspirin EC [Ecotrin Low Dose] 81 mg PO DAILY 08/16/20 08/21/20 Omeprazole [PriLOSEC] 40 mg PO BID 08/16/20 08/21/20 Paliperidone IM [Invega Sustenna] 234 mg INJ Q28D 08/16/20 08/21/20 lamoTRIgine [LaMICtal] 100 mg PO DAILY 08/16/20 08/21/20 Levothyroxine Sodium [Synthroid] 50 mcg PO DAILY 08/21/20 08/21/20 metFORMIN HCL 1,000 mg PO BID 08/21/20 08/21/20 Previous Rx's Medication Instructions Recorded amLODIPine [Norvasc] 10 mg PO DAILY #30 tab 08/06/20 hydrALAZINE HCL [Apresoline] 100 mg PO TID #90 tab 08/06/20 lisinopriL [Zestril] 20 mg PO DAILY #30 tab 08/06/20 Acetaminophen Tab [Tylenol] 650 mg PO Q6HR PRN tab 08/19/20 Cefuroxime Axetil [Ceftin] 500 mg PO BID 3 Days #6 tab 08/19/20 Allergies Allergy/AdvReac Type Severity Reaction Status Date / Time naproxen [From Naprosyn] AdvReac Swelling Verified 08/21/20 19:22 Review of Systems ROS Statement: Those systems with pertinent positive or pertinent negative responses have been documented in the HPI. ROS Other: All systems not noted in ROS Statement are negative. Past Medical History Past Medical History: Diabetes Mellitus, Hyperlipidemia, Hypertension Additional Past Medical History / Comment(s): used to take lipitor , neuropathy History of Any Multi-Drug Resistant Organisms: None Reported Past Surgical History: Tonsillectomy Past Anesthesia/Blood Transfusion Reactions: No Reported Reaction Past Psychological History: Anxiety, Bipolar, Schizophrenia Smoking Status: Former smoker Past Alcohol Use History: Occasional Past Drug Use History: Marijuana - Past Family History Mother Family Medical History: Coronary Artery Disease (CAD), Diabetes Mellitus Father Family Medical History: Coronary Artery Disease (CAD) Brother(s) Family Medical History: No Reported History General Exam Limitations: no limitations Course Vital Signs 09/13/20 21:09 Temperature 98.0 F Pulse Rate 76 Respiratory 20 Rate Blood Pressure 147/75 O2 Sat by Pulse 99 Oximetry Disposition Clinical Impression: [place] catheter problem Disposition: HOME SELF-CARE Condition: Stable Instructions (If sedation given, give patient instructions): [place] Catheter Placement and Care (ED) Is patient prescribed a controlled substance at d/c from ED?: No Referrals: Dallin Jurado MD [Primary Care Provider] - 1-2 days
== END 2020-09-13 21:35 | disposition home or self-care (01) ==
LOC: EC 21:05
DX: T83.9XXA Unspecified complication of genitourinary prosthetic device, implant and graft, initial encounter (principal); I10 Essential (primary) hypertension; E78.5 Hyperlipidemia, unspecified; E11.40 Type 2 diabetes mellitus with diabetic neuropathy, unspecified; F41.9 Anxiety disorder, unspecified; F12.90 Cannabis use, unspecified, uncomplicated; F20.9 Schizophrenia, unspecified; Z87.891 Personal history of nicotine dependence; Z79.82 Long term (current) use of aspirin; Z79.84 Long term (current) use of oral hypoglycemic drugs; Z79.899 Other long term (current) drug therapy
CPT/HCPCS: 99283

== ENCOUNTER 2020-09-26 17:19 | Emergency (ER) | payer MEDICARE, BC ==
[2020-09-26 17:35] VITALS: RESP 12; TEMP 98.4
[2020-09-26] MEDS ORDERED: SODIUM CHLORIDE 0.9% 1,000 ML IV STA (17:35)
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
[2020-09-26 18:13] LABS: Basophils % (A) 1 %; Eosinophils % (A) 1 %; HCT 32.7 % (39.0-53.0); HGB 10.9 gm/dL (13.0-17.5); Lymphocytes # (A) 1.7 k/uL (1.0-4.8); Lymphocytes % (A) 28 %; MCH 29.8 pg (25.0-35.0); MCHC 33.2 g/dL (31.0-37.0); MCV 89.8 fL (80.0-100.0); Mean Platelet Volume 6.4; Monocytes # (A) 0.3 k/uL (0-1.0); Monocytes % (A) 5 %; Neutrophils # (A) 3.8 k/uL (1.3-7.7); Neutrophils % (A) 64 %; Platelet Count 367 k/uL (150-450); RBC 3.64 m/uL (4.30-5.90); RDW 14.1 % (11.5-15.5)
[2020-09-26 18:21] LABS: ALT 22 U/L (4-49); AST 27 U/L (17-59); African American GFR (CKD) >90 (>60 ml/min/1.73 sqM); Alkaline Phosphatase 91 U/L (38-126); Anion Gap 7 mmol/L; Blood Urea Nitrogen 33 mg/dL (9-20); Calcium 9.6 mg/dL (8.4-10.2); Carbon Dioxide 24 mmol/L (22-30); Chloride 108 mmol/L (98-107); Glucose 96 mg/dL (74-99); Magnesium 1.2 mg/dL (1.6-2.3); Non-African American GFR(CKD) 81 (>60 ml/min/1.73 sqM); Potassium 4.1 mmol/L (3.5-5.1); Sodium 139 mmol/L (137-145); Total Bilirubin 0.3 mg/dL (0.2-1.3); Total Protein 6.7 g/dL (6.3-8.2)
--- NOTE | 2020-09-26 19:05 | CT ---
EXAMINATION TYPE: CT brain thomas jaramillo DATE OF EXAM: 09/26/2020 COMPARISON: None HISTORY: Fall. CT DLP: 1456.[address] of the brain was performed. The ventricles, basal cisterns and sulci overlying the cerebral convexities demonstrate mild enlargem ent. There is no evidence for intracranial hemorrhage or sulcal effacement. There is decreased attenuatio n about the periventricular white matter and deep white matter of both cerebral hemispheres, compatib le with chronic small vessel ischemia. No mass effects are seen. If symptoms persist consider MRI. Osseous calvarium is intact. IMPRESSION: 1. Age related atrophic and chronic small vessel ischemic change without acute intracranial process seen at this time. CT Cervical Spine: Unenhanced CT of the cervical spine was performed with bone and soft tissue window settings submitted . Coronal and sagittal reconstruction is obtained. There is normal alignment and prevertebral soft tissues. No evidence for acute cervical fracture . Scattered degenerative disc disease and spondylosis. Biapical scarring. IMPRESSION: 1. No evidence for acute fracture or subluxation of the cervical spine.
--- NOTE | 2020-09-26 19:06 | XR ---
EXAMINATION TYPE: XR elbow complete RT DATE OF EXAM: 09/26/2020 CLINICAL HISTORY: pain TECHNIQUE: Frontal, lateral and oblique images of the right elbow are obtained. COMPARISON: None. FINDINGS: There is no acute fracture/dislocation evident of the elbow. No abnormal fat pad signs ar e seen. The overlying soft tissue appears unremarkable. IMPRESSION: There is no acute fracture or dislocation of the elbow. ICD 10 NO FRACTURE, INITIAL EVALUATION
--- NOTE | 2020-09-26 19:06 | XR ---
EXAMINATION TYPE: XR ankle complete RT DATE OF EXAM: 09/26/2020 COMPARISON: NONE HISTORY: Pain TECHNIQUE: Frontal, lateral and oblique images of the right ankle are obtained. COMPARISON: None. FINDINGS: There is no acute fracture/dislocation evident. The joint spaces appear within normal tobar its. Extensive Achilles calcification. IMPRESSION: There is no acute fracture or dislocation seen.
--- NOTE | 2020-09-26 19:12 | XR ---
EXAMINATION TYPE: XR chest 2V DATE OF EXAM: 09/26/2020 COMPARISON: 08/16/2020 HISTORY: Shortness of breath TECHNIQUE: Frontal and lateral views of the chest are obtained. FINDINGS: Scattered senescent parenchymal changes noted. Hyperinflation compatible with COPD. No evidence for infiltrate. No evidence for atelectasis. Heart size is stable. Mediastinal structures are stable and grossly unremarkable. No evidence for hilar prominence. Degenerative changes dorsal spine. IMPRESSION: 1. No evidence for acute pulmonary disease.
[2020-09-26 19:40] LABS: Appearance,Urine Cloudy (Clear); Bacteria,Urine Many /hpf; Bilirubin,Urine Negative (Negative); Blood,Urine Moderate (Negative); Color,Urine Yellow; Glucose,Urine (UA) Negative (Negative); Hyaline Casts,Urine 44 /lpf (0-2); Ketones,Urine Trace (Negative); Leukocyte Esterase,Urine Large (Negative); Mucus,Urine Many /hpf; Nitrite,Urine Positive (Negative); PH, Urine 5.5 (5.0-8.0); Protein,Urine 2+ (Negative); RBC,Urine 179 /hpf (0-5); Specific Gravity,Urine 1.024 (1.001-1.035); WBC,Urine >182 /hpf (0-5)
[2020-09-26] MEDS ORDERED: MAGNESIUM OXIDE 400 MG TAB PO STA (20:16)
[2020-09-26] MEDS ORDERED: CEPHALEXIN 500MG STARTER PACK 4 CAP BTL PO STA (20:23)
[2020-09-26 20:40] VITALS: BP 120/52; PULSE 83
== END 2020-09-26 20:42 | disposition home or self-care (01) ==
LOC: EC 17:19
DX: E86.0 Dehydration (principal); N39.0 Urinary tract infection, site not specified; S90.511A Abrasion, right ankle, initial encounter; S50.311A Abrasion of right elbow, initial encounter; B96.5 Pseudomonas (aeruginosa) (mallei) (pseudomallei) as the cause of diseases classified elsewhere; E78.5 Hyperlipidemia, unspecified; F41.9 Anxiety disorder, unspecified; E11.40 Type 2 diabetes mellitus with diabetic neuropathy, unspecified; F20.9 Schizophrenia, unspecified; I10 Essential (primary) hypertension; F31.9 Bipolar disorder, unspecified; F12.90 Cannabis use, unspecified, uncomplicated; Z79.82 Long term (current) use of aspirin; Z79.84 Long term (current) use of oral hypoglycemic drugs; Z87.891 Personal history of nicotine dependence; V18.2XXA Unspecified pedal cyclist injured in noncollision transport accident in nontraffic accident, initial encounter; Y93.55 Activity, bike riding
CPT/HCPCS: 36415; 70450; 71046; 72125; 80053; 81001; 83735; 85025; 87077; 87086; 87186; 93005; 99285

== ENCOUNTER 2020-09-29 21:14 | Emergency (ER) | payer MEDICARE, BC ==
--- NOTE | 2020-09-29 21:45 | ED ---
Altered Mental Status HPI - General Chief Complaint: Altered Mental Status Stated Complaint: Confusion Time Seen by Provider: 09/29/20 21:40 Source: patient Mode of arrival: ambulatory Limitations: no limitations - Related Data Home Medications Medication Instructions Recorded Confirmed Atorvastatin [Lipitor] 10 mg PO HS 08/03/20 08/21/20 OLANZapine [ZyPREXA] 7.5 mg PO BID 08/03/20 08/21/20 Tamsulosin [Flomax] 0.4 mg PO DAILY 08/03/20 08/21/20 Aspirin EC [Ecotrin Low Dose] 81 mg PO DAILY 08/16/20 08/21/20 Omeprazole [PriLOSEC] 40 mg PO BID 08/16/20 08/21/20 Paliperidone IM [Invega Sustenna] 234 mg INJ Q28D 08/16/20 08/21/20 lamoTRIgine [LaMICtal] 100 mg PO DAILY 08/16/20 08/21/20 Levothyroxine Sodium [Synthroid] 50 mcg PO DAILY 08/21/20 08/21/20 metFORMIN HCL 1,000 mg PO BID 08/21/20 08/21/20 Previous Rx's Medication Instructions Recorded amLODIPine [Norvasc] 10 mg PO DAILY #30 tab 08/06/20 hydrALAZINE HCL [Apresoline] 100 mg PO TID #90 tab 08/06/20 lisinopriL [Zestril] 20 mg PO DAILY #30 tab 08/06/20 Acetaminophen Tab [Tylenol] 650 mg PO Q6HR PRN tab 08/19/20 Cefuroxime Axetil [Ceftin] 500 mg PO BID 3 Days #6 tab 08/19/20 Cephalexin [Keflex] 500 mg PO BID 7 Days #14 cap 09/26/20 Allergies Allergy/AdvReac Type Severity Reaction Status Date / Time naproxen [From Naprosyn] AdvReac Swelling Verified 09/29/20 21:44 Review of Systems ROS Statement: Those systems with pertinent positive or pertinent negative responses have been documented in the HPI. ROS Other: All systems not noted in ROS Statement are negative. Past Medical History Past Medical History: Diabetes Mellitus, Hyperlipidemia, Hypertension Additional Past Medical History / Comment(s): used to take lipitor , neuropathy History of Any Multi-Drug Resistant Organisms: None Reported Past Surgical History: Tonsillectomy Past Anesthesia/Blood Transfusion Reactions: No Reported Reaction Past Psychological History: Anxiety, Bipolar, Schizophrenia Smoking Status: Former smoker Past Alcohol Use History: Occasional Past Drug Use History: Marijuana - Past Family History Mother Family Medical History: Coronary Artery Disease (CAD), Diabetes Mellitus Father Family Medical History: Coronary Artery Disease (CAD) Brother(s) Family Medical History: No Reported History General Exam Limitations: no limitations Course Vital Signs 09/29/20 21:40 Temperature 98.6 F Pulse Rate 63 Respiratory 18 Rate Blood Pressure 125/64 O2 Sat by Pulse 97 Oximetry Disposition Clinical Impression: Altered mental status Disposition: HOME SELF-CARE Condition: Fair Instructions (If sedation given, give patient instructions): Altered Mental Status (ED) Is patient prescribed a controlled substance at d/c from ED?: No Referrals: Dallin Jurado MD [Primary Care Provider] - 1-2 days
[2020-09-29 22:34] VITALS: BP 127/78; PULSE 60; RESP 16; TEMP 98.2
== END 2020-09-29 22:33 | disposition home or self-care (01) ==
LOC: EC 21:14
DX: R41.82 Altered mental status, unspecified (principal); E78.5 Hyperlipidemia, unspecified; I10 Essential (primary) hypertension; F31.9 Bipolar disorder, unspecified; F20.9 Schizophrenia, unspecified; E11.40 Type 2 diabetes mellitus with diabetic neuropathy, unspecified; F12.90 Cannabis use, unspecified, uncomplicated; Z90.09 Acquired absence of other part of head and neck; Z87.891 Personal history of nicotine dependence; Z79.84 Long term (current) use of oral hypoglycemic drugs; Z79.82 Long term (current) use of aspirin
CPT/HCPCS: 99284

== ENCOUNTER 2020-09-30 16:31 | Inpatient (IN) | payer MEDICARE, BC ==
[2020-09-30] MEDS ORDERED: NALOXONE 0.4 MG/ML 1 ML VIAL IV PRN (17:15)
--- NOTE | 2020-09-30 17:15 | ED ---
General Adult HPI - General Chief complaint: Urogenital Stated complaint: UTI Time Seen by Provider: 09/30/20 17:00 Source: patient, RN notes reviewed, old records reviewed Mode of arrival: ambulatory Limitations: no limitations - History of Present Illness Initial comments: Patient is a pleasant 70-year-old male presenting to the emergency department g eneralized weakness. Patient was sent from the office. Patient had reported urinary tract infection and failed outpatient treatment. Patient states he feels weak all over. No isolated area of weakness. No confusion. No history of similar symptoms previously. Patient has been losing weight recently. Patient has difficulty performing activities of daily living. - Related Data Home Medications Medication Instructions Recorded Confirmed Atorvastatin [Lipitor] 10 mg PO HS 08/03/20 08/21/20 OLANZapine [ZyPREXA] 7.5 mg PO BID 08/03/20 08/21/20 Tamsulosin [Flomax] 0.4 mg PO DAILY 08/03/20 08/21/20 Aspirin EC [Ecotrin Low Dose] 81 mg PO DAILY 08/16/20 08/21/20 Omeprazole [PriLOSEC] 40 mg PO BID 08/16/20 08/21/20 Paliperidone IM [Invega Sustenna] 234 mg INJ Q28D 08/16/20 08/21/20 lamoTRIgine [LaMICtal] 100 mg PO DAILY 08/16/20 08/21/20 Levothyroxine Sodium [Synthroid] 50 mcg PO DAILY 08/21/20 08/21/20 metFORMIN HCL 1,000 mg PO BID 08/21/20 08/21/20 Previous Rx's Medication Instructions Recorded amLODIPine [Norvasc] 10 mg PO DAILY #30 tab 08/06/20 hydrALAZINE HCL [Apresoline] 100 mg PO TID #90 tab 08/06/20 lisinopriL [Zestril] 20 mg PO DAILY #30 tab 08/06/20 Acetaminophen Tab [Tylenol] 650 mg PO Q6HR PRN tab 08/19/20 Cefuroxime Axetil [Ceftin] 500 mg PO BID 3 Days #6 tab 08/19/20 Cephalexin [Keflex] 500 mg PO BID 7 Days #14 cap 09/26/20 Allergies Allergy/AdvReac Type Severity Reaction Status Date / Time naproxen [From Naprosyn] AdvReac Swelling Verified 09/30/20 16:44 Review of Systems ROS Statement: Those systems with pertinent positive or pertinent negative responses have been documented in the HPI. ROS Other: All systems not noted in ROS Statement are negative. Constitutional: Denies: fever Eyes: Denies: eye pain ENT: Denies: ear pain Respiratory: Denies: cough Cardiovascular: Denies: chest pain Endocrine: Reports: fatigue Gastrointestinal: Denies: abdominal pain Genitourinary: Reports: as per HPI Musculoskeletal: Denies: back pain Skin: Denies: rash Neurological: Reports: as per HPI Past Medical History Past Medical History: Diabetes Mellitus, Hyperlipidemia, Hypertension Additional Past Medical History / Comment(s): used to take lipitor , neuropathy History of Any Multi-Drug Resistant Organisms: None Reported Past Surgical History: Tonsillectomy Past Anesthesia/Blood Transfusion Reactions: No Reported Reaction Past Psychological History: Anxiety, Bipolar, Schizophrenia Smoking Status: Former smoker Past Alcohol Use History: Occasional Past Drug Use History: Marijuana - Past Family History Mother Family Medical History: Coronary Artery Disease (CAD), Diabetes Mellitus Father Family Medical History: Coronary Artery Disease (CAD) Brother(s) Family Medical History: No Reported History General Exam Limitations: no limitations General appearance: alert, in no apparent distress Head exam: Present: normocephalic Eye exam: Present: normal appearance, PERRL ENT exam: Present: normal oropharynx Neck exam: Present: normal inspection Respiratory exam: Present: wheezes Cardiovascular Exam: Present: regular rate, normal rhythm GI/Abdominal exam: Present: soft. Absent: tenderness Extremities exam: Present: normal inspection. Absent: pedal edema, calf tenderness Neurological exam: Present: alert Psychiatric exam: Present: normal affect, normal mood Skin exam: Present: normal color Course Vital Signs 09/30/20 16:45 Temperature 97.7 F Pulse Rate 76 Respiratory 18 Rate Blood Pressure 144/65 O2 Sat by Pulse 97 Oximetry Medical Decision Making - Medical Decision Making Case was discussed with practitioner serenity Grossman for Dr. Jurado who will admit. Disposition Clinical Impression: UTI (urinary tract infection), Weakness Disposition: ADMITTED IP TO THIS HOSP Is patient prescribed a controlled substance at d/c from ED?: No Referrals: Dallin Jurado MD [Primary Care Provider] - 1-2 days Decision Time: 17:15
[2020-09-30] MEDS: SODIUM CHLORIDE 0.9% 1,000 ML IV SCH ×2 (17:26→17:53)
[2020-09-30 17:41] LABS: Basophils # (A) 0.1 k/uL (0-0.2); Basophils % (A) 0 %; Eosinophils # (A) 0.1 k/uL (0-0.7); Eosinophils % (A) 1 %; HCT 35.6 % (39.0-53.0); Lymphocytes # (A) 1.5 k/uL (1.0-4.8); Lymphocytes % (A) 14 %; MCH 30.3 pg (25.0-35.0); MCHC 33.6 g/dL (31.0-37.0); MCV 90.2 fL (80.0-100.0); Mean Platelet Volume 6.6; Monocytes # (A) 0.3 k/uL (0-1.0); Monocytes % (A) 3 %; Neutrophils # (A) 8.8 k/uL (1.3-7.7); Neutrophils % (A) 81 %; Platelet Count 382 k/uL (150-450); RBC 3.95 m/uL (4.30-5.90); WBC 10.9 k/uL (3.8-10.6)
[2020-09-30 17:50] LABS: ALT 46 U/L (4-49); AST 95 U/L (17-59); African American GFR (CKD) >90 (>60 ml/min/1.73 sqM); Albumin 4.1 g/dL (3.5-5.0); Alkaline Phosphatase 97 U/L (38-126); Anion Gap 8 mmol/L; Blood Urea Nitrogen 23 mg/dL (9-20); Calcium 9.7 mg/dL (8.4-10.2); Carbon Dioxide 25 mmol/L (22-30); Chloride 107 mmol/L (98-107); Glucose 92 mg/dL (74-99); Non-African American GFR(CKD) >90 (>60 ml/min/1.73 sqM); Potassium 3.7 mmol/L (3.5-5.1); Sodium 140 mmol/L (137-145); Total Bilirubin 0.3 mg/dL (0.2-1.3); Total Protein 6.9 g/dL (6.3-8.2)
[2020-09-30] MEDS: NICOTINE 21MG/24HR PATCH TRANSDERM SCH (17:55)
[2020-09-30 18:06] LABS: Partial Thromboplastin Time 22.1 sec (22.0-30.0); Prothrombin Time 10.3 sec (9.0-12.0)
[2020-09-30] MEDS ORDERED: ACETAMINOPHEN TAB 325 MG TAB PO STA (18:12)
[2020-09-30] MEDS ORDERED: LEVOFLOXACIN 500MG-D5W PMX 500 MG in DEXTROSE/WATER 1 100ML.BAG IVPB STA (18:40)
[2020-09-30 20:08] LABS: Appearance,Urine Cloudy (Clear); Bacteria,Urine Rare /hpf; Bilirubin,Urine Negative (Negative); Blood,Urine Small (Negative); Calcium Oxalate Crystals,Urine Few /hpf; Color,Urine Yellow; Glucose,Urine (UA) Negative (Negative); Ketones,Urine Negative (Negative); Leukocyte Esterase,Urine Large (Negative); Mucus,Urine Many /hpf; Nitrite,Urine Negative (Negative); PH, Urine 5.5 (5.0-8.0); Protein,Urine 1+ (Negative); RBC,Urine 17 /hpf (0-5); Specific Gravity,Urine 1.023 (1.001-1.035); Squamous Epithelial Cell,Urine <1 /hpf (0-4); Urobilinogen,Urine <2.0 mg/dL (<2.0); WBC,Urine 46 /hpf (0-5)
[2020-09-30] MEDS ORDERED: Magnesium Replacement Protocol 1 EACH MISC MISCELLANE PRN (20:32)
[2020-09-30] MEDS: hydrALAZINE HCL 25 MG TAB PO SCH (21:46)
[2020-09-30] MEDS: traZODone HCL 50 MG TAB PO SCH (21:46)
[2020-09-30] MEDS: MAGNESIUM SULFATE-D5W PMX 1 GM in DEXTROSE/WATER 1 100ML.BAG IVPB SCH ×2 (21:46→22:59)
[2020-09-30] MEDS: metFORMIN 500 MG TAB PO SCH (21:46)
[2020-09-30] MEDS: PANTOPRAZOLE 40 MG TABLET PO SCH (21:46)
[2020-09-30] MEDS: ATORVASTATIN 40 MG TAB PO SCH (21:46)
[2020-10-01] MEDS: MAGNESIUM SULFATE-D5W PMX 1 GM in DEXTROSE/WATER 1 100ML.BAG IVPB SCH ×4 (00:24→13:27)
[2020-10-01] MEDS: LEVOTHYROXINE 50 MCG TAB PO SCH (05:57)
[2020-10-01 06:27] LABS: Basophils % (A) 0 %; Eosinophils # (A) 0.2 k/uL (0-0.7); Eosinophils % (A) 3 %; HCT 29.9 % (39.0-53.0); Lymphocytes # (A) 1.8 k/uL (1.0-4.8); Lymphocytes % (A) 24 %; MCH 29.6 pg (25.0-35.0); MCHC 32.9 g/dL (31.0-37.0); MCV 90.1 fL (80.0-100.0); Mean Platelet Volume 6.7; Monocytes # (A) 0.3 k/uL (0-1.0); Monocytes % (A) 4 %; Neutrophils # (A) 5.1 k/uL (1.3-7.7); Neutrophils % (A) 68 %; Platelet Count 315 k/uL (150-450); RBC 3.32 m/uL (4.30-5.90); RDW 14.1 % (11.5-15.5); WBC 7.4 k/uL (3.8-10.6)
[2020-10-01 06:30] LABS: HGB 9.8 gm/dL (13.0-17.5)
[2020-10-01 06:35] LABS: ALT 34 U/L (4-49); AST 56 U/L (17-59); African American GFR (CKD) >90 (>60 ml/min/1.73 sqM); Albumin 3.1 g/dL (3.5-5.0); Albumin/Globulin Ratio 1.3; Alkaline Phosphatase 69 U/L (38-126); Anion Gap 5 mmol/L; Blood Urea Nitrogen 17 mg/dL (9-20); Calcium 8.5 mg/dL (8.4-10.2); Carbon Dioxide 24 mmol/L (22-30); Chloride 108 mmol/L (98-107); Globulin 2.4 g/dL; Glucose 112 mg/dL (74-99); Magnesium 1.3 mg/dL (1.6-2.3); Non-African American GFR(CKD) >90 (>60 ml/min/1.73 sqM); Potassium 3.1 mmol/L (3.5-5.1); Sodium 137 mmol/L (137-145); Total Bilirubin <0.1 mg/dL (0.2-1.3); Total Protein 5.5 g/dL (6.3-8.2)
--- NOTE | 2020-10-01 07:11 | P.GSCN ---
History of Present Illness Consult date: 10/01/20 History of present illness: This is a 70-year-old gentleman admitted to the hospital with weakness and a urinary tract infection with sepsis. The patient has a chronic indwelling catheter. The patient has seen for this is his bladder does not work. The history given his limited. The patient is diabetic as well as schizophrenic. A second tell from the history is that he has a hypotonic neurogenic bladder. The patient had infected urine. His white count on admission was 10.9 it is 7.4 this morning. Vital signs are stable and he is afebrile. Review of Systems ROS unobtainable: due to mental status Past Medical History Past Medical History: Diabetes Mellitus, Hyperlipidemia, Hypertension Additional Past Medical History / Comment(s): used to take lipitor , neuropathy History of Any Multi-Drug Resistant Organisms: None Reported Past Surgical History: Tonsillectomy Past Anesthesia/Blood Transfusion Reactions: No Reported Reaction Past Psychological History: Anxiety, Bipolar, Schizophrenia Smoking Status: Former smoker Past Alcohol Use History: Occasional Additional Past Alcohol Use History / Comment(s): 1-2 drinks a week, per pt Past Drug Use History: Marijuana Additional Drug Use History / Comment(s): smokes pipe daily, half pack of cigarettes, marijuana occasionally - Past Family History Mother Family Medical History: Coronary Artery Disease (CAD), Diabetes Mellitus Father Family Medical History: Coronary Artery Disease (CAD) Brother(s) Family Medical History: No Reported History Medications and Allergies Home Medications Medication Instructions Recorded Confirmed Type Tamsulosin [Flomax] 0.4 mg PO DAILY 08/03/20 09/30/20 History amLODIPine [Norvasc] 10 mg PO DAILY #30 tab 08/06/20 09/30/20 Rx Omeprazole [PriLOSEC] 40 mg PO BID 08/16/20 09/30/20 History Levothyroxine Sodium [Synthroid] 50 mcg PO DAILY 08/21/20 09/30/20 History metFORMIN HCL 1,000 mg PO BID 08/21/20 09/30/20 History Atorvastatin Calcium [Lipitor] 40 mg PO HS 09/30/20 09/30/20 History Cephalexin [Keflex] 500 mg PO BID 09/30/20 09/30/20 History FLUoxetine HCL [PROzac] 40 mg PO DAILY 09/30/20 09/30/20 History Multivitamins, Thera [Multivitamin 1 tab PO DAILY 09/30/20 09/30/20 History (formulary)] [place]-3/Dha/Epa/Fish Oil [Fish Oil 1 cap PO DAILY 09/30/20 09/30/20 History 500 mg Softgel] Paliperidone IM [Invega Sustenna] 234 mg INJ Q28D 09/30/20 09/30/20 History hydrALAZINE HCL [Apresoline] 25 mg PO BID 09/30/20 09/30/20 History lamoTRIgine [LaMICtal] 100 mg PO DAILY 09/30/20 09/30/20 History traZODone HCL [Desyrel] 50 mg PO HS 09/30/20 09/30/20 History Allergies Allergy/AdvReac Type Severity Reaction Status Date / Time naproxen [From Naprosyn] AdvReac Swelling Verified 09/30/20 18:48 Surgical - Exam Vital Signs Temp Pulse Resp BP Pulse Ox 97.7 F 76 18 144/65 97 09/30/20 16:45 09/30/20 16:45 09/30/20 16:45 09/30/20 16:45 09/30/20 16:45 - General well developed, well nourished, no distress - Eyes PERRL - ENT no hearing loss - Neck trachea midline - Respiratory normal expansion, normal respiratory effort - Cardiovascular Rhythm: regular - Abdomen Abdomen: soft, non tender - Genitourinary Indwelling catheter. - Musculoskeletal normal posture - Psychiatric oriented to person Results Impression/plan: This patient apparently has a chronic indwelling catheter due to a hypotonic neurogenic bladder. He came in with a catheter-induced urinary tract infection. The options of managing his bladder aren't indwelling catheter versus intermittent catheterization. He says been discussed and the patient chose an indwelling catheter. There is nothing further urologic that should be done during this admission. - Labs 10/01/20 05:34 10/01/20 05:34 Abnormal Lab Results - Last 24 Hours (Table) 09/30/20 09/30/20 09/30/20 Range/Units 17:11 17:24 17:24 WBC 10.9 H (3.8-10.6) k/uL RBC 3.95 L (4.30-5.90) m/uL Hgb 12.0 L (13.0-17.5) gm/dL Hct 35.6 L (39.0-53.0) % Neutrophils # 8.8 H (1.3-7.7) k/uL Potassium (3.5-5.1) mmol/L Chloride (98-107) mmol/L BUN (9-20) mg/dL Creatinine (0.66-1.25) mg/dL Glucose (74-99) mg/dL Magnesium 1.0 L (1.6-2.3) mg/dL Total Bilirubin (0.2-1.3) mg/dL AST (17-59) U/L C-Reactive Protein 1.0 H (<1.0) mg/dL Total Protein (6.3-8.2) g/dL Albumin (3.5-5.0) g/dL Urine Protein 1+ H (Negative) Urine Blood Small H (Negative) Ur Leukocyte Esterase Large H (Negative) Urine RBC 17 H (0-5) /hpf Urine WBC 46 H (0-5) /hpf Calcium Oxalate Crystal Few H (None) /hpf Urine Bacteria Rare H (None) /hpf Urine Mucus Many H (None) /hpf 09/30/20 10/01/20 10/01/20 Range/Units 17:24 05:34 05:34 WBC (3.8-10.6) k/uL RBC 3.32 L (4.30-5.90) m/uL Hgb 9.8 L D (13.0-17.5) gm/dL Hct 29.9 L (39.0-53.0) % Neutrophils # (1.3-7.7) k/uL Potassium 3.1 L (3.5-5.1) mmol/L Chloride 108 H (98-107) mmol/L BUN 23 H (9-20) mg/dL Creatinine 0.58 L (0.66-1.25) mg/dL Glucose 112 H (74-99) mg/dL Magnesium 1.3 L (1.6-2.3) mg/dL Total Bilirubin <0.1 L (0.2-1.3) mg/dL AST 95 H (17-59) U/L C-Reactive Protein (<1.0) mg/dL Total Protein 5.5 L (6.3-8.2) g/dL Albumin 3.1 L (3.5-5.0) g/dL Urine Protein (Negative) Urine Blood (Negative) Ur Leukocyte Esterase (Negative) Urine RBC (0-5) /hpf Urine WBC (0-5) /hpf Calcium Oxalate Crystal (None) /hpf Urine Bacteria (None) /hpf Urine Mucus (None) /hpf Microbiology - Last 24 Hours (Table) 09/30/20 17:24 Urine Culture - Preliminary Urine,Voided Diabetes panel 09/30/20 10/01/20 Range/Units 17:24 05:34 Sodium 140 137 (137-145) mmol/L Potassium 3.7 3.1 L (3.5-5.1) mmol/L Chloride 107 108 H (98-107) mmol/L Carbon Dioxide 25 24 (22-30) mmol/L BUN 23 H 17 (9-20) mg/dL Creatinine 0.71 0.58 L (0.66-1.25) mg/dL Glucose 92 112 H (74-99) mg/dL Calcium 9.7 8.5 (8.4-10.2) mg/dL AST 95 H 56 (17-59) U/L ALT 46 34 (4-49) U/L Alkaline Phosphatase 97 69 (38-126) U/L Total Protein 6.9 5.5 L (6.3-8.2) g/dL Albumin 4.1 3.1 L (3.5-5.0) g/dL Calcium panel 09/30/20 10/01/20 Range/Units 17:24 05:34 Calcium 9.7 8.5 (8.4-10.2) mg/dL Albumin 4.1 3.1 L (3.5-5.0) g/dL Pituitary panel 09/30/20 10/01/20 Range/Units 17:24 05:34 Sodium 140 137 (137-145) mmol/L Potassium 3.7 3.1 L (3.5-5.1) mmol/L Chloride 107 108 H (98-107) mmol/L Carbon Dioxide 25 24 (22-30) mmol/L BUN 23 H 17 (9-20) mg/dL Creatinine 0.71 0.58 L (0.66-1.25) mg/dL Glucose 92 112 H (74-99) mg/dL Calcium 9.7 8.5 (8.4-10.2) mg/dL Adrenal panel 09/30/20 10/01/20 Range/Units 17:24 05:34 Sodium 140 137 (137-145) mmol/L Potassium 3.7 3.1 L (3.5-5.1) mmol/L Chloride 107 108 H (98-107) mmol/L Carbon Dioxide 25 24 (22-30) mmol/L BUN 23 H 17 (9-20) mg/dL Creatinine 0.71 0.58 L (0.66-1.25) mg/dL Glucose 92 112 H (74-99) mg/dL Calcium 9.7 8.5 (8.4-10.2) mg/dL Total Bilirubin 0.3 <0.1 L (0.2-1.3) mg/dL AST 95 H 56 (17-59) U/L ALT 46 34 (4-49) U/L Alkaline Phosphatase 97 69 (38-126) U/L Total Protein 6.9 5.5 L (6.3-8.2) g/dL Albumin 4.1 3.1 L (3.5-5.0) g/dL
[2020-10-01] MEDS ORDERED: Magnesium Replacement Protocol 1 EACH MISC MISCELLANE PRN (07:39)
[2020-10-01] MEDS ORDERED: Potassium Replacement Protocol 1 EACH MISC MISCELLANE PRN (07:41)
[2020-10-01 08:02] LABS: Glucose,Whole Blood 86 mg/dL (75-99)
[2020-10-01 08:19] LABS: Reticulocyte % 1.2 % (0.5-2.0)
--- NOTE | 2020-10-01 08:23 | XR ---
EXAMINATION TYPE: XR chest 1V portable DATE OF EXAM: 10/01/2020 COMPARISON: Chest x-ray 09/26/2020 HISTORY: Cough TECHNIQUE: Single frontal view of the chest is obtained. FINDINGS: There is no focal air space opacity, pleural effusion, or pneumothorax seen. Probable skin fold noted over the posterior right chest, there are overlying artifacts and the patient is rotated, there is bronchial wall thickening. The cardiac silhouette size is within normal limits. The osseo us structures are intact. IMPRESSION: Correlate for bronchitis, reactive airways disease, follow-up PA and lateral chest x-ray suggested when patient is stable
[2020-10-01] MEDS ORDERED: NON FORMULARY DRUG (Omega-3/Dha/Epa/Fish Oil [Fish Oil 500 Mg Softgel] 1 EACH Capsule) PO SCH (09:00)
[2020-10-01] MEDS: hydrALAZINE HCL 25 MG TAB PO SCH ×2 (09:57→20:40)
[2020-10-01] MEDS: PANTOPRAZOLE 40 MG TABLET PO SCH ×2 (09:57→20:40)
[2020-10-01] MEDS: MULTIVITAMINS, THERA 1 EACH TAB PO SCH (09:57)
[2020-10-01] MEDS: FLUoxetine HCL 20 MG CAP PO SCH (09:57)
[2020-10-01] MEDS: amLODIPine 10 MG TAB PO SCH (09:57)
[2020-10-01] MEDS: lamoTRIgine 100 MG TAB PO SCH (09:58)
[2020-10-01] MEDS: metFORMIN 500 MG TAB PO SCH ×2 (09:58→20:40)
[2020-10-01] MEDS: POTASSIUM CHLORIDE 10 MEQ in WATER FOR INJECTION 1 100ML.BAG IVPB SCH ×4 (10:05→15:50)
[2020-10-01] MEDS: LACTATED RINGERS 1,000 ML IV SCH ×2 (10:06→20:09)
[2020-10-01] MEDS: NICOTINE 21MG/24HR PATCH TRANSDERM SCH (10:06)
[2020-10-01] MEDS: TAMSULOSIN 0.4 MG CAP.ER.24H PO SCH (10:07)
[2020-10-01 11:51] LABS: Glucose,Whole Blood 135 mg/dL (75-99)
[2020-10-01] MEDS ORDERED: TUBERCULIN PPD (SKIN TEST) 5 UNIT/0.1 ML (MDV) VIAL INTRADERMA ONE (12:30)
--- NOTE | 2020-10-01 14:46 | P.CONS ---
History of Present Illness - Reason for Consult Consult date: 10/01/20 unintentional weight loss Requesting physician: Chauncey Lucero - History of Present Illness Vijay is a 70 year old male who we have been asked to further evaluate related to large unintentional weight loss. In 2018 he was 120kg, in June of this year 101kg and August 95kg, today weight is 83kg. Quite significant most recently. Review of Systems All systems: negative Constitutional: Reports as per HPI Past Medical History Past Medical History: Diabetes Mellitus, Hyperlipidemia, Hypertension Additional Past Medical History / Comment(s): used to take lipitor , neuropathy History of Any Multi-Drug Resistant Organisms: None Reported Past Surgical History: Tonsillectomy Past Anesthesia/Blood Transfusion Reactions: No Reported Reaction Past Psychological History: Anxiety, Bipolar, Schizophrenia Smoking Status: Former smoker Past Alcohol Use History: Occasional Additional Past Alcohol Use History / Comment(s): 1-2 drinks a week, per pt Past Drug Use History: Marijuana Additional Drug Use History / Comment(s): smokes pipe daily, half pack of cigarettes, marijuana occasionally - Past Family History Mother Family Medical History: Coronary Artery Disease (CAD), Diabetes Mellitus Father Family Medical History: Coronary Artery Disease (CAD) Brother(s) Family Medical History: No Reported History Medications and Allergies Home Medications Medication Instructions Recorded Confirmed Type Tamsulosin [Flomax] 0.4 mg PO DAILY 08/03/20 09/30/20 History amLODIPine [Norvasc] 10 mg PO DAILY #30 tab 08/06/20 09/30/20 Rx Omeprazole [PriLOSEC] 40 mg PO BID 08/16/20 09/30/20 History Levothyroxine Sodium [Synthroid] 50 mcg PO DAILY 08/21/20 09/30/20 History metFORMIN HCL 1,000 mg PO BID 08/21/20 09/30/20 History Atorvastatin Calcium [Lipitor] 40 mg PO HS 09/30/20 09/30/20 History Cephalexin [Keflex] 500 mg PO BID 09/30/20 09/30/20 History FLUoxetine HCL [PROzac] 40 mg PO DAILY 09/30/20 09/30/20 History Multivitamins, Thera [Multivitamin 1 tab PO DAILY 09/30/20 09/30/20 History (formulary)] [place]-3/Dha/Epa/Fish Oil [Fish Oil 1 cap PO DAILY 09/30/20 09/30/20 History 500 mg Softgel] Paliperidone IM [Invega Sustenna] 234 mg INJ Q28D 09/30/20 09/30/20 History hydrALAZINE HCL [Apresoline] 25 mg PO BID 09/30/20 09/30/20 History lamoTRIgine [LaMICtal] 100 mg PO DAILY 09/30/20 09/30/20 History traZODone HCL [Desyrel] 50 mg PO HS 09/30/20 09/30/20 History Allergies Allergy/AdvReac Type Severity Reaction Status Date / Time naproxen [From Naprosyn] AdvReac Swelling Verified 09/30/20 18:48 Physical Exam Vitals: Vital Signs Temp Pulse Pulse Resp BP BP Pulse Ox 10/01/20 12:06 98.0 F 83 17 115/57 97 10/01/20 05:51 98.5 F 65 18 115/62 95 09/30/20 23:00 97.8 F 62 18 153/65 97 09/30/20 19:56 69 18 152/71 100 09/30/20 16:45 97.7 F 76 18 144/65 97 Intake and Output 09/30/20 10/01/20 10/01/20 22:59 06:59 14:59 Intake Total 1620 Balance 1620 Intake: Intake, IV Titration 1080 Amount Magnesium Sulfate-D5w Pmx 300 1 gm In Dextrose/Water 1 100ml.bag @ 100 mls/hr IVPB Q1H [facility] Rx#: [id number] Sodium Chloride 0.9% 1, 780 000 ml @ 130 mls/hr IV . Q7H42M [facility] Rx#:[id number] Oral 540 Other: Voiding Method Toilet Toilet Toilet # Voids 0 # Bowel Movements 0 # Emeses 0 Weight 83.915 kg - Constitutional General appearance: cooperative, no acute distress - EENT Eyes: EOMI, PERRLA ENT: hard of hearing, NA/AT - Neck Neck: normal ROM - Respiratory Respiratory: negative: CTA - Cardiovascular Rhythm: regular - Gastrointestinal General gastrointestinal: soft - Integumentary Integumentary: pale - Musculoskeletal Musculoskeletal: generalized weakness, strength equal bilaterally - Psychiatric Psychiatric: A&O x's 3 Results CBC & Chem 7: 10/01/20 05:34 05/25/21 05:34 Labs: Abnormal Lab Results - Last 24 Hours (Table) 09/30/20 09/30/20 09/30/20 Range/Units 17:11 17:24 17:24 WBC 10.9 H (3.8-10.6) k/uL RBC 3.95 L (4.30-5.90) m/uL Hgb 12.0 L (13.0-17.5) gm/dL Hct 35.6 L (39.0-53.0) % Neutrophils # 8.8 H (1.3-7.7) k/uL Potassium (3.5-5.1) mmol/L Chloride (98-107) mmol/L BUN (9-20) mg/dL Creatinine (0.66-1.25) mg/dL Glucose (74-99) mg/dL POC Glucose (mg/dL) (75-99) mg/dL Magnesium 1.0 L (1.6-2.3) mg/dL Total Bilirubin (0.2-1.3) mg/dL AST (17-59) U/L C-Reactive Protein 1.0 H (<1.0) mg/dL Total Protein (6.3-8.2) g/dL Albumin (3.5-5.0) g/dL Urine Protein 1+ H (Negative) Urine Blood Small H (Negative) Ur Leukocyte Esterase Large H (Negative) Urine RBC 17 H (0-5) /hpf Urine WBC 46 H (0-5) /hpf Calcium Oxalate Crystal Few H (None) /hpf Urine Bacteria Rare H (None) /hpf Urine Mucus Many H (None) /hpf 09/30/20 10/01/20 10/01/20 Range/Units 17:24 05:34 05:34 WBC (3.8-10.6) k/uL RBC 3.32 L (4.30-5.90) m/uL Hgb 9.8 L D (13.0-17.5) gm/dL Hct 29.9 L (39.0-53.0) % Neutrophils # (1.3-7.7) k/uL Potassium 3.1 L (3.5-5.1) mmol/L Chloride 108 H (98-107) mmol/L BUN 23 H (9-20) mg/dL Creatinine 0.58 L (0.66-1.25) mg/dL Glucose 112 H (74-99) mg/dL POC Glucose (mg/dL) (75-99) mg/dL Magnesium 1.3 L (1.6-2.3) mg/dL Total Bilirubin <0.1 L (0.2-1.3) mg/dL AST 95 H (17-59) U/L C-Reactive Protein (<1.0) mg/dL Total Protein 5.5 L (6.3-8.2) g/dL Albumin 3.1 L (3.5-5.0) g/dL Urine Protein (Negative) Urine Blood (Negative) Ur Leukocyte Esterase (Negative) Urine RBC (0-5) /hpf Urine WBC (0-5) /hpf Calcium Oxalate Crystal (None) /hpf Urine Bacteria (None) /hpf Urine Mucus (None) /hpf 10/01/20 Range/Units 11:50 WBC (3.8-10.6) k/uL RBC (4.30-5.90) m/uL Hgb (13.0-17.5) gm/dL Hct (39.0-53.0) % Neutrophils # (1.3-7.7) k/uL Potassium (3.5-5.1) mmol/L Chloride (98-107) mmol/L BUN (9-20) mg/dL Creatinine (0.66-1.25) mg/dL Glucose (74-99) mg/dL POC Glucose (mg/dL) 135 H (75-99) mg/dL Magnesium (1.6-2.3) mg/dL Total Bilirubin (0.2-1.3) mg/dL AST (17-59) U/L C-Reactive Protein (<1.0) mg/dL Total Protein (6.3-8.2) g/dL Albumin (3.5-5.0) g/dL Urine Protein (Negative) Urine Blood (Negative) Ur Leukocyte Esterase (Negative) Urine RBC (0-5) /hpf Urine WBC (0-5) /hpf Calcium Oxalate Crystal (None) /hpf Urine Bacteria (None) /hpf Urine Mucus (None) /hpf Microbiology - Last 24 Hours (Table) 09/30/20 17:24 Urine Culture - Preliminary Urine,Voided Chest x-ray: report reviewed Assessment and Plan (1) Unintentional weight loss Current Visit: Yes Status: Acute Code(s): R63.4 - ABNORMAL WEIGHT LOSS SNOMED Code(s): 336758022 (2) Normocytic anemia Current Visit: Yes Status: Acute Code(s): D64.9 - ANEMIA, UNSPECIFIED SNOMED Code(s): 083370821 (3) Hypokalemia Current Visit: Yes Status: Acute Code(s): E87.6 - HYPOKALEMIA SNOMED Code(s): 49105407 (4) Hypomagnesemia Current Visit: Yes Status: Acute Code(s): E83.42 - HYPOMAGNESEMIA SNOMED Code(s): 353562137 (5) Hyponatremia Current Visit: No Status: Acute Code(s): E87.1 - HYPO-OSMOLALITY AND HYPONATREMIA SNOMED Code(s): 18713458 Plan: With the significant weight loss we will further evaluate with nutritional labs, CT scans, and recommend Endoscopy exam with his anemia. Physician attest: I have completed the full history and physical and agree with above dictation, dictated as a scribe
[2020-10-01 15:12] LABS: % Iron Saturation 28.48 (15.00-50.00)
[2020-10-01 15:17] LABS: Ferritin 274.2 ng/mL (22.0-322.0); Folate, Serum 9.8 ng/mL
[2020-10-01] MEDS: IOPAMIDOL CONTRAST (ORAL USE) VIAL PO PRN ×2 (15:41→16:34)
--- NOTE | 2020-10-01 16:40 | CONS ---
CONSULTATION DATE OF SERVICE: 10/01/2020. REASON FOR CONSULTATION: Chronic urinary tract infection. HISTORY OF PRESENT ILLNESS: The patient is a 70-year-old male with past medical history significant for urine retention has got a chronic indwelling Trujillo catheter. The patient not very clear when the last time the Trujillo catheter was changed. The patient presented to [facility] ER last evening for evaluation of generalized weakness. Apparently the patient was sent from his primary care physician's office. Apparently the patient did have a UTI that had been treated in the outpatient setting without any improvement. The patient has been complaining of generalized weakness all over. He denies having any headache. No URI symptoms. No chest pain, shortness of breath or cough. No abdominal pain or diarrhea. With these symptoms, the patient was evaluated by the ER physician. On arrival to the ER, the patient was afebrile. No tachycardia. The patient did have white count 10.8 with left shift. Creatinine 0.71. The patient did have positive UA with large leukocyte esterase, 46 WBCs. Urine culture currently pending. [place] PCR was negative. The patient did have a chest x-ray negative for any consolidation. The patient was started on Rocephin. Infectious Disease was consulted for further management of antibiotic therapy. REVIEW OF SYSTEMS: Positive points as mentioned in HPI. Rest of the review of systems are negative his. PAST MEDICAL HISTORY: Diabetes mellitus, hypertension, hyperlipidemia, urine retention, recurrent UTI. PAST SURGICAL HISTORY: Tonsillectomy. PAST PSYCHOLOGICAL HISTORY: Anxiety, bipolar depression, schizophrenia. SOCIAL HISTORY: Remote history of smoking, positive for drinking and marijuana use. FAMILY HISTORY: Mother with coronary artery disease and diabetes mellitus. Father with coronary artery disease. ALLERGIES: NAPROXEN. MEDICATIONS: Medications include the patient is currently on Norvasc, Lipitor, Prozac, hydralazine, lactated Ringers, Lamictal, Levaquin, Synthroid, Narcan, nicotine patch, Desyrel. He received Rocephin yesterday. PHYSICAL EXAMINATION: Blood pressure is 115/57, pulse of 83, temperature 98. He is 97% on room air. General description is an elderly male lying in bed in no distress. No tachypnea or accessory muscles of respiration use. HEENT: Examination shows no pallor or scleral icterus. Oral mucous membrane is dry. NECK: Trachea central, no thyromegaly. LUNGS: Unlabored breathing, is clear to auscultation anteriorly. HEART: S1, S2. Regular rate and rhythm. ABDOMEN: Soft, no tenderness. No guarding or rigidity. EXTREMITIES: No edema of the feet. SKIN EXAMINATION: No rash or mass palpable. NEUROLOGIC: The patient is awake, alert and oriented x3. Cranial nerves normal. LABS: Hemoglobin is 12.7, white count 10.9, BUN of 17, creatinine 0.53. Potassium 3.1. Liver enzymes are normal. Urine was positive. He did have a recent urine culture in outpatient setting on the which shows Pseudomonas aeruginosa and Enterobacter multidrug resistant. DIAGNOSTIC IMPRESSION: Patient admitted to the hospital with recurrent urinary tract infection with patient indwelling Trujillo catheter recurrent UTI. The patient currently does not have any features suspicious for sepsis or bacteremia with last urine culture was Pseudomonas and Enterobacter pathogen. PLAN: 1. We will change his Trujillo catheter. Obtain urine culture from new Trujillo. 2. Continue patient on Levaquin which can cover for both pathogen. 3. We will follow on clinical condition and repeat culture to further adjust medication if needed. Thank you for this consultation. Will follow this patient along with you. MMODL / IJN: [id number] /
[2020-10-01 17:53] LABS: Glucose,Whole Blood 88 mg/dL (75-99)
--- NOTE | 2020-10-01 18:15 | CT ---
EXAMINATION TYPE: CT ChestAbdPelvis w con DATE OF EXAM: 10/01/2020 COMPARISON: Chest CT scan 08/18/2020 HISTORY: Unintentional weight loss. CT DLP: 1179.40 mGycm Automated exposure control for dose reduction was used. CONTRAST: Performed with IV Contrast, patient injected with 100 mL of Isovue 300. Images obtained from the thoracic inlet to the floor the pelvis with IV contrast. There is oral contr ast also. The lungs are clear of infiltrate. There is no pleural effusion or pneumothorax. There is minimal sub segmental atelectasis left posterior lung base. Heart is normal. There is no mediastinal adenopathy. There are no hilar masses. Thoracic aorta is intact. Liver and spleen appear intact. The bile ducts are not dilated. Stomach is intact. There is no pancre atic mass. Gallbladder appears normal. There is no adrenal mass. Kidneys show satisfactory contrast opacification. There is no hydronephrosi s. There is 1 cm cortical cyst posterior left kidney. The ureters are not dilated. There is no retrop eritoneal adenopathy. There is Trujillo catheter in the urinary bladder. Bladder is almost empty. There is no inguinal hernia. There is no mesenteric edema. There is no ascites or free air. There is no bowel obstruction. There i s no evidence of a pelvic mass. There is normal oral contrast opacification of the small bowel. I see no wall thickening. Appendix is not seen. There is no sign of thickened appendix. Delayed images pranav w normal renal excretion. The thoracic and lumbar vertebra appear intact. There is no compression fracture. Bony pelvis is inta ct. Hip joints are intact. Sternum is intact. IMPRESSION: Negative CT scan chest abdomen pelvis. I do not see a cause for weight loss.
--- NOTE | 2020-10-01 19:39 | P.HPIM ---
History of Present Illness H&P Date: 10/01/20 Chief Complaint: Generalized weakness/significant weight loss/lethargy 70-year-old male was admitted to the hospital for failure of outpatient antibiotic therapy, due to indwelling catheter and significant weight loss over the last few months. 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 Review of Systems Constitutional: Reports fatigue, Reports lethargy, Reports weakness, Reports weight loss Cardiovascular: Reports decreased exercise tolerance Respiratory: Reports cough Genitourinary: Reports urinary retention Musculoskeletal: Reports muscle cramps, Reports muscle weakness Neurological: Reports balance difficulties, Reports lack of coordination, Reports weakness Endocrine: Reports fatigue Past Medical History Past Medical History: Diabetes Mellitus, Hyperlipidemia, Hypertension Additional Past Medical History / Comment(s): used to take lipitor , neuropathy History of Any Multi-Drug Resistant Organisms: None Reported Past Surgical History: Tonsillectomy Past Anesthesia/Blood Transfusion Reactions: No Reported Reaction Past Psychological History: Anxiety, Bipolar, Schizophrenia Smoking Status: Former smoker Past Alcohol Use History: Occasional Additional Past Alcohol Use History / Comment(s): 1-2 drinks a week, per pt Past Drug Use History: Marijuana Additional Drug Use History / Comment(s): smokes pipe daily, half pack of cigarettes, marijuana occasionally - Past Family History Mother Family Medical History: Coronary Artery Disease (CAD), Diabetes Mellitus Father Family Medical History: Coronary Artery Disease (CAD) Brother(s) Family Medical History: No Reported History Medications and Allergies Home Medications and Allergies Comment(s): Medications and allergies reviewed Home Medications Medication Instructions Recorded Confirmed Type Tamsulosin [Flomax] 0.4 mg PO DAILY 08/03/20 09/30/20 History amLODIPine [Norvasc] 10 mg PO DAILY #30 tab 08/06/20 09/30/20 Rx Omeprazole [PriLOSEC] 40 mg PO BID 08/16/20 09/30/20 History Levothyroxine Sodium [Synthroid] 50 mcg PO DAILY 08/21/20 09/30/20 History metFORMIN HCL 1,000 mg PO BID 08/21/20 09/30/20 History Atorvastatin Calcium [Lipitor] 40 mg PO HS 09/30/20 09/30/20 History Cephalexin [Keflex] 500 mg PO BID 09/30/20 09/30/20 History FLUoxetine HCL [PROzac] 40 mg PO DAILY 09/30/20 09/30/20 History Multivitamins, Thera [Multivitamin 1 tab PO DAILY 09/30/20 09/30/20 History (formulary)] [place]-3/Dha/Epa/Fish Oil [Fish Oil 1 cap PO DAILY 09/30/20 09/30/20 History 500 mg Softgel] Paliperidone IM [Invega Sustenna] 234 mg INJ Q28D 09/30/20 09/30/20 History hydrALAZINE HCL [Apresoline] 25 mg PO BID 09/30/20 09/30/20 History lamoTRIgine [LaMICtal] 100 mg PO DAILY 09/30/20 09/30/20 History traZODone HCL [Desyrel] 50 mg PO HS 09/30/20 09/30/20 History Allergies Allergy/AdvReac Type Severity Reaction Status Date / Time naproxen [From Naprosyn] AdvReac Swelling Verified 09/30/20 18:48 Physical Exam Vitals: Vital Signs Temp Pulse Pulse Resp BP BP Pulse Ox 10/01/20 12:06 98.0 F 83 17 115/57 97 10/01/20 05:51 98.5 F 65 18 115/62 95 09/30/20 23:00 97.8 F 62 18 153/65 97 09/30/20 19:56 69 18 152/71 100 Intake and Output 10/01/20 10/01/20 10/01/20 06:59 14:59 22:59 Intake Total 1620 Output Total 900 Balance 1620 -900 Intake: Intake, IV Titration 1080 Amount Magnesium Sulfate-D5w Pmx 300 1 gm In Dextrose/Water 1 100ml.bag @ 100 mls/hr IVPB Q1H [facility] Rx#: [id number] Sodium Chloride 0.9% 1, 780 000 ml @ 130 mls/hr IV . [id number] [facility] Rx#:[id number] Oral 540 Output: Urine 900 Other: Voiding Method Toilet Toilet # Voids 0 # Bowel Movements 0 # Emeses 0 - Constitutional General appearance: mild distress - EENT Eyes: PERRLA, poor dentition ENT: hard of hearing Ears: bilateral: normal - Neck Carotids: bilateral: upstroke normal Thyroid: bilateral: normal size - Respiratory Respiratory: bilateral: diminished (Anterior and posterior lung wang) - Cardiovascular Heart rate: 64 Rhythm: regular Heart sounds: normal: S1, S2 ankle Peripheral Edema: bilateral: Trace radial pulse Peripheral Pulses: bilateral: Normal dorsalis pedis Peripheral Pulses: bilateral: Normal - Gastrointestinal General gastrointestinal: normal bowel sounds - Integumentary Integumentary: decreased turgor, pale - Musculoskeletal Musculoskeletal: generalized weakness Results CBC & Chem 7: 10/01/20 05:34 10/01/20 05:34 Labs: Abnormal Lab Results - Last 24 Hours (Table) 09/30/20 10/01/20 10/01/20 Range/Units 17:24 05:34 05:34 RBC 3.32 L (4.30-5.90) m/uL Hgb 9.8 L D (13.0-17.5) gm/dL Hct 29.9 L (39.0-53.0) % Potassium 3.1 L (3.5-5.1) mmol/L Chloride 108 H (98-107) mmol/L Creatinine 0.58 L (0.66-1.25) mg/dL Glucose 112 H (74-99) mg/dL POC Glucose (mg/dL) (75-99) mg/dL Magnesium 1.3 L (1.6-2.3) mg/dL Iron (65-175) ug/dL TIBC (228-460) ug/dL Total Bilirubin <0.1 L (0.2-1.3) mg/dL Total Protein 5.5 L (6.3-8.2) g/dL Albumin 3.1 L (3.5-5.0) g/dL Urine Protein 1+ H (Negative) Urine Blood Small H (Negative) Ur Leukocyte Esterase Large H (Negative) Urine RBC 17 H (0-5) /hpf Urine WBC 46 H (0-5) /hpf Calcium Oxalate Crystal Few H (None) /hpf Urine Bacteria Rare H (None) /hpf Urine Mucus Many H (None) /hpf 10/01/20 10/01/20 Range/Units 05:34 11:50 RBC (4.30-5.90) m/uL Hgb (13.0-17.5) gm/dL Hct (39.0-53.0) % Potassium (3.5-5.1) mmol/L Chloride (98-107) mmol/L Creatinine (0.66-1.25) mg/dL Glucose (74-99) mg/dL POC Glucose (mg/dL) 135 H (75-99) mg/dL Magnesium (1.6-2.3) mg/dL Iron 45 L (65-175) ug/dL TIBC 158 L (228-460) ug/dL Total Bilirubin (0.2-1.3) mg/dL Total Protein (6.3-8.2) g/dL Albumin (3.5-5.0) g/dL Urine Protein (Negative) Urine Blood (Negative) Ur Leukocyte Esterase (Negative) Urine RBC (0-5) /hpf Urine WBC (0-5) /hpf Calcium Oxalate Crystal (None) /hpf Urine Bacteria (None) /hpf Urine Mucus (None) /hpf Microbiology - Last 24 Hours (Table) 09/30/20 17:24 Urine Culture - Preliminary Urine,Voided Chest x-ray: pending Thrombosis Risk Factor Assmnt - Choose All That Apply Any of the Below Risk Factors Present?: Yes Each Factor Represents 1 point: Obesity (BMI >25) Other Risk Factors: Yes Each Risk Factor Represents 2 Points: Age 61-74 years Thrombosis Risk Factor Assessment Total Risk Factor Score: 3 Thrombosis Risk Factor Assessment Level: Moderate Risk Assessment and Plan Assessment: egan Catheter associated urinary tract infection Significant weight loss generalized weakness hypo magnesium diabetes mellitus type II hyperlipidemia hypertension anxiety bipolar schizophrenia substance abuse with marijuana hypotonic neurogenic bladder hypothyroidism Full code Plan: egan Catheter associated urinary tract infection, IV Levaquin, consultation with infectious disease for recommendations significant weight loss, consultation with hematology/oncology for recommendatio ns and treatment plan Hypotonic neurogenic bladder, consultation with urology for recommendations and treatment plan anemia, trending H&H, possible consultation with gastroenterology continue home medications continue to monitor vital signs and diagnostic testing further recommendations to come patient patient's clinical condition Time with Patient: Greater than 30
[2020-10-01 20:24] LABS: Glucose,Whole Blood 111 mg/dL (75-99)
[2020-10-01] MEDS: traZODone HCL 50 MG TAB PO SCH (20:40)
[2020-10-01] MEDS: ATORVASTATIN 40 MG TAB PO SCH (20:40)
[2020-10-01] MEDS: LEVOFLOXACIN 500MG-D5W PMX 500 MG in DEXTROSE/WATER 1 100ML.BAG IVPB SCH (20:40)
[2020-10-01 21:13] LABS: Basophils # (A) 0.1 k/uL (0-0.2); Basophils % (A) 1 %; Eosinophils # (A) 0.1 k/uL (0-0.7); Eosinophils % (A) 2 %; HGB 10.5 gm/dL (13.0-17.5); Lymphocytes # (A) 1.9 k/uL (1.0-4.8); Lymphocytes % (A) 25 %; MCH 29.5 pg (25.0-35.0); MCHC 32.8 g/dL (31.0-37.0); MCV 89.9 fL (80.0-100.0); Mean Platelet Volume 6.7; Monocytes # (A) 0.3 k/uL (0-1.0); Monocytes % (A) 3 %; Neutrophils # (A) 5.3 k/uL (1.3-7.7); Neutrophils % (A) 69 %; Platelet Count 342 k/uL (150-450); RBC 3.56 m/uL (4.30-5.90); WBC 7.8 k/uL (3.8-10.6)
[2020-10-02 04:15] LABS: Hemoglobin A1C 5.2 % (4.0-6.0)
[2020-10-02] MEDS: LACTATED RINGERS 1,000 ML IV SCH ×2 (04:25→14:49)
[2020-10-02] MEDS: LEVOTHYROXINE 50 MCG TAB PO SCH (05:36)
[2020-10-02 05:50] LABS: Basophils % (A) 0 %; Eosinophils # (A) 0.2 k/uL (0-0.7); Eosinophils % (A) 2 %; HGB 10.4 gm/dL (13.0-17.5); Lymphocytes # (A) 1.9 k/uL (1.0-4.8); Lymphocytes % (A) 21 %; MCH 30.8 pg (25.0-35.0); MCHC 34.5 g/dL (31.0-37.0); MCV 89.3 fL (80.0-100.0); Mean Platelet Volume 6.7; Monocytes # (A) 0.4 k/uL (0-1.0); Monocytes % (A) 4 %; Neutrophils # (A) 6.6 k/uL (1.3-7.7); Neutrophils % (A) 72 %; Platelet Count 310 k/uL (150-450); RBC 3.36 m/uL (4.30-5.90); RDW 13.6 % (11.5-15.5); WBC 9.2 k/uL (3.8-10.6)
[2020-10-02 07:10] LABS: Glucose,Whole Blood 102 mg/dL (75-99)
[2020-10-02] MEDS: ACETAMINOPHEN TAB 325 MG TAB PO PRN ×3 (08:16→22:12)
[2020-10-02] MEDS: TAMSULOSIN 0.4 MG CAP.ER.24H PO SCH (08:17)
[2020-10-02] MEDS: MULTIVITAMINS, THERA 1 EACH TAB PO SCH (08:17)
[2020-10-02] MEDS: FLUoxetine HCL 20 MG CAP PO SCH (08:17)
[2020-10-02] MEDS: PANTOPRAZOLE 40 MG TABLET PO SCH ×2 (08:17→22:13)
[2020-10-02] MEDS: hydrALAZINE HCL 25 MG TAB PO SCH ×2 (08:17→22:13)
[2020-10-02] MEDS: lamoTRIgine 100 MG TAB PO SCH (08:17)
[2020-10-02] MEDS: NICOTINE 21MG/24HR PATCH TRANSDERM SCH (08:17)
[2020-10-02] MEDS: metFORMIN 500 MG TAB PO SCH ×2 (08:17→22:12)
[2020-10-02] MEDS: amLODIPine 10 MG TAB PO SCH (08:17)
[2020-10-02 11:11] LABS: African American GFR (CKD) 104.9 (60.0-200.0); Albumin 3.6 g/dL (3.80-4.90); Albumin/Globulin Ratio 1.64 (1.60-3.17); BUN/Creat Ratio 17.5 Ratio (12.00-20.00); Calcium 8.9 mg/dL (8.7-10.3); Globulin 2.2 g/dL (1.6-3.3); Magnesium 1.9 mg/dL (1.5-2.4); Non-African American GFR(CKD) 90.5 (60.0-200.0); Phosphorus 2.5 mg/dL (2.4-5.1); Potassium 3.8 mmol/L (3.5-5.5); Total Bilirubin 0.2 mg/dL (0.3-1.2); Total Protein 5.8 g/dL (6.2-8.2)
[2020-10-02 11:37] LABS: Glucose,Whole Blood 330 mg/dL (75-99)
[2020-10-02] MEDS: INSULIN ASPART (NovoLOG) 100 UNIT/ML VIAL SQ SCH ×3 (13:09→22:13)
[2020-10-02 14:39] LABS: Ferritin 258.5 ng/mL (22.0-322.0)
[2020-10-02 15:25] LABS: % Iron Saturation 21.88 (15.00-50.00); African American GFR (CKD) 110.8 (60.0-200.0); Albumin 3.7 g/dL (3.80-4.90); Albumin/Globulin Ratio 1.68 (1.60-3.17); Anion Gap 10.7 mmol/L (4.00-12.00); Calcium 8.8 mg/dL (8.7-10.3); Carbon Dioxide 21.3 mmol/L (21.6-31.8); Chol/HDL Ratio 2.12; Globulin 2.2 g/dL (1.6-3.3); LDL Cholesterol,Calculated 43.4 mg/dL (0.0-131.0); Magnesium 1.3 mg/dL (1.5-2.4); Non-African American GFR(CKD) 95.6 (60.0-200.0); Potassium 3.8 mmol/L (3.5-5.5); Total Bilirubin 0.2 mg/dL (0.3-1.2); Total Protein 5.9 g/dL (6.2-8.2); VLDL Calculation 14.6 mg/dL (5.00-40.00)
--- NOTE | 2020-10-02 15:37 | P.CONS ---
History of Present Illness - Reason for Consult Consult date: 10/02/20 Anemia Requesting physician: Dallin Jurado - Chief Complaint Weakness, urinary tract infection failed outpatient treatment - History of Present Illness This is a pleasant 70-year-old white male who was sent to the urgency department by his primary care physician Dr. Jurado. The patient had generalized complaints of weakness, weight loss up to 20 pounds in the last month per patient report. He was being treated for urinary tract infection in the outpatient setting, ho wever had failed antibiotic therapy. According to his PCPs notes the patient has lost a significant amount of weight over the last few months. The patient states he does not intentionally losing weight, but that it is good because he is diabetic. Patient has a past medical history significant for type 2 diabetes mellitus, hyperlipidemia, hypertension, bipolar, schizophrenia, substance abuse, and hypotonic neurogenic bladder with chronic Trujillo catheter. The patient denies any previous history of EGD or colonoscopy, denies any history of peptic ulcer disease or acid reflux. He denies any signs or symptoms of GI bleed. He denies abdominal pain, nausea, or vomiting. States that his appetite has been well and he is eating well at home. His admission hemoglobin was 12, today WBC 9.2, hemoglobin 10.4, hematocrit 30, platelets 310,000. Total bilirubin 0.2, alkaline phosphatase 83, AST 39, ALT 38. Patient admits to daily alcohol use, he states he has one drink a day. He has a history of smoking, approximately a pack per day. Oncology was on consult per patient. Weight loss, CT of the abdomen was ordered with an impression stable negative computed tomography scan chest abdomen and pelvis. Review of Systems REVIEW OF SYSTEMS: CARDIOPULMONARY: No chest pain or shortness of breath. Gastrointestinal: No abdominal pain. No nausea or vomiting. No hematemesis, coffee-ground emesis. No rectal bleeding, or melena. GENITOURINARY: No dysuria or hematuria. MUSCULOSKELETAL: Reports normal range of motion., Joint pain. SKIN: No rashes. No jaundice. ENDOCRINE: No chills, fevers. No excessive weight gain or loss. No polydipsia or polyuria. PSYCHIATRIC: Bipolar, schizophrenic. NEUROLOGY: No change in mental status. Denies dizziness, headache. ENT: Vision unremarkable. CONSTITUTIONAL: 20 pound weight loss in the past 1-2 months. No fever, chills, night sweats. Past Medical History Past Medical History: Diabetes Mellitus, Hyperlipidemia, Hypertension Additional Past Medical History / Comment(s): used to take lipitor , neuropathy History of Any Multi-Drug Resistant Organisms: None Reported Past Surgical History: Tonsillectomy Past Anesthesia/Blood Transfusion Reactions: No Reported Reaction Past Psychological History: Anxiety, Bipolar, Schizophrenia Smoking Status: Former smoker Past Alcohol Use History: Occasional Additional Past Alcohol Use History / Comment(s): 1-2 drinks a week, per pt Past Drug Use History: Marijuana Additional Drug Use History / Comment(s): smokes pipe daily, half pack of cigarettes, marijuana occasionally - Past Family History Mother Family Medical History: Coronary Artery Disease (CAD), Diabetes Mellitus Father Family Medical History: Coronary Artery Disease (CAD) Brother(s) Family Medical History: No Reported History Medications and Allergies Home Medications Medication Instructions Recorded Confirmed Type Tamsulosin [Flomax] 0.4 mg PO DAILY 08/03/20 09/30/20 History amLODIPine [Norvasc] 10 mg PO DAILY #30 tab 08/06/20 09/30/20 Rx Omeprazole [PriLOSEC] 40 mg PO BID 08/16/20 09/30/20 History Levothyroxine Sodium [Synthroid] 50 mcg PO DAILY 08/21/20 09/30/20 History metFORMIN HCL 1,000 mg PO BID 08/21/20 09/30/20 History Atorvastatin Calcium [Lipitor] 40 mg PO HS 09/30/20 09/30/20 History Cephalexin [Keflex] 500 mg PO BID 09/30/20 09/30/20 History FLUoxetine HCL [PROzac] 40 mg PO DAILY 09/30/20 09/30/20 History Multivitamins, Thera [Multivitamin 1 tab PO DAILY 09/30/20 09/30/20 History (formulary)] [place]-3/Dha/Epa/Fish Oil [Fish Oil 1 cap PO DAILY 09/30/20 09/30/20 History 500 mg Softgel] Paliperidone IM [Invega Sustenna] 234 mg INJ Q28D 09/30/20 09/30/20 History hydrALAZINE HCL [Apresoline] 25 mg PO BID 09/30/20 09/30/20 History lamoTRIgine [LaMICtal] 100 mg PO DAILY 09/30/20 09/30/20 History traZODone HCL [Desyrel] 50 mg PO HS 09/30/20 09/30/20 History Allergies Allergy/AdvReac Type Severity Reaction Status Date / Time naproxen [From Naprosyn] AdvReac Swelling Verified 09/30/20 18:48 Physical Exam Vitals: Vital Signs Temp Pulse Resp BP Pulse Ox 10/02/20 11:59 98.1 F 75 18 118/61 99 10/02/20 08:00 72 18 10/02/20 05:00 98.2 F 65 18 164/75 97 10/01/20 20:48 98.7 F 73 18 145/75 95 Intake and Output 10/02/20 10/02/20 10/02/20 06:59 14:59 22:59 Intake Total 740 Output Total 800 800 Balance -60 -800 Intake: Intake, IV Titration 100 Amount Levofloxacin 500Mg-D5w 100 Pmx 500 mg In Dextrose/ Water 1 100ml.bag @ 100 mls/hr IVPB Q24H [facility] Rx#: [id number] Oral 640 Output: Urine 800 800 Other: Voiding Method Indwelling Catheter # Voids 0 # Bowel Movements 0 # Emeses 0 General appearance: The patient is alert, oriented, appears in no acute distress. HET: Head is normocephalic and atraumatic. Conjunctiva pink. Sclera anicteric. Neck: Supple without lymphadenopathy. Abdomen: Soft, nontender, nondistended with bowel sounds. No guarding or rigidity. Genitourinary: Trujillo catheter in place. Extremities: Normal skin color and turgor. No pedal edema Skin: No rashes, no jaundice Neurological: No focal deficits. Alert and oriented 3. Results CBC & Chem 7: 10/02/20 05:03 10/02/20 05:03 Labs: Abnormal Lab Results - Last 24 Hours (Table) 10/01/20 10/01/20 10/01/20 Range/Units 05:34 12:00 20:23 RBC 3.56 L (4.30-5.90) m/uL Hgb 10.5 L (13.0-17.5) gm/dL Hct 32.0 L (39.0-53.0) % POC Glucose (mg/dL) 111 H (75-99) mg/dL Iron 45 L (65-175) ug/dL TIBC 158 L (228-460) ug/dL Total Bilirubin (0.3-1.2) mg/dL Total Protein (6.2-8.2) g/dL Albumin (3.80-4.90) g/dL 10/02/20 10/02/20 10/02/20 Range/Units 05:03 05:03 07:06 RBC 3.36 L (4.30-5.90) m/uL Hgb 10.4 L (13.0-17.5) gm/dL Hct 30.0 L (39.0-53.0) % POC Glucose (mg/dL) 102 H (75-99) mg/dL Iron (65-175) ug/dL TIBC (228-460) ug/dL Total Bilirubin 0.2 L (0.3-1.2) mg/dL Total Protein 5.8 L (6.2-8.2) g/dL Albumin 3.60 L (3.80-4.90) g/dL 10/02/20 Range/Units 11:34 RBC (4.30-5.90) m/uL Hgb (13.0-17.5) gm/dL Hct (39.0-53.0) % POC Glucose (mg/dL) 330 H (75-99) mg/dL Iron (65-175) ug/dL TIBC (228-460) ug/dL Total Bilirubin (0.3-1.2) mg/dL Total Protein (6.2-8.2) g/dL Albumin (3.80-4.90) g/dL Microbiology - Last 24 Hours (Table) 09/30/20 17:24 Urine Culture - Final Urine,Voided 09/30/20 17:24 Blood Culture - Preliminary Blood No Growth after 24 hours 09/30/20 17:24 Blood Culture - Preliminary Blood No Growth after [address] scan - abdomen: report reviewed (Negative computed tomography scan of the chest abdomen and pelvis. No seen cause for weight loss.) Assessment and Plan (1) Normocytic anemia Narrative/Plan: This is a 70-year-old male who was sent in to emergency department from his [facility] physician for failed outpatient treatment of urinary tract infection. An admission hemoglobin of 12.0 which dropped to 9.8, subsequently 10.4 today. Gastroenterology was asked to see the patient for anemia. The patient also has a reported history of a 20 pound weight loss within the last month, which he states is unintentional. He has had no previous endoscopy evaluation. He has been seen by hematology\oncology for his weight loss. They ordered a CT of the chest, abdomen, pelvis which showed no acute process, and no cause for weight loss. The patient denies any signs or symptoms of GI bleed. It was discussed with the patient recommendation is for upper and lower endoscopy to evaluate possible etiologies of weight loss and anemia. The patient states he will not proceed with either procedure, as he states he is feeling fine. Current Visit: Yes Status: Acute Code(s): D64.9 - ANEMIA, UNSPECIFIED SNOMED Code(s): 956699191 (2) UTI (urinary tract infection) Current Visit: Yes Status: Acute Code(s): N39.0 - URINARY TRACT INFECTION, SITE NOT SPECIFIED SNOMED Code(s): 34282497 (3) Unintentional weight loss Current Visit: Yes Status: Acute Code(s): R63.4 - ABNORMAL WEIGHT LOSS SNOMED Code(s): 224617341 Plan: 1. Continue symptomatic and supportive care 2. Repeat CBC in the morning 3. Recommend EGD and colonoscopy, discussed the procedure, risks, and benefits of procedure with patient, he is refusing at this time. Recommend outpatient follow-up, EGD and colonoscopy. 4. Consistent carbohydrate diet 5. Appreciated recommendations from oncology Thank you for this consultation, we will continue to follow Dr. Mitch Burgos I agree with the dictator's note, documented as a scribe by Jessica Au.
[2020-10-02 17:20] LABS: Glucose,Whole Blood 108 mg/dL (75-99)
--- NOTE | 2020-10-02 17:49 | PN ---
PROGRESS NOTE DATE OF SERVICE: 10/02/2020. REASON FOR FOLLOWUP: Catheter associated urinary tract infection. INTERVAL HISTORY: Patient is currently afebrile. The patient is breathing comfortably. The patient denies having any chest pain or shortness of breath, cough, abdominal pain or diarrhea. PHYSICAL EXAMINATION: Blood pressure 118/51 with pulse of 55. Temperature 98.1. He is 99% on room air. General description: The patient is an elderly male lying in bed in no distress. Respiratory system: Unlabored breathing. Clear to auscultation anteriorly. Heart S1, S2. Regular rate and rhythm. Abdomen soft, no tenderness. LABS: Hemoglobin 10.4, white count 9.2, BUN of 14, creatinine 0.8. DIAGNOSTIC IMPRESSION AND PLAN: Patient with catheter associated urinary tract infection, cultures positive for multidrug resistant Enterobacter, Pseudomonas. Culture repeat is so far negative. Patient to continue Levaquin and monitor clinical course closely. MMODL / IJN: [id number] /
[2020-10-02] MEDS: LEVOFLOXACIN 500MG-D5W PMX 500 MG in DEXTROSE/WATER 1 100ML.BAG IVPB SCH (18:02)
--- NOTE | 2020-10-02 18:48 | P.PN ---
Subjective Progress Note Date: 10/02/20 Principal diagnosis: Weight Loss and Anemia CT scans and work-up performed without significant etiology for weight loss and all essentially wnl. GI is following Objective - Vital Signs Vital signs: Vital Signs Temp 98.1 F 10/02/20 11:59 Pulse 75 10/02/20 11:59 Resp 18 10/02/20 11:59 BP 118/61 10/02/20 11:59 Pulse Ox 99 10/02/20 11:59 Intake & Output 10/01/20 10/02/20 10/02/20 18:59 06:59 18:59 Intake Total 740 Output Total 900 800 800 Balance -900 -60 -800 Intake: Intake, IV Titration 100 Amount Levofloxacin 500Mg-D5w 100 Pmx 500 mg In Dextrose/ Water 1 100ml.bag @ 100 mls/hr IVPB Q24H [facility] Rx#: [id number] Oral 640 Output: Urine 900 800 800 Other: Voiding Method Toilet Indwelling Catheter Indwelling Catheter # Voids 0 # Bowel Movements 0 # Emeses 0 - Exam - Constitutional General appearance: cooperative, no acute distress - EENT Eyes: EOMI, PERRLA ENT: hard of hearing, NA/AT - Neck Neck: normal ROM - Respiratory Respiratory: negative: CTA - Cardiovascular Rhythm: regular - Gastrointestinal General gastrointestinal: soft - Integumentary Integumentary: pale - Musculoskeletal Musculoskeletal: generalized weakness, strength equal bilaterally - Psychiatric Psychiatric: A&O x's 3 - Labs CBC & Chem 7: 10/02/20 05:03 10/02/20 05:03 Labs: Abnormal Lab Results - Last 24 Hours (Table) 10/01/20 10/01/20 10/01/20 Range/Units 05:34 12:00 20:23 RBC 3.56 L (4.30-5.90) m/uL Hgb 10.5 L (13.0-17.5) gm/dL Hct 32.0 L (39.0-53.0) % POC Glucose (mg/dL) 111 H (75-99) mg/dL Iron 45 L (65-175) ug/dL TIBC 158 L (228-460) ug/dL Total Bilirubin (0.3-1.2) mg/dL Total Protein (6.2-8.2) g/dL Albumin (3.80-4.90) g/dL 10/02/20 10/02/20 10/02/20 Range/Units 05:03 05:03 07:06 RBC 3.36 L (4.30-5.90) m/uL Hgb 10.4 L (13.0-17.5) gm/dL Hct 30.0 L (39.0-53.0) % POC Glucose (mg/dL) 102 H (75-99) mg/dL Iron (65-175) ug/dL TIBC (228-460) ug/dL Total Bilirubin 0.2 L (0.3-1.2) mg/dL Total Protein 5.8 L (6.2-8.2) g/dL Albumin 3.60 L (3.80-4.90) g/dL 10/02/20 Range/Units 11:34 RBC (4.30-5.90) m/uL Hgb (13.0-17.5) gm/dL Hct (39.0-53.0) % POC Glucose (mg/dL) 330 H (75-99) mg/dL Iron (65-175) ug/dL TIBC (228-460) ug/dL Total Bilirubin (0.3-1.2) mg/dL Total Protein (6.2-8.2) g/dL Albumin (3.80-4.90) g/dL Microbiology - Last 24 Hours (Table) 09/30/20 17:24 Urine Culture - Final Urine,Voided 09/30/20 17:24 Blood Culture - Preliminary Blood No Growth after 24 hours 09/30/20 17:24 Blood Culture - Preliminary Blood No Growth after 24 hours Assessment and Plan (1) Unintentional weight loss Current Visit: Yes Status: Acute Code(s): R63.4 - ABNORMAL WEIGHT LOSS SNOMED Code(s): 727654332 (2) Normocytic anemia Current Visit: Yes Status: Acute Code(s): D64.9 - ANEMIA, UNSPECIFIED SNOMED Code(s): 395189838 (3) Hypokalemia Current Visit: Yes Status: Acute Code(s): E87.6 - HYPOKALEMIA SNOMED Code(s): 86378250 (4) Hypomagnesemia Current Visit: Yes Status: Acute Code(s): E83.42 - HYPOMAGNESEMIA SNOMED Code(s): 914176387 (5) Hyponatremia Current Visit: No Status: Acute Code(s): E87.1 - HYPO-OSMOLALITY AND HYPONATREMIA SNOMED Code(s): 93129169 Plan: Review of CT scans without significant evidence for weight loss Awaiting completed results from labwork, although to date wnl GI evaluation EGD and Colonoscopy is recommended
--- NOTE | 2020-10-02 19:45 | P.PN ---
Subjective Progress Note Date: 10/02/20 Principal diagnosis: Egan catheter associated urinary tract infection generalized weakness anemia 70-year-old male was admitted to the hospital for failure of outpatient antibiotic therapy, due to indwelling catheter and significant weight loss over the last few months. 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 October 02, 2020 evaluated patient this a.m. resting comfortably in chair. At lengthy discussion with patient regarding diagnostic testing and laboratory results, and the possible need for upper and lower G.I. scope due to drop in hemoglobin, patient agreeable at this time. Patient denies any complaints at this time. Awaiting gastroenterology recommendations for upper and lower G.I. scope. Objective - Vital Signs Vital signs: Vital Signs Temp 98.1 F 10/02/20 11:59 Pulse 75 10/02/20 11:59 Resp 18 10/02/20 11:59 BP 118/61 10/02/20 11:59 Pulse Ox 99 10/02/20 11:59 Intake & Output 10/02/20 10/02/20 10/03/20 06:59 18:59 06:59 Intake Total 740 1080 Output Total 800 1700 Balance -60 -620 Intake: Intake, IV Titration 100 Amount Levofloxacin 500Mg-D5w 100 Pmx 500 mg In Dextrose/ Water 1 100ml.bag @ 100 mls/hr IVPB Q24H [facility] Rx#: [id number] Oral 640 1080 Output: Urine 800 1700 Other: Voiding Method Indwelling Catheter Indwelling Catheter # Voids 0 # Bowel Movements 0 # Emeses 0 - Constitutional General appearance: Present: disheveled - EENT Eyes: Present: EOMI, PERRLA ENT: Present: hard of hearing Ears: bilateral: normal - Neck Carotids: bilateral: upstroke normal Thyroid: bilateral: normal size - Respiratory Respiratory: bilateral: CTA (Anterior lung wang), diminished (Posterior lung wang) - Cardiovascular Rhythm: regular Heart sounds: normal: S1, S2 - Peripheral pulses radial pulse Peripheral Pulses: bilateral: Normal dorsalis pedis Peripheral Pulses: bilateral: Normal - Gastrointestinal General gastrointestinal: Present: normal bowel sounds - Integumentary Integumentary: Present: pale - Neurologic Neurologic: Present: CNII-XII intact - Musculoskeletal Musculoskeletal: Present: generalized weakness - Psychiatric Psychiatric: Present: A&O x's 3 - Allied health notes Allied health notes reviewed: nursing - Labs CBC & Chem 7: 10/02/20 05:03 10/02/20 05:03 Labs: Abnormal Lab Results - Last 24 Hours (Table) 10/01/20 10/01/20 10/01/20 Range/Units 12:00 12:00 20:23 RBC 3.56 L (4.30-5.90) m/uL Hgb 10.5 L (13.0-17.5) gm/dL Hct 32.0 L (39.0-53.0) % Carbon Dioxide 21.3 L (21.6-31.8) mmol/L POC Glucose (mg/dL) 111 H (75-99) mg/dL Magnesium 1.3 L (1.5-2.4) mg/dL Iron 35 L (65-175) ug/dL TIBC 160 L (228-460) ug/dL Total Bilirubin 0.2 L (0.3-1.2) mg/dL AST 40 H (14-35) U/L Total Protein 5.9 L (6.2-8.2) g/dL Albumin 3.70 L (3.80-4.90) g/dL 10/02/20 10/02/20 10/02/20 Range/Units 05:03 05:03 07:06 RBC 3.36 L (4.30-5.90) m/uL Hgb 10.4 L (13.0-17.5) gm/dL Hct 30.0 L (39.0-53.0) % Carbon Dioxide (21.6-31.8) mmol/L POC Glucose (mg/dL) 102 H (75-99) mg/dL Magnesium (1.5-2.4) mg/dL Iron (65-175) ug/dL TIBC (228-460) ug/dL Total Bilirubin 0.2 L (0.3-1.2) mg/dL AST (14-35) U/L Total Protein 5.8 L (6.2-8.2) g/dL Albumin 3.60 L (3.80-4.90) g/dL 10/02/20 10/02/20 Range/Units 11:34 17:18 RBC (4.30-5.90) m/uL Hgb (13.0-17.5) gm/dL Hct (39.0-53.0) % Carbon Dioxide (21.6-31.8) mmol/L POC Glucose (mg/dL) 330 H 108 H (75-99) mg/dL Magnesium (1.5-2.4) mg/dL Iron (65-175) ug/dL TIBC (228-460) ug/dL Total Bilirubin (0.3-1.2) mg/dL AST (14-35) U/L Total Protein (6.2-8.2) g/dL Albumin (3.80-4.90) g/dL Microbiology - Last 24 Hours (Table) 09/30/20 17:24 Blood Culture - Preliminary Blood No Growth after 48 hours 09/30/20 17:24 Blood Culture - Preliminary Blood No Growth after 48 hours 09/30/20 17:24 Urine Culture - Final Urine,Voided Assessment and Plan Assessment: egan Catheter associated urinary tract infection Significant weight loss generalized weakness hypo magnesium diabetes mellitus type II hyperlipidemia hypertension anxiety bipolar schizophrenia substance abuse with marijuana hypotonic neurogenic bladder hypothyroidism Full code Plan: egan Catheter associated urinary tract infection, IV Levaquin, consultation with infectious disease for recommendations significant weight loss, consultation with hematology/oncology for recommendations and treatment plan Hypotonic neurogenic bladder, consultation with urology for recommendations and treatment plan anemia, trending H&H, possible consultation with gastroenterology continue home medications continue to monitor vital signs and diagnostic testing further recommendations to come patient patient's clinical condition Time with Patient: Greater than 30
[2020-10-02 21:02] LABS: Glucose,Whole Blood 158 mg/dL (75-99)
[2020-10-02] MEDS: traZODone HCL 50 MG TAB PO SCH (22:12)
[2020-10-02] MEDS: ATORVASTATIN 40 MG TAB PO SCH (22:12)
[2020-10-02] MEDS ORDERED: PEG 3350-NA SULF,BICARB,CL/KCL 4,000 ML BOTTLE PO ONE (22:15)
[2020-10-03] MEDS: LACTATED RINGERS 1,000 ML IV SCH ×3 (00:14→20:58)
[2020-10-03] MEDS: LEVOTHYROXINE 50 MCG TAB PO SCH (05:56)
[2020-10-03 06:32] LABS: Basophils % (A) 1 %; Eosinophils # (A) 0.1 k/uL (0-0.7); Eosinophils % (A) 2 %; HCT 30.1 % (39.0-53.0); HGB 10.6 gm/dL (13.0-17.5); Lymphocytes # (A) 1.7 k/uL (1.0-4.8); Lymphocytes % (A) 31 %; MCH 31.4 pg (25.0-35.0); MCHC 35.1 g/dL (31.0-37.0); MCV 89.4 fL (80.0-100.0); Mean Platelet Volume 6.8; Monocytes # (A) 0.3 k/uL (0-1.0); Monocytes % (A) 4 %; Neutrophils # (A) 3.4 k/uL (1.3-7.7); Neutrophils % (A) 61 %; Platelet Count 303 k/uL (150-450); RBC 3.36 m/uL (4.30-5.90); RDW 13.6 % (11.5-15.5); WBC 5.6 k/uL (3.8-10.6)
[2020-10-03 06:52] LABS: ALT 33 U/L (4-49); AST 32 U/L (17-59); African American GFR (CKD) >90 (>60 ml/min/1.73 sqM); Albumin 3.5 g/dL (3.5-5.0); Albumin/Globulin Ratio 1.4; Alkaline Phosphatase 72 U/L (38-126); Anion Gap 4 mmol/L; Blood Urea Nitrogen 12 mg/dL (9-20); Calcium 9.2 mg/dL (8.4-10.2); Carbon Dioxide 29 mmol/L (22-30); Chloride 101 mmol/L (98-107); Globulin 2.5 g/dL; Glucose 82 mg/dL (74-99); Magnesium 1.2 mg/dL (1.6-2.3); Non-African American GFR(CKD) >90 (>60 ml/min/1.73 sqM); Potassium 4.2 mmol/L (3.5-5.1); Sodium 134 mmol/L (137-145); Total Bilirubin 0.2 mg/dL (0.2-1.3)
[2020-10-03] MEDS: hydrALAZINE HCL 25 MG TAB PO SCH ×2 (07:23→20:58)
[2020-10-03] MEDS: lamoTRIgine 100 MG TAB PO SCH (07:23)
[2020-10-03] MEDS: NICOTINE 21MG/24HR PATCH TRANSDERM SCH (07:23)
[2020-10-03] MEDS: FLUoxetine HCL 20 MG CAP PO SCH (07:23)
[2020-10-03] MEDS: MULTIVITAMINS, THERA 1 EACH TAB PO SCH (07:24)
[2020-10-03] MEDS: ACETAMINOPHEN TAB 325 MG TAB PO PRN ×2 (07:24→16:29)
[2020-10-03] MEDS: PANTOPRAZOLE 40 MG TABLET PO SCH ×2 (07:24→20:58)
[2020-10-03] MEDS: amLODIPine 10 MG TAB PO SCH (07:24)
[2020-10-03] MEDS: TAMSULOSIN 0.4 MG CAP.ER.24H PO SCH (07:24)
[2020-10-03 07:37] LABS: Glucose,Whole Blood 104 mg/dL (75-99)
--- NOTE | 2020-10-03 08:26 | XR ---
EXAMINATION TYPE: XR chest 1V portable DATE OF EXAM: 10/03/2020 COMPARISON: Chest x-ray and CT 10/01/2020 HISTORY: Shortness of breath TECHNIQUE: Single frontal view of the chest is obtained. FINDINGS: There are prominent lung volumes consistent with underlying COPD. There are overlying armani facts. No evident airspace disease, pneumothorax, or pleural effusion. Cardiomediastinal silhouette i s stable. IMPRESSION: No acute process. There is underlying emphysema.
[2020-10-03] MEDS: INSULIN ASPART (NovoLOG) 100 UNIT/ML VIAL SQ SCH ×4 (08:42→20:59)
[2020-10-03] MEDS ORDERED: bisacodyL 5 MG TABLET.DR PO STA (08:51)
[2020-10-03] MEDS: metFORMIN 500 MG TAB PO SCH ×2 (10:38→20:58)
[2020-10-03 11:35] LABS: Glucose,Whole Blood 167 mg/dL (75-99)
--- NOTE | 2020-10-03 13:05 | P.CN ---
Psychiatric Consult - . Consult date: 10/03/20 Consult:: 10/03/20 12:16 IDENTIFYING DATA: This patient is a 70-year-old male with a history of bipolar disorder who currently lives alone in a house has no kids is . REASON FOR REFERRAL: Psychiatry was consulted for "management of schizophrenia" HISTORY OF PRESENT ILLNESS: The patient presented to the hospital on 09/30 for complaints of generalized weakness and loss of body weight. Patient was sent in by the primary care doctor. Patient apparently had a UTI but had failed outpatient treatment. Patient was sitting in his chair beside the bed and appeared to have a constricted affect. He was fairly concrete during con versation however was fairly cooperative and answered questions appropriately. He states that he came to the hospital for a "bladder infection" and states that he was taking antibiotics for the infection however, worse. He states that he has been doing better since being in the hospital and is going to have a scope by GI tomorrow. He claims that his mood is approximately a "5 out of 10" and claims that he does have mild anxiety at times. He states that his sleep is important for approximately one to 2 hours a night. He states that he has been seeing Dr. Singh at [facility] and getting Invega Sustenna long-acting injection every month and his last dose was 2 weeks ago. At this time patient denies any suicidal or homical ideations, intent or plan. Patient denies any auditory, visual hallucinations and denies any paranoia or delusions. Patients admits to using marijuana occasionally and cigarettes daily. PAST PSYCHIATRIC HISTORY: Patient has a a history of bipolar disorder. Patient is currently at Invega Sustenna 156 mg IM injection every 4 weeks, Lamictal 100 mg daily, Prozac 40 mg daily and trazodone 50 mg daily at bedtime. Patient has been psychiatrically hospitalized several times in the past his last admission in June 2020. Patient currently follows up with Dr. Singh at [facility]. He states that he had 1 suicide attempt when he attempted to slit his wrist several years ago. PAST MEDICAL HISTORY: Diabetes mellitus, hyperlipidemia, hypertension, neuropathy. ALLERGIES: as per EMR. CHEMICAL DEPENDENCY HISTORY: as per HPI. FAMILY PSYCHIATRIC/SUBSTANCE USE HISTORY: He claims his uncle completed suicide SOCIAL HISTORY: Patient was born and raised in [facility] [place]. He states that he completed college. 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 He states that he served in the [employer] from [id number]. Patient has no kids is and currently lives alone in a house.. MENTAL STATUS EXAM: General Appearance: Patient appears to be stated age is alert, constricted, and cooperative. Patient appears to have fair hygiene and grooming wearing hospital gown with fair eye contact. Behavior: Patient is calmly lying in bed without any agitated behavior. Constricted Speech: Patient's speech is fluent and nonpressured. Mood/Affect: Patient reports their mood is "ok", affect is congruent and constricted Suicidality/Homicidality: Patient denies having any suicidal or homicidal ideation intent or plan. Perceptions: Patient denies any visual hallucinations and denies any auditory hallucinations Though content/process: [place], poverty of content. Logical. Memory and concentration: AOX3, grossly intact for the purposes of this session. Can spell "WORLD" backwards Judgment and insight: poor IMPRESSIONS: Bipolar disorder type 1 Cannabis use disorder mild Nicotine dependence PLAN: -At this time patient DOES NOT meet criteria for inpatient psychiatric admission. -Delirium precautions recommended with patient including - avoiding use of narcotics and [employer]LECT[employer]TELLIGENCE [employer]IC[employer] sedatives, limit anticholinergic medications when possible, frequent re-orientation, minimize use of restraints, open window shades during the day and close them at night -Would recommend the following medication changes/additions: Patient is currently receiving monthly Invega Sustenna injections to ensure compliance through [facility] and is followed by Dr. Singh. Patient claims that his last Invega Sustenna injection was 2 weeks ago. Patient to make continued on Prozac 40 mg daily for mood/anxiety, Lamictal 100 mg daily for mood stabilization/depression, and trazodone increased to 100 mg daily at bedtime for insomnia/mood. -Please contact [facility] once patient is discharged to inform numb where patient will be going for detention facility tomorrow. -Director Park spoke with patient about substance abuse and the harmful effects on medical and mental health, patient verbally understood and agreed. -Will continue to follow along -Please contact with any questions. 10/03/20 12:47 10/03/20 12:59
--- NOTE | 2020-10-03 15:35 | PN ---
PROGRESS NOTE DATE OF SERVICE: 10/03/2020 REASON FOR FOLLOWUP: Recurrent urinary tract infection. INTERVAL HISTORY: The patient is currently afebrile. Patient is breathing comfortably on room air. Denies having any chest pain or shortness of breath. Occasional cough. No abdominal pain or diarrhea. PHYSICAL EXAMINATION: Blood pressure 114/51 with a pulse of 72, temperature 98.1. He is 97% on room air. General description is an elderly male up in the chair in no distress. RESPIRATORY SYSTEM: Unlabored breathing, clear to auscultation anteriorly. HEART: S1, S2. Regular rate and rhythm. ABDOMEN: Soft, no tenderness. LABS: Hemoglobin is 10.6, white count 5.6, BUN of 12, creatinine 0.58. Blood and repeat urine is so far negative. DIAGNOSTIC IMPRESSION AND PLAN: Patient admitted to the hospital with recurrent urinary tract infection with outpatient urine culture positive for multidrug resistant Enterobacter and Pseudomonas. Patient is currently on Levaquin. Culture on this admission has been negative, may consider short course of Levaquin on discharge. Continue supportive care. MMODL / IJN: [id number] /
--- NOTE | 2020-10-03 15:49 | P.PN ---
Subjective Progress Note Date: 10/03/20 Principal diagnosis: Weight loss, anemia This 70-year-old white male who was sent into the hospital for complaints of weight loss, weakness, and failed outpatient treatment for urinary tract infection. The patient states he lost approximately 20 pounds in the last month. Hematology/oncology is also following and recommended a CT of the abdomen and pelvis which was negative. Also recommend further investigation with an EGD and colonoscopy, for which the patient has never had one in the past. He was scheduled today to undergo an EGD and colonoscopy however he did not complete his preop. He is seen and evaluated without any complaints of abdominal pain, nausea, or vomiting. Hemoglobin is stable at 10.6. Objective - Vital Signs Vital signs: Vital Signs Temp 98.1 F 10/03/20 12:25 Pulse 72 10/03/20 12:25 Resp 12 10/03/20 12:25 BP 114/51 10/03/20 12:25 Pulse Ox 97 10/03/20 12:25 Intake & Output 10/02/20 10/03/20 10/03/20 18:59 06:59 18:59 Intake Total 1080 3840 620 Output Total 1700 2300 2650 Balance -620 1540 -2030 Intake: Intake, IV Titration 100 Amount Levofloxacin 500Mg-D5w 100 Pmx 500 mg In Dextrose/ Water 1 100ml.bag @ 100 mls/hr IVPB Q24H [facility] Rx#: [id number] Oral 1080 3740 620 Output: Urine 1700 2300 2650 Uretheral ([place]) 1100 2200 Other: Voiding Method Indwelling Catheter Indwelling Catheter Indwelling Catheter # Voids 0 3 # Bowel Movements 0 1 # Emeses 0 - Exam General appearance: The patient is alert, oriented, appears in no acute distress. HET: Head is normocephalic and atraumatic. Conjunctiva pink. Sclera anicteric. Neck: Supple without lymphadenopathy. Abdomen: Soft, nontender, nondistended with bowel sounds. No guarding or rigidity. Extremities: Normal skin color and turgor. No pedal edema Skin: No rashes, no jaundice Neurological: No focal deficits. Alert and oriented 3. - Labs CBC & Chem 7: 10/03/20 05:49 10/03/20 05:49 Labs: Abnormal Lab Results - Last 24 Hours (Table) 10/01/20 10/02/2010/02/21 Range/Units 20:18 17:18 20:56 RBC (4.30-5.90) m/uL Hgb (13.0-17.5) gm/dL Hct (39.0-53.0) % Sodium (137-145) mmol/L Creatinine (0.66-1.25) mg/dL POC Glucose (mg/dL) 108 H 158 H (75-99) mg/dL Magnesium (1.6-2.3) mg/dL Total Protein (6.3-8.2) g/dL Lamotrigine 1.2 L (2.0-15.0) ug/mL 10/03/20 10/03/20 10/03/20 Range/Units 05:49 05:49 07:35 RBC 3.36 L (4.30-5.90) m/uL Hgb 10.6 L (13.0-17.5) gm/dL Hct 30.1 L (39.0-53.0) % Sodium 134 L (137-145) mmol/L Creatinine 0.58 L (0.66-1.25) mg/dL POC Glucose (mg/dL) 104 H (75-99) mg/dL Magnesium 1.2 L (1.6-2.3) mg/dL Total Protein 6.0 L (6.3-8.2) g/dL Lamotrigine (2.0-15.0) ug/mL 10/03/20 Range/Units 11:33 RBC (4.30-5.90) m/uL Hgb (13.0-17.5) gm/dL Hct (39.0-53.0) % Sodium (137-145) mmol/L Creatinine (0.66-1.25) mg/dL POC Glucose (mg/dL) 167 H (75-99) mg/dL Magnesium (1.6-2.3) mg/dL Total Protein (6.3-8.2) g/dL Lamotrigine (2.0-15.0) ug/mL Microbiology - Last 24 Hours (Table) 09/30/20 17:24 Blood Culture - Preliminary Blood No Growth after 48 hours 09/30/20 17:24 Blood Culture - Preliminary Blood No Growth after 48 hours Assessment and Plan (1) Normocytic anemia Narrative/Plan: This is a 70-year-old male who was sent in to emergency department from his primary care physician for failed outpatient treatment of urinary tract infe ction. An admission hemoglobin of 12.0 which dropped to 9.8, subsequently 10.4 today. Gastroenterology was asked to see the patient for anemia. The patient also has a reported history of a 20 pound weight loss within the last month, which he states is unintentional. He has had no previous endoscopy evaluation. He has been seen by hematology\oncology for his weight loss. They ordered a CT of the chest, abdomen, pelvis which showed no acute process, and no cause for weight loss. The patient denies any signs or symptoms of GI bleed. It was discussed with the patient recommendation is for upper and lower endoscopy to evaluate possible etiologies of weight loss and anemia. The patient states he will not proceed with either procedure, as he states he is feeling fine. The patient had a change of mind and states he will proceed with an EGD and colonoscopy. Patient to finish prep and plan for EGD and colonoscopy tomorrow. Current Visit: Yes Status: Acute Code(s): D64.9 - ANEMIA, UNSPECIFIED SNOMED Code(s): 507146535 (2) UTI (urinary tract infection) Current Visit: Yes Status: Acute Code(s): N39.0 - URINARY TRACT INFECTION, SITE NOT SPECIFIED SNOMED Code(s): 14536911 (3) Unintentional weight loss Current Visit: Yes Status: Acute Code(s): R63.4 - ABNORMAL WEIGHT LOSS SNOMED Code(s): 706214449 Plan: 1. Continue symptomatic and supportive care 2. Repeat CBC in the morning 3. Recommend EGD and colonoscopy, discussed the procedure, risks, and benefits of procedure with patient, he is agreeable to procee tomorrow. 4. Clear liquid diet, nothing by mouth after midnight 5. Complete bowel prep, magnesium citrate in the morning Thank you for this consultation, we will continue to follow Dr. Venegas I agree with the dictator's note, documented as a scribe by Jessica Au.
[2020-10-03 17:24] LABS: Glucose,Whole Blood 91 mg/dL (75-99)
[2020-10-03] MEDS: LEVOFLOXACIN 500MG-D5W PMX 500 MG in DEXTROSE/WATER 1 100ML.BAG IVPB SCH (18:18)
--- NOTE | 2020-10-03 20:09 | P.PN ---
Subjective Progress Note Date: 10/03/20 Principal diagnosis: Egan catheter associated urinary tract infection generalized weakness anemia 70-year-old male was admitted to the hospital for failure of outpatient antibiotic therapy, due to indwelling catheter and significant weight loss over the last few months. 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 October 02, 2020 evaluated patient this a.m. resting comfortably in chair. At lengthy discussion with patient regarding diagnostic testing and laboratory results, and the possible need for upper and lower G.I. scope due to drop in hemoglobin, patient agreeable at this time. Patient denies any complaints at this time. Awaiting gastroenterology recommendations for upper and lower G.I. scope. October 03, 2020 evaluated patient this a.m. resting comfortably in chair. Patient attempting to prep for upper and lower G.I. scope. Patient endorses generalized weakness and mild anxiety. Patient denies fever, chills, shortness of breath, chest pain, abdominal pain, nausea, vomiting or diarrhea. Patient agreeable to have G.I. scope of upper and lower done before discharge to residential facility. Objective - Vital Signs Vital signs: Vital Signs Temp 98.1 F 10/03/20 12:25 Pulse 72 10/03/20 12:25 Resp 12 10/03/20 12:25 BP 114/51 10/03/20 12:25 Pulse Ox 97 10/03/20 12:25 Intake & Output 10/03/20 10/03/20 10/04/20 06:59 18:59 06:59 Intake Total 3840 1540 Output Total 2300 2650 Balance 1540 -1110 Intake: Intake, IV Titration 100 100 Amount Levofloxacin 500Mg-D5w 100 100 Pmx 500 mg In Dextrose/ Water 1 100ml.bag @ 100 mls/hr IVPB Q24H [facility] Rx#: [id number] Oral 3740 1440 Output: Urine 2300 2650 Uretheral (Egan) 1100 2200 Other: Voiding Method Indwelling Catheter Indwelling Catheter # Voids 3 6 # Bowel Movements 1 - Constitutional General appearance: Present: disheveled, no acute distress - EENT Eyes: Present: EOMI, PERRLA Ears: bilateral: normal - Neck Neck: Present: normal ROM Carotids: bilateral: upstroke normal Thyroid: bilateral: normal size - Respiratory Respiratory: bilateral: CTA - Cardiovascular Heart rate: 74 Rhythm: regular Heart sounds: normal: S1, S2 - Peripheral pulses dorsalis pedis Peripheral Pulses: bilateral: Normal radial pulse Peripheral Pulses: bilateral: Normal - Gastrointestinal General gastrointestinal: Present: normal bowel sounds - Integumentary Integumentary: Present: normal turgor - Neurologic Neurologic: Present: CNII-XII intact - Musculoskeletal Musculoskeletal: Present: generalized weakness - Allied health notes Allied health notes reviewed: nursing - Labs CBC & Chem 7: 10/03/20 05:49 10/03/20 05:49 Labs: Abnormal Lab Results - Last 24 Hours (Table) 10/01/20 10/02/20 10/03/20 Range/Units 20:18 20:56 05:49 RBC 3.36 L (4.30-5.90) m/uL Hgb 10.6 L (13.0-17.5) gm/dL Hct 30.1 L (39.0-53.0) % Sodium (137-145) mmol/L Creatinine (0.66-1.25) mg/dL POC Glucose (mg/dL) 158 H (75-99) mg/dL Magnesium (1.6-2.3) mg/dL Total Protein (6.3-8.2) g/dL Lamotrigine 1.2 L (2.0-15.0) ug/mL 10/03/20 10/03/20 10/03/20 Range/Units 05:49 07:35 11:33 RBC (4.30-5.90) m/uL Hgb (13.0-17.5) gm/dL Hct (39.0-53.0) % Sodium 134 L (137-145) mmol/L Creatinine 0.58 L (0.66-1.25) mg/dL POC Glucose (mg/dL) 104 H 167 H (75-99) mg/dL Magnesium 1.2 L (1.6-2.3) mg/dL Total Protein 6.0 L (6.3-8.2) g/dL Lamotrigine (2.0-15.0) ug/mL Microbiology - Last 24 Hours (Table) 09/30/20 17:24 Blood Culture - Preliminary Blood No Growth after 72 hours 09/30/20 17:24 Blood Culture - Preliminary Blood No Growth after 72 hours Assessment and Plan Assessment: egan Catheter associated urinary tract infection Significant weight loss generalized weakness hypo magnesium diabetes mellitus type II hyperlipidemia hypertension anxiety bipolar schizophrenia substance abuse with marijuana hypotonic neurogenic bladder hypothyroidism Full code Plan: egan Catheter associated urinary tract infection, IV Levaquin, consultation wit h infectious disease for recommendations significant weight loss, consultation with hematology/oncology for recommendations and treatment plan Hypotonic neurogenic bladder, consultation with urology for recommendations and treatment plan anemia, trending H&H, Plan for upper lower G.I. scope tomorrow continue home medications continue to monitor vital signs and diagnostic testing further recommendations to come patient patient's clinical condition Hopeful discharge to residential facility tomorrow after G.I. scopes Time with Patient: Greater than 30
[2020-10-03 20:30] LABS: Glucose,Whole Blood 90 mg/dL (75-99)
[2020-10-03] MEDS: ATORVASTATIN 40 MG TAB PO SCH (20:58)
[2020-10-03] MEDS ORDERED: traZODone HCL 100 MG TAB PO SCH (21:00)
[2020-10-04] MEDS: LACTATED RINGERS 1,000 ML IV SCH ×2 (04:59→13:21)
[2020-10-04] MEDS: LEVOTHYROXINE 50 MCG TAB PO SCH (05:47)
[2020-10-04] MEDS ORDERED: MAGNESIUM CITRATE 296 ML BOTTLE PO ONE (06:00)
[2020-10-04] MEDS ORDERED: Magnesium Replacement Protocol 1 EACH MISC MISCELLANE PRN (06:21)
[2020-10-04 07:03] LABS: Basophils # (A) 0.1 k/uL (0-0.2); Basophils % (A) 1 %; Eosinophils # (A) 0.1 k/uL (0-0.7); Eosinophils % (A) 1 %; HCT 33.6 % (39.0-53.0); HGB 11.7 gm/dL (13.0-17.5); Lymphocytes % (A) 21 %; MCH 31.3 pg (25.0-35.0); MCV 89.4 fL (80.0-100.0); Mean Platelet Volume 6.8; Monocytes # (A) 0.3 k/uL (0-1.0); Monocytes % (A) 3 %; Neutrophils # (A) 6.7 k/uL (1.3-7.7); Neutrophils % (A) 73 %; Platelet Count 330 k/uL (150-450); RBC 3.76 m/uL (4.30-5.90); RDW 13.6 % (11.5-15.5); WBC 9.2 k/uL (3.8-10.6)
[2020-10-04 07:28] LABS: Glucose,Whole Blood 112 mg/dL (75-99)
--- NOTE | 2020-10-04 07:31 | P.PN ---
Subjective Progress Note Date: 10/04/20 Principal diagnosis: Egan catheter associated urinary tract infection generalized weakness anemia 70-year-old male was admitted to the hospital for failure of outpatient antibiotic therapy, due to indwelling catheter and significant weight loss over the last few months. 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 October 02, 2020 evaluated patient this a.m. resting comfortably in chair. At lengthy discussion with patient regarding diagnostic testing and laboratory results, and the possible need for upper and lower G.I. scope due to drop in hemoglobin, patient agreeable at this time. Patient denies any complaints at this time. Awaiting gastroenterology recommendations for upper and lower G.I. scope. October 03, 2020 evaluated patient this a.m. resting comfortably in chair. Patient attempting to prep for upper and lower G.I. scope. Patient endorses generalized weakness and mild anxiety. Patient denies fever, chills, shortness of breath, chest pain, abdominal pain, nausea, vomiting or diarrhea. Patient agreeable to have G.I. scope of upper and lower done before discharge to [facility] facility. 10/04/2020 Evaluated patient this a.m. resting comfortably in chair, patient finishing up GI prep for upper and lower GI scope today. Patient seen by psychiatry yesterday adjustment of psychotropic meds. Patient denies any complaints at this time. Awaiting upper and lower GI scope, with possible discharge to [facility] home today after GI scopes. Objective - Vital Signs Vital signs: Vital Signs Temp 98.5 F 10/04/20 05:00 Pulse 67 10/04/20 05:00 Resp 20 10/04/20 05:00 BP 136/68 10/04/20 05:00 Pulse Ox 97 10/04/20 05:00 Intake & Output 10/03/20 10/04/20 10/04/20 18:59 06:59 18:59 Intake Total 1540 1880 Output Total 2650 1700 Balance -1110 180 Intake: Intake, IV Titration 100 1200 Amount Lactated Ringers 1,000 ml 1200 @ 100 mls/hr IV .Q10H [facility] Rx#:[id number] Levofloxacin 500Mg-D5w 100 Pmx 500 mg In Dextrose/ Water 1 100ml.bag @ 100 mls/hr IVPB Q24H [facility] Rx#: [id number] Oral 1440 680 Output: Urine 2650 1700 Uretheral (Egan) 2200 1700 Other: Voiding Method Indwelling Catheter Indwelling Catheter # Voids 6 1 # Bowel Movements 1 1 - Constitutional General appearance: Present: disheveled - EENT Eyes: Present: EOMI, PERRLA Ears: bilateral: normal - Neck Neck: Present: normal ROM Carotids: bilateral: upstroke normal Thyroid: bilateral: normal size - Respiratory Respiratory: bilateral: CTA (Anterior and posterior) - Cardiovascular Details: Normal sinus rhythm Heart rate: 74 Rhythm: regular Heart sounds: normal: S1, S2 - Peripheral pulses radial pulse Peripheral Pulses: bilateral: Normal dorsalis pedis Peripheral Pulses: bilateral: Normal - Gastrointestinal General gastrointestinal: Present: normal bowel sounds - Integumentary Integumentary: Present: pale - Neurologic Neurologic: Present: CNII-XII intact - Musculoskeletal Musculoskeletal: Present: generalized weakness - Psychiatric Psychiatric: Present: A&O x's 3 - Allied health notes Allied health notes reviewed: nursing - Labs CBC & Chem 7: 10/04/20 05:50 10/03/20 05:49 Labs: Abnormal Lab Results - Last 24 Hours (Table) 10/01/20 10/03/20 10/03/20 Range/Units 20:18 07:35 11:33 RBC (4.30-5.90) m/uL Hgb (13.0-17.5) gm/dL Hct (39.0-53.0) % POC Glucose (mg/dL) 104 H 167 H (75-99) mg/dL Lamotrigine 1.2 L (2.0-15.0) ug/mL 10/04/20 Range/Units 05:50 RBC 3.76 L (4.30-5.90) m/uL Hgb 11.7 L (13.0-17.5) gm/dL Hct 33.6 L (39.0-53.0) % POC Glucose (mg/dL) (75-99) mg/dL Lamotrigine (2.0-15.0) ug/mL Microbiology - Last 24 Hours (Table) 09/30/20 17:24 Blood Culture - Preliminary Blood No Growth after 72 hours 09/30/20 17:24 Blood Culture - Preliminary Blood No Growth after 72 hours Assessment and Plan Assessment: egan Catheter associated urinary tract infection Significant weight loss generalized weakness hypo magnesium diabetes mellitus type II hyperlipidemia hypertension anxiety bipolar schizophrenia substance abuse with marijuana hypotonic neurogenic bladder hypothyroidism Full code Plan: egan Catheter associated urinary tract infection, IV Levaquin, consultation with infectious disease for recommendations significant weight loss, consultation with hematology/oncology for recommendations and treatment plan Hypotonic neurogenic bladder, consultation with urology for recommendations and treatment plan anemia, trending H&H, Plan for upper lower G.I. scope today continue home medications continue to monitor vital signs and diagnostic testing further recommendations to come patient patient's clinical condition Hopeful discharge to [facility] facility today after G.I. scopes Time with Patient: Greater than 30
[2020-10-04] MEDS: MAGNESIUM SULFATE-D5W PMX 1 GM in DEXTROSE/WATER 1 100ML.BAG IVPB SCH ×3 (08:03→11:44)
[2020-10-04] MEDS: amLODIPine 10 MG TAB PO SCH (08:12)
[2020-10-04] MEDS: hydrALAZINE HCL 25 MG TAB PO SCH (08:12)
[2020-10-04] MEDS: NICOTINE 21MG/24HR PATCH TRANSDERM SCH ×2 (08:12→08:21)
[2020-10-04] MEDS: lamoTRIgine 100 MG TAB PO SCH (08:13)
[2020-10-04] MEDS: PANTOPRAZOLE 40 MG TABLET PO SCH (08:13)
[2020-10-04] MEDS: MULTIVITAMINS, THERA 1 EACH TAB PO SCH (08:13)
[2020-10-04] MEDS: FLUoxetine HCL 20 MG CAP PO SCH (08:14)
[2020-10-04] MEDS: metFORMIN 500 MG TAB PO SCH (08:14)
[2020-10-04] MEDS: INSULIN ASPART (NovoLOG) 100 UNIT/ML VIAL SQ SCH ×2 (08:15→11:54)
[2020-10-04] MEDS: TAMSULOSIN 0.4 MG CAP.ER.24H PO SCH (08:22)
[2020-10-04 10:20] VITALS: PULSE 75
[2020-10-04 11:45] LABS: Glucose,Whole Blood 107 mg/dL (75-99)
[2020-10-04] MEDS ORDERED: PROPOFOL 10 MG/ML 20 ML VIAL IV ONE (12:30)
[2020-10-04] MEDS ORDERED: LIDOCAINE 1% INJ 10MG/ML (20 ML MDV) ONE (12:30)
[2020-10-04] MEDS ORDERED: IV FLUID CONTINUATION 200 ML IV ONE (12:35)
--- NOTE | 2020-10-04 13:00 | P.PCN ---
Date of Procedure: 10/04/20 Procedure(s) Performed: Brief history: Patient is a pleasant 70-year-old white male scheduled for an elective upper endoscopy as well as colonoscopy as a part of evaluation of anemia, progressive weight loss of 30 pounds in the last few months duration. Also has been complaining of change in bowel habits. Procedure performed: Esophagogastroduodenoscopy with biopsy Colonoscopy Preoperative diagnosis: Anemia, change in bowel habits and progressive weight loss of 20 pounds in the last 6 months duration Anesthesia: MAC Procedure: After informed consent was obtained from the patient was brought into the endoscopy unit and IV sedation was administered by anesthesia under continuous monitoring. Initially upper endoscopy was done. The Olympus GF 160 video endoscope was inserted inserted into the mouth and esophagus intubated without any difficulty and was gradually advanced into the stomach and duodenum and carefully examined. The bulb and second part of the duodenum appeared normal. The scope was then withdrawn into the stomach adequately insufflated with air and upon careful examination the antrum and body, cardia and fundus appeared normal. The scope was then withdrawn into the esophagus. The GE junction was located at 40 cm to the incisors. It appeared regular with no erythema erosions or ulcerations. Rest of the esophagus appeared normal. Patient tolerated the procedure well. At this time the patient continued to remain sedation. Initial digital rectal examination was normal. Olympus CF 160 video colonoscope was then inserted into the rectum and gradually advanced to the cecum without any difficulty. Careful examination was performed as the scope was gradually being withdrawn. The prep was excellent. The cecum, ascending colon, transverse colon, descending colon, sigmoid colon and rectum appeared normal. Retroflexion was performed in the rectum and no lesions were noted. Patient tolerated the procedure well. Impression: 1. Upper endoscopy revealed a small sliding Hiatal hernia but no evidence of esophagitis or gastritis 2. Colonoscopy was essentially within normal limits with no evidence of colitis or colorectal neoplasia colonoscopyRecommendations: Findings of this examination were discussed with the patient . He was advised to follow with the biopsy results. Diet will be advanced as tolerated.
[2020-10-04 13:25] VITALS: BMI 25.7
--- NOTE | 2020-10-04 13:30 | P.PN ---
Progress Note - Text Progress Note Date: 10/04/20 Interval History: Patient was seen today for psychiatric follow-up regarding patient's bipolar d isorder and medications. patient was seen today after completing the colonoscopy earlier this morning. Patient was sitting in bed watching television. She claims that he is feeling better today and claims that the colonoscopy went well today. He states that he is not having any depression or anxiety today. He claims that he feels "excellent to go home". He continues to have a constricted affect however. He states that he is hungry and will be eating lunch and a little bit. He states that he was able to sleep fairly throughout the night and wants to continue on the same dose of trazodone. At this time patient denies any suicidal or homical ideations, intent or plan. Patient denies any auditory, visual hallucinations and denies any paranoia or delusions. Patient denies any side effects from the medications and has been compliant with meds. Mental Status Exam: General Appearance: Patient appears to be stated age is alert, constricted, and cooperative. Patient appears to have fair hygiene and grooming wearing hospital gown with fair eye contact. Behavior: Patient is calmly lying in bed without any agitated behavior. Constricted Speech: Patient's speech is fluent and nonpressured. Mood/Affect: Patient reports their mood is "good", affect is congruent and constricted Suicidality/Homicidality: Patient denies having any suicidal or homicidal ideation intent or plan. Perceptions: Patient denies any visual hallucinations and denies any auditory hallucinations Though content/process: Reliance, poverty of content. Logical. Memory and concentration: AOX3, grossly intact for the purposes of this session. Judgment and insight: proving Assessment Bipolar disorder type 1 Cannabis use disorder mild Nicotine dependence Plan: -At this time patient DOES NOT meet criteria for inpatient psychiatric admission. -Delirium precautions recommended with patient including - avoiding use of narcotics and SHIP SCR[employer]ER sedatives, limit anticholinergic medications when possible, frequent re-orientation, minimize use of restraints, open window shades during the day and close them at night -Would recommend the following medication changes/additions: Patient is currently receiving monthly Invega Sustenna injections to ensure compliance through [facility] and is followed by Dr. Singh. Patient claims that his last Invega Sustenna injection was 2 weeks ago. Patient to be continued on Prozac 40 mg daily for mood/anxiety, Lamictal 100 mg daily for mood stabilization/depression. continue with trazodone increased 100 mg daily at bedtime for insomnia/mood. -Please contact [facility] once patient is discharged to inform them where patient will be going for group home facility tomorrow. -at this time psychiatry will sign off. -Please contact with any questions.
[2020-10-04 13:56] VITALS: BP 116/51; RESP 16; TEMP 97.7
[2020-10-04 13:57] LABS: African American GFR (CKD) 118.1 (60.0-200.0); Anion Gap 9.9 mmol/L (4.00-12.00); BUN/Creat Ratio 16.67 Ratio (12.00-20.00); Calcium 9.5 mg/dL (8.7-10.3); Carbon Dioxide 25.1 mmol/L (21.6-31.8); Magnesium 1.3 mg/dL (1.5-2.4); Non-African American GFR(CKD) 101.9 (60.0-200.0); Potassium 4.2 mmol/L (3.5-5.5)
--- NOTE | 2020-10-04 14:21 | P.DS ---
Providers Date of admission: 10/01/20 09:49 Expected date of discharge: 10/04/20 Attending physician: Dallin Jurado Consults: 09/30/20 18:29 Consult Physician Urgent Consulting Provider: Wilman Woods Consult Reason/Comments: chronic UTI Do you want consulting provider notified?: Yes 09/30/20 18:42 Consult Physician Urgent Consulting Provider: Lang Perez Consult Reason/Comments: chronic egan catheter Do you want consulting provider notified?: Yes 09/30/20 20:46 Consult Physician Urgent Consulting Provider: Julio Resendiz Consult Reason/Comments: unintentional weight loss Do you want consulting provider notified?: Yes 10/01/20 19:21 Consult Physician Urgent Consulting Provider: Nicole Burgos Consult Reason/Comments: Significant anemia Do you want consulting provider notified?: Yes 10/02/20 15:23 Consult Physician Urgent Consulting Provider: Vladimir Earl Consult Reason/Comments: management schizophrenia Do you want consulting provider notified?: Yes Primary care physician: Dallin Jurado Hospital Course: 70-year-old male was admitted to the hospital for failure of outpatient antibiotic therapy, due to indwelling catheter and significant weight loss over the last few months. 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 Gastroenterology recommended upper and lower J's cope due to recent weight loss and anemia, completed upper G.I. in lower G.I. no acute abnormalities noted for gastroenterology. Patient had broad-spectrum antibiotics of IV Levaquin for duration of hospital stay will be discharged in 3 day duration of IV antibiotics due to culture and sensitivity. Infectious disease agrees with treatment plan of outpatient oral antibiotics. Patient will require intensive rehab therapy to due to quantities with generalized weakness, clinical impression patient will benefit from rehab as detention facility. Assessment: egan Catheter associated urinary tract infection Significant weight loss generalized weakness hypo magnesium diabetes mellitus type II hyperlipidemia hypertension anxiety bipolar schizophrenia substance abuse with marijuana hypotonic neurogenic bladder hypothyroidism Full code Health Concerns: Bipolar and schizophrenia multiple comorbidities poor medical complaints Pertinent Studies: CT of chest abdomen and pelvis no acute abnormalities noted chest x-ray no acute pulmonary processes noted Procedures: Upper and lower G.I. performed by gastroenterology no acute abnormalities noted per procedure notes Patient Condition at Discharge: Fair Plan - Discharge Summary Discharge Rx Participant: Yes New Discharge Prescriptions: New traZODone HCL [Desyrel] 100 mg PO HS #30 tab Levofloxacin [Levaquin] 500 mg PO DAILY 3 Days #3 tab Magnesium Oxide [Mag-Oxide] 200 mg PO BID #30 tablet Continue Omeprazole [PriLOSEC] 40 mg PO BID Levothyroxine Sodium [Synthroid] 50 mcg PO DAILY lamoTRIgine [LaMICtal] 100 mg PO DAILY hydrALAZINE HCL [Apresoline] 25 mg PO BID FLUoxetine HCL [PROzac] 40 mg PO DAILY Multivitamins, Thera [Multivitamin (formulary)] 1 tab PO DAILY Tamsulosin [Flomax] 0.4 mg PO DAILY amLODIPine [Norvasc] 10 mg PO DAILY #30 tab metFORMIN HCL 1,000 mg PO BID Shoshone-3/Dha/Epa/Fish Oil [Fish Oil 500 mg Softgel] 1 cap PO DAILY Paliperidone IM [Invega Sustenna] 234 mg INJ Q28D Atorvastatin Calcium [Lipitor] 40 mg PO HS Discontinued traZODone HCL [Desyrel] 50 mg PO HS Cephalexin [Keflex] 500 mg PO BID Discharge Medication List Tamsulosin [Flomax] 0.4 mg PO DAILY 08/03/20 [History] amLODIPine [Norvasc] 10 mg PO DAILY #30 tab 08/06/20 [Rx] Omeprazole [PriLOSEC] 40 mg PO BID 08/16/20 [History] Levothyroxine Sodium [Synthroid] 50 mcg PO DAILY 08/21/20 [History] metFORMIN HCL 1,000 mg PO BID 08/21/20 [History] Atorvastatin Calcium [Lipitor] 40 mg PO HS 09/30/20 [History] FLUoxetine HCL [PROzac] 40 mg PO DAILY 09/30/20 [History] Multivitamins, Thera [Multivitamin (formulary)] 1 tab PO DAILY 09/30/20 [History] Shoshone-3/Dha/Epa/Fish Oil [Fish Oil 500 mg Softgel] 1 cap PO DAILY 09/30/20 [History] Paliperidone IM [Invega Sustenna] 234 mg INJ Q28D 09/30/20 [History] hydrALAZINE HCL [Apresoline] 25 mg PO BID 09/30/20 [History] lamoTRIgine [LaMICtal] 100 mg PO DAILY 09/30/20 [History] Levofloxacin [Levaquin] 500 mg PO DAILY 3 Days #3 tab 10/04/20 [Rx] Magnesium Oxide [Mag-Oxide] 200 mg PO BID #30 tablet 10/04/20 [Rx] traZODone HCL [Desyrel] 100 mg PO HS #30 tab 10/04/20 [Rx] Follow up Appointment(s)/Referral(s): Dallin Jurado MD [Primary Care Provider] - 1-2 days Discharge Disposition: TRANSFER TO SNF/ECF
--- NOTE | 2020-10-04 15:33 | PN ---
PROGRESS NOTE DATE OF SERVICE: 10/04/2020 REASON FOR FOLLOWUP: Urinary tract infection. INTERVAL HISTORY: The patient is currently afebrile. The patient is breathing comfortably. The patient denies having any chest pain. No shortness of breath, cough, no abdominal pain or diarrhea. PHYSICAL EXAMINATION: Blood pressure 116/51 with a pulse of 75. Temperature is 97.7. He is 96% on room air. General description: The patient is an elderly male up in the chair in no distress. Respiratory system: Unlabored breathing, clear to auscultation anteriorly. Heart S1, S2. Regular rate and rhythm. ABDOMEN: Soft, no tenderness. LABS: Hemoglobin 11.8, white count 9.2, BUN of 10, creatinine 0.6. Blood culture negative. Repeat urine is negative. DIAGNOSTIC IMPRESSION AND PLAN: Patient admitted to the hospital with concerning for urinary tract infection in the outpatient setting. He did have positive UA with culture negative, possible versus mild cystitis, adequately treated. Consider a short course of oral Levaquin on discharge. MMODL / IJN: [id number] /
== END 2020-10-04 17:52 | DRG 699 ==
LOC: EEVIPCON 16:31 → EC 16:31 → 5NMEDONC 17:15 → OBSVTOIN 10-01 09:49
PROVIDERS: ADMIT Family Medicine; ATTEND Family Medicine
PROC: 0DJD8ZZ Inspection of Lower Intestinal Tract, Via Natural or Artificial Opening Endoscopic (ICD-10-PCS; principal; 2020-10-01)
PROC: 0DB98ZX Excision of Duodenum, Via Natural or Artificial Opening Endoscopic, Diagnostic (ICD-10-PCS; principal; 2020-10-01)
DX: T83.511A Infection and inflammatory reaction due to indwelling urethral catheter, initial encounter (principal); F31.30 Bipolar disorder, current episode depressed, mild or moderate severity, unspecified; E87.1 Hypo-osmolality and hyponatremia; Z16.24 Resistance to multiple antibiotics; N31.2 Flaccid neuropathic bladder, not elsewhere classified; E11.40 Type 2 diabetes mellitus with diabetic neuropathy, unspecified; B96.5 Pseudomonas (aeruginosa) (mallei) (pseudomallei) as the cause of diseases classified elsewhere; B96.89 Other specified bacterial agents as the cause of diseases classified elsewhere; F20.9 Schizophrenia, unspecified; N39.0 Urinary tract infection, site not specified; Z20.822 Contact with and (suspected) exposure to COVID-19; I10 Essential (primary) hypertension; E78.5 Hyperlipidemia, unspecified; R33.9 Retention of urine, unspecified; D64.9 Anemia, unspecified; E03.9 Hypothyroidism, unspecified; E87.6 Hypokalemia; E83.42 Hypomagnesemia; K44.9 Diaphragmatic hernia without obstruction or gangrene; R27.9 Unspecified lack of coordination; R19.4 Change in bowel habit; R63.4 Abnormal weight loss; F41.9 Anxiety disorder, unspecified; G47.00 Insomnia, unspecified; F12.10 Cannabis abuse, uncomplicated; F17.210 Nicotine dependence, cigarettes, uncomplicated; F17.290 Nicotine dependence, other tobacco product, uncomplicated; Z60.2 Problems related to living alone; Z79.84 Long term (current) use of oral hypoglycemic drugs; Z79.890 Hormone replacement therapy; Z79.82 Long term (current) use of aspirin; Z79.899 Other long term (current) drug therapy; Z90.89 Acquired absence of other organs; Z87.440 Personal history of urinary (tract) infections; Z91.5 Personal history of self-harm; Z98.890 Other specified postprocedural states; Z88.6 Allergy status to analgesic agent; Y84.6 Urinary catheterization as the cause of abnormal reaction of the patient, or of later complication, without mention of misadventure at the time of the procedure; Y92.009 Unspecified place in unspecified non-institutional (private) residence as the place of occurrence of the external cause; Z82.49 Family history of ischemic heart disease and other diseases of the circulatory system; Z83.3 Family history of diabetes mellitus
CPT/HCPCS: 36415; 43239; 45378; 71045; 71260; 74177; 80048; 80053; 80061; 80175; 81001; 82306; 82607; 82728; 82746; 83036; 83540; 83550; 83605; 83735; 83921; 84100; 84145; 84153; 84154; 84425; 84443; 85025; 85045; 85610; 85730; 86140; 87040; 87086; 87635; 88305; 99285

== ENCOUNTER 2020-10-05 11:04 | Inpatient (IN) | payer MEDICARE, BC ==
[2020-10-05 12:00] LABS: Basophils % (A) 0 %; Eosinophils % (A) 1 %; HCT 32.5 % (39.0-53.0); HGB 10.7 gm/dL (13.0-17.5); Lymphocytes # (A) 1.2 k/uL (1.0-4.8); Lymphocytes % (A) 15 %; MCH 29.5 pg (25.0-35.0); MCHC 33.1 g/dL (31.0-37.0); MCV 89.2 fL (80.0-100.0); Mean Platelet Volume 6.7; Monocytes # (A) 0.3 k/uL (0-1.0); Monocytes % (A) 4 %; Neutrophils # (A) 6.2 k/uL (1.3-7.7); Neutrophils % (A) 79 %; Platelet Count 322 k/uL (150-450); RBC 3.64 m/uL (4.30-5.90); RDW 14.3 % (11.5-15.5); WBC 7.9 k/uL (3.8-10.6)
[2020-10-05 12:20] LABS: Amphetamine Screen,Urine Not Detected (NotDetected); Barbiturate Screen,Urine Not Detected (NotDetected); Benzodiazepines Screen,Urine Not Detected (NotDetected); Cocaine Screen,Urine Not Detected (NotDetected); Methadone Screen, Urine Not Detected (NotDetected); Opiate Screen,Urine Not Detected (NotDetected); Oxycodone Screen, Urine Not Detected (NotDetected); Phencyclidine Screen,Urine Not Detected (NotDetected); Tricyclic Antidepressant,Urine Not Detected (NotDetected); Urn Cannabinoid Scrn Not Detected (NotDetected)
--- NOTE | 2020-10-05 12:20 | ED ---
General Adult HPI - General Chief complaint: Altered Mental Status Stated complaint: mental health Time Seen by Provider: 10/05/20 11:05 Source: patient, EMS, RN notes reviewed, old records reviewed Mode of arrival: EMS - History of Present Illness Initial comments: This is a 70-year-old male who presents by EMS with complaints of combativeness confusion he is currently being treated for urinary tract infection. No trauma reported no fevers chills or sweats. He is under petition. - Related Data Home Medications Medication Instructions Recorded Confirmed Tamsulosin [Flomax] 0.4 mg PO DAILY 08/03/20 10/05/20 Omeprazole [PriLOSEC] 40 mg PO BID 08/16/20 10/05/20 Levothyroxine Sodium [Synthroid] 50 mcg PO DAILY 08/21/20 10/05/20 metFORMIN HCL 1,000 mg PO BID 08/21/20 10/05/20 Atorvastatin Calcium [Lipitor] 40 mg PO HS 09/30/20 10/05/20 FLUoxetine HCL [PROzac] 40 mg PO DAILY 09/30/20 10/05/20 Multivitamins, Thera [Multivitamin 1 tab PO DAILY 09/30/20 10/05/20 (formulary)] [place]-3/Dha/Epa/Fish Oil [Fish Oil 1 cap PO DAILY 09/30/20 10/05/20 500 mg Softgel] Paliperidone IM [Invega Sustenna] 234 mg INJ Q28D 09/30/20 10/05/20 hydrALAZINE HCL [Apresoline] 25 mg PO BID 09/30/20 10/05/20 lamoTRIgine [LaMICtal] 100 mg PO DAILY 09/30/20 10/05/20 Previous Rx's Medication Instructions Recorded amLODIPine [Norvasc] 10 mg PO DAILY #30 tab 08/06/20 Levofloxacin [Levaquin] 500 mg PO DAILY 3 Days #3 tab 10/04/20 Magnesium Oxide [Mag-Oxide] 200 mg PO BID #30 tablet 10/04/20 traZODone HCL [Desyrel] 100 mg PO HS #30 tab 10/04/20 Allergies Allergy/AdvReac Type Severity Reaction Status Date / Time naproxen [From Naprosyn] AdvReac Swelling Verified 09/30/20 18:48 Review of Systems ROS Statement: Those systems with pertinent positive or pertinent negative responses have been documented in the HPI. ROS Other: All systems not noted in ROS Statement are negative. Past Medical History Past Medical History: Diabetes Mellitus, Hyperlipidemia, Hypertension Additional Past Medical History / Comment(s): used to take lipitor , neuropathy History of Any Multi-Drug Resistant Organisms: None Reported Past Surgical History: Tonsillectomy Past Anesthesia/Blood Transfusion Reactions: No Reported Reaction Past Psychological History: Anxiety, Bipolar, Schizophrenia Smoking Status: Former smoker Past Alcohol Use History: Occasional Past Drug Use History: Marijuana - Past Family History Mother Family Medical History: Coronary Artery Disease (CAD), Diabetes Mellitus Father Family Medical History: Coronary Artery Disease (CAD) Brother(s) Family Medical History: No Reported History General Exam - General Exam Comments Initial Comments: This is a well-developed well-nourished awake alert but slow to respond male demonstrate a flat affect General appearance: alert, in no apparent distress Head exam: Present: atraumatic, normocephalic, normal inspection Eye exam: Present: normal appearance, PERRL, EOMI. Absent: scleral icterus, conjunctival injection, periorbital swelling ENT exam: Present: mucous membranes dry Neck exam: Present: normal inspection. Absent: tenderness, meningismus, lymphadenopathy Respiratory exam: Present: normal lung sounds bilaterally. Absent: respiratory distress, wheezes, rales, rhonchi, stridor Cardiovascular Exam: Present: regular rate, normal rhythm, normal heart sounds. Absent: systolic murmur, diastolic murmur, rubs, gallop, clicks GI/Abdominal exam: Present: soft, normal bowel sounds. Absent: distended, tenderness, guarding, rebound, rigid Extremities exam: Present: normal inspection, full ROM, normal capillary refill. Absent: tenderness, pedal edema, joint swelling, calf tenderness Back exam: Present: normal inspection Neurological exam: Present: alert, oriented X3, CN II-XII intact Psychiatric exam: Present: flat affect Skin exam: Present: warm, dry, intact, normal color. Absent: rash Course Vital Signs 10/05/20 11:05 Temperature 98.2 F Pulse Rate 73 Respiratory 18 Rate Blood Pressure 155/69 O2 Sat by Pulse 99 Oximetry - Reevaluation(s) Reevaluation #1: 10/05/20 14:47 The presentation patient will be admitted for evaluation of altered mental status will continue with antibiotics for urinary tract infection treatment Medical Decision Making - Medical Decision Making Patient will be admitted for evaluation of altered mental status patient will be admitted the patient Dr. Jurado's and covered by them today - Lab Data Result diagrams: 10/05/20 11:46 10/05/20 11:46 Lab Results 10/05/20 10/05/20 10/05/20 Range/Units 11:46 11:46 11:46 WBC 7.9 (3.8-10.6) k/uL RBC 3.64 L (4.30-5.90) m/uL Hgb 10.7 L (13.0-17.5) gm/dL Hct 32.5 L (39.0-53.0) % MCV 89.2 (80.0-100.0) fL MCH 29.5 (25.0-35.0) pg MCHC 33.1 (31.0-37.0) g/dL RDW 14.3 (11.5-15.5) % Plt Count 322 (150-450) k/uL MPV 6.7 Neutrophils % 79 % Lymphocytes % 15 % Monocytes % 4 % Eosinophils % 1 % Basophils % 0 % Neutrophils # 6.2 (1.3-7.7) k/uL Lymphocytes # 1.2 (1.0-4.8) k/uL Monocytes # 0.3 (0-1.0) k/uL Eosinophils # 0.0 (0-0.7) k/uL Basophils # 0.0 (0-0.2) k/uL Sodium 137 (137-145) mmol/L Potassium 3.9 (3.5-5.1) mmol/L Chloride 104 (98-107) mmol/L Carbon Dioxide 27 (22-30) mmol/L Anion Gap 6 mmol/L BUN 16 (9-20) mg/dL Creatinine 0.59 L (0.66-1.25) mg/dL Est GFR (CKD-EPI)AfAm >90 (>60 ml/min/1.73 sqM) Est GFR (CKD-EPI)NonAf >90 (>60 ml/min/1.73 sqM) Glucose 95 (74-99) mg/dL Calcium 9.4 (8.4-10.2) mg/dL Total Bilirubin <0.1 L (0.2-1.3) mg/dL AST 29 (17-59) U/L ALT 28 (4-49) U/L Alkaline Phosphatase 74 (38-126) U/L Total Protein 6.3 (6.3-8.2) g/dL Albumin 3.6 (3.5-5.0) g/dL Urine Opiates Screen Not Detected (NotDetected) Ur Oxycodone Screen Not Detected (NotDetected) Urine Methadone Screen Not Detected (NotDetected) Ur Propoxyphene Screen Not Detected (NotDetected) Ur Barbiturates Screen Not Detected (NotDetected) U Tricyclic Antidepress Not Detected (NotDetected) Ur Phencyclidine Scrn Not Detected (NotDetected) Ur Amphetamines Screen Not Detected (NotDetected) U Methamphetamines Scrn Not Detected (NotDetected) U Benzodiazepines Scrn Not Detected (NotDetected) Urine Cocaine Screen Not Detected (NotDetected) U Marijuana (THC) Screen Not Detected (NotDetected) Coronavirus (PCR) (Not Detectd) 10/05/20 Range/Units 12:10 WBC (3.8-10.6) k/uL RBC (4.30-5.90) m/uL Hgb (13.0-17.5) gm/dL Hct (39.0-53.0) % MCV (80.0-100.0) fL MCH (25.0-35.0) pg MCHC (31.0-37.0) g/dL RDW (11.5-15.5) % Plt Count (150-450) k/uL MPV Neutrophils % % Lymphocytes % % Monocytes % % Eosinophils % % Basophils % % Neutrophils # (1.3-7.7) k/uL Lymphocytes # (1.0-4.8) k/uL Monocytes # (0-1.0) k/uL Eosinophils # (0-0.7) k/uL Basophils # (0-0.2) k/uL Sodium (137-145) mmol/L Potassium (3.5-5.1) mmol/L Chloride (98-107) mmol/L Carbon Dioxide (22-30) mmol/L Anion Gap mmol/L BUN (9-20) mg/dL Creatinine (0.66-1.25) mg/dL Est GFR (CKD-EPI)AfAm (>60 ml/min/1.73 sqM) Est GFR (CKD-EPI)NonAf (>60 ml/min/1.73 sqM) Glucose (74-99) mg/dL Calcium (8.4-10.2) mg/dL Total Bilirubin (0.2-1.3) mg/dL AST (17-59) U/L ALT (4-49) U/L Alkaline Phosphatase (38-126) U/L Total Protein (6.3-8.2) g/dL Albumin (3.5-5.0) g/dL Urine Opiates Screen (NotDetected) Ur Oxycodone Screen (NotDetected) Urine Methadone Screen (NotDetected) Ur Propoxyphene Screen (NotDetected) Ur Barbiturates Screen (NotDetected) U Tricyclic Antidepress (NotDetected) Ur Phencyclidine Scrn (NotDetected) Ur Amphetamines Screen (NotDetected) U Methamphetamines Scrn (NotDetected) U Benzodiazepines Scrn (NotDetected) Urine Cocaine Screen (NotDetected) U Marijuana (THC) Screen (NotDetected) Coronavirus (PCR) Not Detected (Not Detectd) - Radiology Data Radiology results: report reviewed (Imaging reviewed no acute findings), image reviewed Disposition Clinical Impression: Delirium due to general medical condition, Urinary tract infection, Dehydration Disposition: ADMITTED IP TO THIS [facility] Condition: Fair Referrals: Dallin Jurado MD [Primary Care Provider] - 1-2 days
[2020-10-05 12:43] LABS: ALT 28 U/L (4-49); AST 29 U/L (17-59); African American GFR (CKD) >90 (>60 ml/min/1.73 sqM); Albumin 3.6 g/dL (3.5-5.0); Alkaline Phosphatase 74 U/L (38-126); Anion Gap 6 mmol/L; Blood Urea Nitrogen 16 mg/dL (9-20); Calcium 9.4 mg/dL (8.4-10.2); Carbon Dioxide 27 mmol/L (22-30); Chloride 104 mmol/L (98-107); Glucose 95 mg/dL (74-99); Non-African American GFR(CKD) >90 (>60 ml/min/1.73 sqM); Potassium 3.9 mmol/L (3.5-5.1); Sodium 137 mmol/L (137-145); Total Bilirubin <0.1 mg/dL (0.2-1.3); Total Protein 6.3 g/dL (6.3-8.2)
[2020-10-05] MEDS ORDERED: NALOXONE 0.4 MG/ML 1 ML VIAL IV PRN (14:48)
--- NOTE | 2020-10-05 15:25 | CT ---
EXAMINATION TYPE: CT brain wo con DATE OF EXAM: 10/05/2020 COMPARISON: 09/26/2020 HISTORY: Altered mental status. CT DLP: 1100.4 mGycm Automated exposure control for dose reduction was used. Ventricles have normal size. There is no mass effect nor midline shift. There is no sign of intracran ial hemorrhage. The calvarium is intact. There is no evidence of cerebral edema. Skull base is intact . IMPRESSION: Normal unenhanced head CT scan. No change..
[2020-10-05] MEDS: SODIUM CHLORIDE 0.9% 1,000 ML IV SCH (17:18)
[2020-10-05] MEDS: metFORMIN 500 MG TAB PO SCH (17:55)
[2020-10-05] MEDS: PANTOPRAZOLE 40 MG TABLET PO SCH (17:55)
--- NOTE | 2020-10-05 18:48 | HP ---
HISTORY AND PHYSICAL DATE OF SERVICE: 10/05/2020 I am covering for Dr. Dallin Jurado. CHIEF COMPLAINT: Change in mental status. HISTORY OF PRESENT ILLNESS: This 70-year-old gentleman with a past medical history of multiple medical problems including diabetes, hypertension, hyperlipidemia, being followed by Dallin Jurado in the outpatient setting, apparently had a UTI. The patient was found to be combative, confused and the patient was taken to [facility] and admitted for further evaluation and treatment. Initial evaluation showed white count 7.9. Otherwise, the UA is not available. The patient had a CT of the brain which showed no acute abnormality. There is no history of fever, rigors, chills at this time. PAST MEDICAL HISTORY: History of diabetes, hypertension, hyperlipidemia, history of recent urinary tract infection. MEDICATIONS ARE: Desyrel, metformin, Lamictal, apresoline, Norvasc, Flomax, Prilosec, fish oil, multivitamins, magnesium oxide, Synthroid, Levaquin, Prozac, Lipitor, Invega. Doses reviewed. ALLERGIES: NAPROSYN. FAMILY HISTORY: History of CAD and diabetes in the family. SOCIAL HISTORY: Previous history of smoking, history of alcohol and THC. REVIEW OF SYSTEMS: Could not be taken because of the change in mental status. PHYSICAL EXAMINATION: The patient is conscious, confused. Pulse 78, blood pressure 172/76, respiration 18, temperature 98 degrees, pulse ox 98% on room air. HEENT: Conjunctivae normal. Oral mucosa moist. NECK: No jugular venous distention. No lymph node enlargement. CARDIOVASCULAR: S1, S2, muffled. No S3, no S4, RESPIRATORY: Diminished breath sounds at the bases. A few scattered rhonchi. ABDOMEN: Soft, nontender. LEGS: No edema, no swelling. NERVOUS SYSTEM: Higher functions mentioned earlier. Moves all four limbs. No focal motor or sensory deficits. LYMPHATICS: No lymph node in neck or axilla. SKIN: No rash. JOINTS: No active deforming arthropathy. LAB STUDIES: WBC 7, hemoglobin 10.7. Other labs are noted. ASSESSMENT: 1. Change in mental status, possibly urinary tract infection and sepsis. 2. Rule out psychosis. 3. Dehydration. 4. Anemia, normocytic. 5. Diabetes mellitus type 2. 6. Hypertension. 7. Hyperlipidemia. 8. History of peripheral neuropathy. 9. History of anxiety, bipolar, schizophrenia. 10.History of nicotine dependence. 11.History of THC. 12.FULL CODE. RECOMMENDATION: In this 70-year-old gentleman who presented with multiple complex medical issues, we will monitor the patient closely, continue the current medications, continue symptomatic treatment. Will recommend continue with empiric antibiotics and IV fluids. Psychiatric consultation. I would also recommend UA with micro and cultures. CT scan did not show any acute abnormality. Prognosis guarded because of multiple complex medical issues. Further recommendations to follow. MMODL / IJN: [id number] /
[2020-10-05 20:59] LABS: Appearance,Urine Cloudy (Clear); Bilirubin,Urine Negative (Negative); Blood,Urine Large (Negative); Color,Urine Light Yellow; Glucose,Urine (UA) Negative (Negative); Ketones,Urine Negative (Negative); Leukocyte Esterase,Urine Small (Negative); Mucus,Urine Rare /hpf; Nitrite,Urine Negative (Negative); Protein,Urine Trace (Negative); RBC,Urine >182 /hpf (0-5); Specific Gravity,Urine 1.009 (1.001-1.035); Urobilinogen,Urine <2.0 mg/dL (<2.0); WBC,Urine 9 /hpf (0-5)
[2020-10-05] MEDS: MAGNESIUM OXIDE 400 MG TAB PO SCH (22:41)
[2020-10-05] MEDS: HEPARIN SODIUM,PORCINE/PF 5,000 UNIT/0.5 ML SYRINGE SQ SCH (22:41)
[2020-10-05] MEDS: hydrALAZINE HCL 25 MG TAB PO SCH (22:42)
[2020-10-05] MEDS: traZODone HCL 100 MG TAB PO SCH (22:42)
[2020-10-05] MEDS: ATORVASTATIN 40 MG TAB PO SCH (22:42)
[2020-10-06] MEDS: HYDROcodone/APAP 5-325MG 1 EACH TAB PO PRN ×2 (01:07→16:49)
[2020-10-06] MEDS: ALPRAZolam 0.25 MG TAB PO PRN ×2 (02:03→23:13)
[2020-10-06] MEDS: SODIUM CHLORIDE 0.9% 1,000 ML IV SCH ×2 (04:01→20:11)
[2020-10-06] MEDS ORDERED: NON FORMULARY DRUG (Omega-3/Dha/Epa/Fish Oil [Fish Oil 500 Mg Softgel] 1 EACH Capsule) PO SCH (09:00)
[2020-10-06] MEDS: LEVOFLOXACIN 500 MG TAB PO SCH (10:10)
[2020-10-06] MEDS: LEVOTHYROXINE 50 MCG TAB PO SCH (10:10)
[2020-10-06] MEDS: MULTIVITAMINS, THERA 1 EACH TAB PO SCH (10:10)
[2020-10-06] MEDS: amLODIPine 10 MG TAB PO SCH (10:10)
[2020-10-06] MEDS: FLUoxetine HCL 20 MG CAP PO SCH (10:11)
[2020-10-06] MEDS: hydrALAZINE HCL 25 MG TAB PO SCH (10:11)
[2020-10-06] MEDS: metFORMIN 500 MG TAB PO SCH ×2 (10:11→17:46)
[2020-10-06] MEDS: lamoTRIgine 100 MG TAB PO SCH (10:11)
[2020-10-06] MEDS: HEPARIN SODIUM,PORCINE/PF 5,000 UNIT/0.5 ML SYRINGE SQ SCH ×2 (10:13→20:16)
[2020-10-06] MEDS: PANTOPRAZOLE 40 MG TABLET PO SCH ×2 (10:14→17:46)
[2020-10-06] MEDS: TAMSULOSIN 0.4 MG CAP.ER.24H PO SCH (10:14)
[2020-10-06] MEDS: MAGNESIUM OXIDE 400 MG TAB PO SCH ×2 (10:14→20:15)
[2020-10-06 12:39] LABS: Basophils # (A) 0.06 X 10*3/uL (0.00-0.10); Basophils % (A) 0.7 %; Eosinophils # (A) 0.11 X 10*3/uL (0.04-0.35); Eosinophils % (A) 1.2 %; HCT 29.4 % (39.6-50.0); HGB 9.7 g/dL (13.0-17.0); Lymphocytes # (A) 2.12 X 10*3/uL (0.90-5.00); Lymphocytes % (A) 23.4 %; MCH 29.8 pg (27.0-32.0); MCV 90.2 fL (80.0-97.0); Mean Platelet Volume 9.6 fL (9.5-12.2); Monocytes # (A) 0.49 X 10*3/uL (0.20-1.00); Monocytes % (A) 5.4 %; Neutrophils # (A) 6.26 X 10*3/uL (1.80-7.70); Platelet Count 292 X 10*3/uL (140-440); RBC 3.26 X 10*6/uL (4.40-5.60); RDW 13.9 % (11.5-14.5); WBC 9.07 X 10*3/uL (4.50-10.00)
--- NOTE | 2020-10-06 12:54 | P.CNNES ---
History of Present Illness Consult date: 10/06/20 Requesting physician: Paulina Arenas Reason for Consult: altered mental status History of Present Illness: This is a 70-year-old gentleman with medical history of diabetes mellitus, hypertension, hyperlipidemia, neuropathy, bipolar and schizophrenia who presented emergency department on 10/05/2020 for combative confusion and currently patient is being treated for urinary tract infection. Patient is under petition. Patient stated that he's doing well. He denies of any headaches, focal weakness, numbness, visual disturbance, difficulty getting his words out. I was notified by the nurse that mentation-guerra he is responding appropriately but he has a flat affect. Some of the workup in the hospital consisted of: Initial vital signs: Blood pressure of 155/69, heart rate of 73, respiratory of 18, temperature of 98.2 Fahrenheit oral and pulse ox of 99% room air. On presentation her white blood cell as a 7.9 which is normal. The hemoglobin is 10.7 was mildly low. Chemistry panel seems unremarkable. The sodium 137, creatinine 0.59, calcium of 9.4, glucose of 95 and liver function of AST 29 and ALT of 28. Escobedo virus PCR was not detected. Toxicology screen is not detected. Urinalysis: Urine appears cloudy, nitrate was negative, leukocyte esterase small, urine white blood cell is 9. CT of the head is reported as normal unenhanced head computed tomography scan. No change. Review of Systems Review of system: The 12 point system was reviewed and apparent positive and negative per HPI. Past Medical History Past Medical History: Diabetes Mellitus, Hyperlipidemia, Hypertension Additional Past Medical History / Comment(s): used to take lipitor , neuropathy History of Any Multi-Drug Resistant Organisms: None Reported Past Surgical History: Tonsillectomy Past Anesthesia/Blood Transfusion Reactions: No Reported Reaction Past Psychological History: Anxiety, Bipolar, Schizophrenia Smoking Status: Former smoker Past Alcohol Use History: Occasional Additional Past Alcohol Use History / Comment(s): 1-2 drinks a week, per pt Past Drug Use History: Marijuana Additional Drug Use History / Comment(s): smokes pipe daily, half pack of cigarettes, marijuana occasionally - Past Family History Mother Family Medical History: Coronary Artery Disease (CAD), Diabetes Mellitus Father Family Medical History: Coronary Artery Disease (CAD) Brother(s) Family Medical History: No Reported History Medications and Allergies Home Medications Medication Instructions Recorded Confirmed Type Tamsulosin [Flomax] 0.4 mg PO DAILY 08/03/20 10/05/20 History amLODIPine [Norvasc] 10 mg PO DAILY #30 tab 08/06/20 10/05/20 Rx Omeprazole [PriLOSEC] 40 mg PO BID 08/16/20 10/05/20 History Levothyroxine Sodium [Synthroid] 50 mcg PO DAILY 08/21/20 10/05/20 History metFORMIN HCL 1,000 mg PO BID 08/21/20 10/05/20 History Atorvastatin Calcium [Lipitor] 40 mg PO HS 09/30/20 10/05/20 History FLUoxetine HCL [PROzac] 40 mg PO DAILY 09/30/20 10/05/20 History Multivitamins, Thera [Multivitamin 1 tab PO DAILY 09/30/20 10/05/20 History (formulary)] [place]-3/Dha/Epa/Fish Oil [Fish Oil 1 cap PO DAILY 09/30/20 10/05/20 History 500 mg Softgel] Paliperidone IM [Invega Sustenna] 234 mg INJ Q28D 09/30/20 10/05/20 History hydrALAZINE HCL [Apresoline] 25 mg PO BID 09/30/20 10/05/20 History lamoTRIgine [LaMICtal] 100 mg PO DAILY 09/30/20 10/05/20 History Levofloxacin [Levaquin] 500 mg PO DAILY 3 Days #3 tab 10/04/20 10/05/20 Rx Magnesium Oxide [Mag-Oxide] 200 mg PO BID #30 tablet 10/04/20 10/05/20 Rx traZODone HCL [Desyrel] 100 mg PO HS #30 tab 10/04/20 10/05/20 Rx Allergies Allergy/AdvReac Type Severity Reaction Status Date / Time naproxen [From Naprosyn] AdvReac Swelling Verified 09/30/20 18:48 Physical Examination - Vital Signs Vital Signs: Vital Signs Temp Pulse Pulse Resp BP BP Pulse Ox 10/06/20 07:00 98.1 F 66 18 162/79 96 10/06/20 00:59 97.6 F 55 L 16 155/73 98 10/05/20 22:21 98.6 F 67 18 189/80 98 10/05/20 17:58 98.3 F 18 159/63 98 10/05/20 17:17 98.0 F 78 18 172/76 98 Intake and Output 10/05/20 10/06/20 10/06/20 22:59 06:59 14:59 Output Total 500 1000 Balance -500 -1000 Output: Urine 500 1000 Other: Voiding Method Indwelling Catheter # Voids 1 0 Weight 83.915 kg GENERAL: The patient is lying in bed and is not in acute distress. CHEST: The heart rate is regular rate rhythm. No murmurs to auscultation. No carotid bruit bilaterally. LUNG: Clear to auscultation bilaterally no wheezing noted throughout. Not labored breathing. ABDOMEN/GI: Bowel sounds present in all 4 quadrants. No tenderness to palpation throughout. PSYCH: Flat affect. NEUROLOGICAL: Higher mental function: The patient is awake, alert, oriented to self, place and time. He correctly able to tell me capital of [place] and [place] He correctly notified me name of current [place] 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 Patient is following commands. No aphasia and no neglect. Cranial nerves: The pupils are round, equal and reactive to light and accommodation. Visual wang are full to confrontation throughout. Extraocular movement is intact no nystagmus is noted. Facial sensation is normal to touch throughout. The facial strength is normal throughout. Hearing is normal bilaterally to hand rub. Tongue is midline and moved [id number] without any difficulty. No dysarthria is noted. Shoulder shrug is normal bilaterally. Motor: Gait is deferred. The strength is 5 over 5 throughout. Normal tone and bulk. Cerebellum: Normal finger to nose bilaterally. Sensation: Sensation is normal to touch throughout. Reflexes (right/left): 2+ in the upper and 1+ in the lower. Plantars are mute bilaterally. Results - Laboratory Findings CBC and BMP: 10/06/20 08:51 10/05/20 11:46 Abnormal Lab Findings: Abnormal Labs 10/05/20 10/05/20 10/05/20 11:46 11:46 20:30 RBC 3.64 L Hgb 10.7 L Hct 32.5 L Creatinine 0.59 L Total Bilirubin <0.1 L Urine Protein Trace H Urine Blood Large H Ur Leukocyte Esterase Small H Urine RBC >182 H Urine WBC 9 H Urine Mucus Rare H Assessment and Plan Assessment: Altered mental status with him being combative: Seems septic encephalopathy due to underlying urinary tract infection and which is being treated for. Can have component of delirium from his underlying UTI.---mentation improved Hypertension Hyperlipidemia Diabetes mellitus History of peripheral neuropathy Reported diagnosis of Bipolar/schizophrenia X tobacco use Plan: CT of the head is reported as normal unenhanced head computed tomography scan. No change. I ordered TSH and if abnormal will defer management to the primary team. Psychiatry is consulted. We'll defer the rest of the medical management to the primary team. Thank you for the consultation. There is no further neurological work-up needed. Neurology will sign off. Please reconsult if needed. Ernie Mina M.D. Neuro-hospitalist Time with Patient: Greater than 30
[2020-10-06 13:03] LABS: African American GFR (CKD) 127.3 (60.0-200.0); Anion Gap 3.6 mmol/L (4.00-12.00); Calcium 8.5 mg/dL (8.7-10.3); Carbon Dioxide 28.4 mmol/L (21.6-31.8); Non-African American GFR(CKD) 109.8 (60.0-200.0); Potassium 3.3 mmol/L (3.5-5.5)
--- NOTE | 2020-10-06 13:04 | PN ---
PROGRESS NOTE DATE OF SERVICE: 10/06/2020 This 70-year-old gentleman admitted with change in mental status, acute urinary tract infection with sepsis, is being closely monitored. The patient is also being evaluated to rule out the possible psychosis. CT scan of the brain was done which I reviewed personally, showed no acute findings. No chest pain. No palpitations. No fever. PHYSICAL EXAMINATION: Alert and oriented x2. Pulse 63, blood pressure 162/70, respiration 18, temperature 98.1, pulse ox 98% on room air. HEENT: Conjunctivae normal. Oral mucosa moist. NECK: No jugular venous distention. No lymph node enlargement. CARDIOVASCULAR: S1, S2, muffled. No S3, no S4, RESPIRATORY: Diminished breath sounds at the bases. A few scattered rhonchi. ABDOMEN: Soft, nontender. LEGS: No edema, no swelling. NERVOUS SYSTEM: No focal deficits. LABS: WBC 9.07, hemoglobin 9.7. UA shows possible hematuria. ASSESSMENT: 1. Acute change in mental status with possible urinary tract infection with sepsis and acute metabolic encephalopathy. 2. Rule out psychosis. 3. Dehydration. 4. Anemia, normocytic. 5. Hypertension. 6. Diabetes mellitus type 2. 7. Hyperlipidemia. 8. History of peripheral neuropathy. 9. History of anxiety, bipolar schizophrenia. 10.History of nicotine dependence. 11.History of THC. 12.FULL CODE. RECOMMENDATIONS: Recommend to continue current management and symptomatic treatment. Otherwise, await psychiatric consultation. Continue the current medication including antibiotics. I would also recommend to increase the dose of hydralazine and continue to monitor. Further recommendations to follow. MMODL / IJN: [id number] /
--- NOTE | 2020-10-06 13:33 | XR ---
EXAMINATION TYPE: XR chest 1V portable DATE OF EXAM: 10/06/2020 COMPARISON: Chest x-ray 10/03/2020 HISTORY: Congestive heart failure TECHNIQUE: Single frontal view of the chest is obtained. FINDINGS: There is no focal air space opacity, pleural effusion, or pneumothorax seen. The cardiac silhouette size is within normal limits, stable accounting for differences in technique. The osseou s structures are intact. IMPRESSION: No acute process.
[2020-10-06] MEDS: hydrALAZINE HCL 50 MG TAB PO SCH ×2 (15:20→21:33)
[2020-10-06] MEDS ORDERED: Potassium Replacement Protocol 1 EACH MISC MISCELLANE PRN (17:11)
[2020-10-06] MEDS: POTASSIUM CHLORIDE ER 20 MEQ TAB.ER PO SCH ×2 (17:46→20:15)
[2020-10-06] MEDS: ATORVASTATIN 40 MG TAB PO SCH (20:15)
[2020-10-06] MEDS: traZODone HCL 100 MG TAB PO SCH (20:15)
[2020-10-07] MEDS: SODIUM CHLORIDE 0.9% 1,000 ML IV SCH ×2 (05:02→16:00)
[2020-10-07] MEDS: LEVOTHYROXINE 50 MCG TAB PO SCH (06:03)
[2020-10-07] MEDS: MAGNESIUM OXIDE 400 MG TAB PO SCH ×2 (09:12→19:56)
[2020-10-07] MEDS: PANTOPRAZOLE 40 MG TABLET PO SCH ×2 (09:12→16:50)
[2020-10-07] MEDS: lamoTRIgine 100 MG TAB PO SCH (09:12)
[2020-10-07] MEDS: TAMSULOSIN 0.4 MG CAP.ER.24H PO SCH (09:12)
[2020-10-07] MEDS: metFORMIN 500 MG TAB PO SCH ×2 (09:12→16:50)
[2020-10-07] MEDS: LEVOFLOXACIN 500 MG TAB PO SCH (09:13)
[2020-10-07] MEDS: hydrALAZINE HCL 50 MG TAB PO SCH ×3 (09:13→19:56)
[2020-10-07] MEDS: FLUoxetine HCL 20 MG CAP PO SCH (09:13)
[2020-10-07] MEDS: MULTIVITAMINS, THERA 1 EACH TAB PO SCH (09:13)
[2020-10-07] MEDS: HEPARIN SODIUM,PORCINE/PF 5,000 UNIT/0.5 ML SYRINGE SQ SCH ×2 (09:13→20:02)
[2020-10-07] MEDS: amLODIPine 10 MG TAB PO SCH (09:13)
[2020-10-07] MEDS: THIAMINE 100 MG TAB PO SCH (09:13)
[2020-10-07] MEDS: FOLIC ACID 1 MG TAB PO SCH (09:13)
[2020-10-07 09:23] LABS: Basophils # (A) 0.1 k/uL (0-0.2); Basophils % (A) 1 %; Eosinophils # (A) 0.1 k/uL (0-0.7); Eosinophils % (A) 1 %; HCT 34.6 % (39.0-53.0); HGB 11.7 gm/dL (13.0-17.5); Lymphocytes # (A) 1.2 k/uL (1.0-4.8); Lymphocytes % (A) 13 %; MCH 30.4 pg (25.0-35.0); MCHC 33.8 g/dL (31.0-37.0); MCV 89.8 fL (80.0-100.0); Mean Platelet Volume 6.8; Monocytes # (A) 0.3 k/uL (0-1.0); Monocytes % (A) 4 %; Neutrophils # (A) 7.9 k/uL (1.3-7.7); Neutrophils % (A) 81 %; Platelet Count 288 k/uL (150-450); RBC 3.86 m/uL (4.30-5.90); RDW 13.7 % (11.5-15.5); WBC 9.7 k/uL (3.8-10.6)
[2020-10-07 09:38] LABS: African American GFR (CKD) >90 (>60 ml/min/1.73 sqM); Anion Gap 4 mmol/L; Blood Urea Nitrogen 8 mg/dL (9-20); Calcium 9.1 mg/dL (8.4-10.2); Carbon Dioxide 28 mmol/L (22-30); Chloride 103 mmol/L (98-107); Glucose 110 mg/dL (74-99); Non-African American GFR(CKD) >90 (>60 ml/min/1.73 sqM); Potassium 4.2 mmol/L (3.5-5.1); Sodium 135 mmol/L (137-145)
[2020-10-07] MEDS: HYDROcodone/APAP 5-325MG 1 EACH TAB PO PRN ×2 (10:22→19:56)
--- NOTE | 2020-10-07 13:11 | P.CN ---
Psychiatric Consult - . Consult date: 10/07/20 Consult:: 10/07/20 12:12 IDENTIFYING DATA: This patient is a 70-year-old male with a history of bipolar disorder who currently lives alone in a house has no kids is . REASON FOR REFERRAL: Psychiatry was consulted for med mgt HISTORY OF PRESENT ILLNESS: The patient presented to the hospital after a rehospitalization as he was previously discharged on 10/04 and went to [facility] for 1 day and then came back to the hospital on petition. Petition states that patient was searching for an exit to leave, not wanting to stay and pulled the fire alarm. patient was apparently combative and confused and continues to need treatment for a UTI. Neurology was consulted and believe the patient is parenting delirium from the UTI. Patient had a chest x-ray which was negative and a computed tomography scan of his brain which is negative and also a UDS which was negative. Patient's nurse claims that he has been having a flat affect however has been fairly cooperative and responds to questions. Patient was seen in the room today before eating lunch and has a flat affect and was fairly constricted. He claims that he left [facility] because he wanted to go home. He states that he pulled the fire alarm. He claims that the "lady across the hallway was moaning and hollering all night". He claims that he was not able to get good sleep there. He states that he is not confused at this time and knows who the current president is and also is alert and oriented 3. He did not have any complaints. He minimizes hospitalization and claims that he can ride his bike back home today and take care of himself. He has very poor in sight into his condition. He was not able to appropriately described the risks and benefits of leaving the hospital AGAINST MEDICAL ADVICE. He states that he has been seeing Dr. Singh at [facility] and getting Invega Sustenna long-acting injection every month. At this time patient denies any suicidal or homical ideations, intent or plan. Patient denies any auditory, visual hallucinations and denies any paranoia or delusions. Patients admits to using marijuana occasionally and cigarettes daily. PAST PSYCHIATRIC HISTORY: Patient has a a history of bipolar disorder. Patient is currently at Invega Sustenna 156 mg IM injection every 4 weeks, Lamictal 100 mg daily, Prozac 40 mg daily and trazodone 50 mg daily at bedtime. Patient has been psychiatrically hospitalized several times in the past his last admission in June 2020. Patient currently follows up with Dr. Singh at [facility]. He states that he had 1 suicide attempt when he attempted to slit his wrist several years ago. PAST MEDICAL HISTORY: Diabetes mellitus, hyperlipidemia, hypertension, neuropathy. ALLERGIES: as per EMR. CHEMICAL DEPENDENCY HISTORY: as per HPI. FAMILY PSYCHIATRIC/SUBSTANCE USE HISTORY: He claims his uncle completed suicide SOCIAL HISTORY: Patient was born and raised in [facility]. He states that he completed college. 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 He states that he served in the [employer] from [id number]. Patient has no kids is and currently lives alone in a house.. MENTAL STATUS EXAM: General Appearance: Patient appears to be stated age is alert, constricted, and cooperative. Patient appears to have fair hygiene and grooming wearing hospital gown with fair eye contact. Behavior: Patient is calmly lying in bed without any agitated behavior. Constricted Speech: Patient's speech is fluent and nonpressured. Mood/Affect: Patient reports their mood is "fine", affect is congruent and constricted Suicidality/Homicidality: Patient denies having any suicidal or homicidal ideation intent or plan. Perceptions: Patient denies any visual hallucinations and denies any auditory hallucinations Though content/process: [place], poverty of content. Logical. Memory and concentration: AOX3, grossly intact for the purposes of this session. Can spell "WORLD" backwards Judgment and insight: chronically poor IMPRESSIONS: Bipolar disorder type 1 Cannabis use disorder mild Nicotine dependence PLAN: -At this time patient DOES NOT meet criteria for inpatient psychiatric admission. -Delirium precautions recommended with patient including - avoiding use of narcotics and FINANCIAL SERVICES ASSISTANT sedatives, limit anticholinergic medications when possible, frequent re-orientation, minimize use of restraints, open window shades during the day and close them at night -Would recommend the following medication changes/additions: Patient is currently receiving monthly Invega Sustenna injections to ensure compliance through [facility] and is followed by Dr. Singh. Patient to be continued on Prozac 40 mg daily for mood/anxiety, Lamictal 100 mg daily for mood stabilization/depression, and trazodone 100 mg daily at bedtime for insomnia/mood. -Please contact [facility] once patient is discharged. -patient has chronically poor insight and judgment and Patient will require placement once again. tnt powder worker to discuss with jenniferdian best option for placement. Would recommend a locked facility as patient may try and elope once again. -Car Electronics Installer spoke with patient about substance abuse and the harmful effects on medical and mental health, patient verbally understood and agreed. -at this time psychiatrist sign off. -Please contact with any questions.
--- NOTE | 2020-10-07 19:21 | PN ---
PROGRESS NOTE DATE OF SERVICE: 10/07/2020 INTERVAL HISTORY: This is a 70-year-old gentleman who was admitted with acute change in mental status and acute UTI with sepsis is being closely monitored. The patient is being evaluated to rule out psychosis. No chest pain. No palpitations. No fever. PHYSICAL EXAMINATION: GENERAL: Patient is alert and oriented times three. VITAL SIGNS: Pulse 81, blood pressure 149/56, respirations 18, temperature 97.7, pulse ox 98% on room air. HEENT: Conjunctivae normal. NECK: No jugular venous distention. No carotid bruits. RESPIRATORY: Breath sounds diminished at the bases. A few scattered rhonchi. HEART: S1 and S2, muffled. ABDOMEN: Soft, no tenderness. EXTREMITIES: No edema, no swelling. NERVOUS: No focal deficits. LAB STUDIES: WBC 9.3, hemoglobin 7.2, sodium 135. UA noted some hematuria. ASSESSMENT: 1. Acute change in mental status with possible acute urinary tract infection with sepsis and acute metabolic encephalopathy. 2. Psychosis number dehydration. 3. Anemia, normocytic. 4. Microscopic hematuria. 5. Hypertension. 6. Diabetes mellitus type 2. 7. Hyperlipidemia. 8. History of peripheral neuropathy. 9. Anxiety, bipolar, schizophrenia. 10.History nicotine dependence. 11.History of THC. 12.FULL CODE. RECOMMENDATION AND DISCUSSION: Recommend to continue current management and continue symptomatic treatment. At this time I would recommend repeat labs and Dr. Jurado will follow. MMODL / IJN: [id number] /
[2020-10-07] MEDS: ATORVASTATIN 40 MG TAB PO SCH (19:56)
[2020-10-07] MEDS: traZODone HCL 100 MG TAB PO SCH (19:56)
[2020-10-07] MEDS ORDERED: HALOPERIDOL LACTATE 5 MG/ML 1 ML VIAL IM PRN (20:12)
[2020-10-07] MEDS ORDERED: LORazepam 2 MG/ML INJ IV STA (20:12)
[2020-10-08] MEDS: SODIUM CHLORIDE 0.9% 1,000 ML IV SCH ×2 (05:48→18:57)
[2020-10-08] MEDS: LEVOTHYROXINE 50 MCG TAB PO SCH (05:48)
[2020-10-08] MEDS: LEVOFLOXACIN 500 MG TAB PO SCH (08:32)
[2020-10-08] MEDS: amLODIPine 10 MG TAB PO SCH (08:32)
[2020-10-08] MEDS: MAGNESIUM OXIDE 400 MG TAB PO SCH ×2 (08:32→20:21)
[2020-10-08] MEDS: PANTOPRAZOLE 40 MG TABLET PO SCH ×2 (08:33→17:24)
[2020-10-08] MEDS: hydrALAZINE HCL 50 MG TAB PO SCH ×3 (08:33→22:12)
[2020-10-08] MEDS: FLUoxetine HCL 20 MG CAP PO SCH (08:33)
[2020-10-08] MEDS: metFORMIN 500 MG TAB PO SCH ×2 (08:33→17:24)
[2020-10-08] MEDS: MULTIVITAMINS, THERA 1 EACH TAB PO SCH (08:33)
[2020-10-08] MEDS: HEPARIN SODIUM,PORCINE/PF 5,000 UNIT/0.5 ML SYRINGE SQ SCH ×2 (08:33→20:21)
[2020-10-08] MEDS: lamoTRIgine 100 MG TAB PO SCH (08:33)
[2020-10-08] MEDS: TAMSULOSIN 0.4 MG CAP.ER.24H PO SCH (08:33)
[2020-10-08 10:21] LABS: Basophils # (A) 0.04 X 10*3/uL (0.00-0.10); Basophils % (A) 0.6 %; Eosinophils % (A) 1.4 %; HCT 31.3 % (39.6-50.0); HGB 10.3 g/dL (13.0-17.0); Lymphocytes # (A) 1.62 X 10*3/uL (0.90-5.00); MCH 30.3 pg (27.0-32.0); MCHC 32.9 g/dL (32.0-37.0); MCV 92.1 fL (80.0-97.0); Mean Platelet Volume 9.9 fL (9.5-12.2); Monocytes # (A) 0.47 X 10*3/uL (0.20-1.00); Monocytes % (A) 6.7 %; Neutrophils # (A) 4.77 X 10*3/uL (1.80-7.70); Neutrophils % (A) 67.9 %; Platelet Count 285 X 10*3/uL (140-440); RDW 14.2 % (11.5-14.5); WBC 7.03 X 10*3/uL (4.50-10.00)
[2020-10-08 10:49] LABS: African American GFR (CKD) 127.3 (60.0-200.0); Anion Gap 6.9 mmol/L (4.00-12.00); Calcium 8.6 mg/dL (8.7-10.3); Carbon Dioxide 26.1 mmol/L (21.6-31.8); Non-African American GFR(CKD) 109.8 (60.0-200.0); Potassium 4.2 mmol/L (3.5-5.5)
[2020-10-08] MEDS: FOLIC ACID 1 MG TAB PO SCH (13:10)
[2020-10-08] MEDS: THIAMINE 100 MG TAB PO SCH (13:10)
[2020-10-08] MEDS ORDERED: Magnesium Replacement Protocol 1 EACH MISC MISCELLANE PRN (19:05)
--- NOTE | 2020-10-08 19:27 | P.PN ---
Subjective Progress Note Date: 10/08/20 Principal diagnosis: Altered mental status chronic urinary tract infection 70-year-old male was admitted to the hospital for acute mental status changes, with chronic urinary track infection. Recently, patient [facility], became combative pulled the fire alarm and did not want to stay at the [facility] facility due to the surrounding environment.Patient was sent from the [facility] facility to the hospital for further evaluation. Patient is known to have chronic urinary tract infection due to indwelling catheter, has received IV antibiotics of Levaquin from previous cultures, was discharged with Levaquin PO for chronic urinary track infection due to indwelling catheter. Patient has significant history hypertension, hyperlipidemia, diabetes mellitus type II, anemia normal acidic, history of peripheral neuropathy, anxiety, bipolar, schizophrenia, history of nicotine dependence, history of THC, and poor medical compliance. October 08, 2020 evaluated patient this a.m., resting comfortably in chair. Patient denies any co mplaints at this time. Review diagnostic testing with patient regarding chronic urinary track infection, patient declines for self catheterization, patient continues to request indwelling catheter, risk and benefits of indwelling catheter of frequent urinary tract infections were explained. Awaiting 3rd urine culture for sensitivity of antibiotic therapy for chronic urinary tract infections, will continue Levaquin for broad-spectrum coverage. Objective - Vital Signs Vital signs: Vital Signs Temp 97.8 F 10/08/20 14:23 Pulse 86 10/08/20 14:23 Resp 16 10/08/20 14:23 BP 151/62 10/08/20 14:23 Pulse Ox 97 10/08/20 14:23 Intake & Output 10/08/20 10/08/20 10/09/20 06:59 18:59 06:59 Output Total 800 1000 Balance -800 -1000 Output: Urine 800 1000 Other: Voiding Method Indwelling Catheter Indwelling Catheter # Voids 1 - Constitutional General appearance: Present: disheveled - EENT Eyes: Present: EOMI, PERRLA ENT: Present: other (Dry mucous membranes) Ears: bilateral: normal - Neck Neck: Present: normal ROM Carotids: bilateral: upstroke normal Thyroid: bilateral: normal size - Respiratory Respiratory: bilateral: CTA (Anterior lung wang lung wang), diminished (Posterior lung wang) - Cardiovascular Heart rate: 74 Rhythm: regular Heart sounds: normal: S1, S2 - Peripheral pulses radial pulse Peripheral Pulses: bilateral: Normal dorsalis pedis Peripheral Pulses: bilateral: Normal - Gastrointestinal General gastrointestinal: Present: normal bowel sounds - Integumentary Integumentary: Present: normal turgor - Neurologic Neurologic: Present: CNII-XII intact - Psychiatric Psychiatric: Present: A&O x's 3 - Allied health notes Allied health notes reviewed: nursing - Labs CBC & Chem 7: 10/08/20 05:31 10/08/20 05:31 Labs: Abnormal Lab Results - Last 24 Hours (Table) 10/08/20 10/08/20 10/08/20 Range/Units 05:31 05:31 05:31 RBC 3.40 L (4.40-5.60) X 10*6/uL Hgb 10.3 L (13.0-17.0) g/dL Hct 31.3 L (39.6-50.0) % Creatinine 0.5 L (0.6-1.5) mg/dL BUN/Creatinine Ratio 22.00 H (12.00-20.00) Ratio Calcium 8.6 L (8.7-10.3) mg/dL Magnesium 1.4 L (1.5-2.4) mg/dL Microbiology - Last 24 Hours (Table) 10/05/20 18:08 Blood Culture - Preliminary Blood No Growth after 48 hours Assessment and Plan Assessment: Altered mental status, possibly due to chronic urinary track infection and metabolic encephalopathy dehydration hypertension diabetes mellitus type II hyperlipidemia anemia, normocytic history of peripheral neuropathy anxiety, bipolar, schizophrenia history of nicotine dependence history of THC use full code Plan: Altered mental status, resolving patient alert and oriented times 3, continue broad-spectrum antibiotics chronic urinary track infection due to indwelling catheter, continue broad- spectrum antibiotics dehydration, continue IV fluids anxiety, bipolar, schizophrenia, continue consultation with psychiatry for recommendations and treatment plan continue to monitor vital signs and diagnostic testing further recommendations to come based on patient's clinical condition hopeful discharge to [facility] facility within 24 to 48 hours Time with Patient: Greater than 30
[2020-10-08] MEDS: HYDROcodone/APAP 5-325MG 1 EACH TAB PO PRN (20:20)
[2020-10-08] MEDS: ATORVASTATIN 40 MG TAB PO SCH (20:21)
[2020-10-08] MEDS: traZODone HCL 100 MG TAB PO SCH (20:21)
[2020-10-08] MEDS: MAGNESIUM SULFATE-D5W PMX 1 GM in DEXTROSE/WATER 1 100ML.BAG IVPB SCH ×2 (20:21→22:12)
[2020-10-09] MEDS: LEVOTHYROXINE 50 MCG TAB PO SCH (05:41)
[2020-10-09] MEDS: SODIUM CHLORIDE 0.9% 1,000 ML IV SCH (06:13)
[2020-10-09] MEDS: hydrALAZINE HCL 50 MG TAB PO SCH ×2 (08:47→16:35)
[2020-10-09] MEDS: PANTOPRAZOLE 40 MG TABLET PO SCH ×2 (08:47→16:35)
[2020-10-09] MEDS: MAGNESIUM OXIDE 400 MG TAB PO SCH (08:47)
[2020-10-09] MEDS: FOLIC ACID 1 MG TAB PO SCH (08:47)
[2020-10-09] MEDS: TAMSULOSIN 0.4 MG CAP.ER.24H PO SCH (08:47)
[2020-10-09] MEDS: MULTIVITAMINS, THERA 1 EACH TAB PO SCH (08:47)
[2020-10-09] MEDS: FLUoxetine HCL 20 MG CAP PO SCH (08:47)
[2020-10-09] MEDS: lamoTRIgine 100 MG TAB PO SCH (08:47)
[2020-10-09] MEDS: amLODIPine 10 MG TAB PO SCH (08:47)
[2020-10-09] MEDS: THIAMINE 100 MG TAB PO SCH (08:47)
[2020-10-09] MEDS: HEPARIN SODIUM,PORCINE/PF 5,000 UNIT/0.5 ML SYRINGE SQ SCH (08:48)
[2020-10-09] MEDS: metFORMIN 500 MG TAB PO SCH ×2 (08:49→16:35)
[2020-10-09 09:17] VITALS: RESP 16; TEMP 97.6
[2020-10-09 10:32] LABS: Basophils # (A) 0.05 X 10*3/uL (0.00-0.10); Basophils % (A) 0.7 %; Eosinophils # (A) 0.13 X 10*3/uL (0.04-0.35); Eosinophils % (A) 1.8 %; HCT 33.2 % (39.6-50.0); HGB 10.6 g/dL (13.0-17.0); Lymphocytes # (A) 1.91 X 10*3/uL (0.90-5.00); Lymphocytes % (A) 25.9 %; MCH 29.8 pg (27.0-32.0); MCHC 31.9 g/dL (32.0-37.0); MCV 93.3 fL (80.0-97.0); Mean Platelet Volume 9.7 fL (9.5-12.2); Monocytes # (A) 0.62 X 10*3/uL (0.20-1.00); Monocytes % (A) 8.4 %; Neutrophils # (A) 4.64 X 10*3/uL (1.80-7.70); Neutrophils % (A) 62.8 %; Platelet Count 331 X 10*3/uL (140-440); RBC 3.56 X 10*6/uL (4.40-5.60); RDW 14.1 % (11.5-14.5); WBC 7.38 X 10*3/uL (4.50-10.00)
[2020-10-09 10:50] LABS: African American GFR (CKD) 104.9 (60.0-200.0); Albumin 3.5 g/dL (3.80-4.90); Albumin/Globulin Ratio 1.67 (1.60-3.17); Anion Gap 7.9 mmol/L (4.00-12.00); Calcium 9.2 mg/dL (8.7-10.3); Carbon Dioxide 27.1 mmol/L (21.6-31.8); Globulin 2.1 g/dL (1.6-3.3); Magnesium 1.8 mg/dL (1.5-2.4); Non-African American GFR(CKD) 90.5 (60.0-200.0); Potassium 4.5 mmol/L (3.5-5.5); Total Bilirubin 0.2 mg/dL (0.3-1.2); Total Protein 5.6 g/dL (6.2-8.2)
[2020-10-09] MEDS: HYDROcodone/APAP 5-325MG 1 EACH TAB PO PRN (11:43)
[2020-10-09 16:05] VITALS: BP 131/52; PULSE 86
--- NOTE | 2020-10-10 18:03 | P.DS ---
Providers Date of admission: 10/08/20 08:42 Expected date of discharge: 10/09/20 (8177) Attending physician: Dallin Jurado Consults: 10/05/20 15:27 Consult Physician Routine Consulting Provider: Ernie Mina Consult Reason/Comments: Altered mental status Do you want consulting provider notified?: Yes 10/06/20 10:43 Consult Physician Routine Consulting Provider: Jacob Hargrove Consult Reason/Comments: medication adjustment Do you want consulting provider notified?: Already Contacted Primary care physician: Dallin Jurado Hospital Course: 70-year-old male was admitted to the hospital for acute mental status changes, with chronic urinary track infection. Recently, patient was discharged to residential facility for rehab, became combative pulled the fire alarm and did not want to stay at the residential facility due to the surrounding environment.Patient was sent from the residential facility to the hospital for further evaluation. Patient is known to have chronic urinary tract infection due to indwelling catheter, has received IV antibiotics of Levaquin from previous cultures, was discharged with Levaquin PO for chronic urinary track infection due to indwelling catheter. Patient has significant history hypertension, hyperlipidemia, diabetes mellitus type II, anemia normocytic, history of peripheral neuropathy, anxiety, bipolar, schizophrenia, history of nicotine dependence, history of THC, and poor medical compliance Patient to be discharged with guardianship with conjunction of continue mental health for assisted living due to poor medical compliance, multiple comorbidities and psychiatric illness Assessment: Altered mental status, possibly due to chronic urinary track infection and metabolic encephalopathy dehydration hypertension diabetes mellitus type II hyperlipidemia anemia, normocytic history of peripheral neuropathy anxiety, bipolar, schizophrenia history of nicotine dependence history of THC use full code Health Concerns: Poor medical compliance Multiple comorbidities Polysubstance abuse Psychiatric illness Pertinent Studies: CT of the head without contrast no acute abnormalities noted Chest x-ray no acute cardiopulmonary abnormalities noted Procedures: None performed Patient Condition at Discharge: Fair Plan - Discharge Summary Discharge Rx Participant: Yes New Discharge Prescriptions: New Folic Acid 1 mg PO DAILY@1200 #30 tab Thiamine [Vitamin B-1] 100 mg PO DAILY@1200 #30 tab Continue Omeprazole [PriLOSEC] 40 mg PO BID Levothyroxine Sodium [Synthroid] 50 mcg PO DAILY lamoTRIgine [LaMICtal] 100 mg PO DAILY hydrALAZINE HCL [Apresoline] 25 mg PO BID FLUoxetine HCL [PROzac] 40 mg PO DAILY Multivitamins, Thera [Multivitamin (formulary)] 1 tab PO DAILY traZODone HCL [Desyrel] 100 mg PO HS #30 tab Levofloxacin [Levaquin] 500 mg PO DAILY 3 Days #3 tab Tamsulosin [Flomax] 0.4 mg PO DAILY amLODIPine [Norvasc] 10 mg PO DAILY #30 tab metFORMIN HCL 1,000 mg PO BID [place]-3/Dha/Epa/Fish Oil [Fish Oil 500 mg Softgel] 1 cap PO DAILY Paliperidone IM [Invega Sustenna] 234 mg INJ Q28D Atorvastatin Calcium [Lipitor] 40 mg PO HS Magnesium Oxide [Mag-Oxide] 200 mg PO BID #30 tablet Discharge Medication List Tamsulosin [Flomax] 0.4 mg PO DAILY 08/03/20 [History] amLODIPine [Norvasc] 10 mg PO DAILY #30 tab 08/06/20 [Rx] Omeprazole [PriLOSEC] 40 mg PO BID 08/16/20 [History] Levothyroxine Sodium [Synthroid] 50 mcg PO DAILY 08/21/20 [History] metFORMIN HCL 1,000 mg PO BID 08/21/20 [History] Atorvastatin Calcium [Lipitor] 40 mg PO HS 09/30/20 [History] FLUoxetine HCL [PROzac] 40 mg PO DAILY 09/30/20 [History] Multivitamins, Thera [Multivitamin (formulary)] 1 tab PO DAILY 09/30/20 [History] [place]-3/Dha/Epa/Fish Oil [Fish Oil 500 mg Softgel] 1 cap PO DAILY 09/30/20 [History] Paliperidone IM [Invega Sustenna] 234 mg INJ Q28D 09/30/20 [History] hydrALAZINE HCL [Apresoline] 25 mg PO BID 09/30/20 [History] lamoTRIgine [LaMICtal] 100 mg PO DAILY 09/30/20 [History] Levofloxacin [Levaquin] 500 mg PO DAILY 3 Days #3 tab 10/04/20 [Rx] Magnesium Oxide [Mag-Oxide] 200 mg PO BID #30 tablet 10/04/20 [Rx] traZODone HCL [Desyrel] 100 mg PO HS #30 tab 10/04/20 [Rx] Folic Acid 1 mg PO DAILY@1200 #30 tab 10/09/20 [Rx] Thiamine [Vitamin B-1] 100 mg PO DAILY@1200 #30 tab 10/09/20 [Rx] Follow up Appointment(s)/Referral(s): Dallin Jurado MD [Primary Care Provider] - 10/11/20 2:10 pm Activity/Diet/Wound Care/Special Instructions: egan clive, placed at [facility], address at follow up appointment Discharge Disposition: HOME WITH HOME HEALTH SERVICES
== END 2020-10-09 18:00 | disposition home health service (06) | DRG 698 ==
LOC: EC 11:04 → 6NMEDSUR 14:58 → OBSVTOIN 10-08 08:42
PROVIDERS: ADMIT Family Medicine; ATTEND Family Medicine
DX: T83.518A Infection and inflammatory reaction due to other urinary catheter, initial encounter (principal); A41.9 Sepsis, unspecified organism; G93.41 Metabolic encephalopathy; R65.20 Severe sepsis without septic shock; N39.0 Urinary tract infection, site not specified; F05 Delirium due to known physiological condition; E78.5 Hyperlipidemia, unspecified; I10 Essential (primary) hypertension; Z20.828 Contact with and (suspected) exposure to other viral communicable diseases; F41.9 Anxiety disorder, unspecified; E11.42 Type 2 diabetes mellitus with diabetic polyneuropathy; D64.9 Anemia, unspecified; F31.9 Bipolar disorder, unspecified; F17.210 Nicotine dependence, cigarettes, uncomplicated; F12.90 Cannabis use, unspecified, uncomplicated; E86.0 Dehydration; F20.9 Schizophrenia, unspecified; R31.29 Other microscopic hematuria; Z79.899 Other long term (current) drug therapy; Z79.890 Hormone replacement therapy; Z79.84 Long term (current) use of oral hypoglycemic drugs
CPT/HCPCS: 36415; 70450; 71045; 80048; 80053; 80306; 81001; 83735; 84443; 85025; 87040; 87086; 87635; 99285

== ENCOUNTER 2020-10-10 14:58 | Inpatient (IN) | payer MEDICARE, BC ==
[2020-10-10 15:03] LABS: Glucose,Whole Blood 77 mg/dL (75-99)
[2020-10-10] MEDS ORDERED: SODIUM CHLORIDE 0.9% 1,000 ML IV ONE (15:17)
--- NOTE | 2020-10-10 15:21 | ED ---
Weakness HPI - General Chief complaint: Weakness Stated complaint: Lethargic Time Seen by Provider: 10/10/20 15:09 Source: patient, EMS Mode of arrival: EMS Limitations: no limitations - History of Present Illness Initial comments: This is a 70-year-old male with a history of bipolar and schizophrenia, chronic indwelling Trujillo with chronic UTI, hypertension, diabetes, hypothyroidism who presents emergency department for generalized weakness. Patient was recently released from the hospital yesterday after having a stay in the hospital for urinary tract infection and altered mental status. The patient's altered mental status was thought to be due to chronic urinary tract infection. The patient was sent home on Levaquin. Urine culture recently did not grow anything to date. Patient states that he sat down in a couch that was outside around 9 AM and states he was unable to get up from the couch. The patient states that he typically is able to get up however does occasionally have trouble getting up from a seated position. The patient uses a walker or cane at baseline for ambulation. He does live alone. The patient otherwise denies any acute complaints. No fevers, chills, shortness of breath, chest pain, nausea, vomiting, diarrhea, decreased urine output. He does state these had chronic lower extremity edema. States he does have a little bit of a chronic cough. The patient denies any alcohol use. Does admit to marijuana use however nothing recently. Does admit to smoking cigarettes. Denies any other acute complaints. - Related Data Home Medications Medication Instructions Recorded Confirmed Tamsulosin [Flomax] 0.4 mg PO DAILY 08/03/20 10/10/20 Omeprazole [PriLOSEC] 40 mg PO BID 08/16/20 10/10/20 Levothyroxine Sodium [Synthroid] 50 mcg PO DAILY 08/21/20 10/10/20 metFORMIN HCL 1,000 mg PO BID 08/21/20 10/10/20 Atorvastatin Calcium [Lipitor] 40 mg PO HS 09/30/20 10/10/20 FLUoxetine HCL [PROzac] 40 mg PO DAILY 09/30/20 10/10/20 Multivitamins, Thera [Multivitamin 1 tab PO DAILY 09/30/20 10/10/20 (formulary)] [place]-3/Dha/Epa/Fish Oil [Fish Oil 1 cap PO DAILY 09/30/20 10/10/20 500 mg Softgel] Paliperidone IM [Invega Sustenna] 234 mg INJ Q28D 09/30/20 10/10/20 hydrALAZINE HCL [Apresoline] 25 mg PO BID 09/30/20 10/10/20 lamoTRIgine [LaMICtal] 100 mg PO DAILY 09/30/20 10/10/20 Previous Rx's Medication Instructions Recorded amLODIPine [Norvasc] 10 mg PO DAILY #30 tab 08/06/20 Levofloxacin [Levaquin] 500 mg PO DAILY 3 Days #3 tab 10/04/20 Magnesium Oxide [Mag-Oxide] 200 mg PO BID #30 tablet 10/04/20 traZODone HCL [Desyrel] 100 mg PO HS #30 tab 10/04/20 Folic Acid 1 mg PO DAILY@1200 #30 tab 10/09/20 Thiamine [Vitamin B-1] 100 mg PO DAILY@1200 #30 tab 10/09/20 Allergies Allergy/AdvReac Type Severity Reaction Status Date / Time naproxen [From Naprosyn] AdvReac Swelling Verified 10/10/20 15:56 Review of Systems ROS Statement: Those systems with pertinent positive or pertinent negative responses have been documented in the HPI. ROS Other: All systems not noted in ROS Statement are negative. Past Medical History Past Medical History: Diabetes Mellitus, Hyperlipidemia, Hypertension Additional Past Medical History / Comment(s): used to take lipitor , neuropathy History of Any Multi-Drug Resistant Organisms: None Reported Past Surgical History: Tonsillectomy Past Anesthesia/Blood Transfusion Reactions: No Reported Reaction Past Psychological History: Anxiety, Bipolar, Schizophrenia Smoking Status: Former smoker Past Alcohol Use History: Occasional Past Drug Use History: Marijuana - Past Family History Mother Family Medical History: Coronary Artery Disease (CAD), Diabetes Mellitus Father Family Medical History: Coronary Artery Disease (CAD) Brother(s) Family Medical History: No Reported History General Exam - General Exam Comments Initial Comments: Constitutional: Awake alert patient appears sleepy however is able to wake up and provide history Head: Normocephalic atraumatic ENT: Oral mucosa is tacky and somewhat dry Eyes: no conjunctival injection No scleral icterus EOMI Neck: No JVD Supple Heart: Regular rate rhythm normal S1-S2 no murmurs Lungs: Clear to auscultation bilaterally No wheezing No rales Abdomen: Soft nondistended nontender, chronic Trujillo in place with clear yellow urine Extremities: The is edema in the bilateral lower extremities up to the knees DP pulses intact Radial pulses intact Neuro: A&Ox3, the patient is generally weak however has no focal lateralizing weakness, cranial nerves II through XII are grossly intact No focal neurologic deficits Psych: Appropriate mood and affect Limitations: no limitations Course Vital Signs 10/10/20 14:59 Pulse Rate 82 Respiratory 16 Rate Blood Pressure 101/46 O2 Sat by Pulse 93 L Oximetry EKG Findings - EKG Comments: EKG Findings:: EKG showing normal sinus rhythm with rate of 80. No abnormal ST segment changes. There is T-wave flattening in 2, 3, and aVF. QTC is 470. Other intervals normal. No ectopy. Medical Decision Making - Medical Decision Making This is a 70-year-old male who presents emergency department for generalized weakness and fatigue. Patient has stable vital signs on arrival. No focal neurologic findings however was quite sleepy and generally fatigued. He is 4 out of 5 strength in his bilateral lower extremities and upper extremity is. Urinalysis did appear abnormal however the patient does have a chronic Trujillo and his urinalysis always appears this way. The rest of his blood work was mostly unremarkable. Some mild hypomagnesemia and this was replaced. He is given IV fluids. His UDS did come back positive for opiates and benzodiazepines and the patient does not have a history of taking these. This could be the etiology of his symptoms. However due to his mental status and his generalized weakness and do not feel it safe for him to go home. I spoke with Chauncey with Dr. Jurado who accepted the patient for observation admission. - Lab Data Result diagrams: 10/10/20 15:30 10/10/20 15:30 Lab Results 10/10/20 10/10/20 10/10/20 Range/Units 15:02 15:30 15:30 WBC 6.9 (3.8-10.6) k/uL RBC 3.32 L (4.30-5.90) m/uL Hgb 10.1 L (13.0-17.5) gm/dL Hct 29.5 L (39.0-53.0) % MCV 88.8 (80.0-100.0) fL MCH 30.5 (25.0-35.0) pg MCHC 34.3 (31.0-37.0) g/dL RDW 13.6 (11.5-15.5) % Plt Count 303 (150-450) k/uL MPV 6.6 Neutrophils % 76 % Lymphocytes % 17 % Monocytes % 5 % Eosinophils % 1 % Basophils % 1 % Neutrophils # 5.2 (1.3-7.7) k/uL Lymphocytes # 1.2 (1.0-4.8) k/uL Monocytes # 0.3 (0-1.0) k/uL Eosinophils # 0.1 (0-0.7) k/uL Basophils # 0.1 (0-0.2) k/uL PT 10.0 (9.0-12.0) sec INR 0.9 (<1.2) APTT 23.5 (22.0-30.0) sec Sodium (137-145) mmol/L Potassium (3.5-5.1) mmol/L Chloride (98-107) mmol/L Carbon Dioxide (22-30) mmol/L Anion Gap mmol/L BUN (9-20) mg/dL Creatinine (0.66-1.25) mg/dL Est GFR (CKD-EPI)AfAm (>60 ml/min/1.73 sqM) Est GFR (CKD-EPI)NonAf (>60 ml/min/1.73 sqM) Glucose (74-99) mg/dL POC Glucose (mg/dL) 77 (75-99) mg/dL POC Glu Take Out Waiter Laureen [place]os Calcium (8.4-10.2) mg/dL Magnesium (1.6-2.3) mg/dL Total Bilirubin (0.2-1.3) mg/dL AST (17-59) U/L ALT (4-49) U/L Alkaline Phosphatase (38-126) U/L NT-Pro-B Natriuret Pep pg/mL Total Protein (6.3-8.2) g/dL Albumin (3.5-5.0) g/dL TSH (0.465-4.680) mIU/L Free T4 (0.78-2.19) ng/dL Urine Color Urine Appearance (Clear) Urine pH (5.0-8.0) Ur Specific [place] (1.001-1.035) Urine Protein (Negative) Urine Glucose (UA) (Negative) Urine Ketones (Negative) Urine Blood (Negative) Urine Nitrite (Negative) Urine Bilirubin (Negative) Urine Urobilinogen (<2.0) mg/dL Ur Leukocyte Esterase (Negative) Urine RBC (0-5) /hpf Urine WBC (0-5) /hpf Ur Squamous Epith Cells (0-4) /hpf Calcium Oxalate Crystal (None) /hpf Urine Bacteria (None) /hpf Hyaline Casts (0-2) /lpf Urine Mucus (None) /hpf Urine Opiates Screen (NotDetected) Ur Oxycodone Screen (NotDetected) Urine Methadone Screen (NotDetected) Ur Propoxyphene Screen (NotDetected) Ur Barbiturates Screen (NotDetected) U Tricyclic Antidepress (NotDetected) Ur Phencyclidine Scrn (NotDetected) Ur Amphetamines Screen (NotDetected) U Methamphetamines Scrn (NotDetected) U Benzodiazepines Scrn (NotDetected) Urine Cocaine Screen (NotDetected) U Marijuana (THC) Screen (NotDetected) Serum Alcohol mg/dL 10/10/20 10/10/20 10/10/20 Range/Units 15:30 15:30 15:30 WBC (3.8-10.6) k/uL RBC (4.30-5.90) m/uL Hgb (13.0-17.5) gm/dL Hct (39.0-53.0) % MCV (80.0-100.0) fL MCH (25.0-35.0) pg MCHC (31.0-37.0) g/dL RDW (11.5-15.5) % Plt Count (150-450) k/uL MPV Neutrophils % % Lymphocytes % % Monocytes % % Eosinophils % % Basophils % % Neutrophils # (1.3-7.7) k/uL Lymphocytes # (1.0-4.8) k/uL Monocytes # (0-1.0) k/uL Eosinophils # (0-0.7) k/uL Basophils # (0-0.2) k/uL PT (9.0-12.0) sec INR (<1.2) APTT (22.0-30.0) sec Sodium 133 L (137-145) mmol/L Potassium 3.7 (3.5-5.1) mmol/L Chloride 103 (98-107) mmol/L Carbon Dioxide 24 (22-30) mmol/L Anion Gap 6 mmol/L BUN 15 (9-20) mg/dL Creatinine 0.56 L (0.66-1.25) mg/dL Est GFR (CKD-EPI)AfAm >90 (>60 ml/min/1.73 sqM) Est GFR (CKD-EPI)NonAf >90 (>60 ml/min/1.73 sqM) Glucose 69 L (74-99) mg/dL POC Glucose (mg/dL) (75-99) mg/dL POC Glu Take Out Waiter ID Calcium 9.3 (8.4-10.2) mg/dL Magnesium 1.5 L (1.6-2.3) mg/dL Total Bilirubin 0.4 (0.2-1.3) mg/dL AST 65 H (17-59) U/L ALT 30 (4-49) U/L Alkaline Phosphatase 79 (38-126) U/L NT-Pro-B Natriuret Pep 260 pg/mL Total Protein 5.7 L (6.3-8.2) g/dL Albumin 3.1 L (3.5-5.0) g/dL TSH 5.870 H (0.465-4.680) mIU/L Free T4 1.36 (0.78-2.19) ng/dL Urine Color Yellow Urine Appearance Cloudy (Clear) Urine pH 7.5 (5.0-8.0) Ur Specific [place] 1.016 (1.001-1.035) Urine Protein 1+ H (Negative) Urine Glucose (UA) Negative (Negative) Urine Ketones 2+ H (Negative) Urine Blood Small H (Negative) Urine Nitrite Negative (Negative) Urine Bilirubin Negative (Negative) Urine Urobilinogen <2.0 (<2.0) mg/dL Ur Leukocyte Esterase Small H (Negative) Urine RBC 100 H (0-5) /hpf Urine WBC 18 H (0-5) /hpf Ur Squamous Epith Cells <1 (0-4) /hpf Calcium Oxalate Crystal Few H (None) /hpf Urine Bacteria Rare H (None) /hpf Hyaline Casts 3 H (0-2) /lpf Urine Mucus Occasional H (None) /hpf Urine Opiates Screen Detected H (NotDetected) Ur Oxycodone Screen Not Detected (NotDetected) Urine Methadone Screen Not Detected (NotDetected) Ur Propoxyphene Screen Not Detected (NotDetected) Ur Barbiturates Screen Not Detected (NotDetected) U Tricyclic Antidepress Not Detected (NotDetected) Ur Phencyclidine Scrn Not Detected (NotDetected) Ur Amphetamines Screen Not Detected (NotDetected) U Methamphetamines Scrn Not Detected (NotDetected) U Benzodiazepines Scrn Detected H (NotDetected) Urine Cocaine Screen Not Detected (NotDetected) U Marijuana (THC) Screen Not Detected (NotDetected) Serum Alcohol <10 mg/dL Disposition Clinical Impression: Encephalopathy Disposition: ADMITTED IP TO THIS [facility] Condition: Stable Referrals: Dallin Jurado MD [Primary Care Provider] - 1-2 days
--- NOTE | 2020-10-10 15:42 | XR ---
EXAMINATION TYPE: XR chest 1V portable DATE OF EXAM: 10/10/2020 COMPARISON: Chest x-ray October 06, 2020 and older studies HISTORY: Weakness. TECHNIQUE: Single AP portable frontal upright view of the chest is obtained. FINDINGS: There is no suspicious peripheral focal air space opacity, pleural effusion, or pneumothor ax seen. The cardiac silhouette size remains within normal limits with atherosclerotic change aortic knob. The osseous structures are intact. IMPRESSION: No acute process. No significant change from prior.
[2020-10-10 15:45] LABS: Basophils # (A) 0.1 k/uL (0-0.2); Basophils % (A) 1 %; Eosinophils # (A) 0.1 k/uL (0-0.7); Eosinophils % (A) 1 %; HCT 29.5 % (39.0-53.0); HGB 10.1 gm/dL (13.0-17.5); Lymphocytes # (A) 1.2 k/uL (1.0-4.8); Lymphocytes % (A) 17 %; MCH 30.5 pg (25.0-35.0); MCHC 34.3 g/dL (31.0-37.0); MCV 88.8 fL (80.0-100.0); Mean Platelet Volume 6.6; Monocytes # (A) 0.3 k/uL (0-1.0); Monocytes % (A) 5 %; Neutrophils # (A) 5.2 k/uL (1.3-7.7); Neutrophils % (A) 76 %; Platelet Count 303 k/uL (150-450); RBC 3.32 m/uL (4.30-5.90); RDW 13.6 % (11.5-15.5); WBC 6.9 k/uL (3.8-10.6)
[2020-10-10 15:58] LABS: INR 0.9 (<1.2); Partial Thromboplastin Time 23.5 sec (22.0-30.0)
[2020-10-10 16:06] LABS: Amphetamine Screen,Urine Not Detected (NotDetected); Barbiturate Screen,Urine Not Detected (NotDetected); Benzodiazepines Screen,Urine Detected (NotDetected); Cocaine Screen,Urine Not Detected (NotDetected); Methadone Screen, Urine Not Detected (NotDetected); Opiate Screen,Urine Detected (NotDetected); Oxycodone Screen, Urine Not Detected (NotDetected); Phencyclidine Screen,Urine Not Detected (NotDetected); Tricyclic Antidepressant,Urine Not Detected (NotDetected); Urn Cannabinoid Scrn Not Detected (NotDetected)
[2020-10-10 16:10] LABS: Appearance,Urine Cloudy (Clear); Bacteria,Urine Rare /hpf; Bilirubin,Urine Negative (Negative); Blood,Urine Small (Negative); Calcium Oxalate Crystals,Urine Few /hpf; Color,Urine Yellow; Glucose,Urine (UA) Negative (Negative); Hyaline Casts,Urine 3 /lpf (0-2); Ketones,Urine 2+ (Negative); Leukocyte Esterase,Urine Small (Negative); Mucus,Urine Occasional /hpf; Nitrite,Urine Negative (Negative); PH, Urine 7.5 (5.0-8.0); Protein,Urine 1+ (Negative); RBC,Urine 100 /hpf (0-5); Specific Gravity,Urine 1.016 (1.001-1.035); Squamous Epithelial Cell,Urine <1 /hpf (0-4); Urobilinogen,Urine <2.0 mg/dL (<2.0); WBC,Urine 18 /hpf (0-5)
[2020-10-10 16:40] LABS: ALT 30 U/L (4-49); AST 65 U/L (17-59); African American GFR (CKD) >90 (>60 ml/min/1.73 sqM); Albumin 3.1 g/dL (3.5-5.0); Alcohol <10 mg/dL; Alkaline Phosphatase 79 U/L (38-126); Anion Gap 6 mmol/L; Blood Urea Nitrogen 15 mg/dL (9-20); Calcium 9.3 mg/dL (8.4-10.2); Carbon Dioxide 24 mmol/L (22-30); Chloride 103 mmol/L (98-107); Glucose 69 mg/dL (74-99); Magnesium 1.5 mg/dL (1.6-2.3); Non-African American GFR(CKD) >90 (>60 ml/min/1.73 sqM); Potassium 3.7 mmol/L (3.5-5.1); Sodium 133 mmol/L (137-145); Total Bilirubin 0.4 mg/dL (0.2-1.3); Total Protein 5.7 g/dL (6.3-8.2)
[2020-10-10] MEDS ORDERED: MAGNESIUM OXIDE 400 MG TAB PO STA (16:55)
[2020-10-10 17:21] LABS: T4, Free (Free Thyroxine) 1.36 ng/dL (0.78-2.19)
[2020-10-10] MEDS ORDERED: NALOXONE 0.4 MG/ML 1 ML VIAL IV PRN (17:41)
[2020-10-10] MEDS ORDERED: Magnesium Replacement Protocol 1 EACH MISC MISCELLANE PRN (18:19)
[2020-10-10] MEDS ORDERED: LACTATED RINGERS 1,000 ML IV ONE (18:30)
[2020-10-10] MEDS: MAGNESIUM SULFATE-D5W PMX 1 GM in DEXTROSE/WATER 1 100ML.BAG IVPB SCH ×2 (18:46→20:00)
[2020-10-10] MEDS: ACETAMINOPHEN TAB 500 MG TAB PO PRN ×2 (19:03→23:53)
[2020-10-10] MEDS ORDERED: ATORVASTATIN 40 MG TAB PO SCH (21:00)
[2020-10-10 21:16] LABS: Glucose,Whole Blood 125 mg/dL (75-99)
[2020-10-10] MEDS: metFORMIN 500 MG TAB PO SCH (21:41)
[2020-10-10] MEDS: hydrALAZINE HCL 25 MG TAB PO SCH (21:41)
[2020-10-10] MEDS: PANTOPRAZOLE 40 MG TABLET PO SCH (21:41)
[2020-10-11] MEDS: INSULIN ASPART (NovoLOG) 100 UNIT/ML VIAL SQ SCH ×5 (00:26→22:00)
[2020-10-11] MEDS ORDERED: MELATONIN 3 MG TABLET PO STA (01:46)
[2020-10-11] MEDS ORDERED: HALOPERIDOL LACTATE 5 MG/ML 1 ML VIAL IM STA (02:18)
--- NOTE | 2020-10-11 06:58 | XR ---
EXAM: XR Chest, 1 View CLINICAL HISTORY: ITS.REASON XR Reason: Possible infiltrates TECHNIQUE: Frontal view of the chest. COMPARISON: 10/10/20 FINDINGS: Lungs: No dense consolidation. No significant change. Pleural space: Unremarkable. No pneumothorax. Heart: Unremarkable. No cardiomegaly. Mediastinum: Unremarkable. Bones/joints: Unremarkable. Vasculature: Mildly tortuous thoracic aorta again seen. Tubes, lines and devices: Chest leads obscure portion of the chest. Other findings: Slightly rotated exam. IMPRESSION: No significant change. No dense consolidation or effusion
[2020-10-11] MEDS: LEVOTHYROXINE 50 MCG TAB PO SCH (07:16)
[2020-10-11 07:46] LABS: Glucose,Whole Blood 184 mg/dL (75-99)
[2020-10-11] MEDS: amLODIPine 10 MG TAB PO SCH (08:04)
[2020-10-11] MEDS: hydrALAZINE HCL 25 MG TAB PO SCH ×2 (08:04→21:05)
[2020-10-11] MEDS: metFORMIN 500 MG TAB PO SCH ×2 (08:04→21:04)
[2020-10-11] MEDS: MULTIVITAMINS, THERA 1 EACH TAB PO SCH (08:04)
[2020-10-11] MEDS: TAMSULOSIN 0.4 MG CAP.ER.24H PO SCH (08:04)
[2020-10-11] MEDS: PANTOPRAZOLE 40 MG TABLET PO SCH ×2 (08:04→19:02)
[2020-10-11] MEDS: ENOXAPARIN 40 MG/0.4 ML SYRINGE SQ SCH (08:05)
[2020-10-11 08:12] LABS: Basophils # (A) 0.1 k/uL (0-0.2); Basophils % (A) 1 %; Eosinophils # (A) 0.1 k/uL (0-0.7); Eosinophils % (A) 1 %; HCT 29.5 % (39.0-53.0); Lymphocytes # (A) 1.7 k/uL (1.0-4.8); Lymphocytes % (A) 24 %; MCH 31.3 pg (25.0-35.0); MCV 92.2 fL (80.0-100.0); Mean Platelet Volume 7.1; Monocytes # (A) 0.4 k/uL (0-1.0); Monocytes % (A) 5 %; Neutrophils # (A) 4.7 k/uL (1.3-7.7); Neutrophils % (A) 67 %; Platelet Count 338 k/uL (150-450); RBC 3.19 m/uL (4.30-5.90)
[2020-10-11] MEDS ORDERED: NON FORMULARY DRUG (Omega-3/Dha/Epa/Fish Oil [Fish Oil 500 Mg Softgel] 1 EACH Capsule) PO SCH (09:00)
--- NOTE | 2020-10-11 10:28 | P.HPIM ---
History of Present Illness H&P Date: 10/11/20 Chief Complaint: Weakness his is a 70-year-old male with a history of bipolar and schizophrenia, chronic indwelling [place] with chronic UTI, hypertension, diabetes, hypothyroidism is admitted to the hospital for generalized weakness, elevated CK, And low magnesium level. Per emergency physician notes, patient was on the couch in the lawn for up to 6 hour duration, patient was found lethargic and minimally responsive. Patient had extensive diagnostic workup in emergency department revealing low magnesium and elevated CK. Consultation with psychiatry for management of psychotropic drugs, consultation with nephrology forearm mild the elevated CK for recommendations and treatment plan. Apparently throughout the night patient became combative and aggressive in the emergency department physician ordered Haldol 5 mg, soft bilateral restraints,And safety investigator. Upon evaluation of the patient this a.m., resting comfortably in bed answering questions appropriately person place and time. Patient moving all extremities no neural deficits noted. Patient denies any complaints at this time. Awaiting recommendations from psychiatry for management of psychotropic drugs. Will continue IV hydration of lactated ringers at hundred ML's in our for mildly elevated CK levels. Based on past 2 admissions with failed discharges, spoke with Guardian patient to be placed in foster care due to poor medical compliance and multiple comorbidities including psychiatric illness. Review of Systems Constitutional: Reports fatigue, Reports lethargy Eyes: bilateral as per HPI Ears: bilateral: decreased hearing Cardiovascular: Reports decreased exercise tolerance, Reports dyspnea on exertion, Reports edema Respiratory: Reports dyspnea Gastrointestinal: Reports loss of appetite Musculoskeletal: Reports muscle cramps, Reports muscle weakness Neurological: Reports balance difficulties Psychiatric: Reports anxiety, Reports difficulty concentrating, Reports insomnia Past Medical History Past Medical History: Diabetes Mellitus, Hyperlipidemia, Hypertension Additional Past Medical History / Comment(s): used to take lipitor , neuropathy History of Any Multi-Drug Resistant Organisms: None Reported Past Surgical History: Tonsillectomy Past Anesthesia/Blood Transfusion Reactions: No Reported Reaction Past Psychological History: Anxiety, Bipolar, Schizophrenia Smoking Status: Former smoker Past Alcohol Use History: Occasional Past Drug Use History: Marijuana - Past Family History Mother Family Medical History: Coronary Artery Disease (CAD), Diabetes Mellitus Father Family Medical History: Coronary Artery Disease (CAD) Brother(s) Family Medical History: No Reported History Medications and Allergies Home Medications and Allergies Comment(s): Medications and allergies reviewed Home Medications Medication Instructions Recorded Confirmed Type Tamsulosin [Flomax] 0.4 mg PO DAILY 08/03/20 10/10/20 History amLODIPine [Norvasc] 10 mg PO DAILY #30 tab 08/06/20 10/10/20 Rx Omeprazole [PriLOSEC] 40 mg PO BID 08/16/20 10/10/20 History Levothyroxine Sodium [Synthroid] 50 mcg PO DAILY 08/21/20 10/10/20 History metFORMIN HCL 1,000 mg PO BID 08/21/20 10/10/20 History Atorvastatin Calcium [Lipitor] 40 mg PO HS 09/30/20 10/10/20 History FLUoxetine HCL [PROzac] 40 mg PO DAILY 09/30/20 10/10/20 History Multivitamins, Thera [Multivitamin 1 tab PO DAILY 09/30/20 10/10/20 History (formulary)] [place]-3/Dha/Epa/Fish Oil [Fish Oil 1 cap PO DAILY 09/30/20 10/10/20 History 500 mg Softgel] Paliperidone IM [Invega Sustenna] 234 mg INJ Q28D 09/30/20 10/10/20 History hydrALAZINE HCL [Apresoline] 25 mg PO BID 09/30/20 10/10/20 History lamoTRIgine [LaMICtal] 100 mg PO DAILY 09/30/20 10/10/20 History Levofloxacin [Levaquin] 500 mg PO DAILY 3 Days #3 tab 10/04/20 10/10/20 Rx Magnesium Oxide [Mag-Oxide] 200 mg PO BID #30 tablet 10/04/20 10/10/20 Rx traZODone HCL [Desyrel] 100 mg PO HS #30 tab 10/04/20 10/10/20 Rx Folic Acid 1 mg PO DAILY@1200 #30 tab 10/09/20 10/10/20 Rx Thiamine [Vitamin B-1] 100 mg PO DAILY@1200 #30 tab 10/09/20 10/10/20 Rx Allergies Allergy/AdvReac Type Severity Reaction Status Date / Time naproxen [From Naprosyn] AdvReac Swelling Verified 10/10/20 15:56 Physical Exam Vitals: Vital Signs Temp Pulse Resp BP Pulse Ox 10/11/20 07:31 66 16 110/39 96 10/11/20 06:45 98.5 F 72 18 127/48 96 10/10/20 21:49 73 14 129/72 96 10/10/20 17:02 73 16 133/64 98 10/10/20 14:59 82 16 101/46 93 L - Constitutional General appearance: disheveled - EENT Eyes: EOMI Ears: bilateral: normal - Neck Neck: normal ROM Carotids: bilateral: upstroke normal Thyroid: bilateral: normal size - Respiratory Respiratory: bilateral: rhonchi (Anterior posterior lung wang) - Cardiovascular Normal sinus rhythm Heart rate: 74 Rhythm: regular Heart sounds: normal: S1, S2 ankle Peripheral Edema: bilateral: 2+ foot Peripheral Edema: bilateral: 2+ leg Peripheral Edema: bilateral: 2+ dorsalis pedis Peripheral Pulses: bilateral: Normal radial pulse Peripheral Pulses: bilateral: Normal - Gastrointestinal General gastrointestinal: normal bowel sounds - Integumentary Integumentary: pale - Neurologic Neurologic: CNII-XII intact - Musculoskeletal Musculoskeletal: generalized weakness - Psychiatric Psychiatric: A&O x's 3 Results CBC & Chem 7: 10/11/20 07:04 10/10/20 15:30 Labs: Abnormal Lab Results - Last 24 Hours (Table) 10/10/20 10/10/20 10/10/20 Range/Units 15:30 15:30 15:30 RBC 3.32 L (4.30-5.90) m/uL Hgb 10.1 L (13.0-17.5) gm/dL Hct 29.5 L (39.0-53.0) % Sodium 133 L (137-145) mmol/L Creatinine 0.56 L (0.66-1.25) mg/dL Glucose 69 L (74-99) mg/dL POC Glucose (mg/dL) (75-99) mg/dL Magnesium 1.5 L (1.6-2.3) mg/dL AST 65 H (17-59) U/L Creatine Kinase (55-170) U/L Total Protein 5.7 L (6.3-8.2) g/dL Albumin 3.1 L (3.5-5.0) g/dL TSH 5.870 H (0.465-4.680) mIU/L Urine Protein 1+ H (Negative) Urine Ketones 2+ H (Negative) Urine Blood Small H (Negative) Ur Leukocyte Esterase Small H (Negative) Urine RBC 100 H (0-5) /hpf Urine WBC 18 H (0-5) /hpf Calcium Oxalate Crystal Few H (None) /hpf Urine Bacteria Rare H (None) /hpf Hyaline Casts 3 H (0-2) /lpf Urine Mucus Occasional H (None) /hpf Urine Opiates Screen Detected H (NotDetected) U Benzodiazepines Scrn Detected H (NotDetected) 10/10/20 10/10/20 10/11/20 Range/Units 15:30 21:09 07:04 RBC 3.19 L (4.30-5.90) m/uL Hgb 10.0 L (13.0-17.5) gm/dL Hct 29.5 L (39.0-53.0) % Sodium (137-145) mmol/L Creatinine (0.66-1.25) mg/dL Glucose (74-99) mg/dL POC Glucose (mg/dL) 125 H (75-99) mg/dL Magnesium (1.6-2.3) mg/dL AST (17-59) U/L Creatine Kinase 1068 H* (55-170) U/L Total Protein (6.3-8.2) g/dL Albumin (3.5-5.0) g/dL TSH (0.465-4.680) mIU/L Urine Protein (Negative) Urine Ketones (Negative) Urine Blood (Negative) Ur Leukocyte Esterase (Negative) Urine RBC (0-5) /hpf Urine WBC (0-5) /hpf Calcium Oxalate Crystal (None) /hpf Urine Bacteria (None) /hpf Hyaline Casts (0-2) /lpf Urine Mucus (None) /hpf Urine Opiates Screen (NotDetected) U Benzodiazepines Scrn (NotDetected) 10/11/20 Range/Units 07:45 RBC (4.30-5.90) m/uL Hgb (13.0-17.5) gm/dL Hct (39.0-53.0) % Sodium (137-145) mmol/L Creatinine (0.66-1.25) mg/dL Glucose (74-99) mg/dL POC Glucose (mg/dL) 184 H (75-99) mg/dL Magnesium (1.6-2.3) mg/dL AST (17-59) U/L Creatine Kinase (55-170) U/L Total Protein (6.3-8.2) g/dL Albumin (3.5-5.0) g/dL TSH (0.465-4.680) mIU/L Urine Protein (Negative) Urine Ketones (Negative) Urine Blood (Negative) Ur Leukocyte Esterase (Negative) Urine RBC (0-5) /hpf Urine WBC (0-5) /hpf Calcium Oxalate Crystal (None) /hpf Urine Bacteria (None) /hpf Hyaline Casts (0-2) /lpf Urine Mucus (None) /hpf Urine Opiates Screen (NotDetected) U Benzodiazepines Scrn (NotDetected) Microbiology - Last 24 Hours (Table) 10/10/20 15:30 Urine Culture - Preliminary Urine,Clean Catch Chest x-ray: report reviewed Thrombosis Risk Factor Assmnt - Choose All That Apply Each Factor Represents 1 point: Obesity (BMI >25) Each Risk Factor Represents 2 Points: Age 61-74 years Thrombosis Risk Factor Assessment Total Risk Factor Score: 3 Thrombosis Risk Factor Assessment Level: Moderate Risk Assessment and Plan Assessment: metabolic encephalopathy dehydration hypertension diabetes mellitus type II hyperlipidemia anemia, normocytic history of peripheral neuropathy anxiety, bipolar, schizophrenia history of nicotine dependence history of THC use full code Plan: Generalized weakness /lethargy, Avoid AUD[employer] VIS[employer] 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, awaiting recommendations from psychiatry for psychotropic medications for management of bipolar anxiety and schizophrenia dehydration, lactated ringers 100 ML's/hour elevated CK level, continue lactated ringers 100 ML's /hour mild rhabdomyolysis, continue IV fluids consultation with nephrology for recommendations and treatment plan anxiety/bipolar disorder 1/schizophrenia, awaiting recommendations from psychiatry for psychotropic medications for management of bipolar anxiety and schizophrenia continue to monitor vital signs and diagnostic testing further recommendations to come based on patient's clinical condition had a lengthy discussion with Guardian regarding discharge planning, patient unable to care for himself attempting to find foster care due to multiple comorbidities and mental illness. [facility] after 5 PM today Time with Patient: Greater than 30
[2020-10-11] MEDS: ACETAMINOPHEN TAB 500 MG TAB PO PRN ×2 (11:29→22:24)
[2020-10-11 13:06] LABS: Glucose,Whole Blood 128 mg/dL (75-99)
[2020-10-11] MEDS: FOLIC ACID 1 MG TAB PO SCH (13:06)
[2020-10-11] MEDS: THIAMINE 100 MG TAB PO SCH (13:06)
[2020-10-11 13:20] LABS: African American GFR (CKD) 118.1 (60.0-200.0); Albumin/Globulin Ratio 1.67 (1.60-3.17); Anion Gap 5.7 mmol/L (4.00-12.00); BUN/Creat Ratio 21.67 Ratio (12.00-20.00); Carbon Dioxide 24.3 mmol/L (21.6-31.8); Globulin 1.8 g/dL (1.6-3.3); Non-African American GFR(CKD) 101.9 (60.0-200.0); Potassium 3.6 mmol/L (3.5-5.5); Total Bilirubin 0.3 mg/dL (0.2-1.2); Total Protein 4.8 g/dL (6.2-8.2)
--- NOTE | 2020-10-11 17:07 | CONS ---
CONSULTATION REASON FOR CONSULT: Rhabdomyolysis. HISTORY OF PRESENT ILLNESS: Patient is a 70-year-old male who was admitted to the hospital with complaints of increased weakness. Apparently patient was minimally responsive and lethargic when he was brought in to the ER. He had been on his lawn on couch for about 6 hours. I am not sure if he had fallen. The patient is not able to give a detailed history. The patient had been combative and aggressive in the ER overnight and has received Haldol. The CK was 106 8 on admission. Serum creatinine is 0.56. Patient has had urine output, 100 RBCs noted on his UA and small blood. PAST MEDICAL HISTORY: Type 2 diabetes, hyperlipidemia, hypertension, neuropathy, anxiety, bipolar disorder, schizophrenia. PAST SURGICAL HISTORY: Tonsillectomy. SOCIAL HISTORY: Patient is a former smoker. History of marijuana use. Denies alcohol abuse. MEDICATIONS: Medications prior to admission included Flomax, Norvasc, Prilosec, metformin, Lipitor, Prozac, multivitamins, fish oil, hydralazine, Lamictal, Levaquin, magnesium, Desyrel, vitamin B1. ALLERGIES: Include NAPROSYN causes swelling. REVIEW OF SYSTEMS: As per HPI. Other systems negative. EXAMINATION: Patient is comfortable, awake, not in any acute distress. He seems to be calm at the time of exam this morning. Blood pressure was 102/41, heart rate 79 per minute, he is afebrile. Examination of the heart S1, S2. Examination of the lungs, bilateral breath sounds are heard. Abdomen is soft, nontender. Examination of lower extremities shows no evidence of edema. CAD ADMINISTRATOR exam shows patient moving all 4 extremities. No focal deficits noted. LAB: Show sodium 137, potassium 3.6, chloride 107, BUN 13, creatinine 0.6, hemoglobin 10.0 g/dL. CK level 106 8. TSH 5.8. UA showed blood small, protein 1+, RBCs 100, WBCs 18. Urine drug screen positive for opiates and benzos. Alcohol level was less than 10. ASSESSMENT: 1. Rhabdomyolysis, mild. Maintain IV hydration. I will hold off on the Lipitor for now and the hypothyroidism is also probably contributing to the rhabdomyolysis. The patient is currently maintained on supplementation. 2. Hypothyroidism maintained on Synthroid. May need adjustment. TSH was slightly on the higher side at 5.8. 3. Anemia, rule out iron deficiency. 4. History of bipolar disorder. 5. History of type 2 diabetes. PLAN: Hold Lipitor. Continue IV hydration. May continue with the metformin and repeat labs in a.m. Thank you for this consultation. Will continue to follow the patient with you during his hospitalization. MMODL / CHRISTIANN: [id number] /
[2020-10-11 17:21] LABS: Glucose,Whole Blood 134 mg/dL (75-99)
[2020-10-11] MEDS: LACTATED RINGERS 1,000 ML IV SCH (19:07)
[2020-10-11 20:16] LABS: Glucose,Whole Blood 105 mg/dL (75-99)
[2020-10-11 20:58] LABS: Magnesium 1.7 mg/dL (1.5-2.4)
[2020-10-11] MEDS: traZODone HCL 50 MG TAB PO SCH (21:05)
--- NOTE | 2020-10-11 22:36 | CONS ---
CONSULTATION DATE OF SERVICE: 10/11/2020 PURPOSE FOR CONSULTATION: 1. Evaluate for management of psychotropic medications. 2. He is on one-to-one for elopement precautions. HISTORY OF PRESENTING ILLNESS: The patient is a 70-year-old male. He was admitted through the ED for weakness. Apparently he had gone out side and sat on a couch that was outdoors. He apparently had trouble getting off the couch. Apparently had been there for a number of hours. He is followed by [facility] and sees Dr. Woods for medication management. He has diagnoses of bipolar disorder, posttraumatic stress disorder, Cannabis use disorder, PTSD, schizophrenia, and then PTSD. He was last seen by Dr. Woods on 09/23. At that time, he seemed to be relatively stable from a psychiatric standpoint. He was talking about the idea that his brother was trying to get him and wants to take everything from him. Apparently his brother had been his guardian, though no longer was his guardian. There was a sense that he was showing some paranoia. Dr. Woods notes that he rides a bicycle. He was not indicating any thoughts of self-harm. Generally, he was sleeping okay at night and takes some naps in the day. He has had 3 recent psychiatric consultations. He was seeing August 18 when he was admitted for evaluation of hypertension and near syncopal episodes. At that time, he had indicated positives on a suicide screen. He was seen on October [address] Earl when he was admitted for weakness. At that time, he was indicating his mood was "5/10." He described mild anxiety. He was noted to be on Invega Sustenna 156 mg IM monthly, Prozac 40 mg a day, trazodone 150 mg a day. Apparently received an initial dose of Invega Sustenna 234 mg on September 19. There is no information available about when he would have received his last Invega Sustenna. He was again seen in consultation 10/07. At that time, he was rehospitalized after being discharged from the hospital and referred to [facility] for rehabilitation. He was having issues with chronic urinary tract infections secondary to indwelling catheter. When he went to [facility], he was there for 1 day and then attempted to leave. He apparently pulled the fire alarm. He apparently was just uncomfortable with all of the circumstances and was saying he wanted to go home. He had some issues with combativeness. There was question of delirium. When I talked to the patient, he said he was doing fairly well. He was hopeful of going home soon. He had no specific complaints. He said his psychotropic medications were fine and that he reports taking them consistently. He reported no current significant stress issues other than the urinary tract infection. He reports no significant problems or recent changes in his general function. MENTAL STATUS: The patient was sitting up. He had a staring gaze. He did move much or show much facial expression. He responded to questions with brief answers. It is noted that he spoke in a somewhat staccato rhythm. His responses were appropriate to questions asked. His affect was somewhat intense. He seemed dysphoric though was not clear that he was showing significant signs of being distressed. There was no outward evidence of thought disorder, though he does appear to have issues with some thoughts beyond reality. On cognitive exam, he could tell me the day and date without hesitation. He could give the days of the week in reverse order without difficulties. He said that he came to the hospital for a urinary tract infection and weakness. He was not able to tell me what psychotropic medications he takes. He was able to say that he sees Dr. Woods and also a insurance case manager and others at [facility]. ASSESSMENT: This 70-year-old male appears to be relatively stable from a psychiatric standpoint, I would continue his current psychotropic medications including Prozac 40 mg a day and trazodone 150 mg a day. It would be helpful to have nursing make a contact with [facility] to determine when he received his last dose of Invega Sustenna, which would either be 156 mg IM or 234 mg IM to be received on a monthly basis. There is documentation that he received an initial dose of Invega Sustenna 234 mg on September 19. Usually the procedure is to follow up in 1 week with his Invega Sustenna 156 mg IM and then from that point to continue on a monthly basis. Given the ups and downs he has had in the last few weeks coming into the hospital, going to [employer] and getting into some periods of agitation, it would be reasonable to continue with 1 on 1 monitoring at least while he is in the ED. It would be reasonable if he is admitted to the medical floor to re-consult Psychiatry to reevaluate his status at that point. I will provide a followup at this time, though feel free to contact Psychiatry for any further care issues. ZOHRA / PREMA: [id number] /
[2020-10-12 01:44] LABS: Glucose,Whole Blood 104 mg/dL (75-99)
[2020-10-12] MEDS: LEVOTHYROXINE 50 MCG TAB PO SCH (06:19)
[2020-10-12 07:11] LABS: Glucose,Whole Blood 99 mg/dL (75-99)
[2020-10-12] MEDS: INSULIN ASPART (NovoLOG) 100 UNIT/ML VIAL SQ SCH ×4 (07:59→20:48)
[2020-10-12] MEDS ORDERED: ALPRAZolam 0.5 MG TAB PO PRN (10:26)
[2020-10-12] MEDS: amLODIPine 10 MG TAB PO SCH (11:06)
[2020-10-12] MEDS: MULTIVITAMINS, THERA 1 EACH TAB PO SCH (11:06)
[2020-10-12] MEDS: FOLIC ACID 1 MG TAB PO SCH (11:06)
[2020-10-12] MEDS: ENOXAPARIN 40 MG/0.4 ML SYRINGE SQ SCH (11:06)
[2020-10-12] MEDS: metFORMIN 500 MG TAB PO SCH ×2 (11:06→20:47)
[2020-10-12] MEDS: hydrALAZINE HCL 25 MG TAB PO SCH ×2 (11:07→20:47)
[2020-10-12] MEDS: TAMSULOSIN 0.4 MG CAP.ER.24H PO SCH (11:07)
[2020-10-12] MEDS: THIAMINE 100 MG TAB PO SCH (11:07)
[2020-10-12] MEDS: PANTOPRAZOLE 40 MG TABLET PO SCH ×2 (11:07→17:34)
[2020-10-12] MEDS: LACTATED RINGERS 1,000 ML IV SCH ×2 (11:08→23:00)
[2020-10-12] MEDS: FLUoxetine HCL 20 MG CAP PO SCH (11:14)
[2020-10-12 11:52] LABS: African American GFR (CKD) >90 (>60 ml/min/1.73 sqM); Anion Gap 6 mmol/L; Blood Urea Nitrogen 10 mg/dL (9-20); Calcium 9.2 mg/dL (8.4-10.2); Carbon Dioxide 28 mmol/L (22-30); Chloride 101 mmol/L (98-107); Creatine Kinase 577 U/L (55-170); Glucose 110 mg/dL (74-99); Magnesium 1.3 mg/dL (1.6-2.3); Non-African American GFR(CKD) >90 (>60 ml/min/1.73 sqM); Potassium 4.1 mmol/L (3.5-5.1); Sodium 135 mmol/L (137-145)
--- NOTE | 2020-10-12 12:25 | P.CN ---
Psychiatric Consult - . Consult date: 10/12/20 Consult:: 10/12/20 12:07 Reason for consult: This patient told me that he got dehydrated yesterday because he was working under the sun mowing lawn so he was brought over to the hospital. His psychiatric consult was done because of suspected encephalopathy and/or underlying mental illness. History of present illness: This patient stated that that he has been diagnosed with the bipolar disorder and schizophrenia and has a long history of mental illness. He stated that this thing has happened to him before. He gets dehydrated. He stated that the he also gets paranoid and delusional and starts thinking that people are out to hurt him. He stated that the he has been hearing voices telling him not to do bad things. Past history: He stated he has been in psychiatric hospital here at [facility] 3 times in the past. He has been under treatment at [facility]. Family history: He stated that that his mother had a history of mental illness and one of his uncles committed suicide with a gun successfully. He stated his great grandfather and grandfather had a history of alcoholism. He stated he lives alone all by himself. Medical history: He stated he has a catheter in the bladder because his bladder got shut down. He stated he is also diabetic and suffers from peripheral neuropathy. Social history called: He stated he is a and has no children. 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 Medication history: He stated he has been prescribed too many medication for him to keep a count on. He stated he has been religiously taking them. He does not appear to be a reliable historian. He stated he does not remember the names of medications. Substance abuse history: He stated he drinks alcohol occasionally. He stated he smokes marijuana once or twice a week. He denies use of any other drugs. Suicide or homicide thoughts: He denied any suicidal or homicidal thoughts ever in the past. Legal history: He stated he was jailed one time for stealing a boat. ALLERGIES and ADR: He stated he is ALLERGIC to Naprosyn and had a bad reaction with that. Mental status examination: This patient has a shaggy appearance and has poor hygiene and grooming. He had a Trujillo catheter. He was speaking in a very low monotonous voice and his speech is a hardly productive. He stated sometimes he feels depressed. His affect is flattened. His behavior is cooperative. When asked about any hallucinations or delusions he kept quiet. He has extreme paucity of ideas and he appears some what drowsy. He stated he was in the [facility] and he knew the day of the week and the month and year. He was able to do similarities and differences between common objects and was able to interpret simple proverbs. He has very little insight into his physical and emotional problems. His formal and functional judgment is impaired. His impulse control is poor. His memory and other cognitive functions are intact. Diagnostic impression: Schizoaffective disorder Dehydration Alcohol abuse Cannabis abuse Treatment recommendations: This patient is acutely psychotic and is not able to care for his basic needs. He is likely to hurt himself and therefore meets the criteria for psychiatric inpatient hospitalization. I told him but my recommendations were and he agreed with the opinion.
[2020-10-12 12:33] LABS: Glucose,Whole Blood 114 mg/dL (75-99)
[2020-10-12] MEDS: NICOTINE 21MG/24HR PATCH TRANSDERM SCH (12:56)
[2020-10-12] MEDS: MAGNESIUM SULFATE-D5W PMX 1 GM in DEXTROSE/WATER 1 100ML.BAG IVPB SCH ×2 (12:56→14:16)
[2020-10-12 17:08] LABS: Glucose,Whole Blood 125 mg/dL (75-99)
[2020-10-12 20:17] LABS: Glucose,Whole Blood 120 mg/dL (75-99)
[2020-10-12] MEDS: traZODone HCL 50 MG TAB PO SCH (20:46)
--- NOTE | 2020-10-12 23:35 | P.PN ---
Subjective Diagnoses: Acute psychosis, need inpatient psychiatric admission. metabolic encephalopathy, improved and patient is oriented now Acute rhabdomyolysis, improving dehydration hypertension diabetes mellitus type II hyperlipidemia anemia, normocytic history of peripheral neuropathy anxiety, bipolar, schizophrenia history of nicotine dependence history of THC use Hospital course: 70-year-old male with a history of bipolar and schizophrenia, chronic indwelling Trujillo with chronic UTI, hypertension, diabetes, hypothyroidism. Patient says that he has been working on mowing his lawn for 2 hours in the hot weather, he got dehydrated and generalized weakness with lightheadedness. Patient admitted with acute rhabdomyolysis and metabolic encephalopathy. He was treated with IV hydration and his creatinine kinase is improving down to 177 and low magnesium of 1.3 been replaced. Currently is on the Ringer lactate at 75 mL/h. Patient is alert awake and oriented to time place and person, he has insight into his illness. However patient has psychotic features, evaluated by psychiatrist and recommended inpatient psychiatric admission. Patient is calm and pleasant. I discussed the case with the day shift nurse, on charge nurse extension [phone] and the night nurse that patient is medically stable for discharge to psych unit. Patient also is counseled to quit smoking and he wants nicotine patch. Physical exam: GENERAL: The patient is alert and oriented x3, not in any acute distress. Well developed, well nourished. HEENT: Pupils are round and equally reacting to light. EOMI. No scleral icterus. No conjunctival pallor. Normocephalic, atraumatic. No pharyngeal erythema. No thyromegaly. CARDIOVASCULAR: S1 and S2 present. No murmurs, rubs, or gallops. PULMONARY: Chest is clear to auscultation, no wheezing or crackles. ABDOMEN: Soft, nontender, nondistended, normoactive bowel sounds. No palpable organomegaly. MUSCULOSKELETAL: No joint swelling or deformity. EXTREMITIES: No cyanosis, clubbing, or pedal edema. NEUROLOGICAL: Gross neurological examination did not reveal any focal deficits. SKIN: No rashes. no petechiae. Psychiatric: Deferred to psychiatrist. However patient showed slow meticulous voids, slow to respond. Patient is unable to take care of self Plan: This is a pleasant 70 years old male who presents with rhabdomyolysis, improved with IV fluids. Needs inpatient psychiatric admission for psychiatrist. Pat ient is pleasant and willing to proceed with mental health unit therapy, please refer to psychiatrist note. Lipitor is on hold Patient is medically stable for discharge to psych unit. Stab informed Labs and medication were reviewed.. Continue same treatment. Continue with symptomatic treatment. Resume home medication. Monitor lytes and vitals. DVT and GI prophylaxis. Further recommendationsas per clinical course of the patient DVT prophylaxis: Subcutaneous Lovenox GI Prophylaxis: Ppi PT/OT: Pending Objective - Vital Signs Vital signs: Vital Signs Temp 97.8 F 10/12/20 20:33 Pulse 76 10/12/20 20:33 Resp 16 10/12/20 20:33 BP 143/57 10/12/20 20:33 Pulse Ox 98 10/12/20 20:33 Intake & Output 10/12/20 10/12/20 10/13/20 06:59 18:59 06:59 Intake Total 3940 Output Total 1300 2850 Balance -1300 1090 Intake: Intake, IV Titration 740 Amount Lactated Ringers 1,000 ml 640 @ 75 mls/hr IV .[id number] PATRICE Rx#:[id number] Magnesium Sulfate-D5w Pmx 100 1 gm In Dextrose/Water 1 100ml.bag @ 100 mls/hr IVPB Q1H PATRICE Rx#: [id number] Oral 3200 Output: Urine 1300 2850 Other: Voiding Method Indwelling Catheter Indwelling Catheter Indwelling Catheter # Bowel Movements 1 - Labs CBC & Chem 7: 10/11/20 07:04 10/12/20 11:14 Labs: Abnormal Lab Results - Last 24 Hours (Table) 10/11/20 10/12/20 10/12/20 Range/Units 07:04 01:42 11:14 Sodium 135 L (137-145) mmol/L Creatinine 0.56 L (0.66-1.25) mg/dL Glucose 110 H (74-99) mg/dL POC Glucose (mg/dL) 104 H (75-99) mg/dL Magnesium 1.3 L (1.6-2.3) mg/dL Creatine Kinase 1361 H* 577 H (35-257) U/L 10/12/20 10/12/20 10/12/20 Range/Units 12:30 17:07 20:16 Sodium (137-145) mmol/L Creatinine (0.66-1.25) mg/dL Glucose (74-99) mg/dL POC Glucose (mg/dL) 114 H 125 H 120 H (75-99) mg/dL Magnesium (1.6-2.3) mg/dL Creatine Kinase (35-257) U/L Microbiology - Last 24 Hours (Table) 10/10/20 15:30 Urine Culture - Final Urine,Clean Catch
[2020-10-13 01:43] LABS: Glucose,Whole Blood 130 mg/dL (75-99)
[2020-10-13] MEDS: LACTATED RINGERS 1,000 ML IV SCH ×2 (02:19→14:07)
[2020-10-13] MEDS: LEVOTHYROXINE 50 MCG TAB PO SCH (05:42)
[2020-10-13 07:00] LABS: Glucose,Whole Blood 111 mg/dL (75-99)
[2020-10-13] MEDS: INSULIN ASPART (NovoLOG) 100 UNIT/ML VIAL SQ SCH ×4 (07:10→20:44)
[2020-10-13] MEDS: hydrALAZINE HCL 25 MG TAB PO SCH ×2 (07:32→20:44)
[2020-10-13] MEDS: ACETAMINOPHEN TAB 500 MG TAB PO PRN (07:32)
[2020-10-13] MEDS: metFORMIN 500 MG TAB PO SCH ×2 (07:32→20:44)
[2020-10-13] MEDS: ENOXAPARIN 40 MG/0.4 ML SYRINGE SQ SCH (07:32)
[2020-10-13] MEDS: TAMSULOSIN 0.4 MG CAP.ER.24H PO SCH (07:33)
[2020-10-13] MEDS: PANTOPRAZOLE 40 MG TABLET PO SCH ×2 (07:33→17:25)
[2020-10-13] MEDS: amLODIPine 10 MG TAB PO SCH (07:33)
[2020-10-13] MEDS: FLUoxetine HCL 20 MG CAP PO SCH (07:33)
[2020-10-13] MEDS: THIAMINE 100 MG TAB PO SCH (07:33)
[2020-10-13] MEDS: NICOTINE 21MG/24HR PATCH TRANSDERM SCH (07:33)
[2020-10-13] MEDS: MULTIVITAMINS, THERA 1 EACH TAB PO SCH (07:33)
[2020-10-13] MEDS: FOLIC ACID 1 MG TAB PO SCH (07:33)
[2020-10-13 10:06] LABS: African American GFR (CKD) 127.3 (60.0-200.0); Anion Gap 5.1 mmol/L (4.00-12.00); Calcium 9.1 mg/dL (8.7-10.3); Carbon Dioxide 27.9 mmol/L (21.6-31.8); Chol/HDL Ratio 2.66; LDL Cholesterol,Calculated 67.8 mg/dL (0.0-131.0); Magnesium 1.5 mg/dL (1.5-2.4); Non-African American GFR(CKD) 109.8 (60.0-200.0); Potassium 4.1 mmol/L (3.5-5.5); VLDL Calculation 15.2 mg/dL (5.00-40.00)
[2020-10-13 12:03] LABS: Glucose,Whole Blood 144 mg/dL (75-99)
[2020-10-13] MEDS ORDERED: MAGNESIUM SULFATE-D5W PMX 1 GM in DEXTROSE/WATER 1 100ML.BAG IVPB ONE (14:23)
--- NOTE | 2020-10-13 14:29 | P.PN ---
Subjective Diagnoses: Acute psychosis, need inpatient psychiatric admission.Patient is unable to take care of himself due to his psychosis with some paranoid thinking metabolic encephalopathy, improved and patient is oriented now Acute rhabdomyolysis, improved dehydration hypertension diabetes mellitus type II hyperlipidemia anemia, normocytic history of peripheral neuropathy anxiety, bipolar, schizophrenia history of nicotine dependence history of THC use Hospital course: 70-year-old male with a history of bipolar and schizophrenia, chronic indwelling Trujillo with chronic UTI, hypertension, diabetes, hypothyroidism. Patient says that he has been working on mowing his lawn for 2 hours in the hot weather, he got dehydrated and generalized weakness with lightheadedness. Patient admitted with acute rhabdomyolysis and metabolic encephalopathy secondary to dehydration and inability to take care of himself. He was treated with IV hydration and his creatinine kinase is improving down to 339 and low magnesium of 1.3 been replaced to 1.5 today. his creatinine normal and his IV fluids Stopped . Patient is alert awake and oriented to time place and person, he has insight into his illness. However patient has psychotic features, evaluated by psyc hiatrist and recommended inpatient psychiatric admission. Patient is calm and pleasant.he agrees to be admitted to the psych unit, however because of his chronic Trujillo catheter for his chronic UTI patient could not be transferred to mental health unit at [facility], disease case manager on the case to find a spot for psychiatric transfer in another hospital Physical exam: GENERAL: The patient is alert and oriented x3, not in any acute distress. Well developed, well nourished. HEENT: Pupils are round and equally reacting to light. EOMI. No scleral icterus. No conjunctival pallor. Normocephalic, atraumatic. No pharyngeal erythema. No thyromegaly. CARDIOVASCULAR: S1 and S2 present. No murmurs, rubs, or gallops. PULMONARY: Chest is clear to auscultation, no wheezing or crackles. ABDOMEN: Soft, nontender, nondistended, normoactive bowel sounds. No palpable organomegaly. MUSCULOSKELETAL: No joint swelling or deformity. EXTREMITIES: No cyanosis, clubbing, or pedal edema. NEUROLOGICAL: Gross neurological examination did not reveal any focal deficits. SKIN: No rashes. no petechiae. Psychiatric: Deferred to psychiatrist. However patient showed slow meticulous voids, slow to respond. Patient is unable to take care of self Plan: This is a pleasant 70 years old male who presents with rhabdomyolysis, improved with IV fluids. Needs inpatient psychiatric admission for psychiatrist. Patient is pleasant and willing to proceed with mental health unit therapy, please refer to psychiatrist note.patient petitioned by the nurse answered was placed in the chart Lipitor is on hold Patient is medically stable for discharge to psych unit. Staff informed Labs and medication were reviewed.. Continue same treatment. Continue with symptomatic treatment. Resume home medication. Monitor lytes and vitals. DVT and GI prophylaxis. Further recommendationsas per clinical course of the patient DVT prophylaxis: Subcutaneous Lovenox GI Prophylaxis: Ppi PT/OT: Pending Objective - Vital Signs Vital signs: Vital Signs Temp 97.7 F 10/13/20 12:26 Pulse 84 10/13/20 12:26 Resp 19 10/13/20 12:26 BP 139/56 10/13/20 12:26 Pulse Ox 97 10/13/20 12:26 Intake & Output 10/12/20 10/13/20 10/13/20 18:59 06:59 18:59 Intake Total 3940 Output Total 2850 700 Balance 1090 -700 Intake: Intake, IV Titration 740 Amount Lactated Ringers 1,000 ml 640 @ 75 mls/hr IV .[id number] PATRICE Rx#:[id number] Magnesium Sulfate-D5w Pmx 100 1 gm In Dextrose/Water 1 100ml.bag @ 100 mls/hr IVPB Q1H PATRICE Rx#: [id number] Oral 3200 Output: Urine 2850 700 Other: Voiding Method Indwelling Catheter Indwelling Catheter Indwelling Catheter # Bowel Movements 1 - Labs CBC & Chem 7: 10/11/20 07:04 10/13/20 05:56 Labs: Abnormal Lab Results - Last 24 Hours (Table) 10/12/20 10/12/20 10/13/20 Range/Units 17:07 20:16 01:42 Creatinine (0.6-1.5) mg/dL POC Glucose (mg/dL) 125 H 120 H 130 H (75-99) mg/dL Creatine Kinase (35-257) U/L 10/13/20 10/13/20 10/13/20 Range/Units 05:56 06:59 12:01 Creatinine 0.5 L (0.6-1.5) mg/dL POC Glucose (mg/dL) 111 H 144 H (75-99) mg/dL Creatine Kinase 339 H (35-257) U/L
[2020-10-13] MEDS: GABAPENTIN 300 MG CAP PO SCH ×2 (14:45→20:44)
[2020-10-13 17:45] LABS: Glucose,Whole Blood 157 mg/dL (75-99)
[2020-10-13 20:16] LABS: Glucose,Whole Blood 164 mg/dL (75-99)
[2020-10-13] MEDS: traZODone HCL 50 MG TAB PO SCH (20:44)
[2020-10-13] MEDS ORDERED: HALOPERIDOL LACTATE 5 MG/ML 1 ML VIAL IM ONE (22:36)
[2020-10-13] MEDS ORDERED: HALOPERIDOL LACTATE 5 MG/ML 1 ML VIAL IVP PRN (22:37)
[2020-10-13] MEDS ORDERED: HALOPERIDOL LACTATE 5 MG/ML 1 ML VIAL IM PRN (23:04)
[2020-10-14 02:43] LABS: Glucose,Whole Blood 121 mg/dL (75-99)
[2020-10-14 06:59] LABS: Glucose,Whole Blood 99 mg/dL (75-99)
[2020-10-14] MEDS: INSULIN ASPART (NovoLOG) 100 UNIT/ML VIAL SQ SCH ×4 (07:38→21:58)
[2020-10-14] MEDS: MULTIVITAMINS, THERA 1 EACH TAB PO SCH (09:36)
[2020-10-14] MEDS: NICOTINE 21MG/24HR PATCH TRANSDERM SCH (09:36)
[2020-10-14] MEDS: FLUoxetine HCL 20 MG CAP PO SCH (09:36)
[2020-10-14] MEDS: ENOXAPARIN 40 MG/0.4 ML SYRINGE SQ SCH (09:36)
[2020-10-14] MEDS: PANTOPRAZOLE 40 MG TABLET PO SCH ×2 (09:36→16:57)
[2020-10-14] MEDS: TAMSULOSIN 0.4 MG CAP.ER.24H PO SCH ×2 (09:36→20:28)
[2020-10-14] MEDS: hydrALAZINE HCL 25 MG TAB PO SCH ×2 (09:36→20:29)
[2020-10-14] MEDS: metFORMIN 500 MG TAB PO SCH ×2 (09:36→20:28)
[2020-10-14] MEDS: LEVOTHYROXINE 50 MCG TAB PO SCH (09:37)
[2020-10-14] MEDS: GABAPENTIN 300 MG CAP PO SCH ×2 (09:37→20:28)
[2020-10-14] MEDS: amLODIPine 10 MG TAB PO SCH (09:37)
[2020-10-14] MEDS: THIAMINE 100 MG TAB PO SCH (11:19)
[2020-10-14] MEDS: FOLIC ACID 1 MG TAB PO SCH (11:19)
[2020-10-14 11:44] LABS: Glucose,Whole Blood 158 mg/dL (75-99)
[2020-10-14] MEDS ORDERED: HALOPERIDOL LACTATE 5 MG/ML 1 ML VIAL IM PRN (16:19)
[2020-10-14 16:36] LABS: Glucose,Whole Blood 125 mg/dL (75-99)
[2020-10-14] MEDS: busPIRone HCl 5 MG TAB PO PRN ×2 (16:57→22:37)
--- NOTE | 2020-10-14 18:12 | PN ---
PROGRESS NOTE DATE OF SERVICE: October 14, 2020. SUBJECTIVE: The patient was requested to be seen by a primary team for psychiatric followup today. The patient has a history of schizoaffective disorder and is currently on a long-acting injectable monthly and being followed by [facility]. The patient was about to eat a snack sitting at the side of his bed and lies awake and tending to cooperate with senior grant writer. Patient claims that he went to [employer] and states that he pulled the fire alarm because "I wanted to have a cigarette". He states that he is not having any depression or anxiety at this time. However, did state that he does have bouts of anxiety during the day. He claims that he is doing better overall. He has very superficial/poor insight into his condition and poor judgment chronically. The patient has been taking his medications as prescribed. He states that he has been eating fairly and slept throughout the night. He claims to have fair energy during the day. The patient is currently denying any suicidal or homicidal ideation, intent, or plan. He is denying any auditory or visual hallucinations. MENTAL STATUS EXAM: The patient appears to be elderly, sitting in a chair about to eat his lunch. The patient did not have any tremors or any abnormal gross motor problems. The patient did have a constricted affect, however, states that his mood is "fine." The patient's speech was concrete and fluent. Nonpressured speech. The patient is denying any auditory or visual hallucinations and denying any suicidal or homicidal ideation, intent, or plan. The patient's thought process was logical, goal oriented. However, the patient does have poor insight into his condition. He is not endorsing any delusions or paranoia. The patient was alert and oriented x3 and had a fair concentration span. ASSESSMENT/PLAN OF TREATMENT: Continue with pain assessment from previous note. The patient can be continued on trazodone 150 mg q.h.s. for insomnia/mood, 40 mg of Prozac daily for mood/anxiety. The patient is currently on Invega Sustenna a dose of 156 mg Q monthly with his last dose being given had [facility] on September 23, 2020. Due to patient's impulsive tendency and poor insight along with psychosis, the patient is suitable for inpatient psychiatric hospitalization. Due to the patient's Trujillo catheter, the patient does not meet the criteria to be admitted to the mental health unit on [facility] and social work professor to find the patient a geriatric psych bed. A list of geriatric psych hospitals/units in the area was given to the patient's nurse. Increase patient's Haldol IM to 4 mg q.6 hours IM or p.r.n. for agitation/psychosis. I did add Buspar 15 mg t.i.d. p.r.n. for anxiety. Psychiatry will continue to follow up with the patient's . Please call with any questions related to the patient's care. ZOHRA / IJN: [id number] /
--- NOTE | 2020-10-14 18:52 | P.GSCN ---
History of Present Illness Consult date: 10/14/20 Reason for Consult: Urinary retention Requesting physician: Paulina Arenas History of present illness: The patient is a 70-year-old white male initially seen in August 2020 for urinary retention. He was placed on tamsulosin but failed a voiding trial. 1400 mL of urine was obtained when the Trujillo catheter was replaced on 08/29/2020. He underwent urodynamic testing on 09/20/2020 which revealed an atonic bladder. He was offered the options of a chronic indwelling Trujillo catheter versus intermittent self-catheterization. He chose the former. He is currently admitted for management of weakness, but requires inpatient hospitalization for psychosis. Review of Systems - Constitutional Reports weakness, Denies chills, Denies fever - Psychiatric Reports anxiety Past Medical History Past Medical History: Diabetes Mellitus, Hyperlipidemia, Hypertension Additional Past Medical History / Comment(s): used to take lipitor , neuropathy History of Any Multi-Drug Resistant Organisms: None Reported Past Surgical History: Tonsillectomy Past Anesthesia/Blood Transfusion Reactions: No Reported Reaction Past Psychological History: Anxiety, Bipolar, Schizophrenia Smoking Status: Former smoker Past Alcohol Use History: Occasional Past Drug Use History: Marijuana - Past Family History Mother Family Medical History: Coronary Artery Disease (CAD), Diabetes Mellitus Father Family Medical History: Coronary Artery Disease (CAD) Brother(s) Family Medical History: No Reported History Medications and Allergies Home Medications Medication Instructions Recorded Confirmed Type Tamsulosin [Flomax] 0.4 mg PO DAILY 08/03/20 10/10/20 History amLODIPine [Norvasc] 10 mg PO DAILY #30 tab 08/06/20 10/10/20 Rx Omeprazole [PriLOSEC] 40 mg PO BID 08/16/20 10/10/20 History Levothyroxine Sodium [Synthroid] 50 mcg PO DAILY 08/21/20 10/10/20 History metFORMIN HCL 1,000 mg PO BID 08/21/20 10/10/20 History Atorvastatin Calcium [Lipitor] 40 mg PO HS 09/30/20 10/10/20 History FLUoxetine HCL [PROzac] 40 mg PO DAILY 09/30/20 10/10/20 History Multivitamins, Thera [Multivitamin 1 tab PO DAILY 09/30/20 10/10/20 History (formulary)] Rociada-3/Dha/Epa/Fish Oil [Fish Oil 1 cap PO DAILY 09/30/20 10/10/20 History 500 mg Softgel] Paliperidone IM [Invega Sustenna] 234 mg INJ Q28D 09/30/20 10/10/20 History hydrALAZINE HCL [Apresoline] 25 mg PO BID 09/30/20 10/10/20 History lamoTRIgine [LaMICtal] 100 mg PO DAILY 09/30/20 10/10/20 History Levofloxacin [Levaquin] 500 mg PO DAILY 3 Days #3 tab 10/04/20 10/10/20 Rx Magnesium Oxide [Mag-Oxide] 200 mg PO BID #30 tablet 10/04/20 10/10/20 Rx traZODone HCL [Desyrel] 100 mg PO HS #30 tab 10/04/20 10/10/20 Rx Folic Acid 1 mg PO DAILY@1200 #30 tab 10/09/20 10/10/20 Rx Thiamine [Vitamin B-1] 100 mg PO DAILY@1200 #30 tab 10/09/20 10/10/20 Rx Allergies Allergy/AdvReac Type Severity Reaction Status Date / Time naproxen [From Naprosyn] AdvReac Swelling Verified 10/10/20 15:56 Surgical - Exam Vital Signs Pulse Resp BP Pulse Ox 82 16 101/46 93 L 10/10/20 14:59 10/10/20 14:59 10/10/20 14:59 10/10/20 14:59 - General well developed, well nourished, no distress - Respiratory normal respiratory effort - Genitourinary normal penis with no external lesions, testicles non-tender - Psychiatric oriented to time, oriented to person, oriented to place, speech is normal, memory intact Results - Labs 10/11/20 07:04 10/13/20 05:56 Abnormal Lab Results - Last 24 Hours (Table) 10/13/20 10/13/20 10/14/20 Range/Units 17:44 20:14 02:41 POC Glucose (mg/dL) 157 H 164 H 121 H (75-99) mg/dL 10/14/20 Range/Units 11:44 POC Glucose (mg/dL) 158 H (75-99) mg/dL Assessment and Plan (1) Retention of urine, unspecified Current Visit: Yes Status: Acute Code(s): R33.9 - RETENTION OF URINE, UNSPECIFIED SNOMED Code(s): 870658637 Plan: In summary, the patient is a 70-year-old male with chronic urinary retention due to an atonic bladder. He requires inpatient psychiatric admission. Bladder management options include a chronic indwelling Trujillo catheter versus intermittent self-catheterization, as removal of the catheter is not a viable option. He refuses intermittent self-catheterization, and thus a chronic indwelling catheter is the only remaining option. Please notify me if I can be of any further assistance. Time with Patient: Less than 30
[2020-10-14 20:12] LABS: ALT 27 U/L (4-49); AST 31 U/L (17-59); African American GFR (CKD) >90 (>60 ml/min/1.73 sqM); Albumin 3.5 g/dL (3.5-5.0); Albumin/Globulin Ratio 1.3; Alkaline Phosphatase 81 U/L (38-126); Anion Gap 8 mmol/L; Blood Urea Nitrogen 13 mg/dL (9-20); Calcium 9.3 mg/dL (8.4-10.2); Carbon Dioxide 27 mmol/L (22-30); Chloride 99 mmol/L (98-107); Creatine Kinase 219 U/L (55-170); Globulin 2.6 g/dL; Glucose 140 mg/dL (74-99); Non-African American GFR(CKD) >90 (>60 ml/min/1.73 sqM); Potassium 4.3 mmol/L (3.5-5.1); Sodium 134 mmol/L (137-145); Total Bilirubin <0.1 mg/dL (0.2-1.3); Total Protein 6.1 g/dL (6.3-8.2)
[2020-10-14] MEDS: traZODone HCL 50 MG TAB PO SCH (20:29)
--- NOTE | 2020-10-14 20:52 | PN ---
PROGRESS NOTE DATE OF SERVICE: 10/14/2020. HISTORY: This is a 70-year-old gentleman admitted with acute psychosis, is being closely monitored. The patient is supposed to be inpatient psych but because of Trujillo catheter the patient could not be known. Dr. Perez who placed Trujillo catheter about 2 months ago has evaluated the patient. The patient has atonic bladder. Dr. Perez recommended that removal of the catheter is not a viable option. The patient apparently refused intermittent self catheterization, also, so chronic indwelling catheter is only viable option at this time. The geriatic psych is also following the patient closely. EXAM: Patient is conscious confused. Pulse 94, blood pressure 160/60, respirations 16, temperature 97.8, pulse ox 97% on room air skin. HEENT: Conjunctivae normal. NECK: No JVD. CARDIOVASCULAR: S1 and S2 present. LUNGS: Breath sounds diminished at the bases. Few scattered rhonchi. ABDOMEN: Soft. NERVOUS SYSTEM: As above. LABS: Hemoglobin 10, glucose 125. ASSESSMENT: 1. Acute psychosis for inpatient psych facility. 2. 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 3. Acute metabolic encephalopathy, change in mental status. 4. Acute rhabdomyolysis. 5. Dehydration. 6. Hypertension. 7. Diabetes mellitus type 2. 8. Hyperlipidemia. 9. Anemia normocytic. 10.History of peripheral neuropathy. 11.Anxiety, bipolar depression, schizophrenia. 12.History of nicotine dependence. 13.History of THC usage. RECOMMENDATIONS AND DISCUSSION: I recommend to continue current management as mentioned earlier. The chronic indwelling Trujillo catheter is the only viable option for this patient because of above mentioned reasons and per Urology consultation. I would recommend continue follow with psych and referral to a [facility]-psych unit and the social work manager and Case Management to follow up on this. Prognosis guarded because of multiple complex medical issues. Further recommendations to follow. MMODL / IJN: [id number] /
[2020-10-14 21:31] LABS: Glucose,Whole Blood 139 mg/dL (75-99)
[2020-10-14 22:03] VITALS: RESP 20
[2020-10-15 02:27] LABS: Glucose,Whole Blood 112 mg/dL (75-99)
[2020-10-15 05:33] LABS: Basophils # (A) 0.1 k/uL (0-0.2); Basophils % (A) 1 %; Eosinophils # (A) 0.1 k/uL (0-0.7); Eosinophils % (A) 1 %; HCT 32.1 % (39.0-53.0); HGB 10.4 gm/dL (13.0-17.5); Lymphocytes # (A) 2.1 k/uL (1.0-4.8); Lymphocytes % (A) 20 %; MCH 29.4 pg (25.0-35.0); MCHC 32.4 g/dL (31.0-37.0); MCV 90.7 fL (80.0-100.0); Mean Platelet Volume 6.5; Monocytes # (A) 0.5 k/uL (0-1.0); Monocytes % (A) 4 %; Neutrophils # (A) 7.8 k/uL (1.3-7.7); Neutrophils % (A) 73 %; Platelet Count 313 k/uL (150-450); RBC 3.54 m/uL (4.30-5.90); RDW 14.3 % (11.5-15.5); WBC 10.6 k/uL (3.8-10.6)
[2020-10-15] MEDS ORDERED: LACTATED RINGERS 1,000 ML IV SCH (07:15)
[2020-10-15 07:27] LABS: Glucose,Whole Blood 84 mg/dL (75-99)
[2020-10-15] MEDS: LEVOTHYROXINE 50 MCG TAB PO SCH (09:35)
[2020-10-15] MEDS: ENOXAPARIN 40 MG/0.4 ML SYRINGE SQ SCH (09:36)
[2020-10-15] MEDS: amLODIPine 10 MG TAB PO SCH (09:36)
[2020-10-15] MEDS: NICOTINE 21MG/24HR PATCH TRANSDERM SCH (09:36)
[2020-10-15] MEDS: INSULIN ASPART (NovoLOG) 100 UNIT/ML VIAL SQ SCH ×3 (09:36→17:33)
[2020-10-15] MEDS: PANTOPRAZOLE 40 MG TABLET PO SCH ×2 (09:36→17:34)
[2020-10-15] MEDS: hydrALAZINE HCL 25 MG TAB PO SCH (09:37)
[2020-10-15] MEDS: FLUoxetine HCL 20 MG CAP PO SCH (09:37)
[2020-10-15] MEDS: metFORMIN 500 MG TAB PO SCH (09:37)
[2020-10-15] MEDS: TAMSULOSIN 0.4 MG CAP.ER.24H PO SCH (09:37)
[2020-10-15] MEDS: MULTIVITAMINS, THERA 1 EACH TAB PO SCH (09:37)
[2020-10-15] MEDS: FOLIC ACID 1 MG TAB PO SCH (09:38)
[2020-10-15] MEDS: THIAMINE 100 MG TAB PO SCH (09:38)
[2020-10-15 10:28] LABS: African American GFR (CKD) 110.8 (60.0-200.0); Albumin 3.2 g/dL (3.80-4.90); Albumin/Globulin Ratio 1.52 (1.60-3.17); Anion Gap 8.1 mmol/L (4.00-12.00); BUN/Creat Ratio 17.14 Ratio (12.00-20.00); Calcium 9.4 mg/dL (8.7-10.3); Carbon Dioxide 28.9 mmol/L (21.6-31.8); Globulin 2.1 g/dL (1.6-3.3); Magnesium 1.4 mg/dL (1.5-2.4); Non-African American GFR(CKD) 95.6 (60.0-200.0); Total Bilirubin 0.2 mg/dL (0.2-1.2); Total Protein 5.3 g/dL (6.2-8.2)
[2020-10-15 11:48] LABS: Glucose,Whole Blood 104 mg/dL (75-99)
[2020-10-15] MEDS ORDERED: Magnesium Replacement Protocol 1 EACH MISC MISCELLANE PRN (12:44)
[2020-10-15 13:03] VITALS: BP 121/64; PULSE 85; TEMP 98.4
[2020-10-15] MEDS ORDERED: DIVALPROEX ER 250 MG TAB.ER.24H PO SCH (13:45)
--- NOTE | 2020-10-15 13:52 | P.PN ---
Progress Note - Text Progress Note Date: 10/15/20 Interval History: Patient was seen today for psychiatric follow-up. Patient had received a Haldol IM prn dose yesterday at around 7 PM for agitation and aggression. According to patient's nurse she states that patient has been wanting a ride to go home and also grabbed a nurse earlier last night. Patient was seen at the bedside and was agreeable to speak to copywriter. He was attempting to eat his lunch. He had a sitter by his side. Patient denies any overnight complaints and states that he slept well. He continues to have very poor insight into his condition and was requesting to be discharged so he can "go home". He claims that he does not have any depression or anxiety at this time. He did try the BuSpar yesterday which she found effective. He was fairly concrete and had a poverty of content in his speech. He continues to be impulsive and aggressive at times as reported by staff. He has a low frustration tolerance. At this time patient denies any suicidal or homical ideations, intent or plan. Patient denies any auditory, visual hallucinations. Patient denies any side effects from the medications and has been compliant with meds. Mental Status Exam: General Appearance: Patient appears to be stated age is alert, constricted, and attempts to be cooperative. Patient appears to have fair hygiene and grooming wearing hospital gown with poor eye contact. Behavior: Patient is calmly lying in bed without any agitated behavior. Low frustration tolerance Speech: Patient's speech is fluent and nonpressured. Mood/Affect: Patient reports their mood is "ok", affect is congruent and constricted Suicidality/Homicidality: Patient denies having any suicidal or homicidal ideation intent or plan. Perceptions: Patient denies any visual hallucinations and denies any auditory hallucinations Though content/process: Jackson, poverty of content. Perseverating on discha rge. Memory and concentration: AOX3, grossly intact for the purposes of this session. Judgment and insight: chronically poor Assessment Bipolar disorder type 1 Cannabis use disorder mild Nicotine dependence Plan: -At this time patient DOES continue to meet criteria for inpatient psychiatric admission at a geriatric facility. currently awaiting a bed. -Delirium precautions recommended with patient including - avoiding use of narcotics and AD COPY WRITER sedatives, limit anticholinergic medications when possible, frequent re-orientation, minimize use of restraints, open window shades during the day and close them at night -Would recommend the following medication changes/additions: Patient is currently receiving monthly Invega Sustenna monthly injections to ensure compliance through [facility] and is followed by Dr. Singh. Patient received his monthly dose of 156 mg IM of Invega Sustenna last on 09/23/2020 and will be due for his next injection on 11/20/20. Prozac 40 mg daily for mood/anxiety, trazodon e 150 mg daily at bedtime for insomnia/mood.Buspar 15mg tid prn for anxiety. Added Depakote 250mg bid for mood stabilization. -Haldol IM prn for agitation. -SW currently looking for [facility] psych bed. -communicated plan with nurse. -will continue to follow along -Please contact with any questions.
[2020-10-15] MEDS ORDERED: MAGNESIUM OXIDE 400 MG TAB PO STA (14:05)
[2020-10-15] MEDS: MAGNESIUM SULFATE-D5W PMX 1 GM in DEXTROSE/WATER 1 100ML.BAG IVPB SCH ×2 (14:23→14:28)
[2020-10-15 16:35] LABS: Glucose,Whole Blood 110 mg/dL (75-99)
--- NOTE | 2020-10-15 20:43 | P.DS ---
Providers Date of admission: 10/11/20 11:59 Expected date of discharge: 10/15/20 Attending physician: Dallin Jurado Consults: 10/10/20 18:26 Consult Physician Urgent Consulting Provider: Vladimir Earl Consult Reason/Comments: psychotropic medication management Do you want consulting provider notified?: Yes 10/10/20 18:46 Consult Physician Urgent Consulting Provider: Mary Grace Valles Consult Reason/Comments: rhabdomyolysis Do you want consulting provider notified?: Yes 10/14/20 10:52 Consult Physician Routine Consulting Provider: Lang Perez Consult Reason/Comments: chronic egan/utis Do you want consulting provider notified?: Yes Primary care physician: Dallin Jurado Hospital Course: 70-year-old male with a history of bipolar and schizophrenia, chronic indwellin g Egan with chronic UTI, hypertension, diabetes, hypothyroidism is admitted to the hospital for generalized weakness, elevated CK, And low magnesium level. Per emergency physician notes, patient was on the couch in the lawn for up to 6 hour duration, patient was found lethargic and minimally responsive. Patient had extensive diagnostic workup in emergency department revealing low magnesium and elevated CK. Consultation with psychiatry for management of psychotropic drugs, consultation with nephrology for mild elevated CK for recommendations and treatment plan. Consultation with psychiatric for recommendations of psychotropic drugs were made and adjustments have been implemented into patient's treatment plan. Consultation with nephrology regarding mild rhabdomyolysis for fluid resuscitation and serial CKS. Patient had several episodes of mild agitation and required psychotropic drugs for anxiety. Upon discharge to the psychiatric facility in [place] patient was medically cleared, labs have normalized and diagnostic testing was of within normal range. Patient will benefit from inpatient psychiatric facility for treatment of several psychiatric illnesses. Assessment: Acute psychosis for outpatient facility Atonic bladder and chronic indwelling fully catheter acute metabolic encephalopathy, change in mental status acute rhabdomyolysis dehydration diabetes mellitus type II hyperlipidemia anemia normocytic history of peripheral neuropathy anxiety, bipolar, schizophrenia history of nicotine dependence history of THC use full code Health Concerns: Poor medical compliance multiple comorbidities psychiatric illness Pertinent Studies: Serial chest x-rays Procedures: None performed Patient Condition at Discharge: Stable Plan - Discharge Summary Discharge Rx Participant: Yes New Discharge Prescriptions: Continue Omeprazole [PriLOSEC] 40 mg PO BID Levothyroxine Sodium [Synthroid] 50 mcg PO DAILY lamoTRIgine [LaMICtal] 100 mg PO DAILY hydrALAZINE HCL [Apresoline] 25 mg PO BID FLUoxetine HCL [PROzac] 40 mg PO DAILY Multivitamins, Thera [Multivitamin (formulary)] 1 tab PO DAILY traZODone HCL [Desyrel] 100 mg PO HS #30 tab Tamsulosin [Flomax] 0.4 mg PO DAILY amLODIPine [Norvasc] 10 mg PO DAILY #30 tab metFORMIN HCL 1,000 mg PO BID Ursa-3/Dha/Epa/Fish Oil [Fish Oil 500 mg Softgel] 1 cap PO DAILY Paliperidone IM [Invega Sustenna] 234 mg INJ Q28D Atorvastatin Calcium [Lipitor] 40 mg PO HS Magnesium Oxide [Mag-Oxide] 200 mg PO BID #30 tablet Folic Acid 1 mg PO DAILY@1200 #30 tab Thiamine [Vitamin B-1] 100 mg PO DAILY@1200 #30 tab Discontinued Levofloxacin [Levaquin] 500 mg PO DAILY 3 Days #3 tab Discharge Medication List Tamsulosin [Flomax] 0.4 mg PO DAILY 08/03/20 [History] amLODIPine [Norvasc] 10 mg PO DAILY #30 tab 08/06/20 [Rx] Omeprazole [PriLOSEC] 40 mg PO BID 08/16/20 [History] Levothyroxine Sodium [Synthroid] 50 mcg PO DAILY 08/21/20 [History] metFORMIN HCL 1,000 mg PO BID 08/21/20 [History] Atorvastatin Calcium [Lipitor] 40 mg PO HS 09/30/20 [History] FLUoxetine HCL [PROzac] 40 mg PO DAILY 09/30/20 [History] Multivitamins, Thera [Multivitamin (formulary)] 1 tab PO DAILY 09/30/20 [History] Ursa-3/Dha/Epa/Fish Oil [Fish Oil 500 mg Softgel] 1 cap PO DAILY 09/30/20 [History] Paliperidone IM [Invega Sustenna] 234 mg INJ Q28D 09/30/20 [History] hydrALAZINE HCL [Apresoline] 25 mg PO BID 09/30/20 [History] lamoTRIgine [LaMICtal] 100 mg PO DAILY 09/30/20 [History] Magnesium Oxide [Mag-Oxide] 200 mg PO BID #30 tablet 10/04/20 [Rx] traZODone HCL [Desyrel] 100 mg PO HS #30 tab 10/04/20 [Rx] Folic Acid 1 mg PO DAILY@1200 #30 tab 10/09/20 [Rx] Thiamine [Vitamin B-1] 100 mg PO DAILY@1200 #30 tab 10/09/20 [Rx] Follow up Appointment(s)/Referral(s): Dallin Jurado MD [Primary Care Provider] - 1-2 days Discharge Disposition: OTHER INSTITUTION NOT DEFINED
== END 2020-10-15 19:47 | DRG 557 ==
LOC: EC 14:58 → 5NMEDONC 17:41 → OBSVTOIN 10-11 11:59 → 5NMEDONC 10-11 16:16
PROVIDERS: ADMIT Family Medicine; ATTEND Family Medicine
DX: M62.82 Rhabdomyolysis (principal); G93.41 Metabolic encephalopathy; N39.0 Urinary tract infection, site not specified; E83.42 Hypomagnesemia; D64.9 Anemia, unspecified; E03.9 Hypothyroidism, unspecified; E11.9 Type 2 diabetes mellitus without complications; E78.5 Hyperlipidemia, unspecified; E86.0 Dehydration; F12.10 Cannabis abuse, uncomplicated; F25.9 Schizoaffective disorder, unspecified; F31.9 Bipolar disorder, unspecified; R45.1 Restlessness and agitation; F43.10 Post-traumatic stress disorder, unspecified; I10 Essential (primary) hypertension; N31.2 Flaccid neuropathic bladder, not elsewhere classified; Z20.822 Contact with and (suspected) exposure to COVID-19; Z87.440 Personal history of urinary (tract) infections; Z79.84 Long term (current) use of oral hypoglycemic drugs; Z79.890 Hormone replacement therapy; Z79.899 Other long term (current) drug therapy; Z82.49 Family history of ischemic heart disease and other diseases of the circulatory system; Z83.3 Family history of diabetes mellitus; Z87.891 Personal history of nicotine dependence; Z88.6 Allergy status to analgesic agent
CPT/HCPCS: 36415; 71045; 80048; 80053; 80061; 80306; 80320; 81001; 82550; 83735; 83880; 84439; 84443; 85025; 85610; 85730; 87086; 87635; 93005; 96360; 96361; 99285